=== PATIENT | female | born 1955 | race African-American/Black ===

== ENCOUNTER 2017-04-19 08:52 | Inpatient (IN) | payer OTHER ==
[~2017-04-19] VITALS: Ht 167.6 cm; Wt 118.0 kg
[~2017-04-19 08:52] MED LIST: ALBU8.5H8 IH; ALPR0.5T PO; AMLO5TAB2 PO; ATEN25TA PO; BUDE10.2 IH; CEFP200T PO; CEPH-264 PO; CYCL10TA2 PO; FURO40TA4 PO; GLIP10TA13 PO; GUAI180L4 PO; HYDR-2680 PO; HYDR200T5 PO; INSU100V8 SQ; METO10TA81 PO; MIRT15TA3 PO; NAPR500T3 PO; ONDA4TAB7 PO; POTA20TA84 PO; RABE20TA18 PO
[2017-04-19] MEDS ORDERED: IV DEXTROSE 10% 500 ML IV ONE ×3 (09:30→10:00)
[2017-04-19] MEDS ORDERED: 0.9 % SODIUM CHLORIDE 10 ML DISP.SYRIN. IV PRN (09:30)
[2017-04-19] MEDS ORDERED: IV NORMAL SALINE 1000ML BAG 1,000 ML IV SCH (09:30)
--- NOTE | 2017-04-19 09:40 | PHYS DOC ---
Past Medical History Past Medical History: Arthritis, Diabetes-Type II, GERD, Hypertension, Pneumonia, Other Additional Past Medical Histor: SARCOIDOSIS; wound on left 1st toe Past Surgical History: Cholecystectomy, Hysterectomy Alcohol Use: None Drug Use: None Adult General Chief Complaint Chief Complaint: HYPOGLYCEMIA HPI HPI Patient is a pleasant 61-year-old female with a history of hypertension, depression, diabetes, reflux who presents with hypogastric event for the first time. Yesterday morning the patient began having some nausea with decreased appetite. She took her normal 70 units of subcutaneous Lantus yesterday morning and then her dose again yesterday evening but admits she did not eat much. She' s been very nauseous with no clear episodes of vomiting or diarrhea but has had decreased energy. This morning by family she was found unresponsive on the floor. There is no signs of external trauma. Patient had a D stick when EMS struck a 36. They gave her an amp of D50 which she did improve her mentation. Patient's son to baseline she still is very tired. She admits that she taken her Lantus without eating because she had no appetite. This is the first time she's ever had a hypoglycemic event like this. She denies any chest pain, belly pain, nausea vomiting at this time. She denies any headache focal neurologic deficit. She denies any direct trauma. She also denies any travel outside the country, sick contacts or recent antibiotic use. She denies any change in her medications change in urine output or changes in diet. Dr. Valorie Rivera is her PCP. Review of Systems Review of Systems Constitutional: Denies fever or chills [] Eyes: Denies change in visual acuity, redness, or eye pain [] HENT: Denies nasal congestion or sore throat [] Respiratory: Denies cough or shortness of breath [] Cardiovascular: No additional information not addressed in HPI [] GI: Patient denies abdominal pain but has had some nausea without vomiting or diarrhea or stool problems. : Denies dysuria or hematuria [] Musculoskeletal: Denies back pain or joint pain [] Integument: Denies rash or skin lesions [] Neurologic: Denies headache, focal weakness or sensory changes patient feels tired but has no specific focal neurologic deficit. Endocrine: Denies polyuria or polydipsia [] Current Medications Current Medications Current Medications Medications (Trade) Dose Ordered Sig/Valencia Start Time Stop Time Status Last Admin Dose Admin Dextrose 500 ml @ 0 mls/hr 1X ONCE 04/19/17 10:00 04/19/17 10:01 DC 04/19/17 09:55 999 MLS/HR Sodium Chloride (Normal Saline Flush) 10 ml QSHIFT PRN 04/19/17 09:30 Allergies Allergies Allergies Coded Allergies Type Severity Reaction Last Updated Verified Penicillins Allergy Intermediate 05/15/16 Yes benzocaine Allergy Intermediate 05/15/16 Yes hydralazine Allergy Intermediate 05/13/16 No lidocaine Allergy Intermediate 05/15/16 Yes losartan Allergy Intermediate 05/15/16 Yes tetracaine Allergy Intermediate 05/15/16 Yes Physical Exam Physical Exam His vital signs reviewed and noted to be hypertensive otherwise normal. Constitutional: Well developed, well nourished, no acute distress, patient is mildly obese but she is somewhat sleepy. HENT: Normocephalic, atraumatic, bilateral external ears normal, oropharynx moist, no oral exudates, nose normal. [] Eyes: PERRLA, EOMI, conjunctiva normal, no discharge. [] Neck: Normal range of motion, no tenderness, supple, no stridor. [] Cardiovascular:Heart rate regular rhythm, no murmur [] Lungs & Thorax: Bilateral breath sounds clear to auscultation [] Abdomen: Bowel sounds normal, soft, no tenderness, no masses, no pulsatile masses. [] Skin: Warm, dry, no erythema, no rash. [] Back: No tenderness, no CVA tenderness. [] Extremities: No tenderness, no cyanosis, no clubbing, ROM intact, no edema. [] Neurologic: Alert and oriented X 3, normal motor function, normal sensory function, no focal deficits noted. [] Psychologic: No sleepy but she is very lucid and remembering the entire event. She does not remember passing out prior to being found down this morning. Current Patient Data Vital Signs Vital Signs Date Time Temp Pulse Resp B/P (MAP) Pulse Ox O2 Delivery O2 Flow Rate FiO2 04/19/17 08:58 97.4 65 18 140/68 (92) 93 Room Air 97.4 Lab Values Laboratory Tests Test 04/19/17 08:58 Glucose (Fingerstick) 101 mg/dL (70-99) H EKG EKG [] EKG timed 90504/19/2017 demonstrates a normal sinus rhythm with a heart rate of 65. MD interval of 204 which is first degree AV block QRS is 92 QTC is 525 which demonstrated demonstrates QT prolongation. Read by Dr. Chandler. Radiology/Procedures Radiology/Procedures [] Course & Med Decision Making Course & Med Decision Making Pertinent Labs and Imaging studies reviewed. (See chart for details) []International Coordinator note: Consulted internal medicine PCP International Coordinator called at of the service consult service: 9:32 AM. Consult called back at 9:52 AM Discussed the case I presented and they agreed with admission. Time of acceptance 9:52 AM Impression suffered from hypoglycemic event likely secondary to misuse of Lantus and not eating an adequate amount. There is an unfortunate interaction between some of the medications she takes orally hydroxy chloroquine and the Lantus have additive effects. That'll actually increased the likelihood of hypoglycemic events. not Quite back to baseline her sugars have dropped from 228 -105 here in the emergency department despite being given an amp of D50 she will be given D10 and fed. I would encourage that we admit her to the hospital to help provide her a significant amount of sugar and protein to ensure that she does not become hypoglycemic again. Patient was given a food tray at approximately 9:30 AM which she was not able to consume because she was not hungry. Given this fact I called internal medicine 9:32 AM or admission in fear that the patient's Lantus which has a long half life is 12-24 hours will continue to work and possible hypogastric events. At this point patient will be admitted to the hospital given D10 over 5- 10 minute period to help reduce a this frequency of syncopal events. differential includes but not limited to: Neurally mediated vasovagal syncope, situational syncope, cardiac sinus syncope , orthostatic hypertension, medications, psychiatric interventions, neurologic syncope, cardiogenic syncopal B, to include organic heart disease congestive heart failure, cardiac dysrhythmia, seizure disorder, stroke or transient ischemic attack, bradycardia dysrhythmias, tachycardia dysrhythmias, PT, V. fib V. fib, cardiac abnormalities like first degree secondary third-degree AV blocks , prolonged QT, hypertrophic Terrance myopathy, severe pulmonic stenosis, pulmonary arterial hypertension, atrial myxomas, aortic stenosis, valvular failure, alcohol consumption, adrenal insufficiency, drug effects from things like antidepressants, antihypertensive agents like beta blockers, vasodilators including calcium channel blockers and nitrates, autonomic insufficiency. I spent approximately 45-50 minutes working and engaged directly in the patient care providing critical care evaluation this includes but not limited to time spent engaged in work directly related to the individual patients care. I spent time at the bedside, reviewing test results, discussing the case with staff, documenting the medical record and time spent with EMS discussing specific treatment issues when the patient presented and during his evaluation. Impression: Hypoglycemia secondary to decreased oral intake and Lantus use. Medication interaction, QT prolongation of unclear etiology. disPosition: Admission to the hospital for close monitoring Dragon Disclaimer Dragon Disclaimer This electronic medical record was generated, in whole or in part, using a voice recognition dictation system. Departure Departure Impression: Primary Impression: Nausea & vomiting Additional Impressions: QT prolongation Hypoglycemia Altered mental status Disposition: 09 ADMITTED INPATIENT Admitting Physician: Alida Tariq Condition: GUARDED Referrals: PRO RIVERA MD (PCP) Problem Qualifiers ONOFRE CHANDLER MD Apr 19, 2017 09:40
[2017-04-19] MEDS ORDERED: IV DEXTROSE 5% - 0.9 % NACL 1,000 ML IV ONE (10:45)
[2017-04-19 10:54] LABS: BASO # 0.1 x10^3/uL (0.0-0.2); BASO % 1 % (0-3); EOS % 0 % (0-3); HEMATOCRIT 23.9 % (36.0-47.0); HEMOGLOBIN 7.1 g/dL (12.0-15.5); LYMPH % 12 % (24-48); MEAN CORPUSCULAR HEMOGLOBIN 19 pg (25-35); MEAN CORPUSCULAR HGB CONC 30 g/dL (31-37); MEAN CORPUSCULAR VOLUME 64 fL (79-100); MONO % 5 % (0-9); NEUT % 83 % (31-73); PLATELET COUNT 208 x10^3/uL (140-400); RED BLOOD COUNT 3.73 x10^6/uL (3.50-5.40); RED CELL DISTRIBUTION WIDTH 17.1 % (11.5-14.5); WHITE BLOOD COUNT 8.2 x10^3/uL (4.0-11.0)
[2017-04-19] MEDS ORDERED: DEXTROSE 50% 25 GM / 50ML DISP.SYRIN. IV PRN (11:00)
[2017-04-19 11:04] LABS: CALCIUM 7.9 mg/dL (8.5-10.1); CREATININE 1.4 mg/dL (0.6-1.0); GFR 46.1
[2017-04-19 11:10] LABS: ALBUMIN 3.2 g/dL (3.4-5.0); DIRECT BILIRUBIN 0.3 mg/dL (0.0-0.2); MAGNESIUM 1.3 mg/dL (1.8-2.4); TOTAL BILIRUBIN 0.7 mg/dL (0.2-1.0); TOTAL PROTEIN 7.8 g/dL (6.4-8.2)
[2017-04-19] MEDS ORDERED: guaiFENesin DM 200MG/20MG 10 ML SYRUP PO PRN (11:15)
[2017-04-19] MEDS ORDERED: ALBUTEROL SULFATE 2.5 MG/3 ML NEBU. NEB PRN (11:15)
[2017-04-19 11:20] VITALS: BP 144/72
[2017-04-19 11:35] LABS: PLT ESTIMATE ADEQUATE (ADEQUATE); POLYCHROMASIA SLIGHT
[2017-04-19 11:36] LABS: ANISOCYTOSIS SLIGHT; MICROCYTOSIS PRESENT
--- NOTE | 2017-04-19 11:43 | EKG ---
[facility] [address] [place] [address] Test Date: 2017-04-19 Test Time: 09:06:22 Pat Name: MARLENI LEOS Department: Room: 572 1 Gender: F Scalper Operator: : [id number] Requested By: ONOFRE CHANDLER Order Number: [id number] Reading MD: Allen Cummings Measurements Intervals [place] Rate: 65 P: 68 PA: 204 QRS: 1 QRSD: 92 T: 31 QT: 504 QTc: 525 Interpretive Statements SINUS RHYTHM PROLONGED QT RI6.01 Unconfirmed report Compared to ECG 03/01/2017 13:36:12 Prolonged QT interval now present ST (T wave) deviation no longer present Electronically Signed On 04-19-2017 13:26:52 CDT by Allen Cummings
[2017-04-19] MEDS: BUDESONIDE 0.5 MG/2 ML NEBU. NEB SCH ×2 (11:59→19:32)
[2017-04-19] MEDS: ALBUTEROL SULFATE 2.5 MG/3 ML NEBU. NEB SCH ×3 (11:59→19:32)
[2017-04-19] MEDS: INSULIN ASPART 300 UNITS/3 ML INSULN.PEN SQ SCH ×2 (12:00→16:35)
[2017-04-19] MEDS ORDERED: ENOXAPARIN 40 MG/0.4 ML SYRINGE. SQ SCH (12:00)
[2017-04-19 12:09] LABS: BILIRUBIN,URINE NEGATIVE (NEG); GLUCOSE,URINE NEGATIVE (NEG); NITRITE,URINE NEGATIVE (NEG); PROTEIN,URINE NEGATIVE (NEG-TRACE)
[2017-04-19 12:21] LABS: BACTERIA,URINE FEW /HPF (0-FEW); RBC,URINE OCC /HPF (0-2); SQUAMOUS EPITHELIAL CELL,UR MANY /LPF
[2017-04-19] MEDS: HYDROXYCHLOROQUINE 200 MG TABLET PO SCH ×2 (13:27→21:39)
[2017-04-19] MEDS: PANTOPRAZOLE 40 MG TABLET.DR. PO SCH (13:27)
[2017-04-19] MEDS: FUROSEMIDE 40 MG TABLET. PO SCH (13:27)
[2017-04-19] MEDS: ATENOLOL 25 MG TABLET. PO SCH ×2 (13:27→21:39)
[2017-04-19] MEDS: MIRTAZAPINE 15 MG TABLET PO SCH (13:27)
[2017-04-19] MEDS: amLODIPine BESYLATE 5 MG TABLET PO SCH (13:27)
[2017-04-19 14:46] VITALS: BP 139/63
[2017-04-19] MEDS ORDERED: POTASSIUM CHLORIDE 20 MEQ TABLET.ER. PO ONE ×2 (15:00→18:00)
--- NOTE | 2017-04-19 15:08 | PDOC ---
Provider Note Provider Note Pt seen.H&P dictated. #[id number] AURELIA HOWELL MD Apr 19, 2017 15:08
[2017-04-19] MEDS ORDERED: POTASSIUM CL 20MEQ IN D5W 1,000 ML IV SCH (15:30)
--- NOTE | 2017-04-19 16:24 | HP ---
ADMIT DATE: 04/19/2017 LOCATION: 2. ATTENDING PHYSICIAN: Dr. Adi Rivera. REASON FOR ADMISSION TO THE HOSPITAL: Hypoglycemia and low sugar feels weak. HISTORY OF PRESENT ILLNESS: The patient is a 61-year-old female, patient of Dr. Rivera. The patient has a history of diabetes, hypertension, reflux and has been nausea, decreased appetite. She took her normal dose of insulin Lantus is take 70 units twice a day and found on response to on the floor by the family and no external trauma. Paramedics was called, when they came, her sugar was 36, given 1 ampule of D50 and mental condition improved a little bit. She is very tired and she is not eating, was admitted to the hospital with a diagnosis of hypoglycemia. Her hemoglobin was low at 7, potassium was low at 3. The patient was given fluids, D5, was admitted to the hospital. The patient was admitted to the hospital on 04/01/2017 and at that time was found to have diabetic gastroparesis and her hemoglobin was 7.5, had a CT scan, gastric emptying study at that time. PAST MEDICAL HISTORY: Hypertension, hyperlipidemia, migraine, gastroparesis, fatty liver, anxiety, low back pain, arthritis, fibromyalgia, rheumatoid arthritis sero negative, polyarthralgia, sarcoidosis, chronic renal insufficiency stage 2, diabetes, insulin-dependent, and neuropathy. PAST SURGICAL HISTORY: Gallbladder surgery and hysterectomy. FAMILY HISTORY: Positive for CAD, diabetes and hypertension. SOCIAL HISTORY: Negative for smoking, alcohol or drug abuse. REVIEW OF SYSTEMS: Not feeling well, had nausea, vomiting and some diarrhea yesterday, did not eat much and sugar was low. Denies any fever, denies any chest pain or shortness of breath. Rest of the 14 systems was reviewed and negative. ALLERGIES: TO PENICILLIN, BENZOCAINE, HYDRALAZINE, LIDOCAINE, LOSARTAN, AND TETRACYCLINE. MEDICATIONS At HOME: Insulin 70 units twice daily. She was on antibiotic cefpodoxime not sure if she is currently taking or stopped taking. Albuterol 2 puffs 4 times daily, amlodipine 5 mg daily, atenolol 25 mg twice a day, Symbicort twice a day, cyclobenzaprine 10 mg at bedtime, Lasix 40 mg daily, cough syrup, hydrocodone qid, hydroxychloroquine 200 mg twice a day, mirtazapine 50 mg daily and Aciphex 20 mg daily. The patient says she had an EGD and colon more than 7 years ago and the CT scan shows a right renal mass 2.3 cm last time. PHYSICAL EXAMINATION: GENERAL: The patient is not in any distress. VITAL SIGNS: Temperature 97, pulse 65, respirations 18, blood pressure 140/68, 93% on 2 liters. HEENT: Head is atraumatic. Pupils equal. Oral cavity: No congestion. NECK: Supple. Thyroid not enlarged. JVD not elevated. CHEST: Symmetrical. CARDIOVASCULAR: S1, S2. LUNGS: Clear to auscultation. No wheezing. ABDOMEN: Soft, bowel sounds present, no mass palpable. EXTERNAL GENITALIA: No Mccray. RECTAL: Deferred. EXTREMITIES: No calf tenderness, no edema. NEUROLOGIC: Moving all extremities. No focal deficit. The patient making good conversation. She is keeping her eyes closed. LABORATORY DATA: Shows a white count of 8, hemoglobin 7.1, platelets 208. Electrolytes: Sodium 139, potassium 3.0, chloride 100, bicarb 30, BUN 13, creatinine 1.4, glucose 104 and went down to 63, magnesium 1.3, low. LFTs were normal. Troponin 0.017. TSH is 0.3. Urine was negative, 5-10 wbc. EKG done normal sinus rhythm, slightly prolonged QT interval. FINAL IMPRESSION: 1. Hypoglycemia. 2. Stomach upset with nausea, vomiting, diarrhea for last 24 hours. 3. Anemia severe 4. Renal insufficiency stage 3. 5. Arthritis. 6. Renal mass. 7. Possible sarcoidosis. 8. Rheumatoid arthritis. 9. Type 2 josephine chris 10.IDDM PLAN: At this time, was admitted to the hospital and hold off on the Lantus given D5 and monitor blood sugars check A1c and also the patient would need workup for anemia. Hemoglobin was 7, stool for Hemoccult, iron studies and some IV infusion, iron and also had GI workup done for her anemia if not done recently, also replace potassium. DVT prevention with SCD hold off on the Lovenox secondary to anemia. AURELIA HOWELL MD DR: VANESA/thomas JOB#: [id number] / [id number] MTDD
[2017-04-19 19:00] VITALS: BP 164/74
[2017-04-19] MEDS ORDERED: MAGNESIUM SULFATE 2GM 50 ML IV ONE (20:30)
[2017-04-19] MEDS ORDERED: NON FORMULARY ITEM (Budesonide/Formoterol Fumarate (Symbicort 160-4.5 Mcg Inhaler) 2 PUFF) IH SCH (21:00)
[2017-04-19] MEDS: CYCLOBENZAPRINE 10 MG TABLET. PO SCH (21:39)
[2017-04-19] MEDS: HYDROcodone/APAP 10/325 1 TAB TABLET PO PRN (21:43)
[2017-04-19 23:00] VITALS: BP 157/75
[2017-04-20] VITALS (15 sets, daily range): BP systolic 134–171; BP diastolic 52–84
[2017-04-20 06:27] LABS: BASO # 0.1 x10^3/uL (0.0-0.2); BASO % 1 % (0-3); EOS % 2 % (0-3); HEMATOCRIT 22.3 % (36.0-47.0); LYMPH # 2.5 x10^3/uL (1.0-4.8); LYMPH % 27 % (24-48); MEAN CORPUSCULAR HEMOGLOBIN 19 pg (25-35); MEAN CORPUSCULAR HGB CONC 30 g/dL (31-37); MEAN CORPUSCULAR VOLUME 64 fL (79-100); MONO % 9 % (0-9); NEUT % 61 % (31-73); PLATELET COUNT 196 x10^3/uL (140-400); RED BLOOD COUNT 3.49 x10^6/uL (3.50-5.40); WHITE BLOOD COUNT 9.1 x10^3/uL (4.0-11.0)
[2017-04-20 06:38] LABS: CALCIUM 7.9 mg/dL (8.5-10.1); CREATININE 1.3 mg/dL (0.6-1.0); GFR 50.2
[2017-04-20 06:39] LABS: % SAT IRON 5 % (15-34); IRON,SERUM 17 ug/dL (50-170); POTASSIUM 3.3 mmol/L (3.5-5.1)
[2017-04-20 06:47] LABS: HEMOGLOBIN 6.7 g/dL (12.0-15.5)
[2017-04-20] MEDS: ALBUTEROL SULFATE 2.5 MG/3 ML NEBU. NEB SCH ×3 (07:49→16:38)
[2017-04-20] MEDS: BUDESONIDE 0.5 MG/2 ML NEBU. NEB SCH ×3 (07:50→19:44)
[2017-04-20] MEDS: INSULIN ASPART 300 UNITS/3 ML INSULN.PEN SQ SCH ×3 (08:00→17:00)
[2017-04-20] MEDS ORDERED: IRON SUCROSE COMPLEX 500 MG in IV NORMAL SALINE 250ML 250 ML IV ONE (09:00)
--- NOTE | 2017-04-20 09:06 | PDOC ---
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 04/20/17 0906: IM PROGRESS NOTES- Objective Vitals Vital Signs Date Time Temp Pulse Resp B/P (MAP) Pulse Ox O2 Delivery O2 Flow Rate FiO2 04/20/17 07:52 96 Room Air 04/20/17 07:00 98.6 86 17 164/84 (110) 98.6 04/19/17 14:42 2.0 Input & Output Intake and Output 04/20/17 07:00 Intake Total 2270 ml Output Total 2300 ml Balance -30 ml Intake Oral 1120 ml IV Total 1150 ml Output Urine Total 2300 ml Physical Exam Physical Exam General appearance - alert,well appearing, and in no distress and oriented to person, place, and time Mental Status - alert, oriented to person, place, and time, affect appropriate to mood Head - normal Chest - clear to auscultation, no wheezes, rales or rhonchi, symmetric air entry Heart - S1 and S2 normal Abdomen - soft, nontender, nondistended, obese, BS + Neurological - no acute focal neurological deficit noted. Musculoskeletal - no muscular tenderness noted Extremities - + pedal edema Skin - warm and dry Labs Laboratory Tests Test 04/19/17 08:58 04/19/17 10:25 04/19/17 10:45 04/19/17 11:33 Glucose (Fingerstick) 101 mg/dL (70-99) 90 mg/dL (70-99) White Blood Count 8.2 x10^3/uL (4.0-11.0) Red Blood Count 3.73 x10^6/uL (3.50-5.40) Hemoglobin 7.1 g/dL (12.0-15.5) Hematocrit 23.9 % (36.0-47.0) Mean Corpuscular Volume 64 fL (79-100) Mean Corpuscular Hemoglobin 19 pg (25-35) Mean Corpuscular Hemoglobin Concent 30 g/dL (31-37) Red Cell Distribution Width 17.1 % (11.5-14.5) Platelet Count 208 x10^3/uL (140-400) Neutrophils (%) (Auto) 83 % (31-73) Lymphocytes (%) (Auto) 12 % (24-48) Monocytes (%) (Auto) 5 % (0-9) Eosinophils (%) (Auto) 0 % (0-3) Basophils (%) (Auto) 1 % (0-3) Neutrophils # (Auto) 6.8 x10^3uL (1.8-7.7) Lymphocytes # (Auto) 1.0 x10^3/uL (1.0-4.8) Monocytes # (Auto) 0.4 x10^3/uL (0.0-1.1) Eosinophils # (Auto) 0.0 x10^3/uL (0.0-0.7) Basophils # (Auto) 0.1 x10^3/uL (0.0-0.2) Platelet Estimate Adequate (ADEQUATE) Polychromasia Slight Anisocytosis Slight Microcytosis Present Sodium Level 139 mmol/L (136-145) Potassium Level 3.0 mmol/L (3.5-5.1) Chloride Level 100 mmol/L (98-107) Carbon Dioxide Level 30 mmol/L (21-32) Anion Gap 9 (6-14) Blood Urea Nitrogen 13 mg/dL (7-20) Creatinine 1.4 mg/dL (0.6-1.0) Estimated GFR (Cockcroft-Gault) 46.1 Glucose Level 104 mg/dL (70-99) Calcium Level 7.9 mg/dL (8.5-10.1) Magnesium Level 1.3 mg/dL (1.8-2.4) Total Bilirubin 0.7 mg/dL (0.2-1.0) Direct Bilirubin 0.3 mg/dL (0.0-0.2) Aspartate Amino Transf (AST/SGOT) 36 U/L (15-37) Alanine Aminotransferase (ALT/SGPT) 24 U/L (14-59) Alkaline Phosphatase 126 U/L (46-116) Troponin I Quantitative < 0.017 ng/mL (0.000-0.055) Total Protein 7.8 g/dL (6.4-8.2) Albumin 3.2 g/dL (3.4-5.0) Thyroid Stimulating Hormone (TSH) 0.362 uIU/mL (0.358-3.74) Urine Collection Type Unknown Urine Color Yellow Urine Clarity Clear Urine pH 6.0 Urine Specific Keller 1.010 Urine Protein Negative mg/dL (NEG-TRACE) Urine Glucose (UA) Negative mg/dL (NEG) Urine Ketones (Stick) Negative mg/dL (NEG) Urine Blood Negative (NEG) Urine Nitrite Negative (NEG) Urine Bilirubin Negative (NEG) Urine Urobilinogen Dipstick 1.0 mg/dL (0.2 mg/dL) Urine Leukocyte Esterase Trace (NEG) Urine RBC Occ /HPF (0-2) Urine WBC 5-10 /HPF (0-4) Urine Squamous Epithelial Cells Many /LPF Urine Bacteria Few /HPF (0-FEW) Test 04/19/17 11:47 04/19/17 12:44 04/19/17 16:09 04/19/17 21:06 Glucose (Fingerstick) 63 mg/dL (70-99) 96 mg/dL (70-99) 140 mg/dL (70-99) 126 mg/dL (70-99) Test 04/20/17 04:53 04/20/17 04:55 04/20/17 07:06 04/20/17 08:15 Sodium Level 141 mmol/L (136-145) Potassium Level 3.3 mmol/L (3.5-5.1) Chloride Level 104 mmol/L (98-107) Carbon Dioxide Level 29 mmol/L (21-32) Anion Gap 8 (6-14) Blood Urea Nitrogen 12 mg/dL (7-20) Creatinine 1.3 mg/dL (0.6-1.0) Estimated GFR (Cockcroft-Gault) 50.2 Glucose Level 29 mg/dL (70-99) Calcium Level 7.9 mg/dL (8.5-10.1) Magnesium Level 1.9 mg/dL (1.8-2.4) Iron Level 17 ug/dL (50-170) Total Iron Binding Capacity 376 ug/dL (250-450) Iron Saturation 5 % (15-34) Ferritin 24 ng/mL (8-252) White Blood Count 9.1 x10^3/uL (4.0-11.0) Red Blood Count 3.49 x10^6/uL (3.50-5.40) Hemoglobin 6.7 g/dL (12.0-15.5) Hematocrit 22.3 % (36.0-47.0) Mean Corpuscular Volume 64 fL (79-100) Mean Corpuscular Hemoglobin 19 pg (25-35) Mean Corpuscular Hemoglobin Concent 30 g/dL (31-37) Red Cell Distribution Width 17.0 % (11.5-14.5) Platelet Count 196 x10^3/uL (140-400) Neutrophils (%) (Auto) 61 % (31-73) Lymphocytes (%) (Auto) 27 % (24-48) Monocytes (%) (Auto) 9 % (0-9) Eosinophils (%) (Auto) 2 % (0-3) Basophils (%) (Auto) 1 % (0-3) Neutrophils # (Auto) 5.5 x10^3uL (1.8-7.7) Lymphocytes # (Auto) 2.5 x10^3/uL (1.0-4.8) Monocytes # (Auto) 0.8 x10^3/uL (0.0-1.1) Eosinophils # (Auto) 0.2 x10^3/uL (0.0-0.7) Basophils # (Auto) 0.1 x10^3/uL (0.0-0.2) Reticulocyte Count (auto) 0.9 % (0.5-2.5) Glucose (Fingerstick) 31 mg/dL (70-99) 103 mg/dL (70-99) Laboratory Tests Test 04/19/17 08:58 04/19/17 10:25 04/19/17 10:45 04/19/17 11:33 Glucose (Fingerstick) 101 mg/dL (70-99) 90 mg/dL (70-99) White Blood Count 8.2 x10^3/uL (4.0-11.0) Red Blood Count 3.73 x10^6/uL (3.50-5.40) Hemoglobin 7.1 g/dL (12.0-15.5) Hematocrit 23.9 % (36.0-47.0) Mean Corpuscular Volume 64 fL (79-100) Mean Corpuscular Hemoglobin 19 pg (25-35) Mean Corpuscular Hemoglobin Concent 30 g/dL (31-37) Red Cell Distribution Width 17.1 % (11.5-14.5) Platelet Count 208 x10^3/uL (140-400) Neutrophils (%) (Auto) 83 % (31-73) Lymphocytes (%) (Auto) 12 % (24-48) Monocytes (%) (Auto) 5 % (0-9) Eosinophils (%) (Auto) 0 % (0-3) Basophils (%) (Auto) 1 % (0-3) Neutrophils # (Auto) 6.8 x10^3uL (1.8-7.7) Lymphocytes # (Auto) 1.0 x10^3/uL (1.0-4.8) Monocytes # (Auto) 0.4 x10^3/uL (0.0-1.1) Eosinophils # (Auto) 0.0 x10^3/uL (0.0-0.7) Basophils # (Auto) 0.1 x10^3/uL (0.0-0.2) Platelet Estimate Adequate (ADEQUATE) Polychromasia Slight Anisocytosis Slight Microcytosis Present Sodium Level 139 mmol/L (136-145) Potassium Level 3.0 mmol/L (3.5-5.1) Chloride Level 100 mmol/L (98-107) Carbon Dioxide Level 30 mmol/L (21-32) Anion Gap 9 (6-14) Blood Urea Nitrogen 13 mg/dL (7-20) Creatinine 1.4 mg/dL (0.6-1.0) Estimated GFR (Cockcroft-Gault) 46.1 Glucose Level 104 mg/dL (70-99) Calcium Level 7.9 mg/dL (8.5-10.1) Magnesium Level 1.3 mg/dL (1.8-2.4) Total Bilirubin 0.7 mg/dL (0.2-1.0) Direct Bilirubin 0.3 mg/dL (0.0-0.2) Aspartate Amino Transf (AST/SGOT) 36 U/L (15-37) Alanine Aminotransferase (ALT/SGPT) 24 U/L (14-59) Alkaline Phosphatase 126 U/L (46-116) Troponin I Quantitative < 0.017 ng/mL (0.000-0.055) Total Protein 7.8 g/dL (6.4-8.2) Albumin 3.2 g/dL (3.4-5.0) Thyroid Stimulating Hormone (TSH) 0.362 uIU/mL (0.358-3.74) Urine Collection Type Unknown Urine Color Yellow Urine Clarity Clear Urine pH 6.0 Urine Specific Keller 1.010 Urine Protein Negative mg/dL (NEG-TRACE) Urine Glucose (UA) Negative mg/dL (NEG) Urine Ketones (Stick) Negative mg/dL (NEG) Urine Blood Negative (NEG) Urine Nitrite Negative (NEG) Urine Bilirubin Negative (NEG) Urine Urobilinogen Dipstick 1.0 mg/dL (0.2 mg/dL) Urine Leukocyte Esterase Trace (NEG) Urine RBC Occ /HPF (0-2) Urine WBC 5-10 /HPF (0-4) Urine Squamous Epithelial Cells Many /LPF Urine Bacteria Few /HPF (0-FEW) Test 04/19/17 11:47 04/19/17 12:44 04/19/17 16:09 04/19/17 21:06 Glucose (Fingerstick) 63 mg/dL (70-99) 96 mg/dL (70-99) 140 mg/dL (70-99) 126 mg/dL (70-99) Test 04/20/17 04:53 04/20/17 04:55 04/20/17 07:06 04/20/17 08:15 Sodium Level 141 mmol/L (136-145) Potassium Level 3.3 mmol/L (3.5-5.1) Chloride Level 104 mmol/L (98-107) Carbon Dioxide Level 29 mmol/L (21-32) Anion Gap 8 (6-14) Blood Urea Nitrogen 12 mg/dL (7-20) Creatinine 1.3 mg/dL (0.6-1.0) Estimated GFR (Cockcroft-Gault) 50.2 Glucose Level 29 mg/dL (70-99) Calcium Level 7.9 mg/dL (8.5-10.1) Magnesium Level 1.9 mg/dL (1.8-2.4) Iron Level 17 ug/dL (50-170) Total Iron Binding Capacity 376 ug/dL (250-450) Iron Saturation 5 % (15-34) Ferritin 24 ng/mL (8-252) White Blood Count 9.1 x10^3/uL (4.0-11.0) Red Blood Count 3.49 x10^6/uL (3.50-5.40) Hemoglobin 6.7 g/dL (12.0-15.5) Hematocrit 22.3 % (36.0-47.0) Mean Corpuscular Volume 64 fL (79-100) Mean Corpuscular Hemoglobin 19 pg (25-35) Mean Corpuscular Hemoglobin Concent 30 g/dL (31-37) Red Cell Distribution Width 17.0 % (11.5-14.5) Platelet Count 196 x10^3/uL (140-400) Neutrophils (%) (Auto) 61 % (31-73) Lymphocytes (%) (Auto) 27 % (24-48) Monocytes (%) (Auto) 9 % (0-9) Eosinophils (%) (Auto) 2 % (0-3) Basophils (%) (Auto) 1 % (0-3) Neutrophils # (Auto) 5.5 x10^3uL (1.8-7.7) Lymphocytes # (Auto) 2.5 x10^3/uL (1.0-4.8) Monocytes # (Auto) 0.8 x10^3/uL (0.0-1.1) Eosinophils # (Auto) 0.2 x10^3/uL (0.0-0.7) Basophils # (Auto) 0.1 x10^3/uL (0.0-0.2) Reticulocyte Count (auto) 0.9 % (0.5-2.5) Glucose (Fingerstick) 31 mg/dL (70-99) 103 mg/dL (70-99) Meds Current Medications Acetaminophen/ Hydrocodone Bitart (Lortab 10/325) 1 tab PRN Q6HRS PRN PO PAIN Last administered on 04/19/17 21:43; Start 04/19/17 at 11:00 Albuterol Sulfate (Ventolin Neb Soln) 2.5 mg PRN Q4HRS PRN NEB COUGH; Start 04/19/17 at 11:15 Albuterol Sulfate (Ventolin Neb Soln) 2.5 mg RTQID NEB Last administered on 04/20 07:49; Start 04/19/17 at 12:00 Amlodipine Besylate (Norvasc) 5 mg DAILY PO Last administered on 04/19/17 13:27 ; Start 04/19/17 at 12:00 Atenolol (Tenormin) 25 mg BID PO Last administered on 04/19/17 21:39; Start 04/19/17 at 12:00 Budesonide (Pulmicort) 0.5 mg RTBID NEB Last administered on 04/20/17 07:50; Start 04/19/17 at 12:00 Cyclobenzaprine HCl (Flexeril) 10 mg QHS PO Last administered on 04/19/17 21:39 ; Start 04/19/17 at 21:00 Dextrose 500 ml @ 0 mls/hr 1X ONCE IV ; Start 04/19/17 at 09:30; Stop 04/19/17 at 09:30; Status DC Dextrose 500 ml @ 0 mls/hr 1X ONCE IV ; Start 04/19/17 at 09:30; Stop 04/19/17 at 09:55; Status DC Dextrose 500 ml @ 0 mls/hr 1X ONCE IV Last administered on 04/19/17 09:55; Start 04/19/17 at 10:00; Stop 04/19/17 at 10:01; Status DC Dextrose (Dextrose 50%-Water Syringe) 12.5 gm PRN Q15MIN PRN IV SEE COMMENTS; Start 04/19/17 at 11:00 Dextrose/Sodium Chloride 1,000 ml @ 75 mls/hr 1X ONCE IV Last administered on 04/19/17 10:39; Start 04/19/17 at 10:45; Stop 04/20/17 at 00:04; Status DC Enoxaparin Sodium (Lovenox 40mg Syringe) 40 mg Q12HR SQ Last administered on 13:28; Start 04/19/17 at 12:00; Stop 04/19/17 at 14:56; Status DC Furosemide (Lasix) 40 mg DAILY PO Last administered on 04/19/17 13:27; Start at 12:00 Guaifenesin (Robitussin Dm) 10 ml PRN Q6HRS PRN PO COUGH; Start 04/19/17 at 11: 15 Hydroxychloroquine Sulfate (Plaquenil) 200 mg BID PO Last administered on 21:39; Start 04/19/17 at 12:00 Insulin Aspart (NovoLOG) 0-7 UNITS TIDWMEALS SQ ; Start 04/19/17 at 12:00 Iron Sucrose 500 mg/Sodium Chloride 275 ml @ 78.571 mls/ hr 1X ONCE IV ; Start 04/20/17 at 09:00; Stop 04/20/17 at 12:29 Iron Sucrose 500 mg/Sodium Chloride 275 ml @ 78.571 mls/ hr 1X ONCE IV ; Start 04/21/17 at 08:00; Stop 04/21/17 at 11:29 Magnesium Sulfate/ Dextrose 50 ml @ 25 mls/hr 1X ONCE IV Last administered on 04/19/17 21:40; Start 04/19/17 at 20:30; Stop 04/19/17 at 22:29; Status DC Mirtazapine (Remeron) 15 mg DAILY PO Last administered on 04/19/17 13:27; Start 04/19/17 at 12:00 Non-Formulary Medication 2 puff BID IH ; Start 04/19/17 at 21:00; Status UNV Pantoprazole Sodium (Protonix) 40 mg DAILYAC PO Last administered on 04/19/17 13:27; Start 04/19/17 at 12:00 Potassium Chloride/Dextrose 1,000 ml @ 75 mls/hr [id number] IV Last administered on 04/19/17 17:04; Start 04/19/17 at 15:30 Potassium Chloride (Klor-Con) 40 meq 1X ONCE PO Last administered on 04/19/17 17:03; Start 04/19/17 at 15:00; Stop 04/19/17 at 15:01; Status DC Potassium Chloride (Klor-Con) 40 meq 1X ONCE PO Last administered on 04/19/17 19:11; Start 04/19/17 at 18:00; Stop 04/19/17 at 18:01; Status DC Sodium Chloride 1,000 ml @ 1,000 mls/hr Q1H IV Last administered on 04/19/17 09:56; Start 04/19/17 at 09:30; Stop 04/19/17 at 10:29; Status DC Sodium Chloride (Normal Saline Flush) 10 ml QSHIFT PRN IV AFTER MEDS AND BLOOD DRAWS; Start 04/19/17 at 09:30 Assessment Assessment 1. 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 2. Stomach upset with nausea, vomiting, diarrhea for last 24 hours. 3. Anemia severe Fe deficiency 4. HTN 5. sarcoidosis 6. RA seronegative 7. fatty liver 8. h/o diverticula R lower colon 9. severe PCL malnutrition due to n/v 10. hyperlipidemia 11. migraine headache 12. gastroparesis POA with delayed gastric emptying 13. acute hypokalemia POA 14. OA 15. h/o renal mass 16. Stomach upset with nausea, vomiting, diarrhea for last 24 hours.POA PLAN anemia Admit Hgb 7.1 11/18 6.7 2 unit PRC 11/18 hematology consult GI consult IV iron 11/18-Fe panel:Fe deficient DC lovenox DM II hypoglycemia FSBS/ssi D10 11/17 IV D5NS with 20 KCL 11/17 with KCL increased 11/18 to 40meq lower extremity edema continue Home lasix 40mg IV CKD III Admit BUN 13 11/18 12 Cr 1.4 1.3 K 3.0 3.3 Mg 1.3 1.9 IV KCL increased to 40meq Additional 20 po 11/18 Mg SO4 11/18 4gm IV n/v diarrhea GI consult h/o gastroparesis ?viral gastroenteritis DVT/GI prophylaxis SCD/RUTH Stop lovenox -anemia with PRC infusion PPI Plan Plan For more details regarding further plans, please refer to the orders. PRO SCHROEDER MD 04/20/17 0912: IM PROGRESS NOTES- Subjective Subjective Has nausea,vomiting diarrhea,hypoglycemia- glucose 31,and fatigue. Other systems reviewed and are negative. No c/o bleeding. Assessment Assessment Hypokalemia- increase KCL in IV fluids. Has edema of legs- continue oral Lasix but no need for IV Lasix between PRBcs at this time. h/o noncompliance. will check to see when she had GI endoscopy previously. The patient was seen and examined by me. Chart reviewed and plan of care formulated. Discussed with, reviewed and agree with [facility]'s notes, plan of care and orders with modifications as necessary. For more details regarding further plans, please refer to the orders. TARA SANTIAGO APRN Apr 20, 2017 09:06 PRO SCHROEDER MD Apr 20, 2017 09:12
[2017-04-20] MEDS ORDERED: ONDANSETRON PF 4 MG/2 ML VIAL. IV PRN (09:15)
[2017-04-20] MEDS ORDERED: METOCLOPRAMIDE HCL 10 MG/2 ML VIAL. IV PRN (09:15)
[2017-04-20] MEDS ORDERED: POTASSIUM CHLORIDE 20 MEQ TABLET.ER. PO ONE (09:30)
--- NOTE | 2017-04-20 09:41 | PDOC ---
Provider Note Provider Note Onc consult dictated- [id number] Iron def anemia, chronic - Venofer 1000 mg total ordered - Gi consulted - Transfusing 1 unit for hgb < 7 today - Will set up 2 mth f/u to verify full replacement of iron deficit JENNIFER AMEZQUITA DO Apr 20, 2017 09:41
--- NOTE | 2017-04-20 10:32 | PDOC2 ---
GI CONSULT Reason For Consult: Anemia, GI workup HPI: HPI: 61 y/o female known to GI/Dr. Brooks. Admitted w/ hypoglycemia. H/o gastroparesis w/ delayed GES in 2015. N/v improved w/ Reglan which she prefers not to take, says causes diarrhea. H/o GERD controlled w/ PPI (Aciphex), last EGD 2005. Last colonoscopy <10 years ago, recalls being normal. Thinks both ' scopes at [facility]. Has CHRISTOPHER w/ Hgb in 8-9 range in 2015, last admission 02/2017 in 7s , this admission was 7.1 and now 6.7. Low indices, normal BUN, Cr 1.3. Denies any GI symptoms to me including vomiting, abd pain, diarrhea, constipation, weight loss, hematochezia, melena. Had some nausea earlier after a breathing treatment, now better. PMH: PMH: RA, sarcoidosis, IDDM, HTN, GERD, gastroparesis, CHRISTOPHER, cholecystectomy, total hysterectomy FH: Family History: No pertinent hx Social History: ALCOHOL: none Drugs: None ROS: GEN: Denies fevers, chills, sweats HEENT: Denies blurred vision, sore throat CV: Denies chest pain RESP: +SOA GI: Per HPI : Denies hematuria, dysuria ENDO: Denies weight changes NEURO: Denies confusion, dizziness MSK: +weakness, h/o RA SKIN: Denies jaundice, pruritus Vitals: Vitals: Vital Signs Date Time Temp Pulse Resp B/P (MAP) Pulse Ox O2 Delivery O2 Flow Rate FiO2 04/20/17 08:00 Room Air 2.0 04/20/17 07:52 96 04/20/17 07:00 98.6 86 17 164/84 (110) 98.6 Labs: Labs: Laboratory Tests Test 04/19/17 10:25 04/19/17 10:45 04/19/17 11:33 04/19/17 11:47 Glucose (Fingerstick) 90 mg/dL (70-99) 63 mg/dL (70-99) White Blood Count 8.2 x10^3/uL (4.0-11.0) Red Blood Count 3.73 x10^6/uL (3.50-5.40) Hemoglobin 7.1 g/dL (12.0-15.5) Hematocrit 23.9 % (36.0-47.0) Mean Corpuscular Volume 64 fL (79-100) Mean Corpuscular Hemoglobin 19 pg (25-35) Mean Corpuscular Hemoglobin Concent 30 g/dL (31-37) Red Cell Distribution Width 17.1 % (11.5-14.5) Platelet Count 208 x10^3/uL (140-400) Neutrophils (%) (Auto) 83 % (31-73) Lymphocytes (%) (Auto) 12 % (24-48) Monocytes (%) (Auto) 5 % (0-9) Eosinophils (%) (Auto) 0 % (0-3) Basophils (%) (Auto) 1 % (0-3) Neutrophils # (Auto) 6.8 x10^3uL (1.8-7.7) Lymphocytes # (Auto) 1.0 x10^3/uL (1.0-4.8) Monocytes # (Auto) 0.4 x10^3/uL (0.0-1.1) Eosinophils # (Auto) 0.0 x10^3/uL (0.0-0.7) Basophils # (Auto) 0.1 x10^3/uL (0.0-0.2) Platelet Estimate Adequate (ADEQUATE) Polychromasia Slight Anisocytosis Slight Microcytosis Present Sodium Level 139 mmol/L (136-145) Potassium Level 3.0 mmol/L (3.5-5.1) Chloride Level 100 mmol/L (98-107) Carbon Dioxide Level 30 mmol/L (21-32) Anion Gap 9 (6-14) Blood Urea Nitrogen 13 mg/dL (7-20) Creatinine 1.4 mg/dL (0.6-1.0) Estimated GFR (Cockcroft-Gault) 46.1 Glucose Level 104 mg/dL (70-99) Calcium Level 7.9 mg/dL (8.5-10.1) Magnesium Level 1.3 mg/dL (1.8-2.4) Total Bilirubin 0.7 mg/dL (0.2-1.0) Direct Bilirubin 0.3 mg/dL (0.0-0.2) Aspartate Amino Transf (AST/SGOT) 36 U/L (15-37) Alanine Aminotransferase (ALT/SGPT) 24 U/L (14-59) Alkaline Phosphatase 126 U/L (46-116) Troponin I Quantitative < 0.017 ng/mL (0.000-0.055) Total Protein 7.8 g/dL (6.4-8.2) Albumin 3.2 g/dL (3.4-5.0) Thyroid Stimulating Hormone (TSH) 0.362 uIU/mL (0.358-3.74) Urine Collection Type Unknown Urine Color Yellow Urine Clarity Clear Urine pH 6.0 Urine Specific Ideal 1.010 Urine Protein Negative mg/dL (NEG-TRACE) Urine Glucose (UA) Negative mg/dL (NEG) Urine Ketones (Stick) Negative mg/dL (NEG) Urine Blood Negative (NEG) Urine Nitrite Negative (NEG) Urine Bilirubin Negative (NEG) Urine Urobilinogen Dipstick 1.0 mg/dL (0.2 mg/dL) Urine Leukocyte Esterase Trace (NEG) Urine RBC Occ /HPF (0-2) Urine WBC 5-10 /HPF (0-4) Urine Squamous Epithelial Cells Many /LPF Urine Bacteria Few /HPF (0-FEW) Test 04/19/17 12:44 04/19/17 16:09 04/19/17 21:06 04/20/17 04:53 Glucose (Fingerstick) 96 mg/dL (70-99) 140 mg/dL (70-99) 126 mg/dL (70-99) Sodium Level 141 mmol/L (136-145) Potassium Level 3.3 mmol/L (3.5-5.1) Chloride Level 104 mmol/L (98-107) Carbon Dioxide Level 29 mmol/L (21-32) Anion Gap 8 (6-14) Blood Urea Nitrogen 12 mg/dL (7-20) Creatinine 1.3 mg/dL (0.6-1.0) Estimated GFR (Cockcroft-Gault) 50.2 Glucose Level 29 mg/dL (70-99) Calcium Level 7.9 mg/dL (8.5-10.1) Magnesium Level 1.9 mg/dL (1.8-2.4) Iron Level 17 ug/dL (50-170) Total Iron Binding Capacity 376 ug/dL (250-450) Iron Saturation 5 % (15-34) Ferritin 24 ng/mL (8-252) Test 04/20/17 04:55 04/20/17 07:06 04/20/17 08:15 White Blood Count 9.1 x10^3/uL (4.0-11.0) Red Blood Count 3.49 x10^6/uL (3.50-5.40) Hemoglobin 6.7 g/dL (12.0-15.5) Hematocrit 22.3 % (36.0-47.0) Mean Corpuscular Volume 64 fL (79-100) Mean Corpuscular Hemoglobin 19 pg (25-35) Mean Corpuscular Hemoglobin Concent 30 g/dL (31-37) Red Cell Distribution Width 17.0 % (11.5-14.5) Platelet Count 196 x10^3/uL (140-400) Neutrophils (%) (Auto) 61 % (31-73) Lymphocytes (%) (Auto) 27 % (24-48) Monocytes (%) (Auto) 9 % (0-9) Eosinophils (%) (Auto) 2 % (0-3) Basophils (%) (Auto) 1 % (0-3) Neutrophils # (Auto) 5.5 x10^3uL (1.8-7.7) Lymphocytes # (Auto) 2.5 x10^3/uL (1.0-4.8) Monocytes # (Auto) 0.8 x10^3/uL (0.0-1.1) Eosinophils # (Auto) 0.2 x10^3/uL (0.0-0.7) Basophils # (Auto) 0.1 x10^3/uL (0.0-0.2) Reticulocyte Count (auto) 0.9 % (0.5-2.5) Glucose (Fingerstick) 31 mg/dL (70-99) 103 mg/dL (70-99) Allergies: Coded Allergies: Penicillins (Verified Allergy, Intermediate, 05/15/16) benzocaine (Verified Allergy, Intermediate, 05/15/16) hydralazine (Unverified Allergy, Intermediate, 05/13/16) lidocaine (Verified Allergy, Intermediate, 05/15/16) losartan (Verified Allergy, Intermediate, 05/15/16) tetracaine (Verified Allergy, Intermediate, 05/15/16) Medications: Current Medications Medications (Trade) Dose Ordered Sig/[place] Route PRN Reason Start Time Stop Time Status Last Admin Dose Admin Dextrose/Sodium Chloride 1,000 ml @ 75 mls/hr 1X ONCE IV 04/19/17 10:45 04/20/17 00:04 DC 04/19/17 10:39 Amlodipine Besylate (Norvasc) 5 mg DAILY PO 04/19/17 12:00 04/19/17 13:27 Atenolol (Tenormin) 25 mg BID PO 04/19/17 12:00 04/19/17 21:39 Cyclobenzaprine HCl (Flexeril) 10 mg QHS PO 04/19/17 21:00 04/19/17 21:39 Furosemide (Lasix) 40 mg DAILY PO 04/19/17 12:00 04/19/17 13:27 Acetaminophen/ Hydrocodone Bitart (Lortab 10/325) 1 tab PRN Q6HRS PRN PO PAIN 04/19/17 11:00 04/19/17 21:43 Hydroxychloroquine Sulfate (Plaquenil) 200 mg BID PO 04/19/17 12:00 04/19/17 21:39 Mirtazapine (Remeron) 15 mg DAILY PO 04/19/17 12:00 04/19/17 13:27 Pantoprazole Sodium (Protonix) 40 mg DAILYAC PO 04/19/17 12:00 04/19/17 13:27 Enoxaparin Sodium (Lovenox 40mg Syringe) 40 mg Q12HR SQ 04/19/17 12:00 04/19/17 14:56 DC 04/19/17 13:28 Budesonide (Pulmicort) 0.5 mg RTBID NEB 04/19/17 12:00 04/20/17 07:50 Albuterol Sulfate (Ventolin Neb Soln) 2.5 mg RTQID NEB 04/19/17 12:00 04/20/17 07:49 Potassium Chloride (Klor-Con) 40 meq 1X ONCE PO 04/19/17 15:00 04/19/17 15:01 DC 04/19/17 17:03 Potassium Chloride (Klor-Con) 40 meq 1X ONCE PO 04/19/17 18:00 04/19/17 18:01 DC 04/19/17 19:11 Potassium Chloride/Dextrose 1,000 ml @ 75 mls/hr [id number] IV 04/19/17 15:30 04/20/17 08:57 DC 04/19/17 17:04 Magnesium Sulfate/ Dextrose 50 ml @ 25 mls/hr 1X ONCE IV 04/19/17 20:30 04/19/17 22:29 DC 04/19/17 21:40 Iron Sucrose 500 mg/Sodium Chloride 275 ml @ 78.571 mls/ hr 1X ONCE IV 04/20/17 09:00 04/20/17 12:29 04/20/17 09:24 Ondansetron HCl (Zofran) 4 mg PRN Q6HRS PRN IV NAUSEA/VOMITING 04/20/17 09:15 04/20/17 09:24 Imaging: Imaging: - PE: GEN: NAD HEENT: Atraumatic, PERRL LUNGS: decreased anteriorly HEART: RRR ABD: NABS, S/ND/NT EXTREMITY: No edema SKIN: No rashes, no jaundice NEURO/PSYCH: A & O 3, depressed A/P: A/P: IDDM, hypoglycemia CHRISTOPHER -history of this, Hgb worse this year -denies obvious bleeding GERD -controlled w/ PPI, last EGD 2005 Gastroparesis -denies issues w/ this, did have some nausea earlier w/ breathing treatment CRC screen -reports normal colonoscopy <10 years ago -- Note plans for transfusion, also has IV iron ordered. Continue PPI. Will d/w Dr. Brooks re: timing of EGD/colonoscopy. REGIS SANFORD Apr 20, 2017 10:32
--- NOTE | 2017-04-20 10:57 | CONS ---
DATE OF CONSULTATION: 04/20/2017 REFERRING PROVIDER: Dr. Rivera. REASON FOR CONSULTATION: Iron deficiency anemia. HISTORY OF PRESENT ILLNESS: The patient is a 61-year-old female, who presented to the hospital with hypoglycemia. She was found to be profoundly anemic with a hemoglobin down to 6.7 this morning. All throughout 2016, her hemoglobin was around 9.6. She has chronically had a low MCV, now in the low 60s. She continues to feel very fatigued and was having some nausea this morning. She states she had a colonoscopy 5 years ago that was unremarkable. She has a [facility] history of GERD and takes medications for this. She does not use any NSAIDs. She denies any melena or hematochezia. She has never taken any oral iron. PAST MEDICAL HISTORY: Hypertension, hyperlipidemia, gastroparesis, fatty liver, fibromyalgia polyarthralgia, sarcoidosis, CKD, insulin-dependent diabetes and neuropathy. PAST SURGICAL HISTORY: Cholecystectomy and hysterectomy. FAMILY HISTORY: Significant only for heart disease, diabetes and hypertension. No malignancy. SOCIAL HISTORY: She denies any tobacco, alcohol or drug use. ALLERGIES: PENICILLIN, BENZOCAINE, HYDRALAZINE, LIDOCAINE, LOSARTAN AND TETRACYCLINE. CURRENT MEDICATIONS: Reglan, Zofran, Flexeril, albuterol, Pulmicort, Protonix, Remeron, Plaquenil, Lasix, atenolol, Norvasc, guaifenesin, albuterol and hydrocodone. REVIEW OF SYSTEMS: Ten point review of systems completed and unremarkable with the exception of her fatigue and nausea as mentioned above. PHYSICAL EXAMINATION: VITAL SIGNS: Temperature 98.6, pulse 86, respiratory rate 17, blood pressure 164/84, 100% O2 on room air. GENERAL: She is alert and oriented. She appears very fatigued this morning and has obviously not feeling well, but is not in any acute distress. HEENT: No scleral icterus. Mucous membranes are dry. CARDIOVASCULAR: Heart is regular in rhythm and rate. LUNGS: Clear to auscultation bilaterally. ABDOMEN: Soft, nontender. EXTREMITIES: No edema. NEUROLOGIC: No focal deficits. IMAGING/LABORATORY DATA: Hemoglobin 6.7, MCV 64. The remainder of her CBC is unremarkable. Iron tests did return low with a serum iron 17, percent iron saturation 5, ferritin 24. ASSESSMENT AND PLAN: The patient is a 61-year-old -[place] female with the following medical problems: 1. Iron deficiency anemia, chronic. GI has been consulted. She received 1 unit of blood today. I have ordered a total of 1000 mg to be given throughout today/tomorrow. We will plan to set up followup in our clinic in 2 months with repeat iron levels just beforehand and verify adequate replacement. She may need further IV iron in the future. Thank you for allowing us to participate in her care. JENNIFER AMEZQUITA DO DR: JOSE/thomas JOB#: [id number] / [id number]
[2017-04-20] MEDS: MIRTAZAPINE 15 MG TABLET PO SCH (11:18)
[2017-04-20] MEDS: amLODIPine BESYLATE 5 MG TABLET PO SCH (11:18)
[2017-04-20] MEDS: ATENOLOL 25 MG TABLET. PO SCH ×2 (11:18→21:20)
[2017-04-20] MEDS: HYDROXYCHLOROQUINE 200 MG TABLET PO SCH ×2 (11:19→21:20)
[2017-04-20] MEDS: PANTOPRAZOLE 40 MG TABLET.DR. PO SCH (11:19)
[2017-04-20] MEDS: FUROSEMIDE 40 MG TABLET. PO SCH (11:19)
[2017-04-20] MEDS ORDERED: ACETAMINOPHEN 325 MG TABLET. PO PRN (14:30)
[2017-04-20] MEDS: POTASSIUM CHLORIDE 40 MEQ in IV DEXTROSE 5% - 0.9 % NACL 1,000 ML IV SCH ×2 (21:17→23:36)
[2017-04-20] MEDS: CYCLOBENZAPRINE 10 MG TABLET. PO SCH (21:21)
[2017-04-20] MEDS: HYDROcodone/APAP 10/325 1 TAB TABLET PO PRN (23:25)
--- NOTE | 2017-04-21 00:26 | ACF ---
Admission Forms Criteria GENERAL ADMISSION CRITERIA (Place 'X' for any and all applicable criteria): Admission is indicated for ANY ONE of the following: [ ]I. Hemodynamic instability as indicated by ANY ONE of the following(1)(2) (3)(4)(5): [ ]a) Vital sign abnormality not readily corrected by appropriate treatment within 12 to 24 hours indicated by ANY ONE of the following: [ ]i) Hypotension [ ]ii) Symptomatic Tachycardia unresponsive to treatment (eg , analgesia, fluids, sedation as indicated) [ ]iii) Orthostatic vital sign changes unresponsive to treatment (eg, fluids) [ ]b) Vital sign abnormality that is severe indicated by ANY ONE of the following: [ ]i) Inadequate perfusion indicated by ANY ONE of the following: [ ]1) Lactic acidosis (greater than 2 mmol/L) [ ]2) New abnormal capillary refill (greater than 3 seconds) [ ]3) Other metabolic acidosis (arterial pH less than 7.35) not otherwise explained [ ]4) Reduced urine output [ ]5) Altered mental status [ ]6) Myocardial Ischemia [ ]v) Mean arterial pressure[A] less than 60 mm Hg [ ]vi) Mean arterial pressure[A] less than 70 mm Hg after 30 minutes of appropriate treatment (eg, fluid resuscitation) [ ]vii) IV inotropic or vasopressor medication required to maintain adequate blood pressure or perfusion [ ]viii) Sustained heart rate greater than 120 beats per minute in adult or child 6 years or older[B]] [ ]II. Hypertension requiring inpatient treatment as indicated by ANY ONE of the following(6)(7)(8): [ ]a) SBP greater than 220 mm Hg or DBP greater than 120 mm Hg despite treatment [ ]b) SBP greater than 140 mm Hg or DBP greater than 100 mm Hg with evidence of acute end organ damage as indicated by ANY ONE of the following: [ ]i) Encephalopathy [ ]ii) Acute renal failure as indicated by new onset of ANY ONE of the following(9)(10)(11)(12)(13): [ ]1) A 3-fold rise in serum creatinine from baseline [ ]2) Serum creatinine greater than 4 mg/dL ( 354 micromoles/L) with acute rise greater than 0.5 mg/dL (44.2 micromoles/L) [ ]3) Reduction of more than 75% in estimated glomerular filtration rate from baseline [ ]4) Estimated glomerular filtration rate less than 35 mL/min/1.73m2 (0.59 mL/sec/1.73m2) in child up to 18 years of age [ ]5) Cessation of urine output indicated by ALL of the following: [ ]A. Adequate volume status [ ]B. Inadequate urine output as indicated by ANY ONE of the following: [ ]a. Urine output less than 0.3 mL/kg/hr for 24 hours [ ]b. Anuria (urine output less than 0.1 mL/kg/hr) for 12 hours [ ]iii) Aortic dissection [ ]iv) Myocardial ischemia [ ]v) Left ventricular heart failure [ ]vi) Retinal hemorrhage [ ]vii) Other significant finding [ ]c) Hypertension in child requiring inpatient treatment as indicated by ALL of the following(14)(15)(16): [ ]i) Outpatient treatment not effective, not available, or not appropriate [ ]ii) SBP or DBP greater than 95th percentile for age [ ]iii) Evidence of acute end organ damage as indicated by ANY ONE of the following: [ ]1) Altered mental status [ ]2) Acute renal failure as indicated by new onset of ANY ONE of the following(9)(10)(11)(12)(13): [ ]A. A 3-fold rise in serum creatinine from baseline [ ]B. Serum creatinine greater than 4 mg/dL (354 micromoles/L) with acute rise greater than 0.5 mg/dL (44.2 micromoles/L) [ ]C. Reduction of more than 75% in estimated glomerular filtration rate from baseline [ ]D. Estimated glomerular filtration rate less than 35 mL/min/1.73m2 (0.59 mL/sec/1.73m2)in child up to 18 years of age [ ]E. Cessation of urine output indicated by ALL of the following: [ ]a. Adequate volume status [ ]b. Inadequate urine output as indicated by ANY ONE of the following: [ ]1) Urine output less than 0.3 mL/kg/hr for 24 hours [ ]2) Anuria (urine output less than 0.1 mL/kg/hr) for 12 hours [ ]3) Severe headache [ ]4) Visual disturbance [ ]5) Retinal hemorrhage [ ]6) Other significant finding [ ]III. Acute cardiac or peripheral ischemia as indicated by ANY ONE of the following: [ ]a) Acute coronary syndrome(17)(18) [ ]b) Acute peripheral ischemia (eg, pulseless, cool, mottled, or cyanotic extremity)(19) [ ]IV. Cardiac arrhythmias or findings of immediate concern indicated by ANY ONE of the following(20)(21): [ ]a) Heart rhythms that are inherently dangerous or unstable indicated by ANY ONE of the following(22)(23)(24): [ ]i) Resuscitated ventricular fibrillation or cardiac arrest [ ]ii) Ventricular escape rhythm [ ]iii) Sustained ventricular tachycardia (30 seconds or more of ventricular rhythm at greater than 100 beats per minute) [ ]iv) Nonsustained ventricular tachycardia and ANY ONE of the following: [ ]1) Suspected cardiac ischemia as cause or consequence of ventricular tachycardia [ ]2) In setting of acute myocarditis [ ]b) Unstable cardiac conduction defects indicated by ANY ONE of the following(24)(25)(26): [ ]i) Type II second-degree atrioventricular block [ ]ii) Third-degree atrioventricular block [ ]iii) New-onset left bundle branch block with suspected myocardial ischemia [ ]c) Any heart rhythm and ANY ONE of the following(22)(23)(27)(28)( 29): [ ] i) Continuous long-term ECG monitoring needed (eg, initiation of drug requiring monitoring for more than 24 hours) [ ] ii) Patient has automatic implanted cardioverter defibrillator that is repeatedly firing, malfunctioning, or in need of immediate adjustment of settings beyond the scope of ambulatory or observation care. [ ]d) Heart rhythms of concern due to ANY ONE of the following: [ ]i) Hypotension [ ]ii) Respiratory distress [ ]iii) Association with other significant symptoms (eg, bradycardia with syncope or ongoing dizziness, supraventricular tachycardia with chest pain) (27)(28) (30) [ ] V. Severe heart failure as indicated by ANY ONE of the following ( 31)(32): [ ]a) Respiratory distress [ ]b) Hypotension [ ]c) Anasarca (refractory to outpatient therapy) [ ]d) Cardiac arrhythmias of immediate concern [ ]e) Myocardial ischemia [ ]. Respiratory abnormalities, including ANY ONE of the following(33)(34) (35)(36): [ ]a) Respiratory rate greater than 30 breaths per minute unresponsive to treatment [A] [ ]b) New saturation of arterial oxygen less than 90% [ ]c) New partial pressure of carbon dioxide greater than 44 mm Hg ( 5.9 kPa) [ ]d) Supplemental oxygen or respiratory treatments needed that are new or not performable at other levels of care [ ]e) New-onset cyanosis [ ]f) Inability to protect airway [ ]g) Chronic lung disease with severe deterioration (not responsive to emergency and observation care treatment as appropriate) as indicated by ANY ONE of the following(34)(36 ): [ ]i) SaO2 5% below baseline in patient with chronic hypoxemia [ ]ii) New requirement for supplemental oxygen to keep SaO2 at baseline or acceptable level [ ]iii) Required supplemental oxygen performable only in acute inpatient setting [ ]iv) Severe airflow or ventilation abnormalities [ ]v) Previously mobile patient unable to walk between rooms [ ]vi Inability to eat or sleep due to dyspnea [ ]vii) Rapid rate of exacerbation onset [ ]viii) Altered mental status ]VII. Severe airflow or ventilation abnormalities (not responsive to emergency and observation care treatment as appropriate) as indicated by ANY ONE of the following(33)(34)(35)(37): [ ]a) PCO2 greater than 42 mm Hg (5.6 kPa) and pH less than 7.35 (new ) [ ]b) Documented PCO2 increased more than 5 mm Hg (0.7 kPa) from disease baseline [ ]c) Airflow measurements [B] less than 60% of previous best or predicted (eg, peak expiratory flow rate less than 300 L/minute) despite intensive emergent treatment [C] [ ]d) Required respiratory treatments that are performable only in acute inpatient setting [ ]VIII. Impending or actual respiratory arrest ( Also use Respiratory Failure GRG for severe respiratory disease and long-term mechanical ventilation patients) [ ]IX. Neurologic abnormalities, including ANY ONE of the following: [ ]a) New findings that suggest ANY ONE of the following: [ ]i) QUILLER RUNNER infection(38) [ ]ii) Cerebral bleeding, ischemia, or vasospasm(39)(40) [ ]iii) Increased intracranial pressure, hydrocephalus, or cerebral edema(41)(42)(43) [ ]iv) Spinal cord injury(44) [ ]b) Uncontrolled seizures(45) [ ]c) New-onset coma (eg, Duke coma scale score less than 9) or unexplained abnormal mental status (eg, Duke coma scale score less than 14) [D](41)(46)(47) [ ]X. New-onset severe neurologic findings requiring inpatient care; examples include(42)(48)(49): [ ]a) Papilledema [ ]b) Cerebral edema [ ]c) Mass effect on CT scan [ ]XI. Suspected acute intra-abdominal process with peritoneal signs, abdominal mass, or similar findings (50)(51)(52) [X ]XII. Severe physiologic disorder remaining after emergency or observation level care (as appropriate) as indicated by ANY ONE of the following (53): [ ]a) Significant dehydration [ ]b) Diabetic ketoacidosis [ ]c) Hyperglycemic hyperosmolar state (eg, osmolality greater than 320 mOsm/kg (mmol/kg) [ X]d) Hypoglycemia [ ]e) Other (new) acid-base disorder with pH less than 7.35 or greater than 7.5(54) [ ]f) Thyroid storm (55) [ ]g) Myxedema coma (55) [ ]XIII. Abdominal abnormalities with ANY ONE of the following(56)(57): [ ]a) Absent bowel sounds with complete ileus [ ]b) Signs of intestinal obstruction or peritonitis [E] [ ]c) Nausea and vomiting that cannot be controlled with outpatient or observation care [ ]XIV. Acute renal failure as indicated by new onset of ANY ONE of the following(9)(10)(11)(12)(13): [ ]a) A 3-fold rise in serum creatinine from baseline [ ]b) Serum creatinine greater than 4 mg/dL (354 micromoles/L) with acute rise greater than 0.5 mg/dL (44.2 micromoles/L) [ ]c) Reduction of more than 75% in estimated glomerular filtration rate from baseline [ ]d) Estimated glomerular filtration rate less than 35 mL/min/ 1.73m2 (0.59 mL/sec/1.73m2) in child up to 18 years of age [ ]e) Cessation of urine output indicated by ALL of the following: [ ]i) Adequate volume status [ ]ii) Inadequate urine output as indicated by ANY ONE of the following: [ ]1) Urine output less than 0.3 mL/kg/hr for 24 hours [ ]2) Anuria (urine output less than 0.1 mL/kg/hr) for 12 hours [ ]XV. Significant uremic complications as indicated by ANY ONE of the following(58)(59)(60): [ ]a) Outpatient therapy is ineffective or not feasible for ANY ONE of the following: [ ]i) Severe heart failure [ ]ii) Severehypertension [ ]iii) Pleural effusion [ ]iv) Pericarditis or pericardial effusion [ ]b) Cardiac arrhythmias of immediate concern [ ]c) Intractable nausea or vomiting [ ]d) Recurrent seizures [ ]e) Encephalopathy [ ]f) Bleeding abnormalities (eg, platelet dysfunction) with active (eg, gastrointestinal) bleeding [ ]g) Dialysis indicated before long-term access or ambulatory arrangements can be made [ ]h) Significant metabolic or electrolyte abnormalities (eg, severe acidosis or hyperkalemia) [ ]XVI. High fever or other high-risk infection situation as indicated by ANY ONE of the following(61)(62)(63)(64): [ ]a) Outpatient and observation care antimicrobial treatment unavailable, not effective, or not appropriate [ ]b) Documented bacteremia [ ]c) Temperature greater than 40.5 degrees C (104.9 degrees F) ( oral) [ ]d) Temperature greater than 39.5 degrees C (103.1 degrees F) ( oral) or less than 36 degrees C (96.8 degrees F) (rectal) that does not respond to e treatment and observation care [ ] XVII. Temperature less than 95 degrees F (35 degrees C)(rectal)(65) [ ] XVIII. Severe nutritional abnormalities as indicated by ALL of the following (66)(67): [ ]a) Inability to tolerate or establish sufficient oral or other enteral nutrition in outpatient setting [ ]b) Parenteral nutrition regimen need that must be implemented on inpatient basis [ ] XIX. Severe electrolyte abnormalities indicated by ALL of the following(68) (69)(70): [ ]a) Electrolytes and associated findings are not as expected for patient baseline or acceptable treatment effects. [ ]b) Severe abnormalities indicated by ANY ONE of the following: [ ]i) Sodium less than 130 mEq/L (mmol/L) (new) [ ]ii)Sodium less than 135 mEq/L (mmol/L) with ANY ONE of the following: [ ]1) Uncorrectable (to near normal or chronic baseline) after trial of outpatient and emergency treatment [ ]2) Altered mental status [ ]3) Seizures [ ]4) Severe medical etiology requiring inpatient management (eg, heart failure, hypovolemia) [ ]iii) Sodium greater than 155 mEq/L (mmol/L) [ ]iv) Sodium greater than 150 mEq/L (mmol/L) with ANY ONE of the following: [ ]1) Uncorrectable (to near normal or chronic baseline) with outpatient and emergency treatment [ ]2) Altered mental status [ ]3) Seizures [ ]4) Severe medical etiology (eg, hypovolemia, diabetes insipidus) [ ]v) Potassium less than 2.5 mEq/L (mmol/L) despite outpatient and emergency treatment [ ]vi) Potassium less than 3 mEq/L (mmol/L) with ANY ONE of the following: [ ]1) Weakness [ ]2) Cardiac abnormality (eg, arrhythmia, conduction disturbance) [ ]3) Cardiac ischemia [ ]4) Ileus [ ]5) Ongoing medical cause requiring inpatient management (eg, acute renal wasting or SIADH) [ ]6) Other severe symptoms [ ]vii) Potassium greater than 6.5 mEq/L (mmol/L) [ ]viii) Potassium greater than 5 mEq/L (mmol/L) with ANY ONE of the following: [ ]1) Uncorrectable (to near normal or chronic baseline) with outpatient and emergency treatment [ ]2) Severe ECG findings [F] [ ]3) Acute worsening of renal failure (creatinine greater than 2.5 mg/dL (221 micromoles/L) or significant elevation for age and size) [ ]4) Severe weakness [ ]5) Severe medical etiology (eg, hemolysis, infection, drug overdose) [ ]ix) Calcium less than 7 mg/dL (1.75 mmol/L) despite outpatient and emergency treatment (72) [ ]x) Calcium less than 8 mg/dL (2 mmol/L) with significant symptoms or findings; examples include(72): [ ]1) Altered mental status [ ]2) Muscle spasms [ ]3) Seizures [ ]4) Breathing difficulty [ ]5) Cardiac abnormality (eg, arrhythmia or conduction disturbance) [ ]xi) Calcium greater than 14 mg/dL (3.5 mmol/L)(72) [ ]xii) Calcium greater than 12 mg/dL (3 mmol/L) with ANY ONE of the following(72): [ ]1) Uncorrectable (to near normal or chronic baseline) with outpatient and emergency treatment [ ]2) Significant dehydration or hypovolemia as indicated by ALL of the following(70)(73)(74): [ ]A. Not resolved with initial treatments [ ]B. Clinically significant dehydration as indicated by ANY ONE of the following: [ ]a. Vomiting refractory to outpatient treatment (ie, precluding oral rehydration) [ ]b. Inability to drink [ ]c. Hypernatremia or other electrolyte abnormality unable to be corrected with outpatient and emergency treatment [ ]d. Failure to remain hydrated with outpatient therapy [ ]e. Reduced urine output [ ]f. Hypotension [ ]g. Serious cause for dehydration requiring acute hospitalization (eg, bowel obstruction, increased intracranial pressure, infectious cause) [ ]h. Child with ANY ONE of the following(75): [ ]1) Severe abdominal tenderness [ ]2) Adequate care not available at home [ ]3) Severe dehydration ( greater than 9% loss of body weight) [ ]4) Significant symptoms or findings; examples include: [ ]A. Altered mental status [ ]B. Cardiac abnormality (eg, arrhythmia, conduction disturbance) [ ]C. Malignant etiology requiring inpatient treatment [ ]xiii) Phosphorus less than 1 mg/dL (0.32 mmol/L) [ ]xiv) Phosphorus less than 1.5 mg/dL (0.48 mmol/L) with ANY ONE of the following: [ ]1) Patient unresponsive to outpatient and emergency treatment [ ]2) Significant symptoms or findings; examples include: [ ]A. Weakness [ ]B. Altered mental status [ ]C. Breathing difficulty [ ]D. Seizures [ ]E. Rhabdomyolysis [ ]xv) Phosphorus greater than 10 mg/dL (3.2 mmol/L) [ ]xvi) Phosphorus greater than 4.5 mg/dL (1.45 mmol/L) (new) with ANY ONE of the following: [ ]1) Severe medical etiology (eg, crush injury, acute renal failure) [ ]2) Associated hypocalcemia with significant findings; examples include: [ ]A. Neurologic symptoms [ ]B. Altered mental status [ ]C. Muscle spasms [ ]D. Seizures [ ]E. Breathing difficulty [ ]F. Cardiac abnormality (eg, arrhythmia, conduction disturbance) [ ]xvii) Magnesium less than 1 mg/dL (0.41 mmol/L) [ ]xviii) Magnesium less than 1.5 mg/dL (0.62 mmol/L) with ANY ONE of the following: [ ]1) Patient unresponsive to outpatient and emergency treatment [ ]2) Associated hypocalcemia with significant findings; examples include: [ ]A. Altered mental status [ ]B. Muscle spasms [ ]C. Seizures [ ]D. Breathing difficulty [ ]E. Cardiac abnormality (eg, arrhythmia , conduction disturbance) [ ]3) Associated hypokalemia (potassium less than 3 mEq/L (mmol/L)) with risk of arrhythmia [ ]xix) Magnesium greater than 4 mEq/L (2 mmol/L) [ ]xx) Magnesium greater than 2.5 mEq/L (1.25 mmol/L) with significant symptoms or findings; examples include: [ ]1) Weakness [ ]2) Altered mental status [ ]3) Cardiac abnormality (eg, arrhythmia, conduction disturbance) [ ]4) Breathing difficulty [ ]5) Severe medical etiology (eg, renal failure, hypovolemia) [ ]xxi) Uric acid greater than 20 mg/dL (1190 micromoles/L)(76) [ ]xxii) Uric acid greater than 8 mg/dL (476 micromoles/L) with significant symptoms or findings of tumor lysis syndrome; examples include(76): [ ]1) Creatinine greater than 1.5 times upper limit of normal [ ]2) Cardiac abnormality (eg, arrhythmia, conduction disturbance) [ ]3) Seizure [ ]XX. Acute blood loss causing significant abnormality as indicated by ANY ONE of the following(77)(78): [ ]a) Hemoglobin less than 10 g/dL (100 g/L) (not baseline) [ ]b) Hematocrit less than 30% (0.30) (not baseline) [ ]c) Repeat hematocrit decreased more than 2% (0.02) [ ]d) Uncontrolled bleeding [ ]XXI. Severe anemia indicated by ANY ONE of the following(78)(79): [ ]a) Altered mental status [ ]b) Chest pain [ ]c) Exertional dyspnea [ ]d) Syncope [ ]e) Other findings suggesting inadequate perfusion [ ]f) Treatment with transfusion or volume replacement is ineffective at resolving ANY ONE of the following [G]: [ ]i) Tachycardia for age [ ]ii) Orthostatic vital sign changes as indicated by ANY ONE of the following(80): [ ]1) Fall in SBP of 20 mm Hg or more 1 to 3 minutes after patient sits or stands from recumbent position [ ]2) Fall in DBP of 10 mm Hg or more 1 to 3 minutes after patient sits or stands from recumbent position [ ]XXII. High-risk low platelet count as indicated by ANY ONE of the following( 81)(82): [ ]a) Severe or life-threatening bleeding (eg, intracranial, major gastrointestinal, or extensive mucosal bleeding), with any reduced platelet count [ ]b) Platelet count less than 20,000/mm3 (20 x109/L) with any active bleeding [ ]c) Platelet count less than 10,000/mm3 (10 x109/L) with minor purpura or petechiae [ ]d) Platelet count less than 5000/mm3 (5 x109/L) [ ]e) Low platelet count with hemolytic anemia [ ]XXIII. Disseminated intravascular coagulation(77)(83) [ ]XXIV. Severe adverse drug or systemic toxin reaction requiring inpatient treatment; examples include(84)(85): [ ]a) Serotonin syndrome(86) [ ]b) Neuroleptic malignant syndrome(86) [ ]c) Cholinergic syndrome with severe symptoms (eg, bronchorrhea, weakness, mental status changes, seizures) [ ]d) Sympathetic syndrome with severe symptoms (eg, seizures, mental status changes, cardiac dysrhythmias) [ ]e) Anticholinergic syndrome [ ]XXV. Severe pain requiring acute inpatient management as indicated by ALL of the following (87)(88)(89): [ ]a) Continuous or frequent (eg, every 2 to 4 hours) parenteral analgesics required [H] [ ]b) Rapid improvement expected from treatment or acute intervention (eg, surgery, anesthesia procedure) [ ]XXVI.Severe behavioral health issues judged unmanageable at a lower level of care (eg, residential) in a patient who is ANY ONE of the following(91) [ ]a) Acutely suicidal [ ]b) A danger to self (eg, self-mutilating or suicidal behavior) [ ]c) A danger to others (eg, assaultive or homicidal behavior) [ ]d) Incapacitated because of grave disability (eg, inability to provide for self at lower level of care) (92) [ ]XXVII. Inpatient monitoring needed; examples include(1)(3)(87)(93)(94)(95)(96 ): [ ]a) Vital signs, neurologic signs, or vascular checks more frequently than every 4 hours [ ]b) Cardiac or respiratory monitoring beyond the scope (eg, over 24 hours) of observation care [ ]c) Pulmonary artery catheter monitoring [ ]d) Suspected compartment syndrome(97) (98) [ ]e) Cerebral bleeding, hydrocephalus, or vasospasm monitoring [ ]f) Increased intracranial pressure or cerebral edema monitoring [ ]g) monitoring [ ]XXVIII. Treatment requiring inpatient care; examples include: [ ]a) IV fluid to replace significant ongoing losses (greater than 3 L/m2 per day)(53) [ ]b) High concentration oxygen (greater than 40%)(33)(99)(100) [ ]c) Frequent respiratory therapy (more frequently than every 4 hours) to maintain airflow rates greater than 60% of baseline(33)(99)(100) [ ]d) Epidural analgesia(87) [ ]e) IV anticoagulation, vasoactive, or antiarrhythmic medication(19 )(23) [ ]f) Acute thrombolytics (generally require 24 hours of observation )(101)(102) [ ]XXIX. Emergency procedures needed; examples include: [ ]a) Emergency inpatient surgery [ ]b) Temporary pacemaker placement(103) [ ]c) Chest tube placement with active evacuation (eg, suction, drainage)(104) [ ]d) Emergent cardioversion(105) [ ]e) Emergent cardiac or vascular procedures (eg, cardiac catheterization, angioplasty) (17)(18) [ ]f) Emergent dialysis access placement and institution(10)(106) [ ]g) Emergent pericardiocentesis(107) [ ]h) Emergent plasmapheresis or leukapheresis(83) [ ]i) Emergent tracheostomy The original [employer] content created by [employer] has been revised. The portions of the content which have been revised are identified through the use of italic text or in bold, and [facility] has neither reviewed nor approved the modified material. All other unmodified content is copyright [employer]. Please see references footnoted in the original [facility] edition 2016 Admission Criteria Met?: Yes ISAIAH FLORES Apr 21, 2017 00:26
[2017-04-21 03:00] VITALS: BP 146/66
[2017-04-21 05:56] LABS: CALCIUM 8.4 mg/dL (8.5-10.1); CREATININE 1.2 mg/dL (0.6-1.0); GFR 55.1; MAGNESIUM 1.9 mg/dL (1.8-2.4); POTASSIUM 3.7 mmol/L (3.5-5.1)
[2017-04-21 06:06] LABS: BASO # 0.1 x10^3/uL (0.0-0.2); BASO % 1 % (0-3); EOS % 4 % (0-3); HEMATOCRIT 29.9 % (36.0-47.0); HEMOGLOBIN 9.1 g/dL (12.0-15.5); LYMPH # 2.5 x10^3/uL (1.0-4.8); LYMPH % 28 % (24-48); MEAN CORPUSCULAR HEMOGLOBIN 21 pg (25-35); MEAN CORPUSCULAR HGB CONC 30 g/dL (31-37); MEAN CORPUSCULAR VOLUME 69 fL (79-100); MONO % 9 % (0-9); NEUT % 58 % (31-73); PLATELET COUNT 208 x10^3/uL (140-400); RED BLOOD COUNT 4.31 x10^6/uL (3.50-5.40); RED CELL DISTRIBUTION WIDTH 20.9 % (11.5-14.5); WHITE BLOOD COUNT 8.8 x10^3/uL (4.0-11.0)
[2017-04-21 07:00] VITALS: BP 164/77
--- NOTE | 2017-04-21 07:35 | PDOC ---
TARA SANTIAGO DUMP MOTORMAN 04/21/17 0735: IM PROGRESS NOTES- Subjective Subjective nausea and diarrhea resolved not eating much Objective Objective alert Vitals Vital Signs Date Time Temp Pulse Resp B/P (MAP) Pulse Ox O2 Delivery O2 Flow Rate FiO2 04/21/17 03:00 98.8 81 16 146/66 (92) 90 98.8 04/21/17 00:25 Room Air 04/20/17 20:00 2.0 Input & Output Intake and Output 04/21/17 07:00 Intake Total 1876 ml Output Total 1700 ml Balance 176 ml Intake Oral 840 ml Blood Product IV Normal Saline Flush 1036 ml Output Urine Total 1700 ml # Voids 3 Physical Exam Physical Exam PHYSICAL EXAM: General appearance - alert, ill appearing, and in no distress Mental Status - alert, oriented to person, place, and time, affect appropriate to mood Head - normal Chest - clear to auscultation, no wheezes, rales or rhonchi Heart - S1 and S2 normal Abdomen - soft, nontender, nondistended, obese, BS + Neurological - no acute focal neurological deficit noted. Musculoskeletal - no muscular tenderness noted Extremities - + pedal edema Skin - warm and dry Labs Laboratory Tests Test 04/19/17 08:58 04/19/17 10:25 04/19/17 10:45 04/19/17 11:33 Glucose (Fingerstick) 101 mg/dL (70-99) 90 mg/dL (70-99) White Blood Count 8.2 x10^3/uL (4.0-11.0) Red Blood Count 3.73 x10^6/uL (3.50-5.40) Hemoglobin 7.1 g/dL (12.0-15.5) Hematocrit 23.9 % (36.0-47.0) Mean Corpuscular Volume 64 fL (79-100) Mean Corpuscular Hemoglobin 19 pg (25-35) Mean Corpuscular Hemoglobin Concent 30 g/dL (31-37) Red Cell Distribution Width 17.1 % (11.5-14.5) Platelet Count 208 x10^3/uL (140-400) Neutrophils (%) (Auto) 83 % (31-73) Lymphocytes (%) (Auto) 12 % (24-48) Monocytes (%) (Auto) 5 % (0-9) Eosinophils (%) (Auto) 0 % (0-3) Basophils (%) (Auto) 1 % (0-3) Neutrophils # (Auto) 6.8 x10^3uL (1.8-7.7) Lymphocytes # (Auto) 1.0 x10^3/uL (1.0-4.8) Monocytes # (Auto) 0.4 x10^3/uL (0.0-1.1) Eosinophils # (Auto) 0.0 x10^3/uL (0.0-0.7) Basophils # (Auto) 0.1 x10^3/uL (0.0-0.2) Platelet Estimate Adequate (ADEQUATE) Polychromasia Slight Anisocytosis Slight Microcytosis Present Sodium Level 139 mmol/L (136-145) Potassium Level 3.0 mmol/L (3.5-5.1) Chloride Level 100 mmol/L (98-107) Carbon Dioxide Level 30 mmol/L (21-32) Anion Gap 9 (6-14) Blood Urea Nitrogen 13 mg/dL (7-20) Creatinine 1.4 mg/dL (0.6-1.0) Estimated GFR (Cockcroft-Gault) 46.1 Glucose Level 104 mg/dL (70-99) Hemoglobin A1c 5.9 % (4.8-5.6) Calcium Level 7.9 mg/dL (8.5-10.1) Magnesium Level 1.3 mg/dL (1.8-2.4) Total Bilirubin 0.7 mg/dL (0.2-1.0) Direct Bilirubin 0.3 mg/dL (0.0-0.2) Aspartate Amino Transf (AST/SGOT) 36 U/L (15-37) Alanine Aminotransferase (ALT/SGPT) 24 U/L (14-59) Alkaline Phosphatase 126 U/L (46-116) Troponin I Quantitative < 0.017 ng/mL (0.000-0.055) Total Protein 7.8 g/dL (6.4-8.2) Albumin 3.2 g/dL (3.4-5.0) Thyroid Stimulating Hormone (TSH) 0.362 uIU/mL (0.358-3.74) Urine Collection Type Unknown Urine Color Yellow Urine Clarity Clear Urine pH 6.0 Urine Specific [place] 1.010 Urine Protein Negative mg/dL (NEG-TRACE) Urine Glucose (UA) Negative mg/dL (NEG) Urine Ketones (Stick) Negative mg/dL (NEG) Urine Blood Negative (NEG) Urine Nitrite Negative (NEG) Urine Bilirubin Negative (NEG) Urine Urobilinogen Dipstick 1.0 mg/dL (0.2 mg/dL) Urine Leukocyte Esterase Trace (NEG) Urine RBC Occ /HPF (0-2) Urine WBC 5-10 /HPF (0-4) Urine Squamous Epithelial Cells Many /LPF Urine Bacteria Few /HPF (0-FEW) Test 04/19/17 11:47 04/19/17 12:44 04/19/17 16:09 04/19/17 21:06 Glucose (Fingerstick) 63 mg/dL (70-99) 96 mg/dL (70-99) 140 mg/dL (70-99) 126 mg/dL (70-99) Test 04/20/17 04:53 04/20/17 04:55 04/20/17 07:06 04/20/17 08:15 Sodium Level 141 mmol/L (136-145) Potassium Level 3.3 mmol/L (3.5-5.1) Chloride Level 104 mmol/L (98-107) Carbon Dioxide Level 29 mmol/L (21-32) Anion Gap 8 (6-14) Blood Urea Nitrogen 12 mg/dL (7-20) Creatinine 1.3 mg/dL (0.6-1.0) Estimated GFR (Cockcroft-Gault) 50.2 Glucose Level 29 mg/dL (70-99) Calcium Level 7.9 mg/dL (8.5-10.1) Magnesium Level 1.9 mg/dL (1.8-2.4) Iron Level 17 ug/dL (50-170) Total Iron Binding Capacity 376 ug/dL (250-450) Iron Saturation 5 % (15-34) Ferritin 24 ng/mL (8-252) White Blood Count 9.1 x10^3/uL (4.0-11.0) Red Blood Count 3.49 x10^6/uL (3.50-5.40) Hemoglobin 6.7 g/dL (12.0-15.5) Hematocrit 22.3 % (36.0-47.0) Mean Corpuscular Volume 64 fL (79-100) Mean Corpuscular Hemoglobin 19 pg (25-35) Mean Corpuscular Hemoglobin Concent 30 g/dL (31-37) Red Cell Distribution Width 17.0 % (11.5-14.5) Platelet Count 196 x10^3/uL (140-400) Neutrophils (%) (Auto) 61 % (31-73) Lymphocytes (%) (Auto) 27 % (24-48) Monocytes (%) (Auto) 9 % (0-9) Eosinophils (%) (Auto) 2 % (0-3) Basophils (%) (Auto) 1 % (0-3) Neutrophils # (Auto) 5.5 x10^3uL (1.8-7.7) Lymphocytes # (Auto) 2.5 x10^3/uL (1.0-4.8) Monocytes # (Auto) 0.8 x10^3/uL (0.0-1.1) Eosinophils # (Auto) 0.2 x10^3/uL (0.0-0.7) Basophils # (Auto) 0.1 x10^3/uL (0.0-0.2) Reticulocyte Count (auto) 0.9 % (0.5-2.5) Glucose (Fingerstick) 31 mg/dL (70-99) 103 mg/dL (70-99) Test 04/20/17 11:47 04/20/17 12:44 04/20/17 16:54 04/20/17 21:20 Glucose (Fingerstick) 58 mg/dL (70-99) 80 mg/dL (70-99) 60 mg/dL (70-99) 88 mg/dL (70-99) Test 04/21/17 04:06 04/21/17 04:55 04/21/17 05:35 Glucose (Fingerstick) 59 mg/dL (70-99) 90 mg/dL (70-99) White Blood Count 8.8 x10^3/uL (4.0-11.0) Red Blood Count 4.31 x10^6/uL (3.50-5.40) Hemoglobin 9.1 g/dL (12.0-15.5) Hematocrit 29.9 % (36.0-47.0) Mean Corpuscular Volume 69 fL (79-100) Mean Corpuscular Hemoglobin 21 pg (25-35) Mean Corpuscular Hemoglobin Concent 30 g/dL (31-37) Red Cell Distribution Width 20.9 % (11.5-14.5) Platelet Count 208 x10^3/uL (140-400) Neutrophils (%) (Auto) 58 % (31-73) Lymphocytes (%) (Auto) 28 % (24-48) Monocytes (%) (Auto) 9 % (0-9) Eosinophils (%) (Auto) 4 % (0-3) Basophils (%) (Auto) 1 % (0-3) Neutrophils # (Auto) 5.1 x10^3uL (1.8-7.7) Lymphocytes # (Auto) 2.5 x10^3/uL (1.0-4.8) Monocytes # (Auto) 0.8 x10^3/uL (0.0-1.1) Eosinophils # (Auto) 0.4 x10^3/uL (0.0-0.7) Basophils # (Auto) 0.1 x10^3/uL (0.0-0.2) Sodium Level 141 mmol/L (136-145) Potassium Level 3.7 mmol/L (3.5-5.1) Chloride Level 104 mmol/L (98-107) Carbon Dioxide Level 25 mmol/L (21-32) Anion Gap 12 (6-14) Blood Urea Nitrogen 9 mg/dL (7-20) Creatinine 1.2 mg/dL (0.6-1.0) Estimated GFR (Cockcroft-Gault) 55.1 Glucose Level 82 mg/dL (70-99) Calcium Level 8.4 mg/dL (8.5-10.1) Magnesium Level 1.9 mg/dL (1.8-2.4) Laboratory Tests Test 04/20/17 08:15 04/20/17 11:47 04/20/17 12:44 04/20/17 16:54 Glucose (Fingerstick) 103 mg/dL (70-99) 58 mg/dL (70-99) 80 mg/dL (70-99) 60 mg/dL (70-99) Test 04/20/17 21:20 04/21/17 04:06 04/21/17 04:55 04/21/17 05:35 Glucose (Fingerstick) 88 mg/dL (70-99) 59 mg/dL (70-99) 90 mg/dL (70-99) White Blood Count 8.8 x10^3/uL (4.0-11.0) Red Blood Count 4.31 x10^6/uL (3.50-5.40) Hemoglobin 9.1 g/dL (12.0-15.5) Hematocrit 29.9 % (36.0-47.0) Mean Corpuscular Volume 69 fL (79-100) Mean Corpuscular Hemoglobin 21 pg (25-35) Mean Corpuscular Hemoglobin Concent 30 g/dL (31-37) Red Cell Distribution Width 20.9 % (11.5-14.5) Platelet Count 208 x10^3/uL (140-400) Neutrophils (%) (Auto) 58 % (31-73) Lymphocytes (%) (Auto) 28 % (24-48) Monocytes (%) (Auto) 9 % (0-9) Eosinophils (%) (Auto) 4 % (0-3) Basophils (%) (Auto) 1 % (0-3) Neutrophils # (Auto) 5.1 x10^3uL (1.8-7.7) Lymphocytes # (Auto) 2.5 x10^3/uL (1.0-4.8) Monocytes # (Auto) 0.8 x10^3/uL (0.0-1.1) Eosinophils # (Auto) 0.4 x10^3/uL (0.0-0.7) Basophils # (Auto) 0.1 x10^3/uL (0.0-0.2) Sodium Level 141 mmol/L (136-145) Potassium Level 3.7 mmol/L (3.5-5.1) Chloride Level 104 mmol/L (98-107) Carbon Dioxide Level 25 mmol/L (21-32) Anion Gap 12 (6-14) Blood Urea Nitrogen 9 mg/dL (7-20) Creatinine 1.2 mg/dL (0.6-1.0) Estimated GFR (Cockcroft-Gault) 55.1 Glucose Level 82 mg/dL (70-99) Calcium Level 8.4 mg/dL (8.5-10.1) Magnesium Level 1.9 mg/dL (1.8-2.4) Meds Current Medications Acetaminophen (Tylenol) 650 mg PRN Q6HRS PRN PO FEVER Last administered on 14:38; Start 04/20/17 at 14:30 Iron Sucrose 500 mg/Sodium Chloride 275 ml @ 78.571 mls/ hr 1X ONCE IV Last administered on 04/20/17 09:24; Start 04/20/17 at 09:00; Stop 04/20/17 at 12:29; Status DC Iron Sucrose 500 mg/Sodium Chloride 275 ml @ 78.571 mls/ hr 1X ONCE IV ; Start 04/21/17 at 08:00; Stop 04/21/17 at 11:29 Metoclopramide HCl (Reglan) 10 mg PRN Q6HRS PRN IV NAUSEA/VOMITING; Start at 09:15 Ondansetron HCl (Zofran) 4 mg PRN Q6HRS PRN IV NAUSEA/VOMITING Last administered on 04/20/17 09:24; Start 04/20/17 at 09:15 Potassium Chloride 40 meq/ Dextrose/Sodium Chloride 1,020 ml @ 75 mls/hr [id number] IV Last administered on 04/20/17 21:17; Start 04/20/17 at 10:00 Potassium Chloride (Klor-Con) 20 meq 1X ONCE PO Last administered on 04/20/17 11:19; Start 04/20/17 at 09:30; Stop 04/20/17 at 09:31; Status DC Assessment Assessment 1. 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 2. gastroenteritis with n/v diarrhea 24 hours prior to admit 3. Anemia severe Fe deficiency 4. HTN 5. sarcoidosis 6. RA seronegative 7. fatty liver 8. h/o diverticula R lower colon 9. severe PCL malnutrition due to n/v 10. hyperlipidemia 11. migraine headache 12. gastroparesis POA with delayed gastric emptying 13. acute hypokalemia POA resolved 14. OA 15. h/o renal mass 16. Stomach upset with nausea, vomiting, diarrhea for last 24 hours.POA 17. hypomagnesia resolved 18. CKD II PLAN anemia Admit Hgb 7.1 11/18 6.7 11/19 9.1 2 unit PRC 11/18 hematology consult- IV Venofer 11/18 11/19 and may need OP prn GI consult-EGD 11/19 pending. Office records regarding colonoscopy being obtained. DC lovenox Vitamin B12/folate pending DM II hypoglycemia FSBS/ssi D10 11/17 IV D5NS with 20 KCL 11/17 with KCL increased 11/18 to 40meq BS [id number] off chronic insulin -appetite poor lower extremity edema continue Home lasix 40mg po staff advised daily weights Admit 277# estimated 11/19 267# CKD II no ALIRIO ARF Admit BUN 13 11/19 9 Cr 1.4 1.2 K 3.0 3.7 Mg 1.3 1.9 IV D5NS with KCL increased to 40meq 11/18 Additional 20 po 11/18 Mg SO4 11/18 4gm IV Lasix 40mg po daily -chronic n/v [id number]-etynkper gastroenteritis GI consult h/o gastroparesis improved 11/19 DVT/GI prophylaxis SCD/RUTH Stop lovenox -anemia with PRC infusion PPI low grade temp through night 99.3F For more details regarding further plans, please refer to the orders. Plan Plan For more details regarding further plans, please refer to the orders. PRO SCHROEDER MD 04/21/17 1036: IM PROGRESS NOTES- Assessment Assessment NPO for EGD.D/w . D/w patient,family. Edema- worse. Anemia- IV Venofer. The patient was seen and examined by me. Chart reviewed and plan of care formulated. Discussed with, reviewed and agree with CANOPY INSPECTOR's notes, plan of care and orders with modifications as necessary. For more details regarding further plans, please refer to the orders. TARA SANTIAGO APRN Apr 21, 2017 07:35 PRO SCHROEDER MD Apr 21, 2017 10:36
[2017-04-21] MEDS ORDERED: MORPHINE SULFATE 2 MG/ML DISP.SYRIN. IV PRN (07:45)
[2017-04-21] MEDS ORDERED: fentaNYL PF VIAL 100 MCG/2 ML VIAL IV PRN ×2 (07:45)
[2017-04-21] MEDS ORDERED: ONDANSETRON PF 4 MG/2 ML VIAL. IV PRN (07:45)
[2017-04-21] MEDS: ALBUTEROL SULFATE 2.5 MG/3 ML NEBU. NEB SCH ×5 (08:00→19:37)
[2017-04-21] MEDS ORDERED: IRON SUCROSE COMPLEX 500 MG in IV NORMAL SALINE 250ML 250 ML IV ONE (08:00)
[2017-04-21] MEDS ORDERED: IV RINGERS,LACTATED 1000ML 1,000 ML IV SCH (08:00)
[2017-04-21] MEDS: INSULIN ASPART 300 UNITS/3 ML INSULN.PEN SQ SCH ×3 (08:00→17:00)
[2017-04-21 08:08] LABS: ANISOCYTOSIS MOD; PLT ESTIMATE ADEQUATE (ADEQUATE); POLYCHROMASIA PRESENT
[2017-04-21 08:09] LABS: MICROCYTOSIS SLIGHT
[2017-04-21] MEDS: BUDESONIDE 0.5 MG/2 ML NEBU. NEB SCH ×3 (08:15→08:19)
--- NOTE | 2017-04-21 08:56 | PDOC ---
Subjective: Subjective: Onc f/u- Iron def anemia Fatigued N/v/d resolved EGD today No new complaints Objective: Vital Signs: Vital Signs Date Time Temp Pulse Resp B/P (MAP) Pulse Ox O2 Delivery O2 Flow Rate FiO2 04/21/17 08:20 96 Room Air 04/21/17 07:00 98.1 73 16 164/77 (106) 98.1 04/20/17 20:00 2.0 Physical Exam: Heart: Regular rate Extremities: Other (2+ edema b/l LE chronically) General: Alert, Oriented X3, No acute distress, Other (fatigued) Lungs: Other (no rsp distress) Psych/Mental Status: Mental status NL, Mood NL Labs/Imaging: CBC reviewed, hgb up to9.1 from 6.7 Assessment/Plan A/P: Iron def anemia, chronic since at least 2015 - Venofer 1000 mg will be given after today - If can tolerate po iron, would dc on daily to help further w/ iron deficit - Gi planning EGD today, obtaining colonoscopy records - Received 1 [facility] 04/20 with more than appropriate response F/u in 2 mth in our clinic to be scheduled to verify full replacement of iron deficit. JENNIFER AMEZQUITA DO Apr 21, 2017 08:55
[2017-04-21] MEDS: ATENOLOL 25 MG TABLET. PO SCH ×2 (09:00→21:22)
[2017-04-21] MEDS: HYDROXYCHLOROQUINE 200 MG TABLET PO SCH ×2 (09:00→21:21)
[2017-04-21 09:11] LABS: FOLATE 3.49 ng/ml (3.2-20.0)
[2017-04-21] MEDS ORDERED: PROPOFOL 20 ML IV ONE ×2 (12:06→12:20)
--- NOTE | 2017-04-21 12:30 | PDOC4 ---
PROCEDURE Procedure EGD/biopsies Indication: CHRISTOPHER, no prior EGD. Fairly recent colonoscopy. Dyspeptic. Meds: per anesthesia Findings: E--Irregular Z-line at 45cm c/w some degree of reflux. G--Small <1mm AVM in fundus. Patchy erythema, prepyloric. Biopsies taken from antrum and fundus re: H.pylori. D--Normal to second portion. Biopsies second portion to r/o celiac/atrophy. [place]. well. IMP: GERD Non-specific antral erythema. Solitary AVM seen. Rec: Continue PPI. Await biopsies, records from prior colonoscopy. Resume meds and diet. Thanks. KAYLI AUSTIN MD Apr 21, 2017 12:30
[2017-04-21] MEDS: FUROSEMIDE 40 MG TABLET. PO SCH (13:13)
[2017-04-21] MEDS: MIRTAZAPINE 15 MG TABLET PO SCH (13:13)
[2017-04-21] MEDS: PANTOPRAZOLE 40 MG TABLET.DR. PO SCH (13:13)
[2017-04-21] MEDS: amLODIPine BESYLATE 5 MG TABLET PO SCH (13:13)
[2017-04-21] MEDS: POTASSIUM CHLORIDE 40 MEQ in IV DEXTROSE 5% - 0.9 % NACL 1,000 ML IV SCH (13:21)
[2017-04-21 13:55] VITALS: BP 136/70
[2017-04-21 15:10] VITALS: BP 160/75
[2017-04-21 19:00] VITALS: BP 154/77
[2017-04-21] MEDS: CYCLOBENZAPRINE 10 MG TABLET. PO SCH (21:22)
[2017-04-21 23:00] VITALS: BP 163/86
[2017-04-22] MEDS: POTASSIUM CHLORIDE 40 MEQ in IV DEXTROSE 5% - 0.9 % NACL 1,000 ML IV SCH (02:48)
[2017-04-22 05:03] LABS: BASO # 0.1 x10^3/uL (0.0-0.2); BASO % 1 % (0-3); EOS % 3 % (0-3); HEMATOCRIT 29.1 % (36.0-47.0); HEMOGLOBIN 8.8 g/dL (12.0-15.5); LYMPH # 2.4 x10^3/uL (1.0-4.8); LYMPH % 27 % (24-48); MEAN CORPUSCULAR HEMOGLOBIN 21 pg (25-35); MEAN CORPUSCULAR HGB CONC 30 g/dL (31-37); MEAN CORPUSCULAR VOLUME 69 fL (79-100); MONO % 11 % (0-9); NEUT % 58 % (31-73); PLATELET COUNT 219 x10^3/uL (140-400); WHITE BLOOD COUNT 8.8 x10^3/uL (4.0-11.0)
[2017-04-22 05:18] LABS: CALCIUM 8.5 mg/dL (8.5-10.1); CREATININE 1.3 mg/dL (0.6-1.0); GFR 50.2; POTASSIUM 3.4 mmol/L (3.5-5.1)
[2017-04-22 07:00] VITALS: BP 145/83
--- NOTE | 2017-04-22 07:17 | PDOC3 ---
TARA SANTIAGO POLICE STENOGRAPHER 04/22/17 0717: IM DISCHARGE & PROGRESS NOTES Date of Admission Date of Admission Date of Admission: Apr 19, 2017 at 10:10 Date of Discharge Date of Discharge 04/22/17 Primary Diagnosis Primary Diagnosis Assessment 1. 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 2. gastroenteritis with n/v diarrhea 24 hours prior to admit 3. Anemia severe Fe deficiency 4. HTN 5. sarcoidosis 6. RA seronegative 7. fatty liver 8. h/o diverticula R lower colon 9. severe PCL malnutrition due to n/v 10. hyperlipidemia 11. migraine headache 12. gastroparesis POA with delayed gastric emptying 13. acute hypokalemia POA resolved 14. OA 15. h/o renal mass 16. Stomach upset with nausea, vomiting, diarrhea for last 24 hours.POA 17. hypomagnesia resolved 18. CKD II 19. fluid retention with bilateral LE edema POA 20. hypokalemia treated Consults Consults Cassie Virgen DO, Dr. Procedures Procedures Procedure EGD/biopsies Indication: CHRISTOPHER, no prior EGD. Fairly recent colonoscopy. Dyspeptic. Meds: per anesthesia Findings: E--Irregular Z-line at 45cm c/w some degree of reflux. G--Small <1mm AVM in fundus. Patchy erythema, prepyloric. Biopsies taken from antrum and fundus re: H.pylori. D--Normal to second portion. Biopsies second portion to r/o celiac/atrophy. [place]. well. IMP: GERD Non-specific antral erythema. Solitary AVM seen. Rec: Continue PPI. Await biopsies, records from prior colonoscopy. Resume meds and diet. Thanks. KAYLI AUSTIN MD Apr 21, 2017 12:30 SIGNED BY: KAYLI AUSTIN MD DATE: 04/21/17 1230 Labs Labs Laboratory Tests Test 04/19/17 08:58 04/19/17 10:25 04/19/17 10:45 04/19/17 11:33 Glucose (Fingerstick) 101 mg/dL (70-99) 90 mg/dL (70-99) White Blood Count 8.2 x10^3/uL (4.0-11.0) Red Blood Count 3.73 x10^6/uL (3.50-5.40) Hemoglobin 7.1 g/dL (12.0-15.5) Hematocrit 23.9 % (36.0-47.0) Mean Corpuscular Volume 64 fL (79-100) Mean Corpuscular Hemoglobin 19 pg (25-35) Mean Corpuscular Hemoglobin Concent 30 g/dL (31-37) Red Cell Distribution Width 17.1 % (11.5-14.5) Platelet Count 208 x10^3/uL (140-400) Neutrophils (%) (Auto) 83 % (31-73) Lymphocytes (%) (Auto) 12 % (24-48) Monocytes (%) (Auto) 5 % (0-9) Eosinophils (%) (Auto) 0 % (0-3) Basophils (%) (Auto) 1 % (0-3) Neutrophils # (Auto) 6.8 x10^3uL (1.8-7.7) Lymphocytes # (Auto) 1.0 x10^3/uL (1.0-4.8) Monocytes # (Auto) 0.4 x10^3/uL (0.0-1.1) Eosinophils # (Auto) 0.0 x10^3/uL (0.0-0.7) Basophils # (Auto) 0.1 x10^3/uL (0.0-0.2) Platelet Estimate Adequate (ADEQUATE) Polychromasia Slight Anisocytosis Slight Microcytosis Present Sodium Level 139 mmol/L (136-145) Potassium Level 3.0 mmol/L (3.5-5.1) Chloride Level 100 mmol/L (98-107) Carbon Dioxide Level 30 mmol/L (21-32) Anion Gap 9 (6-14) Blood Urea Nitrogen 13 mg/dL (7-20) Creatinine 1.4 mg/dL (0.6-1.0) Estimated GFR (Cockcroft-Gault) 46.1 Glucose Level 104 mg/dL (70-99) Hemoglobin A1c 5.9 % (4.8-5.6) Calcium Level 7.9 mg/dL (8.5-10.1) Magnesium Level 1.3 mg/dL (1.8-2.4) Total Bilirubin 0.7 mg/dL (0.2-1.0) Direct Bilirubin 0.3 mg/dL (0.0-0.2) Aspartate Amino Transf (AST/SGOT) 36 U/L (15-37) Alanine Aminotransferase (ALT/SGPT) 24 U/L (14-59) Alkaline Phosphatase 126 U/L (46-116) Troponin I Quantitative < 0.017 ng/mL (0.000-0.055) Total Protein 7.8 g/dL (6.4-8.2) Albumin 3.2 g/dL (3.4-5.0) Thyroid Stimulating Hormone (TSH) 0.362 uIU/mL (0.358-3.74) Urine Collection Type Unknown Urine Color Yellow Urine Clarity Clear Urine pH 6.0 Urine Specific [place] 1.010 Urine Protein Negative mg/dL (NEG-TRACE) Urine Glucose (UA) Negative mg/dL (NEG) Urine Ketones (Stick) Negative mg/dL (NEG) Urine Blood Negative (NEG) Urine Nitrite Negative (NEG) Urine Bilirubin Negative (NEG) Urine Urobilinogen Dipstick 1.0 mg/dL (0.2 mg/dL) Urine Leukocyte Esterase Trace (NEG) Urine RBC Occ /HPF (0-2) Urine WBC 5-10 /HPF (0-4) Urine Squamous Epithelial Cells Many /LPF Urine Bacteria Few /HPF (0-FEW) Test 04/19/17 11:47 04/19/17 12:44 04/19/17 16:09 04/19/17 21:06 Glucose (Fingerstick) 63 mg/dL (70-99) 96 mg/dL (70-99) 140 mg/dL (70-99) 126 mg/dL (70-99) Test 04/20/17 04:53 04/20/17 04:55 04/20/17 07:06 04/20/17 08:15 Sodium Level 141 mmol/L (136-145) Potassium Level 3.3 mmol/L (3.5-5.1) Chloride Level 104 mmol/L (98-107) Carbon Dioxide Level 29 mmol/L (21-32) Anion Gap 8 (6-14) Blood Urea Nitrogen 12 mg/dL (7-20) Creatinine 1.3 mg/dL (0.6-1.0) Estimated GFR (Cockcroft-Gault) 50.2 Glucose Level 29 mg/dL (70-99) Calcium Level 7.9 mg/dL (8.5-10.1) Magnesium Level 1.9 mg/dL (1.8-2.4) Iron Level 17 ug/dL (50-170) Total Iron Binding Capacity 376 ug/dL (250-450) Iron Saturation 5 % (15-34) Ferritin 24 ng/mL (8-252) Vitamin B12 Level 577 pg/mL (247-911) Serum Folate 3.49 ng/ml (3.2-20.0) White Blood Count 9.1 x10^3/uL (4.0-11.0) Red Blood Count 3.49 x10^6/uL (3.50-5.40) Hemoglobin 6.7 g/dL (12.0-15.5) Hematocrit 22.3 % (36.0-47.0) Mean Corpuscular Volume 64 fL (79-100) Mean Corpuscular Hemoglobin 19 pg (25-35) Mean Corpuscular Hemoglobin Concent 30 g/dL (31-37) Red Cell Distribution Width 17.0 % (11.5-14.5) Platelet Count 196 x10^3/uL (140-400) Neutrophils (%) (Auto) 61 % (31-73) Lymphocytes (%) (Auto) 27 % (24-48) Monocytes (%) (Auto) 9 % (0-9) Eosinophils (%) (Auto) 2 % (0-3) Basophils (%) (Auto) 1 % (0-3) Neutrophils # (Auto) 5.5 x10^3uL (1.8-7.7) Lymphocytes # (Auto) 2.5 x10^3/uL (1.0-4.8) Monocytes # (Auto) 0.8 x10^3/uL (0.0-1.1) Eosinophils # (Auto) 0.2 x10^3/uL (0.0-0.7) Basophils # (Auto) 0.1 x10^3/uL (0.0-0.2) Reticulocyte Count (auto) 0.9 % (0.5-2.5) Glucose (Fingerstick) 31 mg/dL (70-99) 103 mg/dL (70-99) Test 04/20/17 11:47 04/20/17 12:44 04/20/17 16:54 04/20/17 21:20 Glucose (Fingerstick) 58 mg/dL (70-99) 80 mg/dL (70-99) 60 mg/dL (70-99) 88 mg/dL (70-99) Test 04/21/17 04:06 04/21/17 04:55 04/21/17 05:35 04/21/17 07:54 Glucose (Fingerstick) 59 mg/dL (70-99) 90 mg/dL (70-99) 71 mg/dL (70-99) White Blood Count 8.8 x10^3/uL (4.0-11.0) Red Blood Count 4.31 x10^6/uL (3.50-5.40) Hemoglobin 9.1 g/dL (12.0-15.5) Hematocrit 29.9 % (36.0-47.0) Mean Corpuscular Volume 69 fL (79-100) Mean Corpuscular Hemoglobin 21 pg (25-35) Mean Corpuscular Hemoglobin Concent 30 g/dL (31-37) Red Cell Distribution Width 20.9 % (11.5-14.5) Platelet Count 208 x10^3/uL (140-400) Neutrophils (%) (Auto) 58 % (31-73) Lymphocytes (%) (Auto) 28 % (24-48) Monocytes (%) (Auto) 9 % (0-9) Eosinophils (%) (Auto) 4 % (0-3) Basophils (%) (Auto) 1 % (0-3) Neutrophils # (Auto) 5.1 x10^3uL (1.8-7.7) Lymphocytes # (Auto) 2.5 x10^3/uL (1.0-4.8) Monocytes # (Auto) 0.8 x10^3/uL (0.0-1.1) Eosinophils # (Auto) 0.4 x10^3/uL (0.0-0.7) Basophils # (Auto) 0.1 x10^3/uL (0.0-0.2) Platelet Estimate Adequate (ADEQUATE) Polychromasia Present Anisocytosis Mod Microcytosis Slight Sodium Level 141 mmol/L (136-145) Potassium Level 3.7 mmol/L (3.5-5.1) Chloride Level 104 mmol/L (98-107) Carbon Dioxide Level 25 mmol/L (21-32) Anion Gap 12 (6-14) Blood Urea Nitrogen 9 mg/dL (7-20) Creatinine 1.2 mg/dL (0.6-1.0) Estimated GFR (Cockcroft-Gault) 55.1 Glucose Level 82 mg/dL (70-99) Calcium Level 8.4 mg/dL (8.5-10.1) Magnesium Level 1.9 mg/dL (1.8-2.4) Test 04/21/17 13:13 04/21/17 16:27 04/21/17 21:10 04/22/17 03:55 Glucose (Fingerstick) 67 mg/dL (70-99) 146 mg/dL (70-99) 163 mg/dL (70-99) White Blood Count 8.8 x10^3/uL (4.0-11.0) Red Blood Count 4.20 x10^6/uL (3.50-5.40) Hemoglobin 8.8 g/dL (12.0-15.5) Hematocrit 29.1 % (36.0-47.0) Mean Corpuscular Volume 69 fL (79-100) Mean Corpuscular Hemoglobin 21 pg (25-35) Mean Corpuscular Hemoglobin Concent 30 g/dL (31-37) Red Cell Distribution Width 21.0 % (11.5-14.5) Platelet Count 219 x10^3/uL (140-400) Neutrophils (%) (Auto) 58 % (31-73) Lymphocytes (%) (Auto) 27 % (24-48) Monocytes (%) (Auto) 11 % (0-9) Eosinophils (%) (Auto) 3 % (0-3) Basophils (%) (Auto) 1 % (0-3) Neutrophils # (Auto) 5.1 x10^3uL (1.8-7.7) Lymphocytes # (Auto) 2.4 x10^3/uL (1.0-4.8) Monocytes # (Auto) 0.9 x10^3/uL (0.0-1.1) Eosinophils # (Auto) 0.3 x10^3/uL (0.0-0.7) Basophils # (Auto) 0.1 x10^3/uL (0.0-0.2) Sodium Level 140 mmol/L (136-145) Potassium Level 3.4 mmol/L (3.5-5.1) Chloride Level 103 mmol/L (98-107) Carbon Dioxide Level 26 mmol/L (21-32) Anion Gap 11 (6-14) Blood Urea Nitrogen 9 mg/dL (7-20) Creatinine 1.3 mg/dL (0.6-1.0) Estimated GFR (Cockcroft-Gault) 50.2 Glucose Level 167 mg/dL (70-99) Calcium Level 8.5 mg/dL (8.5-10.1) Medications Medications Medications reviewed and reconciled for discharge. Brief hospital course Brief hospital course This 61 year old female who presented with n/v/d and acute hypoglycemia was admitted. The following is a summary of her treatment: anemia Admit Hgb 7.1 11/18 6.7 11/19 9.1 11/20 8.8 2 unit PRC 11/18 hematology consult- IV Venofer 11/18 11/19 and may need OP prn GI consult-EGD 11/19 pending. Office records regarding colonoscopy being obtained. LUIS lovekoryx Vitamin B12/folate pending EGD 11/19 antral erythema, solitary AVM <1mm fundus, bx for Hpylori obtained - continue PPI Fe Sulfate 325mg started 11/21 at discharge DM II hypoglycemia FSBS/ssi D10 11/17 IV D5NS with 20 KCL 11/17 with KCL increased 11/18 to 40meq-IV infiltrated, DC'd BS [id number] off chronic insulin Begin home dose Levemir 35u bid and increase when BS stabilized to 70u bid lower extremity edema continue Home lasix 40mg po staff advised daily weights Admit 277# estimated 11/19 267# 11/20 260.3# Edema not improved but she reports increased UOP yesterday Give Lasix 20mg po +40mg po today. KCL home dose 20meq daily +40meq x 09/22 CKD II no ALIRIO ARF/fluid retention with edema LE Admit BUN 13 11/20 9 Cr 1.4 1.3 K 3.0 3.4 Mg 1.3 11/19 1.9 IV D5NS with KCL increased to 40meq 11/18 Additional 20 po 11/18 Mg SO4 11/18 4gm IV Lasix 40mg po daily -chronic 11/20 hypokalemia -begin 20 meq daily (on chronic Lasix) Give additional 40meq prior to DC to =60meq (additional 20 meq lasix prior to discharge) n/v whagkiyv-vflcfkja-mjyoifjo gastroenteritis GI consult h/o gastroparesis improved 11/19 DVT/GI prophylaxis SCD/RUTH Stop lovenox -anemia with PRC infusion PPI HTN SBP remains 150s-160s. Home meds in place. elevated due to fluid retention -additional lasix today and re eval in office. For more details regarding the past history, family history, social history, surgical history and other details, please refer to History and Physical. She will be discharged home and follow up in the office for further evaluation and treatment. Please see DC orders. Subjective edema not improved Objective alert Vitals Vital Signs Date Time Temp Pulse Resp B/P (MAP) Pulse Ox O2 Delivery O2 Flow Rate FiO2 04/21/17 23:00 99.4 80 18 163/86 (111) 97 99.4 04/21/17 20:00 Room Air 04/21/17 12:28 4 Physical Exam PHYSICAL EXAM: General appearance - alert, ill appearing, and in no distress Mental Status - alert, oriented to person, place, and time, affect appropriate to mood Head - normal Chest - clear to auscultation, no wheezes, rales or rhonchi Heart - S1 and S2 normal Abdomen - soft, nontender, nondistended, obese, BS + Neurological - no acute focal neurological deficit noted. Musculoskeletal - no muscular tenderness noted Extremities - + pedal edema Skin - warm and dry Medications Medications reviewed. Allergy Allergies Coded Allergies Type Severity Reaction Last Updated Verified Penicillins Allergy Intermediate 04/21/17 Yes benzocaine Allergy Intermediate 04/21/17 Yes hydralazine Allergy Intermediate 04/21/17 No lidocaine Allergy Intermediate 04/21/17 Yes losartan Allergy Intermediate 04/21/17 Yes tetracaine Allergy Intermediate 04/21/[address] Rivera in 5 days. Disposition: Home Comments Discharge Management - 35 minutes. For other details please refer to discharge instructions PRO RIVERA MD 04/22/17 0938: IM DISCHARGE & PROGRESS NOTES Brief hospital course Brief hospital course Patient wants to go home. Did not get IV iron or fluids yesterday due to lack of IV access. Agrees to take oral iron.Advised to take Ferrous sulfate 325 mg bid- may not tolerate due to GI problems. Resume home insulin at half dose and adjust up as needed. see in office in 5 days. The patient was seen and examined by me. Chart reviewed and plan of care formulated. Discussed with, reviewed and agree with DATA COMMUNICATIONS ANALYST's notes, plan of care and orders with modifications as necessary. Discharge Management - 35 minutes. TARA SANTIAGO APRN Apr 22, 2017 07:17 PRO RIVERA MD Apr 22, 2017 09:38
[2017-04-22] MEDS: ALBUTEROL SULFATE 2.5 MG/3 ML NEBU. NEB SCH (07:20)
[2017-04-22] MEDS: BUDESONIDE 0.5 MG/2 ML NEBU. NEB SCH (07:20)
--- NOTE | 2017-04-22 07:21 | DISCH ---
DISCHARGE INSTRUCTIONS Condition on Discharge Condition on Discharge: Stable Activity After Discharge Activity Instructions for Disc: Activity as tolerated Diet after Discharge Diet after Discharge: Cardiac (ADA diet 1800 callum ) Checks after Discharge Checks after discharge: Check blood sugar, ac/hs Contacting the DRAnthony after DC Call your doctor for: Concerns you may have Follow-Up Follow up with: Dr. Rivera in 5 days TARA SANTIAGO APRN Apr 22, 2017 07:21
[2017-04-22] MEDS ORDERED: INSU100V8 SQ (07:24)
[2017-04-22] MEDS ORDERED: POTA20TA4 PO (07:24)
[2017-04-22] MEDS ORDERED: FERR-26 PO (07:25)
[2017-04-22] MEDS: INSULIN ASPART 300 UNITS/3 ML INSULN.PEN SQ SCH (07:27)
[2017-04-22] MEDS: ATENOLOL 25 MG TABLET. PO SCH (07:29)
[2017-04-22] MEDS: FUROSEMIDE 40 MG TABLET. PO SCH (07:29)
[2017-04-22] MEDS: PANTOPRAZOLE 40 MG TABLET.DR. PO SCH (07:30)
[2017-04-22] MEDS: HYDROXYCHLOROQUINE 200 MG TABLET PO SCH (07:30)
[2017-04-22 07:31] VITALS: BP 145/83
[2017-04-22] MEDS: MIRTAZAPINE 15 MG TABLET PO SCH (07:31)
[2017-04-22] MEDS: amLODIPine BESYLATE 5 MG TABLET PO SCH (07:31)
[2017-04-22] MEDS ORDERED: POTASSIUM CHLORIDE 20 MEQ TABLET.ER. PO ONE (07:45)
[2017-04-22] MEDS ORDERED: FUROSEMIDE 20 MG TABLET PO ONE (07:45)
[2017-04-22] MEDS ORDERED: POTASSIUM CHLORIDE 20 MEQ TABLET.ER. PO SCH (08:00)
[2017-04-22] MEDS ORDERED: FERROUS SULFATE 325 MG TABLET. PO SCH (10:00)
--- NOTE | 2017-04-22 12:42 | PATHOLOGY ---
PATHOLOGY REPORT * * * * * * * * FINAL DIAGNOSIS: A. Duodenal biopsies: - No significant pathologic abnormalities. B. Gastric biopsies, antrum: - Chronic gastritis, mild. C. Gastric biopsies, fundus: - Mild superficial chronic gastritis. COMMENT: Sections of the duodenal biopsy reveal segments of duodenal and small intestine mucosa. Where best oriented, the mucosal villi appear normal and show no sprue-like changes or significant inflammatory changes. Sections of the gastric antral biopsy reveal gastric antral and gastric body mucosa showing mild chronic inflammation. An immunoperoxidase stain for Helicobacter is obtained. No Helicobacter organisms are identified. Sections of the gastric fundus biopsy reveal gastric body mucosa showing mild superficial chronic inflammation. An immunoperoxidase stain for Helicobacter is obtained. No Helicobacter organisms are identified. Special stains: Immunoperoxidase for Helicobacter on B1 and C1 ([facility]; 04/22/2017) REPORT ELECTRONICALLY SIGNED BY: Zacarias Gutierrez M.D. DATE/TIME: 04/22/2017 12:41 * * * * * * * * GROSS PATHOLOGY: A. Received in formalin labeled "Chen Vargas, duodenal biopsy," are two segments of daly soft tissue measuring 0.3 and 0.5 cm in maximum dimension. The specimen is submitted entirely in cassette A1. B. Received in formalin labeled "antrum," are two segments of daly soft tissue measuring 0.3 and 0.6 cm in maximum dimension. The specimen is submitted entirely in cassette B1. C. Received in formalin labeled "fundus," are multiple segments of daly soft tissue measuring from less than 0.1 up to 0.4 cm in maximum dimension. The specimen is submitted entirely in cassette C1. ([facility]; 04/21/17) INITIAL CPT CODE(S): A; 46787 B; 55287, 45608 C; 39239, 65805 Professional services performed by [facility] at [address] [place] [id number] Technical services performed by [facility] at [address] [place] [address], [address], [place] [address]. SPECIMEN(S) RECEIVED: A.Duodenal biopsy B.Antral biopsy C.Fundus biopsy CLINICAL HISTORY: Anemia PATIENT: CHEN VARGAS /AGE: 12 1955 (Age: 61) PATIENT #: [id number] ALT CASE #: SPECIMEN COLLECTION DATE: 04/21/2017 SPECIMEN RECEIVED DATE: 04/21/2017 [facility] - [id number] [place] [address] - PHONE: [phone] * * * END OF REPORT * * *
== END 2017-04-22 11:21 | disposition home or self-care (01) | DRG 637 ==
LOC: ER 08:52 → 5 SOUTH 10:10
PROVIDERS: ADMIT Internal Medicine; ATTEND Internal Medicine
PROC: 30233N1 Transfusion of Nonautologous Red Blood Cells into Peripheral Vein, Percutaneous Approach (ICD-10-PCS; 2017-04-20)
PROC: 0DB68ZX Excision of Stomach, Via Natural or Artificial Opening Endoscopic, Diagnostic (ICD-10-PCS; principal; 2017-04-21 13:00)
PROC: 0DB98ZX Excision of Duodenum, Via Natural or Artificial Opening Endoscopic, Diagnostic (ICD-10-PCS; 2017-04-21 13:00)
DX: E11.649 Type 2 diabetes mellitus with hypoglycemia without coma (principal); E43 Unspecified severe protein-calorie malnutrition; Q27.30 Arteriovenous malformation, site unspecified; Z68.41 Body mass index [BMI] 40.0-44.9, adult; E11.43 Type 2 diabetes mellitus with diabetic autonomic (poly)neuropathy; K52.9 Noninfective gastroenteritis and colitis, unspecified; D50.9 Iron deficiency anemia, unspecified; D86.9 Sarcoidosis, unspecified; E11.22 Type 2 diabetes mellitus with diabetic chronic kidney disease; E66.9 Obesity, unspecified; E78.5 Hyperlipidemia, unspecified; E83.42 Hypomagnesemia; E87.6 Hypokalemia; G43.909 Migraine, unspecified, not intractable, without status migrainosus; I12.9 Hypertensive chronic kidney disease with stage 1 through stage 4 chronic kidney disease, or unspecified chronic kidney disease; K21.9 Gastro-esophageal reflux disease without esophagitis; K31.84 Gastroparesis; K76.0 Fatty (change of) liver, not elsewhere classified; M79.7 Fibromyalgia; M19.90 Unspecified osteoarthritis, unspecified site; I45.81 Long QT syndrome; F41.9 Anxiety disorder, unspecified; M54.5 Low back pain; M06.9 Rheumatoid arthritis, unspecified; N18.3 Chronic kidney disease, stage 3 (moderate); K57.90 Diverticulosis of intestine, part unspecified, without perforation or abscess without bleeding; M25.50 Pain in unspecified joint; K29.50 Unspecified chronic gastritis without bleeding; R60.9 Edema, unspecified; Z79.4 Long term (current) use of insulin; Z79.899 Other long term (current) drug therapy; Z82.49 Family history of ischemic heart disease and other diseases of the circulatory system; Z83.3 Family history of diabetes mellitus; Z91.19 Patient's noncompliance with other medical treatment and regimen; Z90.49 Acquired absence of other specified parts of digestive tract; Z90.710 Acquired absence of both cervix and uterus; Z88.0 Allergy status to penicillin; Z88.1 Allergy status to other antibiotic agents; Z88.8 Allergy status to other drugs, medicaments and biological substances
CPT/HCPCS: 36415; 80048; 80076; 81001; 82607; 82728; 82746; 82962; 83036; 83540; 83550; 83735; 84443; 84484; 85007; 85027; 85045; 86850; 86900; 86901; 86920; 87086; 93005; 94250; 94640; 94760; 96361; 96374; J1650; J1756; J2405; J2704; J3480; J7030; J7042; J7050; J7060; J7120; J7613; J7626; P9016; 99291-25

== ENCOUNTER 2017-06-01 15:49 | Inpatient (IN) | payer OTHER ==
[~2017-06-01] VITALS: Ht 167.6 cm; Wt 106.6 kg
[~2017-06-01 15:49] MED LIST changes: +FERR-26 PO; +POTA20TA4 PO
[2017-06-01 16:54] VITALS: BP 148/73
[2017-06-01] MEDS ORDERED: ACETAMINOPHEN 325 MG TABLET. PO PRN (17:30)
[2017-06-01] MEDS ORDERED: VANCOMYCIN 1 GM in IV NORMAL SALINE 250ML 250 ML IV ONE (17:30)
[2017-06-01 17:55] VITALS: BP 148/73
[2017-06-01] MEDS: INSULIN ASPART 300 UNITS/3 ML INSULN.PEN SQ SCH (18:00)
[2017-06-01] MEDS ORDERED: POTA20TA82 PO (18:13)
[2017-06-01] MEDS ORDERED: INSU100V8 SQ (18:13)
[2017-06-01 19:30] VITALS: BP 153/75
[2017-06-01] MEDS ORDERED: HYDROcodone/APAP 10/325 1 TAB TABLET PO PRN (19:30)
--- NOTE | 2017-06-01 20:01 | EKG ---
[facility] [address] [place] [address] Test Date: 2017-06-01 Test Time: 19:57:18 Pat Name: MARLENI LEOS Department: Room: [facility] Gender: F Senior Principal Software Engineer: : 1955 Requested By: PRO SCHROEDER Order Number: [id number] Reading MD: Aysha Busby Measurements Intervals [place] Rate: 72 P: 52 NM: 190 QRS: -11 QRSD: 86 T: 33 QT: 432 QTc: 475 Interpretive Statements SINUS RHYTHM NORMAL EKG Electronically Signed On 06-07-2017 21:38:31 CDT by Aysha Busby
[2017-06-01] MEDS: INSULIN DETEMIR 300 UNITS/3 ML INSULN.PEN. SQ SCH (21:00)
[2017-06-01 22:17] LABS: BASO # 0.1 x10^3/uL (0.0-0.2); BASO % 1 % (0-3); EOS % 2 % (0-3); HEMATOCRIT 35.4 % (36.0-47.0); HEMOGLOBIN 10.9 g/dL (12.0-15.5); LYMPH # 2.8 x10^3/uL (1.0-4.8); LYMPH % 19 % (24-48); MEAN CORPUSCULAR HEMOGLOBIN 23 pg (25-35); MEAN CORPUSCULAR HGB CONC 31 g/dL (31-37); MEAN CORPUSCULAR VOLUME 75 fL (79-100); MONO % 8 % (0-9); NEUT % 71 % (31-73); PLATELET COUNT 464 x10^3/uL (140-400); RED BLOOD COUNT 4.74 x10^6/uL (3.50-5.40); WHITE BLOOD COUNT 14.5 x10^3/uL (4.0-11.0)
[2017-06-01] MEDS: HYDROXYCHLOROQUINE 200 MG TABLET PO SCH (22:19)
[2017-06-01] MEDS: CYCLOBENZAPRINE 10 MG TABLET. PO SCH (22:19)
[2017-06-01] MEDS: ATENOLOL 25 MG TABLET. PO SCH (22:21)
[2017-06-01 22:32] LABS: ALBUMIN 2.8 g/dL (3.4-5.0); ALBUMIN/GLOBULIN RATIO 0.4 (1.0-1.7); CALCIUM 9.4 mg/dL (8.5-10.1); CREATININE 2.5 mg/dL (0.6-1.0); GFR 23.6; POTASSIUM 4.3 mmol/L (3.5-5.1); TOTAL BILIRUBIN 0.5 mg/dL (0.2-1.0); TOTAL PROTEIN 9.7 g/dL (6.4-8.2)
[2017-06-01 22:44] LABS: PLT ESTIMATE INCREASED (ADEQUATE)
[2017-06-01 22:45] LABS: ANISOCYTOSIS MOD; HYPOCHROMIA SLIGHT; MICROCYTOSIS SLIGHT; POLYCHROMASIA SLIGHT
[2017-06-01 22:48] LABS: OVALOCYTES OCC
[2017-06-01 23:35] VITALS: BP 139/69
[2017-06-02 03:35] VITALS: BP 119/55
[2017-06-02 07:00] VITALS: BP 136/56
--- NOTE | 2017-06-02 07:15 | RAD ---
Portable chest, 06/01/2017: History: Diabetes, hypertension, foot wound Comparison is made to a study from 03/01/2017. The heart size and pulmonary vascularity are normal. No pulmonary infiltrate is seen. There is no evidence of pleural fluid. IMPRESSION: No acute cardiopulmonary abnormality is detected.
--- NOTE | 2017-06-02 07:21 | RAD ---
Right foot, 2 views, 06/01/2017: History: Diabetic foot ulcer There is soft tissue loss at the tip of the great toe. There is extensive bone destruction involving the distal phalanx of the great toe with displaced bony fragments. Small areas of cortical destruction are also seen involving the distal aspect of the proximal phalanx of the great toe. There is mild spurring at the first MTP joint. There is also a suggestion of mild cortical disruption involving the first metatarsal head, seen dorsally on the lateral view and laterally on the AP view. There is mild patchy bony demineralization. No other definite bone destruction is seen. There is deformity of the proximal fifth metatarsal compatible with an old healed fracture. Moderate spurring is present at the midfoot level. There is diffuse soft tissue swelling about the foot and ankle. IMPRESSION: Osteomyelitis involving the distal and proximal phalanges of the right great toe, with possible involvement of the first metatarsal head as described above.
[2017-06-02 07:25] LABS: BILIRUBIN,URINE NEGATIVE (NEG); GLUCOSE,URINE NEGATIVE (NEG); NITRITE,URINE POSITIVE (NEG); PH,URINE 5.5; PROTEIN,URINE 30 mg/dL (NEG-TRACE); UROBILINOGEN,URINE 0.2 mg/dL (0.2 mg/dL)
[2017-06-02] MEDS: INSULIN ASPART 300 UNITS/3 ML INSULN.PEN SQ SCH ×3 (07:30→16:30)
[2017-06-02 07:37] LABS: BACTERIA,URINE 0 /HPF (0-FEW); RBC,URINE 0 /HPF (0-2); SQUAMOUS EPITHELIAL CELL,UR MOD /LPF; WBC,URINE >40 /HPF (0-4)
[2017-06-02] MEDS ORDERED: POTASSIUM CHLORIDE 20 MEQ TABLET.ER. PO SCH ×2 (08:00)
[2017-06-02] MEDS ORDERED: FUROSEMIDE 40 MG TABLET. PO SCH (09:00)
--- NOTE | 2017-06-02 09:23 | PDOC1 ---
TARA SANTIAGO [employer] 06/02/17 0923: HISTORY AND PHYSICAL Chief Complaint Chief Complaint This 61year old female has been admitted with a chief complaint of infection R great toe. She was seen by Dr. Schroeder yesterday in the office. The onset of toe wound was in March. In April she was admitted to [facility] for treatment acute gastroenteritis and the wound was treated in patient. Since that time 2 more wounds developed and the toe nail came off. There is purulent drainage from the open wounds on the toe. WBC count 14.5, xray of foot revealed osteomyelitis R great toe and possible involvement metatarsal head, and ESR 60. She was dosed with levaquin po and Vancomycin 1 gram x 1. Wound care has been consulted along with ID for antibiotic management. Orthopedic has been consulted. UA is positive for nitrite, large leukoesterase, and WBC >40. The wound care nurse reports wounds dorsal opening to exit opening plantar R foot. Also Medial wound opening that tunnels to bone. Purulent drainage and cultures obtained. Blood cultures and urine culture are pending. She is admitted to the medical surgical unit. Past Medical History Cardiovascular: HTN, Hyperlipidemia CENTRAL NERVOUS SYSTEM: Migraine GI: Diverticulosis, GERD, Other (h/o gastroparesis with delayed empyting; fatty liver; mild melanosis h/o ) Heme/Onc: Anemia NOS (Fe ), Iron deficiency Anemia (severe) Psych: Anxiety Musculoskeletal: low back pain (chronic s/o sciatica ), Osteoarthritis ( multiple sites) Rheumatologic: Fibromyalgia, Rheumatoid arthritis (seronegative ), Other ( polyarthragia, sarcoidosis ) Renal/: Chronic renal insuff (CKD II ) Endocrine: Diabetes (Type II insulin gastroparesis neuropathy ) Past Surgical History Past Surgical History: Cholecystectomy, Hysterectomy Past Family History Family History: Coronary Artery Disease (premature), Diabetes, Hearing Loss, High Cholestrol, Hypertension Past Social History PSH Negative tobacco, ETOH or illicit drug use Review of Symptoms Review of Symptoms A 14 point ROS was completed with the following noted as positive: per HPI Other systems reviewed and negative. Medications Medications reviewed and reconciled Allergy Allergies Coded Allergies Type Severity Reaction Last Updated Verified Penicillins Allergy Intermediate 04/21/17 Yes benzocaine Allergy Intermediate 04/21/17 Yes hydralazine Allergy Intermediate 04/21/17 No lidocaine Allergy Intermediate 04/21/17 Yes losartan Allergy Intermediate 04/21/17 Yes tetracaine Allergy Intermediate 04/21/17 Yes Physical Exam Physical Exam General appearance - alert,well appearing, and in no distress and oriented to person, place, and time Mental Status - alert, oriented to person, place, and time, affect appropriate to mood Head - normal Chest - clear to auscultation, no wheezes, rales or rhonchi, symmetric air entry Heart - S1 and S2 normal Abdomen - soft, nontender, nondistended, no masses or organomegaly Neurological - alert and oriented Musculoskeletal - no muscular tenderness noted Extremities - no pedal edema Skin - warm and dry VTE Prophylaxis Ordered VTE Prophylaxis Devices: Yes VTE Pharmacological Prophylaxi: No Assessment Labs Laboratory Tests Test 06/01/17 17:36 06/01/17 21:00 06/01/17 21:20 06/02/17 03:11 Glucose (Fingerstick) 100 mg/dL (70-99) 103 mg/dL (70-99) White Blood Count 14.5 x10^3/uL (4.0-11.0) Red Blood Count 4.74 x10^6/uL (3.50-5.40) Hemoglobin 10.9 g/dL (12.0-15.5) Hematocrit 35.4 % (36.0-47.0) Mean Corpuscular Volume 75 fL (79-100) Mean Corpuscular Hemoglobin 23 pg (25-35) Mean Corpuscular Hemoglobin Concent 31 g/dL (31-37) Red Cell Distribution Width 24.0 % (11.5-14.5) Platelet Count 464 x10^3/uL (140-400) Neutrophils (%) (Auto) 71 % (31-73) Lymphocytes (%) (Auto) 19 % (24-48) Monocytes (%) (Auto) 8 % (0-9) Eosinophils (%) (Auto) 2 % (0-3) Basophils (%) (Auto) 1 % (0-3) Neutrophils # (Auto) 10.2 x10^3uL (1.8-7.7) Lymphocytes # (Auto) 2.8 x10^3/uL (1.0-4.8) Monocytes # (Auto) 1.1 x10^3/uL (0.0-1.1) Eosinophils # (Auto) 0.2 x10^3/uL (0.0-0.7) Basophils # (Auto) 0.1 x10^3/uL (0.0-0.2) Platelet Estimate Increased (ADEQUATE) Polychromasia Slight Hypochromasia Slight Poikilocytosis Anisocytosis Mod Microcytosis Slight Ovalocytes Occ Erythrocyte Sedimentation Rate 60 (0-25) Sodium Level 133 mmol/L (136-145) Potassium Level 4.3 mmol/L (3.5-5.1) Chloride Level 96 mmol/L (98-107) Carbon Dioxide Level 29 mmol/L (21-32) Anion Gap 8 (6-14) Blood Urea Nitrogen 23 mg/dL (7-20) Creatinine 2.5 mg/dL (0.6-1.0) Estimated GFR (Cockcroft-Gault) 23.6 BUN/Creatinine Ratio 9 (6-20) Glucose Level 96 mg/dL (70-99) Calcium Level 9.4 mg/dL (8.5-10.1) Total Bilirubin 0.5 mg/dL (0.2-1.0) Aspartate Amino Transf (AST/SGOT) 26 U/L (15-37) Alanine Aminotransferase (ALT/SGPT) 26 U/L (14-59) Alkaline Phosphatase 226 U/L (46-116) Total Protein 9.7 g/dL (6.4-8.2) Albumin 2.8 g/dL (3.4-5.0) Albumin/Globulin Ratio 0.4 (1.0-1.7) Urine Collection Type Unknown Urine Color Adeline Urine Clarity Cloudy Urine pH 5.5 Urine Specific [place] 1.020 Urine Protein 30 mg/dL (NEG-TRACE) Urine Glucose (UA) Negative mg/dL (NEG) Urine Ketones (Stick) Negative mg/dL (NEG) Urine Blood Small (NEG) Urine Nitrite Positive (NEG) Urine Bilirubin Negative (NEG) Urine Urobilinogen Dipstick 0.2 mg/dL (0.2 mg/dL) Urine Leukocyte Esterase Large (NEG) Urine RBC 0 /HPF (0-2) Urine WBC >40 /HPF (0-4) Urine Squamous Epithelial Cells Mod /LPF Urine Amorphous Sediment Present /HPF Urine Bacteria 0 /HPF (0-FEW) Urine Hyaline Casts Moderate /HPF Urine Mucus Slight /LPF Test 06/02/17 07:38 Glucose (Fingerstick) 99 mg/dL (70-99) Laboratory Tests Test 06/01/17 17:36 06/01/17 21:00 06/01/17 21:20 06/02/17 03:11 Glucose (Fingerstick) 100 mg/dL (70-99) 103 mg/dL (70-99) White Blood Count 14.5 x10^3/uL (4.0-11.0) Red Blood Count 4.74 x10^6/uL (3.50-5.40) Hemoglobin 10.9 g/dL (12.0-15.5) Hematocrit 35.4 % (36.0-47.0) Mean Corpuscular Volume 75 fL (79-100) Mean Corpuscular Hemoglobin 23 pg (25-35) Mean Corpuscular Hemoglobin Concent 31 g/dL (31-37) Red Cell Distribution Width 24.0 % (11.5-14.5) Platelet Count 464 x10^3/uL (140-400) Neutrophils (%) (Auto) 71 % (31-73) Lymphocytes (%) (Auto) 19 % (24-48) Monocytes (%) (Auto) 8 % (0-9) Eosinophils (%) (Auto) 2 % (0-3) Basophils (%) (Auto) 1 % (0-3) Neutrophils # (Auto) 10.2 x10^3uL (1.8-7.7) Lymphocytes # (Auto) 2.8 x10^3/uL (1.0-4.8) Monocytes # (Auto) 1.1 x10^3/uL (0.0-1.1) Eosinophils # (Auto) 0.2 x10^3/uL (0.0-0.7) Basophils # (Auto) 0.1 x10^3/uL (0.0-0.2) Platelet Estimate Increased (ADEQUATE) Polychromasia Slight Hypochromasia Slight Poikilocytosis Anisocytosis Mod Microcytosis Slight Ovalocytes Occ Erythrocyte Sedimentation Rate 60 (0-25) Sodium Level 133 mmol/L (136-145) Potassium Level 4.3 mmol/L (3.5-5.1) Chloride Level 96 mmol/L (98-107) Carbon Dioxide Level 29 mmol/L (21-32) Anion Gap 8 (6-14) Blood Urea Nitrogen 23 mg/dL (7-20) Creatinine 2.5 mg/dL (0.6-1.0) Estimated GFR (Cockcroft-Gault) 23.6 BUN/Creatinine Ratio 9 (6-20) Glucose Level 96 mg/dL (70-99) Calcium Level 9.4 mg/dL (8.5-10.1) Total Bilirubin 0.5 mg/dL (0.2-1.0) Aspartate Amino Transf (AST/SGOT) 26 U/L (15-37) Alanine Aminotransferase (ALT/SGPT) 26 U/L (14-59) Alkaline Phosphatase 226 U/L (46-116) Total Protein 9.7 g/dL (6.4-8.2) Albumin 2.8 g/dL (3.4-5.0) Albumin/Globulin Ratio 0.4 (1.0-1.7) Urine Collection Type Unknown Urine Color Adeline Urine Clarity Cloudy Urine pH 5.5 Urine Specific [place] 1.020 Urine Protein 30 mg/dL (NEG-TRACE) Urine Glucose (UA) Negative mg/dL (NEG) Urine Ketones (Stick) Negative mg/dL (NEG) Urine Blood Small (NEG) Urine Nitrite Positive (NEG) Urine Bilirubin Negative (NEG) Urine Urobilinogen Dipstick 0.2 mg/dL (0.2 mg/dL) Urine Leukocyte Esterase Large (NEG) Urine RBC 0 /HPF (0-2) Urine WBC >40 /HPF (0-4) Urine Squamous Epithelial Cells Mod /LPF Urine Amorphous Sediment Present /HPF Urine Bacteria 0 /HPF (0-FEW) Urine Hyaline Casts Moderate /HPF Urine Mucus Slight /LPF Test 06/02/17 07:38 Glucose (Fingerstick) 99 mg/dL (70-99) Plan Plan IMPRESSION 1. R great toe infections with osteomyelitis 2. ARF with CKD II 3. UTI 4. HTN 5. sarcoidosis 6. RA seronegative 7. fatty liver 8. h/o diverticula R lower colon 9. moderate chronic PCL malnutrition 10. hyperlipidemia 11. migraine headache 12. gastroparesis h/o with delayed emptying 13. acute hypokalemia POA resolved 14. OA 15. h/o renal mass 16. hypomagnesia resolved 17. CKD II 18. DM II chronic insulin neuropathy 19. Anemia severe Fe deficiency PLAN: R great toe wound x3, osteomyelitis ID consult Ortho consult Vanco 1gm IV x1 and Levaquin 500 po x 1 Admit WBC 14.5 Sed rate 60 on admit XRay + osteomyelitis UTI culture pending ID consulted DM II FSBS/SSI Levemir 80unit BID ARF with CKD II Admit BUN 23 Cr 2.5 Baseline BUN 11-12 Cr 1.0-1.2 IVF NS 75cc/hr Hold Lasix DVT/GI prophylaxis SCD/RUTH PPI For more details regarding further plans, please refer to the orders. PRO SCHROEDER MD 06/02/17 1013: HISTORY AND PHYSICAL Plan Plan Poor IV access- start PICC line. DM2 with neuropathy. Check PAD.order arterial dopplers frances lower extremities. Cellulitis right foot. The patient was seen and examined by me. Chart reviewed and plan of care formulated. Discussed with, reviewed and agree with [employer]PATCHER's notes, plan of care and orders with modifications as necessary. For more details regarding further plans, please refer to the orders. TARA SANTIAGO APRN Jun 02, 2017 09:23 RPO SCHROEDER MD Jun 02, 2017 10:13
[2017-06-02 10:01] LABS: BASO # 0.1 x10^3/uL (0.0-0.2); BASO % 1 % (0-3); EOS % 3 % (0-3); HEMATOCRIT 33.6 % (36.0-47.0); HEMOGLOBIN 10.6 g/dL (12.0-15.5); LYMPH # 3.4 x10^3/uL (1.0-4.8); LYMPH % 29 % (24-48); MEAN CORPUSCULAR HEMOGLOBIN 23 pg (25-35); MEAN CORPUSCULAR HGB CONC 31 g/dL (31-37); MEAN CORPUSCULAR VOLUME 74 fL (79-100); MONO % 9 % (0-9); NEUT % 59 % (31-73); PLATELET COUNT 471 x10^3/uL (140-400); RED BLOOD COUNT 4.53 x10^6/uL (3.50-5.40); RED CELL DISTRIBUTION WIDTH 23.7 % (11.5-14.5); WHITE BLOOD COUNT 11.8 x10^3/uL (4.0-11.0)
--- NOTE | 2017-06-02 10:10 | PDOC ---
Infectious Disease Note Vital Sign Vital Signs Vital Signs Date Time Temp Pulse Resp B/P (MAP) Pulse Ox O2 Delivery O2 Flow Rate FiO2 06/02/17 07:00 98.0 73 18 136/56 (82) 94 Room Air 98.0 Labs Lab Laboratory Tests Test 06/01/17 17:36 06/01/17 21:00 06/01/17 21:20 06/02/17 03:11 Glucose (Fingerstick) 100 mg/dL (70-99) 103 mg/dL (70-99) White Blood Count 14.5 x10^3/uL (4.0-11.0) Red Blood Count 4.74 x10^6/uL (3.50-5.40) Hemoglobin 10.9 g/dL (12.0-15.5) Hematocrit 35.4 % (36.0-47.0) Mean Corpuscular Volume 75 fL (79-100) Mean Corpuscular Hemoglobin 23 pg (25-35) Mean Corpuscular Hemoglobin Concent 31 g/dL (31-37) Red Cell Distribution Width 24.0 % (11.5-14.5) Platelet Count 464 x10^3/uL (140-400) Neutrophils (%) (Auto) 71 % (31-73) Lymphocytes (%) (Auto) 19 % (24-48) Monocytes (%) (Auto) 8 % (0-9) Eosinophils (%) (Auto) 2 % (0-3) Basophils (%) (Auto) 1 % (0-3) Neutrophils # (Auto) 10.2 x10^3uL (1.8-7.7) Lymphocytes # (Auto) 2.8 x10^3/uL (1.0-4.8) Monocytes # (Auto) 1.1 x10^3/uL (0.0-1.1) Eosinophils # (Auto) 0.2 x10^3/uL (0.0-0.7) Basophils # (Auto) 0.1 x10^3/uL (0.0-0.2) Platelet Estimate Increased (ADEQUATE) Polychromasia Slight Hypochromasia Slight Poikilocytosis Anisocytosis Mod Microcytosis Slight Ovalocytes Occ Erythrocyte Sedimentation Rate 60 (0-25) Sodium Level 133 mmol/L (136-145) Potassium Level 4.3 mmol/L (3.5-5.1) Chloride Level 96 mmol/L (98-107) Carbon Dioxide Level 29 mmol/L (21-32) Anion Gap 8 (6-14) Blood Urea Nitrogen 23 mg/dL (7-20) Creatinine 2.5 mg/dL (0.6-1.0) Estimated GFR (Cockcroft-Gault) 23.6 BUN/Creatinine Ratio 9 (6-20) Glucose Level 96 mg/dL (70-99) Calcium Level 9.4 mg/dL (8.5-10.1) Total Bilirubin 0.5 mg/dL (0.2-1.0) Aspartate Amino Transf (AST/SGOT) 26 U/L (15-37) Alanine Aminotransferase (ALT/SGPT) 26 U/L (14-59) Alkaline Phosphatase 226 U/L (46-116) Total Protein 9.7 g/dL (6.4-8.2) Albumin 2.8 g/dL (3.4-5.0) Albumin/Globulin Ratio 0.4 (1.0-1.7) Urine Collection Type Unknown Urine Color Adeline Urine Clarity Cloudy Urine pH 5.5 Urine Specific [place] 1.020 Urine Protein 30 mg/dL (NEG-TRACE) Urine Glucose (UA) Negative mg/dL (NEG) Urine Ketones (Stick) Negative mg/dL (NEG) Urine Blood Small (NEG) Urine Nitrite Positive (NEG) Urine Bilirubin Negative (NEG) Urine Urobilinogen Dipstick 0.2 mg/dL (0.2 mg/dL) Urine Leukocyte Esterase Large (NEG) Urine RBC 0 /HPF (0-2) Urine WBC >40 /HPF (0-4) Urine Squamous Epithelial Cells Mod /LPF Urine Amorphous Sediment Present /HPF Urine Bacteria 0 /HPF (0-FEW) Urine Hyaline Casts Moderate /HPF Urine Mucus Slight /LPF Test 06/02/17 07:38 Glucose (Fingerstick) 99 mg/dL (70-99) Objective Assessment Diabetic foot infection Rt great toe osteomyelitis DM CKD Leukocytosis Plan Plan of Care ceftarolin and flagyl supportive care pt need amputation MARYANN MAYES MD Jun 02, 2017 10:10
[2017-06-02 10:16] LABS: ALBUMIN 2.7 g/dL (3.4-5.0); ALBUMIN/GLOBULIN RATIO 0.4 (1.0-1.7); CALCIUM 9.6 mg/dL (8.5-10.1); CREATININE 2.4 mg/dL (0.6-1.0); GFR 24.8; MAGNESIUM 1.7 mg/dL (1.8-2.4); POTASSIUM 4.5 mmol/L (3.5-5.1); TOTAL BILIRUBIN 0.6 mg/dL (0.2-1.0); TOTAL PROTEIN 9.7 g/dL (6.4-8.2)
[2017-06-02] MEDS: amLODIPine BESYLATE 5 MG TABLET PO SCH (10:42)
[2017-06-02] MEDS: PANTOPRAZOLE 40 MG TABLET.DR. PO SCH (10:42)
[2017-06-02] MEDS: MIRTAZAPINE 15 MG TABLET PO SCH (10:43)
[2017-06-02] MEDS: FERROUS SULFATE 325 MG TABLET. PO SCH (10:43)
[2017-06-02 11:00] VITALS: BP 128/76
--- NOTE | 2017-06-02 12:42 | CONS ---
DATE OF CONSULTATION: 06/02/2017 REQUESTING PHYSICIAN: Dr. Rivera. REASON FOR CONSULTATION: Osteomyelitis. HISTORY OF PRESENT ILLNESS: This is a 61-year-old -[place] female with history of diabetes, renal failure who has had toe wound since March. The patient had a small opening there and then it progressively got worse she says and now draining from the top, draining from the bottom and the patient is admitted with osteomyelitis. X-ray is showing osteomyelitis. The patient denies any fever, denies any nausea, vomiting, diarrhea. Denies any chest pain, shortness of breath, abdominal pain, urinary symptoms or bowel symptoms. The patient was given one dose of vancomycin and one dose of Levaquin and consult has been requested. PAST MEDICAL HISTORY: Positive for diabetes mellitus, renal insufficiency, hyperlipidemia, hypertension, gastroesophageal reflux disease, anemia. Has had cholecystectomy, hysterectomy, fibromyalgia, rheumatoid arthritis. SOCIAL HISTORY: Negative for smoking, alcohol, illicit drug use. ALLERGIES: LISTED ALLERGIC TO PENICILLIN, which caused rash. REVIEW OF SYSTEMS: As per HPI, all other systems reviewed are negative. PHYSICAL EXAMINATION: GENERAL: Alert, oriented female, not in distress. VITAL SIGNS: Stable, afebrile. HEENT: NAD. NECK: Supple, no JVP, no lymphadenopathy. LUNGS: Clear. HEART: S1, S2 regular. ABDOMEN: Benign. EXTREMITIES: Mild pitting edema, no cyanosis. Examination of the foot: Right big toe is swollen. She has lost toenail. It is red. There is a sinus tract that probes to the bone. There is one on the dorsal aspect and one on the plantar aspect. Extensive infection seen with pus coming out all the way to the base of the metatarsal. There is excellent dorsalis pedis palpable. NEUROLOGIC: The patient is neurologically intact. LABORATORY DATA: White count is 14.5, BUN 23, creatinine 2.5. Urinalysis, more than 40 WBCs. Wound culture evidently has been done, is pending. Chest x-ray is unremarkable. Foot x-ray does have osteomyelitis of the big toe, phalanges as well as metatarsal. IMPRESSION: 1. Osteomyelitis of the right big toe. 2. Extensive soft tissue infection with the diabetic foot infection. 3. Leukocytosis. 4. Chronic kidney disease. 5. Diabetes. RECOMMEND: Would use ceftaroline and Flagyl. Supportive care. Cultures have been taken. We will adjust if needed and the patient is going to need amputation. This is not salvageable. Thank you very much, Dr. Rivera, for giving me the opportunity to participate in this patient's care. MARYANN MAYES MD DR: LIEN/thomas JOB#: [id number] / [id number]
[2017-06-02] MEDS: ATENOLOL 25 MG TABLET. PO SCH ×2 (14:22→20:39)
[2017-06-02] MEDS: HYDROXYCHLOROQUINE 200 MG TABLET PO SCH ×2 (14:22→20:38)
--- NOTE | 2017-06-02 14:38 | PDOC2 ---
CONSULT Date of Consult Date of Consult DATE: 06/02/17 TIME: 14:35 Reason for Consult Reason for Consult: right foot osteomyelitis Identification/Chief Complaint Chief Complaint right big toe drainage Problems: Source Source: Chart review, Patient History of Present Illness Reason for Visit: 60 year old with 15 year history of type II DM and some neuropathy who began having right great toe ulcer in March. She had wound care and wrapping. In April it was worse. She presents now with increasing drainage of the great toe. Past Medical History Cardiovascular: HTN, Hyperlipidemia CENTRAL NERVOUS SYSTEM: Migraine GI: Diverticulosis, GERD, Other (h/o gastroparesis with delayed empyting; fatty liver; mild melanosis h/o ) Heme/Onc: Anemia NOS (Fe ), Iron deficiency Anemia (severe) Psych: Anxiety Musculoskeletal: low back pain (chronic s/o sciatica ), Osteoarthritis ( multiple sites) Rheumatologic: Fibromyalgia, Rheumatoid arthritis (seronegative ), Other ( polyarthragia, sarcoidosis ) Renal/: Chronic renal insuff (CKD II ) Endocrine: Diabetes (Type II insulin gastroparesis neuropathy ) Past Surgical History Past Surgical History: Cholecystectomy, Hysterectomy Family History Family History: Coronary Artery Disease (premature), Diabetes, Hearing Loss, High Cholestrol, Hypertension Social History ALCOHOL: none Drugs: None Current Medications Current Medications Current Medications Vancomycin HCl 1 gm/Sodium Chloride 250 ml @ 250 mls/hr 1X ONCE IV ; Start at 17:30; Stop 06/01/17 at 18:29; Status DC Acetaminophen (Tylenol) 650 mg PRN Q6HRS PRN PO PAIN; Start 06/01/17 at 17:30 Insulin Aspart (NovoLOG) BIDBFRMEAL SQ ; Start 06/01/17 at 18:00; Stop at 09:01; Status DC Amlodipine Besylate (Norvasc) 5 mg DAILY PO Last administered on 06/02/17 10: 42; Start 06/02/17 at 09:00 Atenolol (Tenormin) 25 mg BID PO Last administered on 06/02/17 14:22; Start at 21:00 Cyclobenzaprine HCl (Flexeril) 10 mg QHS PO Last administered on 06/01/17t 22: 19; Start 06/01/17 at 21:00 Ferrous Sulfate (Feosol) 325 mg DAILY PO Last administered on 06/02/17 10:43; Start 06/02/17 at 09:00 Furosemide (Lasix) 40 mg DAILY PO Last administered on 06/02/17 09:00; Start 06/02/17 at 09:00; Stop 06/02/17 at 09:26; Status DC Acetaminophen/ Hydrocodone Bitart (Lortab 10/325) 1 tab PRN Q6HRS PRN PO PAIN; Start 06/01/17 at 19:30 Hydroxychloroquine Sulfate (Plaquenil) 200 mg BID PO Last administered on 14:22; Start 06/01/17 at 21:00 Mirtazapine (Remeron) 15 mg DAILY PO Last administered on 06/02/17 10:43; Start 06/02/17 at 09:00 Potassium Chloride (Klor-Con) 20 meq DAILYWBKFT PO ; Start 06/02/17 at 08:00; Status Cancel Insulin Detemir (Levemir) 80 units QHS SQ ; Start 06/01/17 at 21:00 Potassium Chloride (Klor-Con) 40 meq DAILYWBKFT PO Last administered on 10:41; Start 06/02/17 at 08:00 Pantoprazole Sodium (Protonix) 40 mg DAILYAC PO Last administered on 06/02/17 10:42; Start 06/02/17 at 07:30 Levofloxacin (Levaquin) 500 mg 1X ONCE PO Last administered on 06/01/17 23:43 ; Start 06/01/17 at 23:30; Stop 06/01/17 at 23:31; Status DC Insulin Aspart (NovoLOG) TIDAC SQ ; Start 06/02/17 at 11:30 Sodium Chloride 1,000 ml @ 75 mls/hr [id number] IV ; Start 06/02/17 at 09:30 Ceftaroline Fosamil 600 mg/ Sodium Chloride 250 ml @ 250 mls/hr Q12HR IV ; Start 06/02/17 at 11:00 Metronidazole 100 ml @ 100 mls/hr Q12HR IV ; Start 06/02/17 at 11:00 Active Scripts Active Ferrous Sulfate 325 Mg Tablet 325 Mg PO DAILY 30 Days Klor-Con M20 (Potassium Chloride) 20 Meq Tab.er.prt 20 Meq PO DAILYWBKFT Lantus (Insulin Glargine,Hum.rec.anlog) 100 Unit/1 Ml Vial 35 Unit SQ BID Begin 1/2 home dose and adjust to home dose 70ubid when BS stablized Proair Hfa (Albuterol Sulfate) 8.5 Gm Hfa.aer.ad 8.5 Gm IH PRN Q4HRS PRN Symbicort 160-4.5 Mcg Inhaler (Budesonide/Formoterol Fumarate) 10.2 Gm Hfa.aer.ad 2 Puff IH BID Reported Potassium Chloride 20 Meq Tablet.er 40 Meq PO DAILY Lantus (Insulin Glargine,Hum.rec.anlog) 100 Unit/1 Ml Vial 80 Unit SQ HS Furosemide 40 Mg Tablet 1 Tab PO DAILY Lortab 10-325 mg Tablet (Hydrocodone/Acetaminophen) 1 Each Tablet 1 Tab PO PRN Q6HRS PRN Cyclobenzaprine Hcl 10 Mg Tablet 1 Tab PO QHS Aciphex (Rabeprazole Sodium) 20 Mg Tablet.dr 1 Tab PO DAILY Amlodipine Besylate 5 Mg Tablet 5 Mg PO DAILY Mirtazapine 15 Mg Tablet 15 Mg PO DAILY Hydroxychloroquine Sulfate 200 Mg Tablet 1 Tab PO BID Atenolol 25 Mg Tablet 1 Tab PO BID Allergies Allergies: Coded Allergies: Penicillins (Verified Allergy, Intermediate, 04/21/17) benzocaine (Verified Allergy, Intermediate, 04/21/17) hydralazine (Unverified Allergy, Intermediate, 04/21/17) lidocaine (Verified Allergy, Intermediate, 04/21/17) losartan (Verified Allergy, Intermediate, 04/21/17) tetracaine (Verified Allergy, Intermediate, 04/21/17) ROS General: No: Malaise Musculoskeletal: No Joint Pain Skin: Yes Skin Lesion Changes Physical Exam General: Alert, Cooperative HEENT: PERRLA, Mucous membr. moist/pink Heart: Regular rate Abdomen: Soft, Other Extremities: Other (there is ulceration and a sinus tract of the right great toe. There is erythema and purulent drainage. This seems to extend the first metatarsophalangeal joint. There is loss of the toenail. Dorsalis pedis pulses intact. Sensation is slightly decreased due to peripheral neuropathy.) Skin: Other (thickness sinus tract ulceration as above) Neuro: Normal speech Psych/Mental Status: Mental status NL, Mood NL Vitals VITALS Vital Signs Date Time Temp Pulse Resp B/P (MAP) Pulse Ox O2 Delivery O2 Flow Rate FiO2 06/02/17 14:22 79 128/76 06/02/17 11:00 98.7 16 96 Room Air 98.7 Labs Labs Laboratory Tests Test 06/01/17 17:36 06/01/17 21:00 06/01/17 21:20 06/02/17 03:11 Glucose (Fingerstick) 100 mg/dL (70-99) 103 mg/dL (70-99) White Blood Count 14.5 x10^3/uL (4.0-11.0) Red Blood Count 4.74 x10^6/uL (3.50-5.40) Hemoglobin 10.9 g/dL (12.0-15.5) Hematocrit 35.4 % (36.0-47.0) Mean Corpuscular Volume 75 fL (79-100) Mean Corpuscular Hemoglobin 23 pg (25-35) Mean Corpuscular Hemoglobin Concent 31 g/dL (31-37) Red Cell Distribution Width 24.0 % (11.5-14.5) Platelet Count 464 x10^3/uL (140-400) Neutrophils (%) (Auto) 71 % (31-73) Lymphocytes (%) (Auto) 19 % (24-48) Monocytes (%) (Auto) 8 % (0-9) Eosinophils (%) (Auto) 2 % (0-3) Basophils (%) (Auto) 1 % (0-3) Neutrophils # (Auto) 10.2 x10^3uL (1.8-7.7) Lymphocytes # (Auto) 2.8 x10^3/uL (1.0-4.8) Monocytes # (Auto) 1.1 x10^3/uL (0.0-1.1) Eosinophils # (Auto) 0.2 x10^3/uL (0.0-0.7) Basophils # (Auto) 0.1 x10^3/uL (0.0-0.2) Platelet Estimate Increased (ADEQUATE) Polychromasia Slight Hypochromasia Slight Poikilocytosis Anisocytosis Mod Microcytosis Slight Ovalocytes Occ Erythrocyte Sedimentation Rate 60 (0-25) Sodium Level 133 mmol/L (136-145) Potassium Level 4.3 mmol/L (3.5-5.1) Chloride Level 96 mmol/L (98-107) Carbon Dioxide Level 29 mmol/L (21-32) Anion Gap 8 (6-14) Blood Urea Nitrogen 23 mg/dL (7-20) Creatinine 2.5 mg/dL (0.6-1.0) Estimated GFR (Cockcroft-Gault) 23.6 BUN/Creatinine Ratio 9 (6-20) Glucose Level 96 mg/dL (70-99) Calcium Level 9.4 mg/dL (8.5-10.1) Total Bilirubin 0.5 mg/dL (0.2-1.0) Aspartate Amino Transf (AST/SGOT) 26 U/L (15-37) Alanine Aminotransferase (ALT/SGPT) 26 U/L (14-59) Alkaline Phosphatase 226 U/L (46-116) Total Protein 9.7 g/dL (6.4-8.2) Albumin 2.8 g/dL (3.4-5.0) Albumin/Globulin Ratio 0.4 (1.0-1.7) Urine Collection Type Unknown Urine Color Adeline Urine Clarity Cloudy Urine pH 5.5 Urine Specific [place] 1.020 Urine Protein 30 mg/dL (NEG-TRACE) Urine Glucose (UA) Negative mg/dL (NEG) Urine Ketones (Stick) Negative mg/dL (NEG) Urine Blood Small (NEG) Urine Nitrite Positive (NEG) Urine Bilirubin Negative (NEG) Urine Urobilinogen Dipstick 0.2 mg/dL (0.2 mg/dL) Urine Leukocyte Esterase Large (NEG) Urine RBC 0 /HPF (0-2) Urine WBC >40 /HPF (0-4) Urine Squamous Epithelial Cells Mod /LPF Urine Amorphous Sediment Present /HPF Urine Bacteria 0 /HPF (0-FEW) Urine Hyaline Casts Moderate /HPF Urine Mucus Slight /LPF Test 06/02/17 07:38 06/02/17 09:10 06/02/17 11:48 Glucose (Fingerstick) 99 mg/dL (70-99) 105 mg/dL (70-99) White Blood Count 11.8 x10^3/uL (4.0-11.0) Red Blood Count 4.53 x10^6/uL (3.50-5.40) Hemoglobin 10.6 g/dL (12.0-15.5) Hematocrit 33.6 % (36.0-47.0) Mean Corpuscular Volume 74 fL (79-100) Mean Corpuscular Hemoglobin 23 pg (25-35) Mean Corpuscular Hemoglobin Concent 31 g/dL (31-37) Red Cell Distribution Width 23.7 % (11.5-14.5) Platelet Count 471 x10^3/uL (140-400) Neutrophils (%) (Auto) 59 % (31-73) Lymphocytes (%) (Auto) 29 % (24-48) Monocytes (%) (Auto) 9 % (0-9) Eosinophils (%) (Auto) 3 % (0-3) Basophils (%) (Auto) 1 % (0-3) Neutrophils # (Auto) 6.9 x10^3uL (1.8-7.7) Lymphocytes # (Auto) 3.4 x10^3/uL (1.0-4.8) Monocytes # (Auto) 1.0 x10^3/uL (0.0-1.1) Eosinophils # (Auto) 0.3 x10^3/uL (0.0-0.7) Basophils # (Auto) 0.1 x10^3/uL (0.0-0.2) Sodium Level 134 mmol/L (136-145) Potassium Level 4.5 mmol/L (3.5-5.1) Chloride Level 96 mmol/L (98-107) Carbon Dioxide Level 28 mmol/L (21-32) Anion Gap 10 (6-14) Blood Urea Nitrogen 23 mg/dL (7-20) Creatinine 2.4 mg/dL (0.6-1.0) Estimated GFR (Cockcroft-Gault) 24.8 BUN/Creatinine Ratio 10 (6-20) Glucose Level 89 mg/dL (70-99) Calcium Level 9.6 mg/dL (8.5-10.1) Magnesium Level 1.7 mg/dL (1.8-2.4) Total Bilirubin 0.6 mg/dL (0.2-1.0) Aspartate Amino Transf (AST/SGOT) 26 U/L (15-37) Alanine Aminotransferase (ALT/SGPT) 27 U/L (14-59) Alkaline Phosphatase 221 U/L (46-116) Total Protein 9.7 g/dL (6.4-8.2) Albumin 2.7 g/dL (3.4-5.0) Albumin/Globulin Ratio 0.4 (1.0-1.7) Laboratory Tests Test 06/01/17 17:36 06/01/17 21:00 06/01/17 21:20 06/02/17 03:11 Glucose (Fingerstick) 100 mg/dL (70-99) 103 mg/dL (70-99) White Blood Count 14.5 x10^3/uL (4.0-11.0) Red Blood Count 4.74 x10^6/uL (3.50-5.40) Hemoglobin 10.9 g/dL (12.0-15.5) Hematocrit 35.4 % (36.0-47.0) Mean Corpuscular Volume 75 fL (79-100) Mean Corpuscular Hemoglobin 23 pg (25-35) Mean Corpuscular Hemoglobin Concent 31 g/dL (31-37) Red Cell Distribution Width 24.0 % (11.5-14.5) Platelet Count 464 x10^3/uL (140-400) Neutrophils (%) (Auto) 71 % (31-73) Lymphocytes (%) (Auto) 19 % (24-48) Monocytes (%) (Auto) 8 % (0-9) Eosinophils (%) (Auto) 2 % (0-3) Basophils (%) (Auto) 1 % (0-3) Neutrophils # (Auto) 10.2 x10^3uL (1.8-7.7) Lymphocytes # (Auto) 2.8 x10^3/uL (1.0-4.8) Monocytes # (Auto) 1.1 x10^3/uL (0.0-1.1) Eosinophils # (Auto) 0.2 x10^3/uL (0.0-0.7) Basophils # (Auto) 0.1 x10^3/uL (0.0-0.2) Platelet Estimate Increased (ADEQUATE) Polychromasia Slight Hypochromasia Slight Poikilocytosis Anisocytosis Mod Microcytosis Slight Ovalocytes Occ Erythrocyte Sedimentation Rate 60 (0-25) Sodium Level 133 mmol/L (136-145) Potassium Level 4.3 mmol/L (3.5-5.1) Chloride Level 96 mmol/L (98-107) Carbon Dioxide Level 29 mmol/L (21-32) Anion Gap 8 (6-14) Blood Urea Nitrogen 23 mg/dL (7-20) Creatinine 2.5 mg/dL (0.6-1.0) Estimated GFR (Cockcroft-Gault) 23.6 BUN/Creatinine Ratio 9 (6-20) Glucose Level 96 mg/dL (70-99) Calcium Level 9.4 mg/dL (8.5-10.1) Total Bilirubin 0.5 mg/dL (0.2-1.0) Aspartate Amino Transf (AST/SGOT) 26 U/L (15-37) Alanine Aminotransferase (ALT/SGPT) 26 U/L (14-59) Alkaline Phosphatase 226 U/L (46-116) Total Protein 9.7 g/dL (6.4-8.2) Albumin 2.8 g/dL (3.4-5.0) Albumin/Globulin Ratio 0.4 (1.0-1.7) Urine Collection Type Unknown Urine Color Adeline Urine Clarity Cloudy Urine pH 5.5 Urine Specific [place] 1.020 Urine Protein 30 mg/dL (NEG-TRACE) Urine Glucose (UA) Negative mg/dL (NEG) Urine Ketones (Stick) Negative mg/dL (NEG) Urine Blood Small (NEG) Urine Nitrite Positive (NEG) Urine Bilirubin Negative (NEG) Urine Urobilinogen Dipstick 0.2 mg/dL (0.2 mg/dL) Urine Leukocyte Esterase Large (NEG) Urine RBC 0 /HPF (0-2) Urine WBC >40 /HPF (0-4) Urine Squamous Epithelial Cells Mod /LPF Urine Amorphous Sediment Present /HPF Urine Bacteria 0 /HPF (0-FEW) Urine Hyaline Casts Moderate /HPF Urine Mucus Slight /LPF Test 06/02/17 07:38 06/02/17 09:10 06/02/17 11:48 Glucose (Fingerstick) 99 mg/dL (70-99) 105 mg/dL (70-99) White Blood Count 11.8 x10^3/uL (4.0-11.0) Red Blood Count 4.53 x10^6/uL (3.50-5.40) Hemoglobin 10.6 g/dL (12.0-15.5) Hematocrit 33.6 % (36.0-47.0) Mean Corpuscular Volume 74 fL (79-100) Mean Corpuscular Hemoglobin 23 pg (25-35) Mean Corpuscular Hemoglobin Concent 31 g/dL (31-37) Red Cell Distribution Width 23.7 % (11.5-14.5) Platelet Count 471 x10^3/uL (140-400) Neutrophils (%) (Auto) 59 % (31-73) Lymphocytes (%) (Auto) 29 % (24-48) Monocytes (%) (Auto) 9 % (0-9) Eosinophils (%) (Auto) 3 % (0-3) Basophils (%) (Auto) 1 % (0-3) Neutrophils # (Auto) 6.9 x10^3uL (1.8-7.7) Lymphocytes # (Auto) 3.4 x10^3/uL (1.0-4.8) Monocytes # (Auto) 1.0 x10^3/uL (0.0-1.1) Eosinophils # (Auto) 0.3 x10^3/uL (0.0-0.7) Basophils # (Auto) 0.1 x10^3/uL (0.0-0.2) Sodium Level 134 mmol/L (136-145) Potassium Level 4.5 mmol/L (3.5-5.1) Chloride Level 96 mmol/L (98-107) Carbon Dioxide Level 28 mmol/L (21-32) Anion Gap 10 (6-14) Blood Urea Nitrogen 23 mg/dL (7-20) Creatinine 2.4 mg/dL (0.6-1.0) Estimated GFR (Cockcroft-Gault) 24.8 BUN/Creatinine Ratio 10 (6-20) Glucose Level 89 mg/dL (70-99) Calcium Level 9.6 mg/dL (8.5-10.1) Magnesium Level 1.7 mg/dL (1.8-2.4) Total Bilirubin 0.6 mg/dL (0.2-1.0) Aspartate Amino Transf (AST/SGOT) 26 U/L (15-37) Alanine Aminotransferase (ALT/SGPT) 27 U/L (14-59) Alkaline Phosphatase 221 U/L (46-116) Total Protein 9.7 g/dL (6.4-8.2) Albumin 2.7 g/dL (3.4-5.0) Albumin/Globulin Ratio 0.4 (1.0-1.7) Images Images Radiographs show destruction of the distal phalanx of the right great toe. The proximal phalanx has erosion consistent with osteomyelitis. The first metatarsal head has erosion consistent with osteomyelitis. Assessment/Plan Assessment/Plan Osteomyelitis right foot, including the distal phalanx, and likely the proximal phalanx and first metatarsal head. I recommended an MRI to help delineate the degree of bony involvement, and also a consult with Dr. Galicia of podiatry for consideration of first ray resection. SHOSHANA SANDOVAL MD Jun 02, 2017 14:38
[2017-06-02 15:00] VITALS: BP 143/75
--- NOTE | 2017-06-02 16:25 | RAD ---
Examination: MRI of the right forefoot without contrast HISTORY: History of nonhealing diabetic ulcer great toe for 3 months, history of debridement COMPARISON: None available Technique: Multiplanar, multisequence MR imaging of the right forefoot were performed without contrast FINDINGS: There is comminuted appearance of the distal phalanx of the first toe with cortical disruption and diffuse decreased T1 signal in the distal phalanx of the first toe. There is diffuse decreased T1 signal with corresponding high T2 signal identified in the proximal phalanx of the first toe. There is small ulcer identified in the medial aspect of the great toe at the level of the interphalangeal joint extending into the subcutaneous region. Moderate increased T2 signal identified in the soft tissue of the great toe and around the flexor hallucis longus tendon likely inflammation or infection. There is mild increased T2 signal identified in the plantar muscles of the forefoot. There is a tiny focus of low T1 signal corresponding high T2 signal identified in the distal aspect of the head of the first metatarsal likely degeneration without overlying cortical disruption. IMPRESSION: 1. Findings consistent with osteomyelitis of the distal phalanx and proximal phalanx of the first toe. The distal phalanx is comminuted. 2. There is a small ulcer identified in the medial aspect of the great toe at the level of the interphalangeal joint extending into the subcutaneous region. Moderate increased T2 signal identified in the soft tissue of the great toe and around the flexor hallucis longus tendon in the great toe likely soft tissue infection or inflammation. Correlate clinically. 3. Mild increased T2 signal identified in the plantar muscles of the foot likely myositis or edema. 4. Tiny focus of low T1 signal corresponding high T2 signal identified in the distal aspect of the head of the first metatarsal likely degeneration without overlying cortical disruption. Electronically signed by: Blair Garcia MD (06/02/2017 4:22 PM) [id number]
[2017-06-02 19:25] VITALS: BP 146/78
[2017-06-02] MEDS: CEFTAROLINE FOSAMIL 600 MG in IV NORMAL SALINE 250ML 250 ML IV SCH ×2 (20:34→20:39)
[2017-06-02] MEDS: IV NORMAL SALINE 1000ML BAG 1,000 ML IV SCH ×2 (20:35→21:57)
[2017-06-02] MEDS: CYCLOBENZAPRINE 10 MG TABLET. PO SCH (20:38)
[2017-06-02] MEDS: INSULIN DETEMIR 300 UNITS/3 ML INSULN.PEN. SQ SCH (21:57)
[2017-06-02 23:25] VITALS: BP 128/60
[2017-06-03 03:25] VITALS: BP 127/57
--- NOTE | 2017-06-03 06:28 | PDOC ---
TARA SANTIAGO REFRIGERATION SPECIALIST 06/03/17 0628: IM PROGRESS NOTES- Subjective Subjective sleeping Objective Objective no distress Vitals Vital Signs Date Time Temp Pulse Resp B/P (MAP) Pulse Ox O2 Delivery O2 Flow Rate FiO2 06/03/17 03:25 98.6 75 18 127/57 (80) 95 Room Air 98.6 Physical Exam Physical Exam General appearance - sleeping, appearing, and in no distress Mental Status - sleeping Head - normal Chest - clear to auscultation, no wheezes, rales or rhonchi, symmetric air entry Heart - S1 and S2 normal Abdomen - soft, nondistended, BS+ Neurological - sleeping Musculoskeletal - no muscular tenderness noted Extremities - no pedal edema, dressing R foot Skin - warm and dry Labs Laboratory Tests Test 06/01/17 17:36 06/01/17 21:00 06/01/17 21:20 06/02/17 03:11 Glucose (Fingerstick) 100 mg/dL (70-99) 103 mg/dL (70-99) White Blood Count 14.5 x10^3/uL (4.0-11.0) Red Blood Count 4.74 x10^6/uL (3.50-5.40) Hemoglobin 10.9 g/dL (12.0-15.5) Hematocrit 35.4 % (36.0-47.0) Mean Corpuscular Volume 75 fL (79-100) Mean Corpuscular Hemoglobin 23 pg (25-35) Mean Corpuscular Hemoglobin Concent 31 g/dL (31-37) Red Cell Distribution Width 24.0 % (11.5-14.5) Platelet Count 464 x10^3/uL (140-400) Neutrophils (%) (Auto) 71 % (31-73) Lymphocytes (%) (Auto) 19 % (24-48) Monocytes (%) (Auto) 8 % (0-9) Eosinophils (%) (Auto) 2 % (0-3) Basophils (%) (Auto) 1 % (0-3) Neutrophils # (Auto) 10.2 x10^3uL (1.8-7.7) Lymphocytes # (Auto) 2.8 x10^3/uL (1.0-4.8) Monocytes # (Auto) 1.1 x10^3/uL (0.0-1.1) Eosinophils # (Auto) 0.2 x10^3/uL (0.0-0.7) Basophils # (Auto) 0.1 x10^3/uL (0.0-0.2) Platelet Estimate Increased (ADEQUATE) Polychromasia Slight Hypochromasia Slight Poikilocytosis Anisocytosis Mod Microcytosis Slight Ovalocytes Occ Erythrocyte Sedimentation Rate 60 (0-25) Sodium Level 133 mmol/L (136-145) Potassium Level 4.3 mmol/L (3.5-5.1) Chloride Level 96 mmol/L (98-107) Carbon Dioxide Level 29 mmol/L (21-32) Anion Gap 8 (6-14) Blood Urea Nitrogen 23 mg/dL (7-20) Creatinine 2.5 mg/dL (0.6-1.0) Estimated GFR (Cockcroft-Gault) 23.6 BUN/Creatinine Ratio 9 (6-20) Glucose Level 96 mg/dL (70-99) Calcium Level 9.4 mg/dL (8.5-10.1) Total Bilirubin 0.5 mg/dL (0.2-1.0) Aspartate Amino Transf (AST/SGOT) 26 U/L (15-37) Alanine Aminotransferase (ALT/SGPT) 26 U/L (14-59) Alkaline Phosphatase 226 U/L (46-116) Total Protein 9.7 g/dL (6.4-8.2) Albumin 2.8 g/dL (3.4-5.0) Albumin/Globulin Ratio 0.4 (1.0-1.7) Urine Collection Type Unknown Urine Color Adeline Urine Clarity Cloudy Urine pH 5.5 Urine Specific [place] 1.020 Urine Protein 30 mg/dL (NEG-TRACE) Urine Glucose (UA) Negative mg/dL (NEG) Urine Ketones (Stick) Negative mg/dL (NEG) Urine Blood Small (NEG) Urine Nitrite Positive (NEG) Urine Bilirubin Negative (NEG) Urine Urobilinogen Dipstick 0.2 mg/dL (0.2 mg/dL) Urine Leukocyte Esterase Large (NEG) Urine RBC 0 /HPF (0-2) Urine WBC >40 /HPF (0-4) Urine Squamous Epithelial Cells Mod /LPF Urine Amorphous Sediment Present /HPF Urine Bacteria 0 /HPF (0-FEW) Urine Hyaline Casts Moderate /HPF Urine Mucus Slight /LPF Test 06/02/17 07:38 06/02/17 09:10 06/02/17 11:48 06/02/17 17:17 Glucose (Fingerstick) 99 mg/dL (70-99) 105 mg/dL (70-99) 76 mg/dL (70-99) White Blood Count 11.8 x10^3/uL (4.0-11.0) Red Blood Count 4.53 x10^6/uL (3.50-5.40) Hemoglobin 10.6 g/dL (12.0-15.5) Hematocrit 33.6 % (36.0-47.0) Mean Corpuscular Volume 74 fL (79-100) Mean Corpuscular Hemoglobin 23 pg (25-35) Mean Corpuscular Hemoglobin Concent 31 g/dL (31-37) Red Cell Distribution Width 23.7 % (11.5-14.5) Platelet Count 471 x10^3/uL (140-400) Neutrophils (%) (Auto) 59 % (31-73) Lymphocytes (%) (Auto) 29 % (24-48) Monocytes (%) (Auto) 9 % (0-9) Eosinophils (%) (Auto) 3 % (0-3) Basophils (%) (Auto) 1 % (0-3) Neutrophils # (Auto) 6.9 x10^3uL (1.8-7.7) Lymphocytes # (Auto) 3.4 x10^3/uL (1.0-4.8) Monocytes # (Auto) 1.0 x10^3/uL (0.0-1.1) Eosinophils # (Auto) 0.3 x10^3/uL (0.0-0.7) Basophils # (Auto) 0.1 x10^3/uL (0.0-0.2) Sodium Level 134 mmol/L (136-145) Potassium Level 4.5 mmol/L (3.5-5.1) Chloride Level 96 mmol/L (98-107) Carbon Dioxide Level 28 mmol/L (21-32) Anion Gap 10 (6-14) Blood Urea Nitrogen 23 mg/dL (7-20) Creatinine 2.4 mg/dL (0.6-1.0) Estimated GFR (Cockcroft-Gault) 24.8 BUN/Creatinine Ratio 10 (6-20) Glucose Level 89 mg/dL (70-99) Calcium Level 9.6 mg/dL (8.5-10.1) Magnesium Level 1.7 mg/dL (1.8-2.4) Total Bilirubin 0.6 mg/dL (0.2-1.0) Aspartate Amino Transf (AST/SGOT) 26 U/L (15-37) Alanine Aminotransferase (ALT/SGPT) 27 U/L (14-59) Alkaline Phosphatase 221 U/L (46-116) Total Protein 9.7 g/dL (6.4-8.2) Albumin 2.7 g/dL (3.4-5.0) Albumin/Globulin Ratio 0.4 (1.0-1.7) Test 06/02/17 20:50 Glucose (Fingerstick) 78 mg/dL (70-99) Laboratory Tests Test 06/02/17 07:38 06/02/17 09:10 06/02/17 11:48 06/02/17 17:17 Glucose (Fingerstick) 99 mg/dL (70-99) 105 mg/dL (70-99) 76 mg/dL (70-99) White Blood Count 11.8 x10^3/uL (4.0-11.0) Red Blood Count 4.53 x10^6/uL (3.50-5.40) Hemoglobin 10.6 g/dL (12.0-15.5) Hematocrit 33.6 % (36.0-47.0) Mean Corpuscular Volume 74 fL (79-100) Mean Corpuscular Hemoglobin 23 pg (25-35) Mean Corpuscular Hemoglobin Concent 31 g/dL (31-37) Red Cell Distribution Width 23.7 % (11.5-14.5) Platelet Count 471 x10^3/uL (140-400) Neutrophils (%) (Auto) 59 % (31-73) Lymphocytes (%) (Auto) 29 % (24-48) Monocytes (%) (Auto) 9 % (0-9) Eosinophils (%) (Auto) 3 % (0-3) Basophils (%) (Auto) 1 % (0-3) Neutrophils # (Auto) 6.9 x10^3uL (1.8-7.7) Lymphocytes # (Auto) 3.4 x10^3/uL (1.0-4.8) Monocytes # (Auto) 1.0 x10^3/uL (0.0-1.1) Eosinophils # (Auto) 0.3 x10^3/uL (0.0-0.7) Basophils # (Auto) 0.1 x10^3/uL (0.0-0.2) Sodium Level 134 mmol/L (136-145) Potassium Level 4.5 mmol/L (3.5-5.1) Chloride Level 96 mmol/L (98-107) Carbon Dioxide Level 28 mmol/L (21-32) Anion Gap 10 (6-14) Blood Urea Nitrogen 23 mg/dL (7-20) Creatinine 2.4 mg/dL (0.6-1.0) Estimated GFR (Cockcroft-Gault) 24.8 BUN/Creatinine Ratio 10 (6-20) Glucose Level 89 mg/dL (70-99) Calcium Level 9.6 mg/dL (8.5-10.1) Magnesium Level 1.7 mg/dL (1.8-2.4) Total Bilirubin 0.6 mg/dL (0.2-1.0) Aspartate Amino Transf (AST/SGOT) 26 U/L (15-37) Alanine Aminotransferase (ALT/SGPT) 27 U/L (14-59) Alkaline Phosphatase 221 U/L (46-116) Total Protein 9.7 g/dL (6.4-8.2) Albumin 2.7 g/dL (3.4-5.0) Albumin/Globulin Ratio 0.4 (1.0-1.7) Test 06/02/17 20:50 Glucose (Fingerstick) 78 mg/dL (70-99) Meds Current Medications Amlodipine Besylate (Norvasc) 5 mg DAILY PO Last administered on 06/02/17 10: 42; Start 06/02/17 at 09:00 Ceftaroline Fosamil 600 mg/ Sodium Chloride 250 ml @ 250 mls/hr Q12HR IV Last administered on 06/02/17 20:34; Start 06/02/17 at 11:00 Ferrous Sulfate (Feosol) 325 mg DAILY PO Last administered on 06/02/17 10:43; Start 06/02/17 at 09:00 Furosemide (Lasix) 40 mg DAILY PO Last administered on 06/02/17 09:00; Start 06/02/17 at 09:00; Stop 06/02/17 at 09:26; Status DC Insulin Aspart (NovoLOG) TIDAC SQ ; Start 06/02/17 at 11:30 Metronidazole 100 ml @ 100 mls/hr Q12HR IV Last administered on 06/02/17 21: 56; Start 06/02/17 at 11:00 Mirtazapine (Remeron) 15 mg DAILY PO Last administered on 06/02/17 10:43; Start 06/02/17 at 09:00 Pantoprazole Sodium (Protonix) 40 mg DAILYAC PO Last administered on 06/02/17 10:42; Start 06/02/17 at 07:30 Potassium Chloride (Klor-Con) 20 meq DAILYWBKFT PO ; Start 06/02/17 at 08:00; Status Cancel Potassium Chloride (Klor-Con) 40 meq DAILYWBKFT PO Last administered on 10:41; Start 06/02/17 at 08:00 Sodium Chloride 1,000 ml @ 75 mls/hr [id number] IV Last administered on 20:35; Start 06/02/17 at 09:30 Assessment Assessment IMPRESSION 1. R great toe extensive soft tissue infection with diabetic foot infection with osteomyelitis 2. ARF with CKD II 3. UTI 4. HTN 5. sarcoidosis 6. RA seronegative 7. fatty liver 8. h/o diverticula R lower colon 9. moderate chronic PCL malnutrition 10. hyperlipidemia 11. migraine headache 12. gastroparesis h/o with delayed emptying 13. acute hypokalemia POA resolved 14. OA 15. h/o renal mass 16. hypomagnesia resolved 17. CKD II 18. DM II chronic insulin neuropathy 19. Anemia severe Fe deficiency MRI foot 06/02: 1. Findings consistent with osteomyelitis of the distal phalanx and proximal phalanx of the first toe. The distal phalanx is comminuted. 2. There is a small ulcer identified in the medial aspect of the great toe at the level of the interphalangeal joint extending into the subcutaneous region. Moderate increased T2 signal identified in the soft tissue of the great toe and around the flexor hallucis longus tendon in the great toe likely soft tissue infection or inflammation. Correlate clinically. 3. Mild increased T2 signal identified in the plantar muscles of the foot likely myositis or edema. 4. Tiny focus of low T1 signal corresponding high T2 signal identified in the distal aspect of the head of the first metatarsal likely degeneration without overlying cortical disruption. PLAN: R great toe wound x3 with extensive infection/ osteomyelitis ID consult Ortho consult Vanco 1gm IV x1 and Levaquin 500 po x 1 Admit WBC 14.5 06/03 11.8 Sed rate 60 on admit XRay + osteomyelitis MRI reviewed grm stain wound mod + gram cocci podiatry consult 06/02 Telfaro 600mg IV q6 Flagyl 500mg IV BID 06/03 arterial doppler pending UTI culture pending ID consulted DM II FSBS/SSI Levemir 80unit BID -decreased to 80unit at hs 06/02 BS 76-105 Levemir held 06/02 BS 78, Decrease to 60unit at hs. ARF with CKD II Admit BUN 23 06/03 23 Cr 2.5 2.4 Mg 1.7 Baseline BUN 11-12 Cr 1.0-1.2 IVF NS 75cc/hr Hold Lasix 06/02 Decrease KCL to 20meq daily-off lasix, K4.5 06/03 Mg Sulfate 2gm IV 06/03 recheck in AM DVT/GI prophylaxis SCD/RUTH PPI For more details regarding further plans, please refer to the orders. Plan Plan For more details regarding further plans, please refer to the orders. PRO SCHROEDER MD 06/03/17 0911: IM PROGRESS NOTES- Assessment Assessment The patient was seen and examined by me. Chart reviewed and plan of care formulated. Discussed with, reviewed and agree with [facility]'s notes, plan of care and orders with modifications as necessary. For more details regarding further plans, please refer to the orders. TARA SANTIAGO APRN Jun 03, 2017 06:28 PRO SCHROEDER MD Jun 03, 2017 09:11
[2017-06-03 07:00] VITALS: BP 156/74
[2017-06-03] MEDS ORDERED: MAGNESIUM SULFATE 2GM 50 ML IV ONE (07:00)
[2017-06-03] MEDS: INSULIN ASPART 300 UNITS/3 ML INSULN.PEN SQ SCH ×3 (07:30→16:30)
[2017-06-03] MEDS: PANTOPRAZOLE 40 MG TABLET.DR. PO SCH (08:52)
[2017-06-03] MEDS: HYDROXYCHLOROQUINE 200 MG TABLET PO SCH ×2 (08:53→19:59)
[2017-06-03] MEDS: FERROUS SULFATE 325 MG TABLET. PO SCH (08:53)
[2017-06-03] MEDS: amLODIPine BESYLATE 5 MG TABLET PO SCH (08:53)
[2017-06-03] MEDS: POTASSIUM CHLORIDE 20 MEQ TABLET.ER. PO SCH (08:54)
[2017-06-03] MEDS: MIRTAZAPINE 15 MG TABLET PO SCH (08:54)
[2017-06-03] MEDS: ATENOLOL 25 MG TABLET. PO SCH ×2 (08:55→21:19)
--- NOTE | 2017-06-03 09:44 | PDOC ---
Infectious Disease Note Subjective Subjective pt feeling fine, waiting for surgery ROS ROS GEN: Denies fevers, chills, sweats HEENT: Denies blurred vision, sore throat CV: Denies chest pain RESP: Denies shortness of air, cough GI: Denies n/v/d NEURO: Denies confusion, dizziness MSK: Denies weakness, joint pain/swelling Vital Sign Vital Signs Vital Signs Date Time Temp Pulse Resp B/P (MAP) Pulse Ox O2 Delivery O2 Flow Rate FiO2 06/03/17 08:55 71 156/74 06/03/17 08:00 Room Air 06/03/17 07:00 98.3 20 98 98.3 Physical Exam PHYSICAL EXAM GENERAL: NAD, Alert HEENT: PERRL, OC/OP NECK: Supple, no JVD, no LN LUNGS: Clear HEART: S1S2, no gallop, no murmur ABD: Soft, NT, no organomegaly, no rebound EXT: No edema, no cyanosis,, rt big toe destroyed RISK LEAD: Alert, oriented x 3, no focal neurologic deficit SKIN: No rash IV: ok Labs Lab Laboratory Tests Test 06/02/17 11:48 06/02/17 17:17 06/02/17 20:50 06/03/17 07:28 Glucose (Fingerstick) 105 mg/dL (70-99) 76 mg/dL (70-99) 78 mg/dL (70-99) 88 mg/dL (70-99) Objective Assessment Diabetic foot infection Rt great toe osteomyelitis DM CKD Leukocytosis Plan Plan of Care ceftarolin and flagyl supportive care pt need amputation MARYANN MAYES MD Jun 03, 2017 09:44
[2017-06-03 09:48] LABS: BASO # 0.1 x10^3/uL (0.0-0.2); BASO % 1 % (0-3); EOS % 3 % (0-3); HEMATOCRIT 34.5 % (36.0-47.0); HEMOGLOBIN 10.5 g/dL (12.0-15.5); LYMPH # 2.3 x10^3/uL (1.0-4.8); LYMPH % 23 % (24-48); MEAN CORPUSCULAR HEMOGLOBIN 23 pg (25-35); MEAN CORPUSCULAR HGB CONC 30 g/dL (31-37); MEAN CORPUSCULAR VOLUME 76 fL (79-100); MONO % 9 % (0-9); NEUT % 65 % (31-73); PLATELET COUNT 407 x10^3/uL (140-400); RED BLOOD COUNT 4.56 x10^6/uL (3.50-5.40); RED CELL DISTRIBUTION WIDTH 23.5 % (11.5-14.5); WHITE BLOOD COUNT 9.9 x10^3/uL (4.0-11.0)
[2017-06-03 10:05] LABS: CALCIUM 9.3 mg/dL (8.5-10.1); CREATININE 2.1 mg/dL (0.6-1.0); GFR 28.9; POTASSIUM 4.5 mmol/L (3.5-5.1)
--- NOTE | 2017-06-03 10:08 | RAD ---
Bilateral lower extremity arterial ultrasound, 06/03/2017: History: Right foot wound Duplex evaluation of the major arteries in both lower extremities was performed including grayscale, color-flow and spectral Doppler analysis. No prominent atherosclerotic plaques are identified. On the right, the common femoral, superficial femoral and popliteal Doppler waveforms are triphasic. No significant focal velocity elevation is seen in those vessels to suggest high-grade stenosis. In the right lower leg the posterior tibial and peroneal arteries are patent demonstrating triphasic Doppler waveforms. The anterior tibial artery is monophasic but of good amplitude. The right dorsalis pedis artery could not be evaluated due to the presence of bandages. On the left, the common femoral, superficial femoral and popliteal arteries demonstrate good triphasic Doppler waveforms. No significant focal velocity acceleration is seen to suggest significant stenosis. In the left lower leg the peroneal, posterior tibial and anterior tibial Doppler waveforms are all triphasic. The left dorsalis pedis artery also demonstrates a triphasic Doppler waveform. IMPRESSION: No duplex evidence of significant arterial occlusive disease in either lower extremity.
[2017-06-03 11:00] VITALS: BP 135/72
--- NOTE | 2017-06-03 13:12 | PDOC2 ---
CONSULT Date of Consult Date of Consult DATE: 06/03/17 TIME: 13:00 Reason for Consult Reason for Consult: osteomyelitis right hallux Referring Physician Referring Physician: Barbie Identification/Chief Complaint Chief Complaint draining wound right foot since march Problems: Source Source: Patient History of Present Illness Reason for Visit: 61 year old female admitted to [facility] for DM foot infection right. She relates to draining wound since March. She was previously admitted and evaluated at [facility] in March by wound care nurse and again in April. Patient states pictures were taken and she continued local wound care at home with antibiotic ointment and bandaid. She has not had any follow up outpatient and just had first xray this admission per patient. She notes pus, swelling, redness and pain to right hallux. She admits to having little feeling in her foot. She says nails fell off in April and the toe continued to worsen Past Medical History Cardiovascular: HTN, Hyperlipidemia CENTRAL NERVOUS SYSTEM: Migraine GI: Diverticulosis, GERD, Other (h/o gastroparesis with delayed empyting; fatty liver; mild melanosis h/o ) Heme/Onc: Anemia NOS (Fe ), Iron deficiency Anemia (severe) Psych: Anxiety Musculoskeletal: low back pain (chronic s/o sciatica ), Osteoarthritis ( multiple sites) Rheumatologic: Fibromyalgia, Rheumatoid arthritis (seronegative ), Other ( polyarthragia, sarcoidosis ) Renal/: Chronic renal insuff (CKD II ) Endocrine: Diabetes (Type II insulin gastroparesis neuropathy ) Past Surgical History Past Surgical History: Cholecystectomy, Hysterectomy Family History Family History: Coronary Artery Disease (premature), Diabetes, Hearing Loss, High Cholestrol, Hypertension Social History No ALCOHOL: none Drugs: None Current Medications Current Medications Current Medications Vancomycin HCl 1 gm/Sodium Chloride 250 ml @ 250 mls/hr 1X ONCE IV ; Start at 17:30; Stop 06/01/17 at 18:29; Status DC Acetaminophen (Tylenol) 650 mg PRN Q6HRS PRN PO PAIN; Start 06/01/17 at 17:30 Insulin Aspart (NovoLOG) BIDBFRMEAL SQ ; Start 06/01/17 at 18:00; Stop at 09:01; Status DC Amlodipine Besylate (Norvasc) 5 mg DAILY PO Last administered on 06/03/17t 08: 53; Start 06/02/17 at 09:00 Atenolol (Tenormin) 25 mg BID PO Last administered on 06/03/17 08:55; Start at 21:00 Cyclobenzaprine HCl (Flexeril) 10 mg QHS PO Last administered on 06/02/17 20: 38; Start 06/01/17 at 21:00 Ferrous Sulfate (Feosol) 325 mg DAILY PO Last administered on 06/03/17 08:53; Start 06/02/17 at 09:00 Furosemide (Lasix) 40 mg DAILY PO Last administered on 06/02/17 09:00; Start 06/02/17 at 09:00; Stop 06/02/17 at 09:26; Status DC Acetaminophen/ Hydrocodone Bitart (Lortab 10/325) 1 tab PRN Q6HRS PRN PO PAIN; Start 06/01/17 at 19:30 Hydroxychloroquine Sulfate (Plaquenil) 200 mg BID PO Last administered on 08:53; Start 06/01/17 at 21:00 Mirtazapine (Remeron) 15 mg DAILY PO Last administered on 06/03/17 08:54; Start 06/02/17 at 09:00 Potassium Chloride (Klor-Con) 20 meq DAILYWBKFT PO ; Start 06/02/17 at 08:00; Status Cancel Insulin Detemir (Levemir) 80 units QHS SQ ; Start 06/01/17 at 21:00; Stop at 06:20; Status DC Potassium Chloride (Klor-Con) 40 meq DAILYWBKFT PO Last administered on 10:41; Start 06/02/17 at 08:00; Stop 06/03/17 at 06:20; Status DC Pantoprazole Sodium (Protonix) 40 mg DAILYAC PO Last administered on 06/03/17 08:52; Start 06/02/17 at 07:30 Levofloxacin (Levaquin) 500 mg 1X ONCE PO Last administered on 06/01/17 23:43 ; Start 06/01/17 at 23:30; Stop 06/01/17 at 23:31; Status DC Insulin Aspart (NovoLOG) TIDAC SQ Last administered on 06/03/17 12:29; Start 06/02/17 at 11:30 Sodium Chloride 1,000 ml @ 75 mls/hr [id number] IV Last administered on 20:35; Start 06/02/17 at 09:30 Ceftaroline Fosamil 600 mg/ Sodium Chloride 250 ml @ 250 mls/hr Q12HR IV Last administered on 06/02/17 20:34; Start 06/02/17 at 11:00 Metronidazole 100 ml @ 100 mls/hr Q12HR IV Last administered on 06/03/17 11: 09; Start 06/02/17 at 11:00 Insulin Detemir (Levemir) 60 units QHS SQ ; Start 06/03/17 at 21:00 Potassium Chloride (Klor-Con) 20 meq DAILYWBKFT PO Last administered on 08:54; Start 06/03/17 at 08:00 Magnesium Sulfate/ Dextrose 50 ml @ 25 mls/hr 1X ONCE IV Last administered on 06/03/17 08:56; Start 06/03/17 at 07:00; Stop 06/03/17 at 08:59; Status DC Active Scripts Active Ferrous Sulfate 325 Mg Tablet 325 Mg PO DAILY 30 Days Klor-Con M20 (Potassium Chloride) 20 Meq Tab.er.prt 20 Meq PO DAILYWBKFT Lantus (Insulin Glargine,Hum.rec.anlog) 100 Unit/1 Ml Vial 35 Unit SQ BID Begin 1/2 home dose and adjust to home dose 70ubid when BS stablized Proair Hfa (Albuterol Sulfate) 8.5 Gm Hfa.aer.ad 8.5 Gm IH PRN Q4HRS PRN Symbicort 160-4.5 Mcg Inhaler (Budesonide/Formoterol Fumarate) 10.2 Gm Hfa.aer.ad 2 Puff IH BID Reported Potassium Chloride 20 Meq Tablet.er 40 Meq PO DAILY Lantus (Insulin Glargine,Hum.rec.anlog) 100 Unit/1 Ml Vial 80 Unit SQ HS Furosemide 40 Mg Tablet 1 Tab PO DAILY Lortab 10-325 mg Tablet (Hydrocodone/Acetaminophen) 1 Each Tablet 1 Tab PO PRN Q6HRS PRN Cyclobenzaprine Hcl 10 Mg Tablet 1 Tab PO QHS Aciphex (Rabeprazole Sodium) 20 Mg Tablet.dr 1 Tab PO DAILY Amlodipine Besylate 5 Mg Tablet 5 Mg PO DAILY Mirtazapine 15 Mg Tablet 15 Mg PO DAILY Hydroxychloroquine Sulfate 200 Mg Tablet 1 Tab PO BID Atenolol 25 Mg Tablet 1 Tab PO BID Allergies Allergies: Coded Allergies: Penicillins (Verified Allergy, Intermediate, 04/21/17) benzocaine (Verified Allergy, Intermediate, 04/21/17) hydralazine (Unverified Allergy, Intermediate, 04/21/17) lidocaine (Verified Allergy, Intermediate, 04/21/17) losartan (Verified Allergy, Intermediate, 04/21/17) tetracaine (Verified Allergy, Intermediate, 04/21/17) ROS General: No: Chills, Night Sweats, Fatigue, Malaise, Appetite, Other PSYCHOLOGICAL ROS: No: Anxiety, Behavioral Disorder, Concentration difficultie , Decreased libido, Depression, Disorientation, Hallucinations, Hostility, Irritablity, Memory difficulties, Mood Swings, Obsessive thoughts, Physical abuse, Sexual abuse, Sleep disturbances, Suicidal ideation, Other Eyes: No Blurry vision, No Decreased vision, No Double vision, No Dry eyes, No Excessive tearing, No Eye Pain, No Itchy Eyes, No Loss of vision, No Photophobia , No Scotomata, No Uses contacts, No Uses glasses, No Other HEENT: No: Heacaches, Visual Changes, Hearing change, Nasal congestion, Nasal discharge, Oral lesions, Sinus pain, Sore Throat, Epistaxis, Sneezing, Snoring, Tinnitus, Vertigo, Vocal changes, Other ALLERGY AND IMMUNOLOGY: No: Hives, Insect Bite Sensitivity, Itchy/Watery Eyes, Nasal Congestion, Post Nasal Drip, Seasonal Allergies, Other Hematological and Lymphatic: No: Bleeding Problems, Blood Clots, Blood Transfusions, Brusing, Night Sweats, Pallor, Swollen Lymph Nodes, Other ENDOCRINE: No: Breast Changes, Galactorrhea, Hair Pattern Changes, Hot Flashes , Malaise/lethargy, Mood Swings, Palpitations, Polydipsia/polyuria, Skin Changes , Temperature Intolerance, Unexpected Weight Changes, Other Breast: No New/Changing Breast Lumps, No Nipple changes, No Nipple discharge, No Other Respiratory: No: Cough, Hemoptysis, Orthopnea, Pleuritic Pain, Shortness of breath, SOB with excertion, Sputum Changes, Stridor, Tachypnea, Wheezing, Other Cardiovascular: No Chest Pain, No Palpitations, No Orthopnea, No Paroxysmal Noc. Dyspnea, No Edema, No Lt Headedness, No Other Gastrointestinal: No Nausea, No Vomiting, No Abdominal Pain, No Diarrhea, No Constipation, No Melena, No Hematochezia, No Other Genitourinary: No Dysuria, No Frequency, No Incontinence, No Hematuria, No Retention, No Discharge, No Urgency, No Pain, No Flank Pain, No Other, No , No , No , No , No , No , No Musculoskeletal: No Gait Disturbance, No Joint Pain, No Joint Stiffness, No Joint Swelling, No Muscle Pain, No Muscular Weakness, No Pain In:, No Swelling In:, No Other Neurological: No Behavorial Changes, No Bowel/Bladder ControlChng, No Confusion , No Dizziness, No Gait Disturbance, No Headaches, No Impaired Coord/balance, No Memory Loss, No Numbness/Tingling, No Seizures, No Speech Problems, No Tremors, No Visual Changes, No Weakness, No Other Skin: Yes Other (draining ulcer right hallux) Physical Exam Physical Exam Lower extremity: Note full thickness ulceration distal plantar right hallux with additional blow out lesions medial hallux IPJ which has sinus tract to MPJ. Also blow out lesion to dorsal hallux IPJ again probes to bone and communicates to the distal ulceration. Localized edema, erythema, calor and copious pustular drainage. nail avulsed. Skin is warm, dry, supple. scant hair to foot. DP and PT are 2/4 bilateral. +2 non pitting edema bilateral lower extremity. Sensation absent to light touch distally and diminished to sharp dull. Positive pain on palpation with probing of medial hallux wound otherwise no pain on palpation. +crepitus to hallux. General: Alert, Oriented X3, No acute distress Vitals VITALS Vital Signs Date Time Temp Pulse Resp B/P (MAP) Pulse Ox O2 Delivery O2 Flow Rate FiO2 06/03/17 11:00 98.2 71 20 135/72 (93) 96 Room Air 98.2 Labs Labs Laboratory Tests Test 06/01/17 17:36 06/01/17 21:00 06/01/17 21:20 06/02/17 03:11 Glucose (Fingerstick) 100 mg/dL (70-99) 103 mg/dL (70-99) White Blood Count 14.5 x10^3/uL (4.0-11.0) Red Blood Count 4.74 x10^6/uL (3.50-5.40) Hemoglobin 10.9 g/dL (12.0-15.5) Hematocrit 35.4 % (36.0-47.0) Mean Corpuscular Volume 75 fL (79-100) Mean Corpuscular Hemoglobin 23 pg (25-35) Mean Corpuscular Hemoglobin Concent 31 g/dL (31-37) Red Cell Distribution Width 24.0 % (11.5-14.5) Platelet Count 464 x10^3/uL (140-400) Neutrophils (%) (Auto) 71 % (31-73) Lymphocytes (%) (Auto) 19 % (24-48) Monocytes (%) (Auto) 8 % (0-9) Eosinophils (%) (Auto) 2 % (0-3) Basophils (%) (Auto) 1 % (0-3) Neutrophils # (Auto) 10.2 x10^3uL (1.8-7.7) Lymphocytes # (Auto) 2.8 x10^3/uL (1.0-4.8) Monocytes # (Auto) 1.1 x10^3/uL (0.0-1.1) Eosinophils # (Auto) 0.2 x10^3/uL (0.0-0.7) Basophils # (Auto) 0.1 x10^3/uL (0.0-0.2) Platelet Estimate Increased (ADEQUATE) Polychromasia Slight Hypochromasia Slight Poikilocytosis Anisocytosis Mod Microcytosis Slight Ovalocytes Occ Erythrocyte Sedimentation Rate 60 (0-25) Sodium Level 133 mmol/L (136-145) Potassium Level 4.3 mmol/L (3.5-5.1) Chloride Level 96 mmol/L (98-107) Carbon Dioxide Level 29 mmol/L (21-32) Anion Gap 8 (6-14) Blood Urea Nitrogen 23 mg/dL (7-20) Creatinine 2.5 mg/dL (0.6-1.0) Estimated GFR (Cockcroft-Gault) 23.6 BUN/Creatinine Ratio 9 (6-20) Glucose Level 96 mg/dL (70-99) Calcium Level 9.4 mg/dL (8.5-10.1) Total Bilirubin 0.5 mg/dL (0.2-1.0) Aspartate Amino Transf (AST/SGOT) 26 U/L (15-37) Alanine Aminotransferase (ALT/SGPT) 26 U/L (14-59) Alkaline Phosphatase 226 U/L (46-116) Total Protein 9.7 g/dL (6.4-8.2) Albumin 2.8 g/dL (3.4-5.0) Albumin/Globulin Ratio 0.4 (1.0-1.7) Urine Collection Type Unknown Urine Color Adeline Urine Clarity Cloudy Urine pH 5.5 Urine Specific Buna 1.020 Urine Protein 30 mg/dL (NEG-TRACE) Urine Glucose (UA) Negative mg/dL (NEG) Urine Ketones (Stick) Negative mg/dL (NEG) Urine Blood Small (NEG) Urine Nitrite Positive (NEG) Urine Bilirubin Negative (NEG) Urine Urobilinogen Dipstick 0.2 mg/dL (0.2 mg/dL) Urine Leukocyte Esterase Large (NEG) Urine RBC 0 /HPF (0-2) Urine WBC >40 /HPF (0-4) Urine Squamous Epithelial Cells Mod /LPF Urine Amorphous Sediment Present /HPF Urine Bacteria 0 /HPF (0-FEW) Urine Hyaline Casts Moderate /HPF Urine Mucus Slight /LPF Test 06/02/17 07:38 06/02/17 09:10 06/02/17 11:48 06/02/17 17:17 Glucose (Fingerstick) 99 mg/dL (70-99) 105 mg/dL (70-99) 76 mg/dL (70-99) White Blood Count 11.8 x10^3/uL (4.0-11.0) Red Blood Count 4.53 x10^6/uL (3.50-5.40) Hemoglobin 10.6 g/dL (12.0-15.5) Hematocrit 33.6 % (36.0-47.0) Mean Corpuscular Volume 74 fL (79-100) Mean Corpuscular Hemoglobin 23 pg (25-35) Mean Corpuscular Hemoglobin Concent 31 g/dL (31-37) Red Cell Distribution Width 23.7 % (11.5-14.5) Platelet Count 471 x10^3/uL (140-400) Neutrophils (%) (Auto) 59 % (31-73) Lymphocytes (%) (Auto) 29 % (24-48) Monocytes (%) (Auto) 9 % (0-9) Eosinophils (%) (Auto) 3 % (0-3) Basophils (%) (Auto) 1 % (0-3) Neutrophils # (Auto) 6.9 x10^3uL (1.8-7.7) Lymphocytes # (Auto) 3.4 x10^3/uL (1.0-4.8) Monocytes # (Auto) 1.0 x10^3/uL (0.0-1.1) Eosinophils # (Auto) 0.3 x10^3/uL (0.0-0.7) Basophils # (Auto) 0.1 x10^3/uL (0.0-0.2) Sodium Level 134 mmol/L (136-145) Potassium Level 4.5 mmol/L (3.5-5.1) Chloride Level 96 mmol/L (98-107) Carbon Dioxide Level 28 mmol/L (21-32) Anion Gap 10 (6-14) Blood Urea Nitrogen 23 mg/dL (7-20) Creatinine 2.4 mg/dL (0.6-1.0) Estimated GFR (Cockcroft-Gault) 24.8 BUN/Creatinine Ratio 10 (6-20) Glucose Level 89 mg/dL (70-99) Calcium Level 9.6 mg/dL (8.5-10.1) Magnesium Level 1.7 mg/dL (1.8-2.4) Total Bilirubin 0.6 mg/dL (0.2-1.0) Aspartate Amino Transf (AST/SGOT) 26 U/L (15-37) Alanine Aminotransferase (ALT/SGPT) 27 U/L (14-59) Alkaline Phosphatase 221 U/L (46-116) Total Protein 9.7 g/dL (6.4-8.2) Albumin 2.7 g/dL (3.4-5.0) Albumin/Globulin Ratio 0.4 (1.0-1.7) Test 06/02/17 20:50 06/03/17 07:28 06/03/17 09:40 06/03/17 11:05 Glucose (Fingerstick) 78 mg/dL (70-99) 88 mg/dL (70-99) 180 mg/dL (70-99) White Blood Count 9.9 x10^3/uL (4.0-11.0) Red Blood Count 4.56 x10^6/uL (3.50-5.40) Hemoglobin 10.5 g/dL (12.0-15.5) Hematocrit 34.5 % (36.0-47.0) Mean Corpuscular Volume 76 fL (79-100) Mean Corpuscular Hemoglobin 23 pg (25-35) Mean Corpuscular Hemoglobin Concent 30 g/dL (31-37) Red Cell Distribution Width 23.5 % (11.5-14.5) Platelet Count 407 x10^3/uL (140-400) Neutrophils (%) (Auto) 65 % (31-73) Lymphocytes (%) (Auto) 23 % (24-48) Monocytes (%) (Auto) 9 % (0-9) Eosinophils (%) (Auto) 3 % (0-3) Basophils (%) (Auto) 1 % (0-3) Neutrophils # (Auto) 6.4 x10^3uL (1.8-7.7) Lymphocytes # (Auto) 2.3 x10^3/uL (1.0-4.8) Monocytes # (Auto) 0.9 x10^3/uL (0.0-1.1) Eosinophils # (Auto) 0.3 x10^3/uL (0.0-0.7) Basophils # (Auto) 0.1 x10^3/uL (0.0-0.2) Sodium Level 133 mmol/L (136-145) Potassium Level 4.5 mmol/L (3.5-5.1) Chloride Level 99 mmol/L (98-107) Carbon Dioxide Level 26 mmol/L (21-32) Anion Gap 8 (6-14) Blood Urea Nitrogen 24 mg/dL (7-20) Creatinine 2.1 mg/dL (0.6-1.0) Estimated GFR (Cockcroft-Gault) 28.9 Glucose Level 164 mg/dL (70-99) Calcium Level 9.3 mg/dL (8.5-10.1) Laboratory Tests Test 06/02/17 17:17 06/02/17 20:50 06/03/17 07:28 06/03/17 09:40 Glucose (Fingerstick) 76 mg/dL (70-99) 78 mg/dL (70-99) 88 mg/dL (70-99) White Blood Count 9.9 x10^3/uL (4.0-11.0) Red Blood Count 4.56 x10^6/uL (3.50-5.40) Hemoglobin 10.5 g/dL (12.0-15.5) Hematocrit 34.5 % (36.0-47.0) Mean Corpuscular Volume 76 fL (79-100) Mean Corpuscular Hemoglobin 23 pg (25-35) Mean Corpuscular Hemoglobin Concent 30 g/dL (31-37) Red Cell Distribution Width 23.5 % (11.5-14.5) Platelet Count 407 x10^3/uL (140-400) Neutrophils (%) (Auto) 65 % (31-73) Lymphocytes (%) (Auto) 23 % (24-48) Monocytes (%) (Auto) 9 % (0-9) Eosinophils (%) (Auto) 3 % (0-3) Basophils (%) (Auto) 1 % (0-3) Neutrophils # (Auto) 6.4 x10^3uL (1.8-7.7) Lymphocytes # (Auto) 2.3 x10^3/uL (1.0-4.8) Monocytes # (Auto) 0.9 x10^3/uL (0.0-1.1) Eosinophils # (Auto) 0.3 x10^3/uL (0.0-0.7) Basophils # (Auto) 0.1 x10^3/uL (0.0-0.2) Sodium Level 133 mmol/L (136-145) Potassium Level 4.5 mmol/L (3.5-5.1) Chloride Level 99 mmol/L (98-107) Carbon Dioxide Level 26 mmol/L (21-32) Anion Gap 8 (6-14) Blood Urea Nitrogen 24 mg/dL (7-20) Creatinine 2.1 mg/dL (0.6-1.0) Estimated GFR (Cockcroft-Gault) 28.9 Glucose Level 164 mg/dL (70-99) Calcium Level 9.3 mg/dL (8.5-10.1) Test 06/03/17 11:05 Glucose (Fingerstick) 180 mg/dL (70-99) Images Images MRI: +osteomyelitis distal and proximal phalanx and uptake in 1st metatarsal head xray destruction to distal phalanx comminuted and to proximal phalanx. Assessment/Plan Assessment/Plan 61 year old female with osteomyelitis right hallux and metatarsal head, DM peripheral neuropathy -Discussed treatment options and recommend partial 1st ray resection right foot, . -Scheduled tomorrow at 730am. -NPO after midnight -Hold lovenox -Discussed risks/benefits and complications to include delayed or non healing, need for further surgery, DVT, PE, infection -All questions answered. -Probable dispo pending Thursday MICHAELA MALIK DPM Jun 03, 2017 13:11
[2017-06-03] MEDS: CEFTAROLINE FOSAMIL 600 MG in IV NORMAL SALINE 250ML 250 ML IV SCH ×2 (13:52→21:18)
[2017-06-03 15:00] VITALS: BP 145/71
[2017-06-03] MEDS ORDERED: ONDANSETRON PF 4 MG/2 ML VIAL. IV PRN (15:45)
[2017-06-03] MEDS: IV NORMAL SALINE 1000ML BAG 1,000 ML IV SCH (19:55)
[2017-06-03 19:57] VITALS: BP 146/73
[2017-06-03] MEDS: CYCLOBENZAPRINE 10 MG TABLET. PO SCH (19:59)
[2017-06-03] MEDS: INSULIN DETEMIR 300 UNITS/3 ML INSULN.PEN. SQ SCH (21:23)
[2017-06-03 23:20] VITALS: BP 156/69
[2017-06-04] MEDS: IV NORMAL SALINE 1000ML BAG 1,000 ML IV SCH ×2 (01:30→14:50)
[2017-06-04 03:04] VITALS: BP 132/60
[2017-06-04 06:34] LABS: BASO # 0.1 x10^3/uL (0.0-0.2); BASO % 1 % (0-3); EOS % 3 % (0-3); HEMATOCRIT 33.7 % (36.0-47.0); HEMOGLOBIN 10.6 g/dL (12.0-15.5); LYMPH # 1.6 x10^3/uL (1.0-4.8); LYMPH % 23 % (24-48); MEAN CORPUSCULAR HEMOGLOBIN 23 pg (25-35); MEAN CORPUSCULAR HGB CONC 32 g/dL (31-37); MEAN CORPUSCULAR VOLUME 74 fL (79-100); MONO % 8 % (0-9); NEUT % 65 % (31-73); PLATELET COUNT 376 x10^3/uL (140-400); RED BLOOD COUNT 4.53 x10^6/uL (3.50-5.40)
[2017-06-04 06:40] LABS: CALCIUM 9.3 mg/dL (8.5-10.1); CREATININE 1.6 mg/dL (0.6-1.0); GFR 39.5; POTASSIUM 4.6 mmol/L (3.5-5.1)
[2017-06-04] MEDS ORDERED: POVIDONE-IODINE 10% TOPICAL OINTMENT 28GM TUBE. TP ONE (06:40)
[2017-06-04] MEDS ORDERED: BUPIVACAINE MPF 0.5% 30 ML VIAL. ONE (06:40)
[2017-06-04] MEDS ORDERED: DEXAMETHASONE SOD PHOS 4 MG/ML VIAL ONE (06:40)
[2017-06-04] MEDS ORDERED: LIDOCAINE 1% 20 ML VIAL. ONE (06:40)
[2017-06-04] MEDS ORDERED: ONDANSETRON PF 4 MG/2 ML VIAL. IV PRN (07:00)
[2017-06-04] MEDS ORDERED: PROCHLORPERAZINE 10 MG/2 ML VIAL. IV PRN (07:00)
[2017-06-04] MEDS ORDERED: MORPHINE SULFATE 2 MG/ML DISP.SYRIN. IV PRN (07:00)
[2017-06-04] MEDS ORDERED: IV RINGERS,LACTATED 1000ML 1,000 ML IV SCH (07:00)
[2017-06-04] MEDS ORDERED: fentaNYL PF VIAL 100 MCG/2 ML VIAL IV PRN ×2 (07:00)
[2017-06-04] MEDS ORDERED: ONDANSETRON PF 4 MG/2 ML VIAL. ONE (07:07)
[2017-06-04] MEDS ORDERED: FAMOTIDINE 20 MG/2 ML VIAL ONE (07:07)
[2017-06-04] MEDS ORDERED: PROPOFOL 20 ML IV ONE ×2 (07:07→07:36)
[2017-06-04] MEDS ORDERED: LIDOCAINE 2% PF Vial for OR 5 ML VIAL. ONE (07:07)
[2017-06-04] MEDS ORDERED: fentaNYL PF VIAL 100 MCG/2 ML VIAL ONE (07:11)
[2017-06-04] MEDS ORDERED: MIDAZOLAM HCL/PF 2 MG/2 ML VIAL. ONE (07:11)
[2017-06-04] MEDS ORDERED: KETAMINE HCL 500 MG/10 ML VIAL. ONE (07:29)
[2017-06-04] MEDS: INSULIN ASPART 300 UNITS/3 ML INSULN.PEN SQ SCH ×3 (07:30→16:30)
--- NOTE | 2017-06-04 08:30 | PDOC4 ---
OPERATIVE NOTE: Surgeon: Grayson Preop DX: Osteomyelitis right hallux Post op DX: Same Procedure partial 1st ray amputation right foot Anesthesia: MAC with local Hemostasis: Right ankle tourniquet at 250mmHG EBL 5mL Materials: 4-0 nylon Pathology: hallux and 1st metatarsal head including clearance fragment Intraoperative findings: note sinus tract extending to 1st metatarsal head with yellow discoloration to distal head Patient tolerated procedure and anesthesia well, transferred to PACU with VSS and VSI to right foot MICHAELA MALIK DPM Jun 04, 2017 08:30
[2017-06-04] MEDS: HYDROXYCHLOROQUINE 200 MG TABLET PO SCH ×3 (09:00→17:48)
[2017-06-04] MEDS: ATENOLOL 25 MG TABLET. PO SCH (09:00)
[2017-06-04] MEDS: CEFTAROLINE FOSAMIL 600 MG in IV NORMAL SALINE 250ML 250 ML IV SCH (09:00)
--- NOTE | 2017-06-04 09:08 | RAD ---
Indication post indication post amputation. AP oblique and lateral views of the right foot were obtained and are compared to an exam 3 days earlier. There has been interval amputation at the level of the distal shaft of the first metatarsal. No unexpected finding is seen. Chronic deformity is noted associated with the base of the fifth metatarsal. Soft tissue swelling is noted. IMPRESSION: Status post amputation. No unexpected finding seen
[2017-06-04 09:26] VITALS: BP 138/65
--- NOTE | 2017-06-04 10:00 | OP ---
DATE OF SURGERY: 06/04/2017 PREOPERATIVE DIAGNOSIS: Osteomyelitis, right hallux. POSTOPERATIVE DIAGNOSIS: Osteomyelitis, right hallux. PROCEDURE: Partial first ray amputation, right foot. SURGEON: Katy Galicia DPM ANESTHESIA: MAC with local. HEMOSTASIS: Right ankle tourniquet at 250 mmHg. INDICATIONS: The patient is a 61-year-old female with diabetes, who was admitted to the hospital on 06/01/2017 for infection of the right foot. The patient states she had had ulceration to the hallux since March and had continued to worsen. She had been self-treating with local wound care with bandage and an antibiotic ointment and noted continued worsening. The patient had x-rays which showed destruction of the hallux consisting with osteomyelitis and questionable up-take in the first metatarsal head. Clinical exam did show sinus tract to the metatarsophalangeal joint and I discussed with patient the risks, benefits, and complications to include delayed healing, nonhealing, need for further surgery, infection, loss of foot, limb or life, DVT, pulmonary embolism, chronic pain, transfer lesions, gait imbalance. All questions were answered. No guarantees were made. The patient signed consent freely and put in chart. DESCRIPTION OF PROCEDURE: The patient was transported to the operating room via a cart and placed on the operating room table in supine position. IV sedation was administered per Anesthesia and a Huff block was given to the right foot consisting of a 1:1 mixture of 1% lidocaine plain and 0.5% Marcaine plain, 20 mL total. The right foot was prepped and draped in the usual aseptic manner and a well-padded tourniquet was placed over the right ankle. Timeout was taken to verify the patient, surgery, and limb to be performed. Esmarch bandage was used to exsanguinate the right foot and the right ankle tourniquet was inflated to 250 mmHg. Attention was directed to the right foot where a tennis racquet incision was made over the dorsal aspect of the first ray, extending to the plantar base of the hallux. Incision was deepened to the level of bone. Small vessels were cauterized. No pustular drainage did exit from the hallux and there was a sinus tract to the metatarsal head. Note that the metatarsal head did have some destructive changes to the distal aspect. A sagittal saw was used to resect the metatarsal head and resected the sesamoid apparatus as well. Small vessels were cauterized and the tendons were removed and aerobic and anaerobic wound cultures were taken at this time. Next, copiously irrigated the wound with 3 liter bag with pulse lavage. The incision was then closed with 4-0 nylon, was reapproximated with 4-0 nylon. A postop dressing was put on the patient with Betadine-soaked Adaptic gauze, 4 x 4's, abdominal pad, Kerlix and an Lakhwinder bandage. Tourniquet was deflated and good perfusion was noted to all digits of the right foot. The patient is to leave the dressing clean, dry and intact and to be minimal weightbearing in a surgical shoe to the right foot. Bathroom privileges only. We will plan to take down the dressing tomorrow at bedside around noon. The patient tolerated anesthesia and procedure well, was transported to the PACU with vital signs stable and vascular status intact to the right foot. KATY GALICIA DPM DR: Radha JOB#: [id number] / [id number] STEFANI
--- NOTE | 2017-06-04 10:10 | PDOC ---
Infectious Disease Note Subjective Subjective pt feeling fine, amputation done ROS ROS GEN: Denies fevers, chills, sweats HEENT: Denies blurred vision, sore throat CV: Denies chest pain RESP: Denies shortness of air, cough GI: Denies n/v/d NEURO: Denies confusion, dizziness MSK: Denies weakness, joint pain/swelling Vital Sign Vital Signs Vital Signs Date Time Temp Pulse Resp B/P (MAP) Pulse Ox O2 Delivery O2 Flow Rate FiO2 06/04/17 09:26 97.8 62 17 138/65 (89) 98 Room Air 97.8 06/04/17 08:24 14 Physical Exam PHYSICAL EXAM GENERAL: NAD, Alert HEENT: PERRL, OC/OP NECK: Supple, no JVD, no LN LUNGS: Clear HEART: S1S2, no gallop, no murmur ABD: Soft, NT, no organomegaly, no rebound EXT: No edema, no cyanosis,, post amputation dressing not 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, oriented x 3, no focal neurologic deficit SKIN: No rash IV: ok Labs Lab Laboratory Tests Test 06/03/17 11:05 06/03/17 21:03 06/04/17 06:08 06/04/17 06:59 Glucose (Fingerstick) 180 mg/dL (70-99) 161 mg/dL (70-99) 110 mg/dL (70-99) White Blood Count 7.0 x10^3/uL (4.0-11.0) Red Blood Count 4.53 x10^6/uL (3.50-5.40) Hemoglobin 10.6 g/dL (12.0-15.5) Hematocrit 33.7 % (36.0-47.0) Mean Corpuscular Volume 74 fL (79-100) Mean Corpuscular Hemoglobin 23 pg (25-35) Mean Corpuscular Hemoglobin Concent 32 g/dL (31-37) Red Cell Distribution Width 24.0 % (11.5-14.5) Platelet Count 376 x10^3/uL (140-400) Neutrophils (%) (Auto) 65 % (31-73) Lymphocytes (%) (Auto) 23 % (24-48) Monocytes (%) (Auto) 8 % (0-9) Eosinophils (%) (Auto) 3 % (0-3) Basophils (%) (Auto) 1 % (0-3) Neutrophils # (Auto) 4.5 x10^3uL (1.8-7.7) Lymphocytes # (Auto) 1.6 x10^3/uL (1.0-4.8) Monocytes # (Auto) 0.6 x10^3/uL (0.0-1.1) Eosinophils # (Auto) 0.2 x10^3/uL (0.0-0.7) Basophils # (Auto) 0.1 x10^3/uL (0.0-0.2) Sodium Level 133 mmol/L (136-145) Potassium Level 4.6 mmol/L (3.5-5.1) Chloride Level 103 mmol/L (98-107) Carbon Dioxide Level 20 mmol/L (21-32) Anion Gap 10 (6-14) Blood Urea Nitrogen 18 mg/dL (7-20) Creatinine 1.6 mg/dL (0.6-1.0) Estimated GFR (Cockcroft-Gault) 39.5 Glucose Level 123 mg/dL (70-99) Calcium Level 9.3 mg/dL (8.5-10.1) Magnesium Level 2.2 mg/dL (1.8-2.4) Test 06/04/17 08:30 Glucose (Fingerstick) 96 mg/dL (70-99) Objective Assessment Diabetic foot infection Rt great toe osteomyelitis s/p amputation DM CKD Leukocytosis Plan Plan of Care ceftarolin and flagyl supportive care pt need amputation MARYANN MAYES MD Jun 04, 2017 10:10
--- NOTE | 2017-06-04 10:21 | PDOC ---
IM PROGRESS NOTES- Subjective Subjective No c/o pain,dyspnea. Objective Objective no distress Vitals Vital Signs Date Time Temp Pulse Resp B/P (MAP) Pulse Ox O2 Delivery O2 Flow Rate FiO2 06/04/17 09:26 97.8 62 17 138/65 (89) 98 Room Air 97.8 06/04/17 08:24 14 Input & Output Intake and Output 06/05/17 06:59 Intake Total 100 ml Balance 100 ml IV Total 100 ml Physical Exam Physical Exam General appearance - alert and in no distress Mental Status - alert Head - normal Chest - clear to auscultation, no wheezes, rales or rhonchi, symmetric air entry Heart - S1 and S2 normal Abdomen - soft, nondistended, BS+ Neurological - sleeping Musculoskeletal - no muscular tenderness noted Extremities - pedal edema +, dressing R foot Skin - warm and dry Labs Laboratory Tests Test 06/02/17 11:48 06/02/17 17:17 06/02/17 20:50 06/03/17 07:28 Glucose (Fingerstick) 105 mg/dL (70-99) 76 mg/dL (70-99) 78 mg/dL (70-99) 88 mg/dL (70-99) Test 06/03/17 09:40 06/03/17 11:05 06/03/17 21:03 06/04/17 06:08 White Blood Count 9.9 x10^3/uL (4.0-11.0) 7.0 x10^3/uL (4.0-11.0) Red Blood Count 4.56 x10^6/uL (3.50-5.40) 4.53 x10^6/uL (3.50-5.40) Hemoglobin 10.5 g/dL (12.0-15.5) 10.6 g/dL (12.0-15.5) Hematocrit 34.5 % (36.0-47.0) 33.7 % (36.0-47.0) Mean Corpuscular Volume 76 fL (79-100) 74 fL (79-100) Mean Corpuscular Hemoglobin 23 pg (25-35) 23 pg (25-35) Mean Corpuscular Hemoglobin Concent 30 g/dL (31-37) 32 g/dL (31-37) Red Cell Distribution Width 23.5 % (11.5-14.5) 24.0 % (11.5-14.5) Platelet Count 407 x10^3/uL (140-400) 376 x10^3/uL (140-400) Neutrophils (%) (Auto) 65 % (31-73) 65 % (31-73) Lymphocytes (%) (Auto) 23 % (24-48) 23 % (24-48) Monocytes (%) (Auto) 9 % (0-9) 8 % (0-9) Eosinophils (%) (Auto) 3 % (0-3) 3 % (0-3) Basophils (%) (Auto) 1 % (0-3) 1 % (0-3) Neutrophils # (Auto) 6.4 x10^3uL (1.8-7.7) 4.5 x10^3uL (1.8-7.7) Lymphocytes # (Auto) 2.3 x10^3/uL (1.0-4.8) 1.6 x10^3/uL (1.0-4.8) Monocytes # (Auto) 0.9 x10^3/uL (0.0-1.1) 0.6 x10^3/uL (0.0-1.1) Eosinophils # (Auto) 0.3 x10^3/uL (0.0-0.7) 0.2 x10^3/uL (0.0-0.7) Basophils # (Auto) 0.1 x10^3/uL (0.0-0.2) 0.1 x10^3/uL (0.0-0.2) Sodium Level 133 mmol/L (136-145) 133 mmol/L (136-145) Potassium Level 4.5 mmol/L (3.5-5.1) 4.6 mmol/L (3.5-5.1) Chloride Level 99 mmol/L (98-107) 103 mmol/L (98-107) Carbon Dioxide Level 26 mmol/L (21-32) 20 mmol/L (21-32) Anion Gap 8 (6-14) 10 (6-14) Blood Urea Nitrogen 24 mg/dL (7-20) 18 mg/dL (7-20) Creatinine 2.1 mg/dL (0.6-1.0) 1.6 mg/dL (0.6-1.0) Estimated GFR (Cockcroft-Gault) 28.9 39.5 Glucose Level 164 mg/dL (70-99) 123 mg/dL (70-99) Calcium Level 9.3 mg/dL (8.5-10.1) 9.3 mg/dL (8.5-10.1) Glucose (Fingerstick) 180 mg/dL (70-99) 161 mg/dL (70-99) Magnesium Level 2.2 mg/dL (1.8-2.4) Test 06/04/17 06:59 06/04/17 08:30 Glucose (Fingerstick) 110 mg/dL (70-99) 96 mg/dL (70-99) Laboratory Tests Test 06/03/17 11:05 06/03/17 21:03 06/04/17 06:08 06/04/17 06:59 Glucose (Fingerstick) 180 mg/dL (70-99) 161 mg/dL (70-99) 110 mg/dL (70-99) White Blood Count 7.0 x10^3/uL (4.0-11.0) Red Blood Count 4.53 x10^6/uL (3.50-5.40) Hemoglobin 10.6 g/dL (12.0-15.5) Hematocrit 33.7 % (36.0-47.0) Mean Corpuscular Volume 74 fL (79-100) Mean Corpuscular Hemoglobin 23 pg (25-35) Mean Corpuscular Hemoglobin Concent 32 g/dL (31-37) Red Cell Distribution Width 24.0 % (11.5-14.5) Platelet Count 376 x10^3/uL (140-400) Neutrophils (%) (Auto) 65 % (31-73) Lymphocytes (%) (Auto) 23 % (24-48) Monocytes (%) (Auto) 8 % (0-9) Eosinophils (%) (Auto) 3 % (0-3) Basophils (%) (Auto) 1 % (0-3) Neutrophils # (Auto) 4.5 x10^3uL (1.8-7.7) Lymphocytes # (Auto) 1.6 x10^3/uL (1.0-4.8) Monocytes # (Auto) 0.6 x10^3/uL (0.0-1.1) Eosinophils # (Auto) 0.2 x10^3/uL (0.0-0.7) Basophils # (Auto) 0.1 x10^3/uL (0.0-0.2) Sodium Level 133 mmol/L (136-145) Potassium Level 4.6 mmol/L (3.5-5.1) Chloride Level 103 mmol/L (98-107) Carbon Dioxide Level 20 mmol/L (21-32) Anion Gap 10 (6-14) Blood Urea Nitrogen 18 mg/dL (7-20) Creatinine 1.6 mg/dL (0.6-1.0) Estimated GFR (Cockcroft-Gault) 39.5 Glucose Level 123 mg/dL (70-99) Calcium Level 9.3 mg/dL (8.5-10.1) Magnesium Level 2.2 mg/dL (1.8-2.4) Test 06/04/17 08:30 Glucose (Fingerstick) 96 mg/dL (70-99) Meds Current Medications Bupivacaine HCl (Sensorcaine Mpf 0.5%) 30 ml STK-MED ONCE .ROUTE Last administered on 06/04/17t 08:22; Start 06/04/17 at 06:40; Stop 06/04/17 at 06:41 ; Status DC Dexamethasone Sodium Phosphate (Decadron) 4 mg STK-MED ONCE .ROUTE ; Start 06/04 at 06:40; Stop 06/04/17 at 06:41; Status DC Famotidine (Pepcid) 20 mg STK-MED ONCE .ROUTE ; Start 06/04/17 at 07:07; Stop at 07:08; Status DC Fentanyl Citrate (Fentanyl 2ml Vial) 25 mcg PRN Q5MIN PRN IV MILD PAIN; Start 06/04/17 at 07:00; Stop 06/05/17 at 06:59 Fentanyl Citrate (Fentanyl 2ml Vial) 50 mcg PRN Q5MIN PRN IV MODERATE PAIN; Start 06/04/17 at 07:00; Stop 06/05/17 at 06:59 Fentanyl Citrate (Fentanyl 2ml Vial) 100 mcg STK-MED ONCE .ROUTE ; Start at 07:11; Stop 06/04/17 at 07:12; Status DC Insulin Detemir (Levemir) 60 units QHS SQ Last administered on 06/03/17t 21:23 ; Start 06/03/17 at 21:00 Ketamine HCl 500 mg STK-MED ONCE .ROUTE ; Start 06/04/17 at 07:29; Stop at 07:30; Status DC Lidocaine HCl 20 ml STK-MED ONCE .ROUTE Last administered on 06/04/17 08:22; Start 06/04/17 at 06:40; Stop 06/04/17 at 06:41; Status DC Lidocaine HCl (Lidocaine Pf 2% Vial) 5 ml STK-MED ONCE .ROUTE ; Start 06/04/17 at 07:07; Stop 06/04/17 at 07:08; Status DC Midazolam HCl (Versed) 2 mg STK-MED ONCE .ROUTE ; Start 06/04/17 at 07:11; Stop 06/04/17 at 07:12; Status DC Morphine Sulfate 1 mg PRN Q10MIN PRN IV SEVERE PAIN; Start 06/04/17 at 07:00; Stop 06/05/17 at 06:59 Ondansetron HCl (Zofran) 4 mg PRN Q6HRS PRN IV NAUSEA/VOMITING Last administered on 06/03/17t 15:54; Start 06/03/17 at 15:45 Ondansetron HCl (Zofran) 4 mg PRN Q6HRS PRN IV NAUSEA/VOMITING; Start 06/04/17 at 07:00; Stop 06/05/17 at 06:59 Ondansetron HCl (Zofran) 4 mg STK-MED ONCE .ROUTE ; Start 06/04/17 at 07:07; Stop 06/04/17 at 07:08; Status DC Povidone Iodine ( Betadine Oint) 28 shelly STK-MED ONCE TP ; Start 06/04/17 at 06: 40; Stop 06/04/17 at 06:41; Status DC Prochlorperazine Edisylate (Compazine) 5 mg PACU PRN PRN IV NAUSEA, MRX1; Start 06/04/17 at 07:00; Stop 06/05/17 at 06:59 Propofol 20 ml @ As Directed STK-MED ONCE IV ; Start 06/04/17 at 07:07; Stop at 07:08; Status DC Propofol 20 ml @ As Directed STK-MED ONCE IV ; Start 06/04/17 at 07:36; Stop at 07:37; Status DC Ringer's Solution 1,000 ml @ 30 mls/hr Q24H IV ; Start 06/04/17 at 07:00; Stop 06/04/17 at 18:59 Assessment Assessment 1. R great toe extensive soft tissue infection with diabetic foot infection with osteomyelitis 2. ARF with CKD II 3. UTI 4. HTN 5. sarcoidosis 6. RA seronegative 7. fatty liver 8. h/o diverticula R lower colon 9. moderate chronic PCL malnutrition 10. hyperlipidemia 11. migraine headache 12. gastroparesis h/o with delayed emptying 13. acute hypokalemia POA resolved 14. OA 15. h/o renal mass 16. hypomagnesia resolved 17. CKD II 18. DM II chronic insulin neuropathy 19. Anemia severe Fe deficiency MRI foot 06/02: 1. Findings consistent with osteomyelitis of the distal phalanx and proximal phalanx of the first toe. The distal phalanx is comminuted. 2. There is a small ulcer identified in the medial aspect of the great toe at the level of the interphalangeal joint extending into the subcutaneous region. Moderate increased T2 signal identified in the soft tissue of the great toe and around the flexor hallucis longus tendon in the great toe likely soft tissue infection or inflammation. Correlate clinically. 3. Mild increased T2 signal identified in the plantar muscles of the foot likely myositis or edema. 4. Tiny focus of low T1 signal corresponding high T2 signal identified in the distal aspect of the head of the first metatarsal likely degeneration without overlying cortical disruption. PLAN: R great toe wound x3 with extensive infection/ osteomyelitis ID consult Ortho consult Vanco 1gm IV x1 and Levaquin 500 po x 1 Admit WBC 14.5 06/03 11.8 Sed rate 60 on admit XRay + osteomyelitis MRI reviewed grm stain wound mod + gram cocci podiatry consult 06/02 Teflaro 600mg IV q6 Flagyl 500mg IV BID 06/03 arterial doppler negative for occlusion. She had Rt great toe Ray amputation today. UTI culture mixed urogenital jhonny ID consulted DM II FSBS/SSI Levemir 80unit BID -decreased to 80unit at hs 06/02 well controlled Levemir held 06/02 BS 78, Decrease to 60unit at hs. ARF with CKD II Admit BUN 23 06/03 23 Cr 2.5 2.4 Mg 1.7 Baseline BUN 11-12 Cr 1.0-1.2 IVF NS 75cc/hr Hold Lasix 06/02 Decrease KCL to 20meq daily-off lasix, K4.5 06/03 Mg Sulfate 2gm IV 06/03 recheck in AM DVT/GI prophylaxis SCD/RUTH PPI Plan Plan For more details regarding further plans, please refer to the orders. PRO SCHROEDER MD Jun 04, 2017 10:21
[2017-06-04] MEDS: FERROUS SULFATE 325 MG TABLET. PO SCH ×2 (10:58→17:48)
[2017-06-04 10:59] VITALS: BP 123/68
[2017-06-04] MEDS: ATENOLOL 50 MG TABLET. PO SCH ×2 (11:00→21:12)
[2017-06-04] MEDS: PANTOPRAZOLE 40 MG TABLET.DR. PO SCH (11:01)
[2017-06-04] MEDS: amLODIPine BESYLATE 5 MG TABLET PO SCH (11:01)
[2017-06-04] MEDS: MIRTAZAPINE 15 MG TABLET PO SCH (11:01)
[2017-06-04 15:07] VITALS: BP 142/76
[2017-06-04] MEDS: POTASSIUM CHLORIDE 20 MEQ TABLET.ER. PO SCH (17:50)
[2017-06-04 19:42] VITALS: BP 163/63
[2017-06-04] MEDS: CYCLOBENZAPRINE 10 MG TABLET. PO SCH (21:11)
[2017-06-04] MEDS: INSULIN DETEMIR 300 UNITS/3 ML INSULN.PEN. SQ SCH (21:27)
[2017-06-04 22:04] VITALS: BP 152/70
[2017-06-05 03:00] VITALS: BP 150/66
[2017-06-05] MEDS: IV NORMAL SALINE 1000ML BAG 1,000 ML IV SCH (04:10)
[2017-06-05 07:00] VITALS: BP 145/75
[2017-06-05] MEDS: INSULIN ASPART 300 UNITS/3 ML INSULN.PEN SQ SCH ×2 (07:30→11:30)
--- NOTE | 2017-06-05 08:06 | PDOC ---
TARA SANTIAGO CORE LAYER MACHINE OPERATOR 06/05/17 0806: IM PROGRESS NOTES- Subjective Subjective nausea since yesterday after surgery Objective Objective mild distress Vitals Vital Signs Date Time Temp Pulse Resp B/P (MAP) Pulse Ox O2 Delivery O2 Flow Rate FiO2 06/05/17 07:00 98.2 75 18 145/75 (98) 94 Room Air 98.2 06/04/17 18:03 14.0 Physical Exam Physical Exam General appearance - alert and in mild distress Mental Status - alert, oriented to time place, affect appropriate Head - normal Chest - clear to auscultation, no wheezes, rales or rhonchi Heart - S1 and S2 normal Abdomen - soft, nondistended, BS+, obese Neurological - no acute focal neurological deficit noted. Musculoskeletal - no muscular tenderness noted Extremities - pedal edema +, surgical dressing R foot Skin - warm and dry Labs Laboratory Tests Test 06/03/17 09:40 06/03/17 11:05 06/03/17 16:57 06/03/17 21:03 White Blood Count 9.9 x10^3/uL (4.0-11.0) Red Blood Count 4.56 x10^6/uL (3.50-5.40) Hemoglobin 10.5 g/dL (12.0-15.5) Hematocrit 34.5 % (36.0-47.0) Mean Corpuscular Volume 76 fL (79-100) Mean Corpuscular Hemoglobin 23 pg (25-35) Mean Corpuscular Hemoglobin Concent 30 g/dL (31-37) Red Cell Distribution Width 23.5 % (11.5-14.5) Platelet Count 407 x10^3/uL (140-400) Neutrophils (%) (Auto) 65 % (31-73) Lymphocytes (%) (Auto) 23 % (24-48) Monocytes (%) (Auto) 9 % (0-9) Eosinophils (%) (Auto) 3 % (0-3) Basophils (%) (Auto) 1 % (0-3) Neutrophils # (Auto) 6.4 x10^3uL (1.8-7.7) Lymphocytes # (Auto) 2.3 x10^3/uL (1.0-4.8) Monocytes # (Auto) 0.9 x10^3/uL (0.0-1.1) Eosinophils # (Auto) 0.3 x10^3/uL (0.0-0.7) Basophils # (Auto) 0.1 x10^3/uL (0.0-0.2) Sodium Level 133 mmol/L (136-145) Potassium Level 4.5 mmol/L (3.5-5.1) Chloride Level 99 mmol/L (98-107) Carbon Dioxide Level 26 mmol/L (21-32) Anion Gap 8 (6-14) Blood Urea Nitrogen 24 mg/dL (7-20) Creatinine 2.1 mg/dL (0.6-1.0) Estimated GFR (Cockcroft-Gault) 28.9 Glucose Level 164 mg/dL (70-99) Calcium Level 9.3 mg/dL (8.5-10.1) Glucose (Fingerstick) 180 mg/dL (70-99) 108 mg/dL (70-99) 161 mg/dL (70-99) Test 06/04/17 06:08 06/04/17 06:59 06/04/17 08:30 06/04/17 10:22 White Blood Count 7.0 x10^3/uL (4.0-11.0) Red Blood Count 4.53 x10^6/uL (3.50-5.40) Hemoglobin 10.6 g/dL (12.0-15.5) Hematocrit 33.7 % (36.0-47.0) Mean Corpuscular Volume 74 fL (79-100) Mean Corpuscular Hemoglobin 23 pg (25-35) Mean Corpuscular Hemoglobin Concent 32 g/dL (31-37) Red Cell Distribution Width 24.0 % (11.5-14.5) Platelet Count 376 x10^3/uL (140-400) Neutrophils (%) (Auto) 65 % (31-73) Lymphocytes (%) (Auto) 23 % (24-48) Monocytes (%) (Auto) 8 % (0-9) Eosinophils (%) (Auto) 3 % (0-3) Basophils (%) (Auto) 1 % (0-3) Neutrophils # (Auto) 4.5 x10^3uL (1.8-7.7) Lymphocytes # (Auto) 1.6 x10^3/uL (1.0-4.8) Monocytes # (Auto) 0.6 x10^3/uL (0.0-1.1) Eosinophils # (Auto) 0.2 x10^3/uL (0.0-0.7) Basophils # (Auto) 0.1 x10^3/uL (0.0-0.2) Sodium Level 133 mmol/L (136-145) Potassium Level 4.6 mmol/L (3.5-5.1) Chloride Level 103 mmol/L (98-107) Carbon Dioxide Level 20 mmol/L (21-32) Anion Gap 10 (6-14) Blood Urea Nitrogen 18 mg/dL (7-20) Creatinine 1.6 mg/dL (0.6-1.0) Estimated GFR (Cockcroft-Gault) 39.5 Glucose Level 123 mg/dL (70-99) Calcium Level 9.3 mg/dL (8.5-10.1) Magnesium Level 2.2 mg/dL (1.8-2.4) Glucose (Fingerstick) 110 mg/dL (70-99) 96 mg/dL (70-99) 94 mg/dL (70-99) Test 06/04/17 17:23 06/04/17 21:22 06/05/17 07:34 Glucose (Fingerstick) 113 mg/dL (70-99) 134 mg/dL (70-99) 91 mg/dL (70-99) Laboratory Tests Test 06/04/17 08:30 06/04/17 10:22 06/04/17 17:23 06/04/17 21:22 Glucose (Fingerstick) 96 mg/dL (70-99) 94 mg/dL (70-99) 113 mg/dL (70-99) 134 mg/dL (70-99) Test 06/05/17 07:34 Glucose (Fingerstick) 91 mg/dL (70-99) Meds Current Medications Atenolol (Tenormin) 25 mg BID PO Last administered on 06/04/17 21:12; Start at 11:00 Ceftriaxone Sodium 1 gm/ Sodium Chloride 50 ml @ 100 mls/hr Q24H IV Last administered on 06/04/17 13:11; Start 06/04/17 at 12:00 Assessment Assessment 1. R great toe extensive soft tissue infection with diabetic foot infection with osteomyelitis s/p R ray amputation 06/04 2. ARF with CKD II 3. UTI 4. HTN 5. sarcoidosis 6. RA seronegative 7. fatty liver 8. h/o diverticula R lower colon 9. moderate chronic PCL malnutrition 10. hyperlipidemia 11. migraine headache 12. gastroparesis h/o with delayed emptying 13. acute hypokalemia POA resolved 14. OA 15. h/o renal mass 16. hypomagnesia resolved 17. CKD II 18. DM II chronic insulin neuropathy 19. Anemia severe Fe deficiency PLAN: R great toe wound x3 with extensive infection/ osteomyelitis ID consult Ortho consult Vanco 1gm IV x1 and Levaquin 500 po x 1 Admit WBC 14.5 06/04 7.0 resolved leukocytosis Sed rate 60 on admit XRay + osteomyelitis MRI reviewed grm stain wound mod + gram cocci podiatry consult 06/02 Teflaro 600mg IV q6 Flagyl 500mg IV BID 06/03 arterial doppler negative for occlusion. 06/04 She had Rt great toe Ray amputation today. culture -staph aureus UTI culture mixed urogenital jhonny ID consulted negative UTI DM II FSBS/SSI Levemir 80unit BID -decreased to 80unit at hs 06/02 well controlled Levemir held 06/02 BS 78, Decrease to 60unit at hs, poor oral intake, decrease Levemir to 45u at hs.06/05. BS 91-134 ARF with CKD II Admit BUN 23 06/04 18 Cr 2.5 1.6 Mg 2.2 Baseline BUN 11-12 Cr 1.0-1.2 IVF NS 75cc/hr Hold Lasix 06/02 Decrease KCL to 20meq daily-off lasix, K4.5 06/03 Mg Sulfate 2gm IV 06/03 recheck in AM 06/05 ARF resolved-Lasix still on hold hypomagnesia - resolved 06/05 DVT/GI prophylaxis SCD/RUTH PPI nausea increase zofran to 8mg IV q6hr, clear liquids, continue IVF For further plan of care, please refer to the orders. Plan Plan For more details regarding further plans, please refer to the orders. PRO SCHROEDER MD 06/05/17 0958: IM PROGRESS NOTES- Assessment Assessment The patient was seen and examined by me. Chart reviewed and plan of care formulated. Discussed with, reviewed and agree with CLIENT SUCCESS SPECIALIST's notes, plan of care and orders with modifications as necessary. For more details regarding further plans, please refer to the orders. sleepy,tired,not eating much. TARA SANTIAGO APRN Jun 05, 2017 08:06 PRO SCHROEDER MD Jun 05, 2017 09:58
[2017-06-05] MEDS ORDERED: ONDANSETRON PF 4 MG/2 ML VIAL. IV PRN (08:15)
[2017-06-05] MEDS: PANTOPRAZOLE 40 MG TABLET.DR. PO SCH (08:16)
[2017-06-05] MEDS: POTASSIUM CHLORIDE 20 MEQ TABLET.ER. PO SCH (08:16)
[2017-06-05] MEDS: HYDROXYCHLOROQUINE 200 MG TABLET PO SCH (08:17)
[2017-06-05] MEDS: amLODIPine BESYLATE 5 MG TABLET PO SCH (08:17)
[2017-06-05] MEDS: ATENOLOL 50 MG TABLET. PO SCH (08:18)
[2017-06-05] MEDS: MIRTAZAPINE 15 MG TABLET PO SCH (08:18)
--- NOTE | 2017-06-05 09:22 | PDOC ---
Infectious Disease Note Subjective Subjective pt feeling fine, ROS ROS GEN: Denies fevers, chills, sweats HEENT: Denies blurred vision, sore throat CV: Denies chest pain RESP: Denies shortness of air, cough GI: Denies n/v/d NEURO: Denies confusion, dizziness MSK: Denies weakness, joint pain/swelling Vital Sign Vital Signs Vital Signs Date Time Temp Pulse Resp B/P (MAP) Pulse Ox O2 Delivery O2 Flow Rate FiO2 06/05/17 08:18 75 145/75 06/05/17 07:00 98.2 18 94 Room Air 98.2 06/04/17 18:03 14.0 Physical Exam PHYSICAL EXAM GENERAL: NAD, Alert HEENT: PERRL, OC/OP NECK: Supple, no JVD, no LN LUNGS: Clear HEART: S1S2, no gallop, no murmur ABD: Soft, NT, no organomegaly, no rebound EXT: No edema, no cyanosis,, post surgery dressing not opened STAIN REMOVER: Alert, oriented x 3, no focal neurologic deficit SKIN: No rash IV: ok Labs Lab Laboratory Tests Test 06/04/17 10:22 06/04/17 17:23 06/04/17 21:22 06/05/17 07:34 Glucose (Fingerstick) 94 mg/dL (70-99) 113 mg/dL (70-99) 134 mg/dL (70-99) 91 mg/dL (70-99) Objective Assessment Diabetic foot infection Rt great toe osteomyelitis s/p amputation DM CKD Leukocytosis Plan Plan of Care rocephine and flagyl supportive care MARYANN MAYES MD Jun 05, 2017 09:22
[2017-06-05 11:00] VITALS: BP 155/82
[2017-06-05 11:32] LABS: CALCIUM 9.1 mg/dL (8.5-10.1); CREATININE 1.6 mg/dL (0.6-1.0); GFR 39.5; POTASSIUM 4.5 mmol/L (3.5-5.1)
[2017-06-05 11:35] LABS: BASO # 0.1 x10^3/uL (0.0-0.2); BASO % 1 % (0-3); EOS % 3 % (0-3); HEMATOCRIT 35.4 % (36.0-47.0); HEMOGLOBIN 11.5 g/dL (12.0-15.5); LYMPH # 2.3 x10^3/uL (1.0-4.8); LYMPH % 22 % (24-48); MEAN CORPUSCULAR HEMOGLOBIN 24 pg (25-35); MEAN CORPUSCULAR HGB CONC 33 g/dL (31-37); MEAN CORPUSCULAR VOLUME 75 fL (79-100); MONO % 8 % (0-9); NEUT % 66 % (31-73); PLATELET COUNT 482 x10^3/uL (140-400); RED BLOOD COUNT 4.74 x10^6/uL (3.50-5.40); RED CELL DISTRIBUTION WIDTH 24.7 % (11.5-14.5); WHITE BLOOD COUNT 10.3 x10^3/uL (4.0-11.0)
--- NOTE | 2017-06-05 12:08 | PDOC ---
PROGRESS NOTES Subjective Subjective Denies pain to foot. Denies nausea, vomitting, fever, chills. She states she has only been up to go to the bathroom Objective Objective Vital Signs Date Time Temp Pulse Resp B/P (MAP) Pulse Ox O2 Delivery O2 Flow Rate FiO2 06/05/17 11:00 98.2 75 18 155/82 (106) 94 Room Air 98.2 06/05/17 08:10 14.0 Physical Exam Physical Exam Lower extremity: Note sanguinous drainage to outer gauze layers. Status post partial 1st ray resection right foot with skin edges well alligned and sutures intact with exception of 2 sutures at distal aspect of incision with no active drainage noted and mild maceration. note resolving cellulitis. no calor. swelling improved. DP and PT 2/4. Sensation absent to light touch and sharp dull. Assessment Assessment status post partial 1st ray resection right foot x 1 day Plan Plan of Care 61 year old female with DM, peripheral neuropathy, status post partial 1st ray resection right foot -note distal wound dehissence with no active drainage -Applied steri strips to incision, light betadine gauze, kerlex, ronni bandage -Recommend she minimal weightbear in surgical shoe right foot bathroom privileges only -Continue Antibiotics per ID recommendations -Elevate right lower extremity -Keep dresssing clean, dry, intact -Call for follow up appointment Thursday06/16/17 Comment Review of Relevant I have reviewed the following items meg (where applicable) has been applied. Labs Laboratory Tests Test 06/03/17 16:57 06/03/17 21:03 06/04/17 06:08 06/04/17 06:59 Glucose (Fingerstick) 108 mg/dL (70-99) 161 mg/dL (70-99) 110 mg/dL (70-99) White Blood Count 7.0 x10^3/uL (4.0-11.0) Red Blood Count 4.53 x10^6/uL (3.50-5.40) Hemoglobin 10.6 g/dL (12.0-15.5) Hematocrit 33.7 % (36.0-47.0) Mean Corpuscular Volume 74 fL (79-100) Mean Corpuscular Hemoglobin 23 pg (25-35) Mean Corpuscular Hemoglobin Concent 32 g/dL (31-37) Red Cell Distribution Width 24.0 % (11.5-14.5) Platelet Count 376 x10^3/uL (140-400) Neutrophils (%) (Auto) 65 % (31-73) Lymphocytes (%) (Auto) 23 % (24-48) Monocytes (%) (Auto) 8 % (0-9) Eosinophils (%) (Auto) 3 % (0-3) Basophils (%) (Auto) 1 % (0-3) Neutrophils # (Auto) 4.5 x10^3uL (1.8-7.7) Lymphocytes # (Auto) 1.6 x10^3/uL (1.0-4.8) Monocytes # (Auto) 0.6 x10^3/uL (0.0-1.1) Eosinophils # (Auto) 0.2 x10^3/uL (0.0-0.7) Basophils # (Auto) 0.1 x10^3/uL (0.0-0.2) Sodium Level 133 mmol/L (136-145) Potassium Level 4.6 mmol/L (3.5-5.1) Chloride Level 103 mmol/L (98-107) Carbon Dioxide Level 20 mmol/L (21-32) Anion Gap 10 (6-14) Blood Urea Nitrogen 18 mg/dL (7-20) Creatinine 1.6 mg/dL (0.6-1.0) Estimated GFR (Cockcroft-Gault) 39.5 Glucose Level 123 mg/dL (70-99) Calcium Level 9.3 mg/dL (8.5-10.1) Magnesium Level 2.2 mg/dL (1.8-2.4) Test 06/04/17 08:30 06/04/17 10:22 06/04/17 17:23 06/04/17 21:22 Glucose (Fingerstick) 96 mg/dL (70-99) 94 mg/dL (70-99) 113 mg/dL (70-99) 134 mg/dL (70-99) Test 06/05/17 07:34 06/05/17 11:10 06/05/17 11:25 Glucose (Fingerstick) 91 mg/dL (70-99) 88 mg/dL (70-99) White Blood Count 10.3 x10^3/uL (4.0-11.0) Red Blood Count 4.74 x10^6/uL (3.50-5.40) Hemoglobin 11.5 g/dL (12.0-15.5) Hematocrit 35.4 % (36.0-47.0) Mean Corpuscular Volume 75 fL (79-100) Mean Corpuscular Hemoglobin 24 pg (25-35) Mean Corpuscular Hemoglobin Concent 33 g/dL (31-37) Red Cell Distribution Width 24.7 % (11.5-14.5) Platelet Count 482 x10^3/uL (140-400) Neutrophils (%) (Auto) 66 % (31-73) Lymphocytes (%) (Auto) 22 % (24-48) Monocytes (%) (Auto) 8 % (0-9) Eosinophils (%) (Auto) 3 % (0-3) Basophils (%) (Auto) 1 % (0-3) Neutrophils # (Auto) 6.8 x10^3uL (1.8-7.7) Lymphocytes # (Auto) 2.3 x10^3/uL (1.0-4.8) Monocytes # (Auto) 0.9 x10^3/uL (0.0-1.1) Eosinophils # (Auto) 0.3 x10^3/uL (0.0-0.7) Basophils # (Auto) 0.1 x10^3/uL (0.0-0.2) Sodium Level 136 mmol/L (136-145) Potassium Level 4.5 mmol/L (3.5-5.1) Chloride Level 100 mmol/L (98-107) Carbon Dioxide Level 27 mmol/L (21-32) Anion Gap 9 (6-14) Blood Urea Nitrogen 10 mg/dL (7-20) Creatinine 1.6 mg/dL (0.6-1.0) Estimated GFR (Cockcroft-Gault) 39.5 Glucose Level 104 mg/dL (70-99) Calcium Level 9.1 mg/dL (8.5-10.1) Laboratory Tests Test 06/04/17 17:23 06/04/17 21:22 06/05/17 07:34 06/05/17 11:10 Glucose (Fingerstick) 113 mg/dL (70-99) 134 mg/dL (70-99) 91 mg/dL (70-99) White Blood Count 10.3 x10^3/uL (4.0-11.0) Red Blood Count 4.74 x10^6/uL (3.50-5.40) Hemoglobin 11.5 g/dL (12.0-15.5) Hematocrit 35.4 % (36.0-47.0) Mean Corpuscular Volume 75 fL (79-100) Mean Corpuscular Hemoglobin 24 pg (25-35) Mean Corpuscular Hemoglobin Concent 33 g/dL (31-37) Red Cell Distribution Width 24.7 % (11.5-14.5) Platelet Count 482 x10^3/uL (140-400) Neutrophils (%) (Auto) 66 % (31-73) Lymphocytes (%) (Auto) 22 % (24-48) Monocytes (%) (Auto) 8 % (0-9) Eosinophils (%) (Auto) 3 % (0-3) Basophils (%) (Auto) 1 % (0-3) Neutrophils # (Auto) 6.8 x10^3uL (1.8-7.7) Lymphocytes # (Auto) 2.3 x10^3/uL (1.0-4.8) Monocytes # (Auto) 0.9 x10^3/uL (0.0-1.1) Eosinophils # (Auto) 0.3 x10^3/uL (0.0-0.7) Basophils # (Auto) 0.1 x10^3/uL (0.0-0.2) Sodium Level 136 mmol/L (136-145) Potassium Level 4.5 mmol/L (3.5-5.1) Chloride Level 100 mmol/L (98-107) Carbon Dioxide Level 27 mmol/L (21-32) Anion Gap 9 (6-14) Blood Urea Nitrogen 10 mg/dL (7-20) Creatinine 1.6 mg/dL (0.6-1.0) Estimated GFR (Cockcroft-Gault) 39.5 Glucose Level 104 mg/dL (70-99) Calcium Level 9.1 mg/dL (8.5-10.1) Test 06/05/17 11:25 Glucose (Fingerstick) 88 mg/dL (70-99) Microbiology 06/02/17 Blood Culture - Preliminary, Resulted NO GROWTH AFTER 3 DAYS 06/02/17 Urine Culture - Final, Complete 06/02/17 Urine Culture Result 1 (JAI) - Final, Complete 06/04/17 Anaerobic/Aerobic Culture, Resulted Pending 06/04/17 Anaerobic Culture Result 1 (JAI), Resulted Pending 06/04/17 Aerobic Culture - Preliminary, Resulted 06/04/17 Aerobic Culture Result 1 (JAI) - Preliminary, Resulted Medications Current Medications Vancomycin HCl 1 gm/Sodium Chloride 250 ml @ 250 mls/hr 1X ONCE IV ; Start at 17:30; Stop 06/01/17 at 18:29; Status DC Acetaminophen (Tylenol) 650 mg PRN Q6HRS PRN PO PAIN; Start 06/01/17 at 17:30 Insulin Aspart (NovoLOG) BIDBFRMEAL SQ ; Start 06/01/17 at 18:00; Stop at 09:01; Status DC Amlodipine Besylate (Norvasc) 5 mg DAILY PO Last administered on 06/05/17 08: 17; Start 06/02/17 at 09:00 Atenolol (Tenormin) 25 mg BID PO Last administered on 06/03/17 21:19; Start at 21:00; Stop 06/04/17 at 10:17; Status DC Cyclobenzaprine HCl (Flexeril) 10 mg QHS PO Last administered on 06/04/17 21: 11; Start 06/01/17 at 21:00 Ferrous Sulfate (Feosol) 325 mg DAILY PO Last administered on 06/04/17 17:48; Start 06/02/17 at 09:00 Furosemide (Lasix) 40 mg DAILY PO Last administered on 06/02/17 09:00; Start 06/02/17 at 09:00; Stop 06/02/17 at 09:26; Status DC Acetaminophen/ Hydrocodone Bitart (Lortab 10/325) 1 tab PRN Q6HRS PRN PO PAIN Last administered on 06/04/17 18:03; Start 06/01/17 at 19:30 Hydroxychloroquine Sulfate (Plaquenil) 200 mg BID PO Last administered on 08:17; Start 06/01/17 at 21:00 Mirtazapine (Remeron) 15 mg DAILY PO Last administered on 06/05/17 08:18; Start 06/02/17 at 09:00 Potassium Chloride (Klor-Con) 20 meq DAILYWBKFT PO ; Start 06/02/17 at 08:00; Status Cancel Insulin Detemir (Levemir) 80 units QHS SQ ; Start 06/01/17 at 21:00; Stop at 06:20; Status DC Potassium Chloride (Klor-Con) 40 meq DAILYWBKFT PO Last administered on 10:41; Start 06/02/17 at 08:00; Stop 06/03/17 at 06:20; Status DC Pantoprazole Sodium (Protonix) 40 mg DAILYAC PO Last administered on 06/05/17 08:16; Start 06/02/17 at 07:30 Levofloxacin (Levaquin) 500 mg 1X ONCE PO Last administered on 06/01/17 23:43 ; Start 06/01/17 at 23:30; Stop 06/01/17 at 23:31; Status DC Insulin Aspart (NovoLOG) TIDAC SQ Last administered on 06/03/17 12:29; Start 06/02/17 at 11:30 Sodium Chloride 1,000 ml @ 75 mls/hr [id number] IV Last administered on 19:55; Start 06/02/17 at 09:30 Ceftaroline Fosamil 600 mg/ Sodium Chloride 250 ml @ 250 mls/hr Q12HR IV Last administered on 06/03/17 21:18; Start 06/02/17 at 11:00; Stop 06/04/17 at 10:50 ; Status DC Metronidazole 100 ml @ 100 mls/hr Q12HR IV Last administered on 06/03/17 19: 58; Start 06/02/17 at 11:00; Stop 06/04/17 at 10:50; Status DC Insulin Detemir (Levemir) 60 units QHS SQ Last administered on 06/04/17 21:27 ; Start 06/03/17 at 21:00; Stop 06/05/17 at 08:04; Status DC Potassium Chloride (Klor-Con) 20 meq DAILYWBKFT PO Last administered on 08:16; Start 06/03/17 at 08:00 Magnesium Sulfate/ Dextrose 50 ml @ 25 mls/hr 1X ONCE IV Last administered on 06/03/17 08:56; Start 06/03/17 at 07:00; Stop 06/03/17 at 08:59; Status DC Ondansetron HCl (Zofran) 4 mg PRN Q6HRS PRN IV NAUSEA/VOMITING Last administered on 06/04/17 12:46; Start 06/04/17 at 07:00; Stop 06/05/17 at 06:59 ; Status DC Fentanyl Citrate (Fentanyl 2ml Vial) 25 mcg PRN Q5MIN PRN IV MILD PAIN; Start 06/04/17 at 07:00; Stop 06/05/17 at 06:59; Status DC Fentanyl Citrate (Fentanyl 2ml Vial) 50 mcg PRN Q5MIN PRN IV MODERATE PAIN; Start 06/04/17 at 07:00; Stop 06/05/17 at 06:59; Status DC Morphine Sulfate 1 mg PRN Q10MIN PRN IV SEVERE PAIN; Start 06/04/17 at 07:00; Stop 06/05/17 at 06:59; Status DC Ringer's Solution 1,000 ml @ 30 mls/hr Q24H IV ; Start 06/04/17 at 07:00; Stop 06/04/17 at 18:59; Status DC Prochlorperazine Edisylate (Compazine) 5 mg PACU PRN PRN IV NAUSEA, MRX1; Start 06/04/17 at 07:00; Stop 06/05/17 at 06:59; Status DC Ondansetron HCl (Zofran) 4 mg PRN Q6HRS PRN IV NAUSEA/VOMITING Last administered on 06/03/17 15:54; Start 06/03/17 at 15:45; Stop 06/05/17 at 08:04 ; Status DC Bupivacaine HCl (Sensorcaine Mpf 0.5%) 30 ml STK-MED ONCE .ROUTE Last administered on 06/04/17 08:22; Start 06/04/17 at 06:40; Stop 06/04/17 at 06:41 ; Status DC Povidone Iodine ( Betadine Oint) 28 shelly STK-MED ONCE TP ; Start 06/04/17 at 06: 40; Stop 06/04/17 at 06:41; Status DC Dexamethasone Sodium Phosphate (Decadron) 4 mg STK-MED ONCE .ROUTE ; Start 06/04 at 06:40; Stop 06/04/17 at 06:41; Status DC Lidocaine HCl 20 ml STK-MED ONCE .ROUTE Last administered on 06/04/17 08:22; Start 06/04/17 at 06:40; Stop 06/04/17 at 06:41; Status DC Propofol 20 ml @ As Directed STK-MED ONCE IV ; Start 06/04/17 at 07:07; Stop at 07:08; Status DC Ondansetron HCl (Zofran) 4 mg STK-MED ONCE .ROUTE ; Start 06/04/17 at 07:07; Stop 06/04/17 at 07:08; Status DC Famotidine (Pepcid) 20 mg STK-MED ONCE .ROUTE ; Start 06/04/17 at 07:07; Stop at 07:08; Status DC Lidocaine HCl (Lidocaine Pf 2% Vial) 5 ml STK-MED ONCE .ROUTE ; Start 06/04/17 at 07:07; Stop 06/04/17 at 07:08; Status DC Fentanyl Citrate (Fentanyl 2ml Vial) 100 mcg STK-MED ONCE .ROUTE ; Start at 07:11; Stop 06/04/17 at 07:12; Status DC Midazolam HCl (Versed) 2 mg STK-MED ONCE .ROUTE ; Start 06/04/17 at 07:11; Stop 06/04/17 at 07:12; Status DC Ketamine HCl 500 mg STK-MED ONCE .ROUTE ; Start 06/04/17 at 07:29; Stop at 07:30; Status DC Propofol 20 ml @ As Directed STK-MED ONCE IV ; Start 06/04/17 at 07:36; Stop at 07:37; Status DC Atenolol (Tenormin) 25 mg BID PO Last administered on 06/05/17 08:18; Start at 11:00 Ceftriaxone Sodium 1 gm/ Sodium Chloride 50 ml @ 100 mls/hr Q24H IV Last administered on 06/04/17 13:11; Start 06/04/17 at 12:00 Insulin Detemir (Levemir) 45 units QHS SQ ; Start 06/05/17 at 21:00 Ondansetron HCl (Zofran) 8 mg PRN Q6HRS PRN IV NAUSEA/VOMITING Last administered on 06/05/17t 08:15; Start 06/05/17 at 08:15 Active Scripts Active Ferrous Sulfate 325 Mg Tablet 325 Mg PO DAILY 30 Days Klor-Con M20 (Potassium Chloride) 20 Meq Tab.er.prt 20 Meq PO DAILYWBKFT Proair Hfa (Albuterol Sulfate) 8.5 Gm Hfa.aer.ad 8.5 Gm IH PRN Q4HRS PRN Symbicort 160-4.5 Mcg Inhaler (Budesonide/Formoterol Fumarate) 10.2 Gm Hfa.aer.ad 2 Puff IH BID Reported Cyclobenzaprine Hcl 10 Mg Tablet 1 Tab PO QHS Aciphex (Rabeprazole Sodium) 20 Mg Tablet.dr 1 Tab PO DAILY Amlodipine Besylate 5 Mg Tablet 5 Mg PO DAILY Mirtazapine 15 Mg Tablet 15 Mg PO DAILY Hydroxychloroquine Sulfate 200 Mg Tablet 1 Tab PO BID Atenolol 25 Mg Tablet 1 Tab PO BID Vitals/I & O Vital Sign - Last 24 Hours 06/04/17 06/04/17 06/04/17 06/04/17 15:07 18:03 19:42 20:00 Temp 97.5 98.3 97.5 98.3 Pulse 67 72 Resp 18 18 B/P (MAP) 142/76 (98) 163/63 (96) Pulse Ox 96 96 96 O2 Delivery Room Air Room Air Room Air Room Air O2 Flow Rate 14.0 06/04/17 06/04/17 06/05/17 06/05/17 21:12 22:04 03:00 07:00 Temp 97.9 97.9 98.2 97.9 97.9 98.2 Pulse 72 69 78 75 Resp 18 17 18 B/P (MAP) 163/63 152/70 (97) 150/66 (94) 145/75 (98) Pulse Ox 100 98 94 O2 Delivery Room Air Room Air Room Air 06/05/17 06/05/17 06/05/17 06/05/17 08:10 08:17 08:18 11:00 Temp 98.2 98.2 Pulse 75 75 75 Resp 18 B/P (MAP) 145/75 145/75 155/82 (106) Pulse Ox 94 O2 Delivery Room Air Room Air O2 Flow Rate 14.0 Images xray 3 views right foot: note status post partial 1st ray to distal 1/3 of 1st metatarsal. MICHAELA MALIK DPM Jun 05, 2017 12:08
[2017-06-05 12:18] LABS: PLT ESTIMATE ADEQUATE (ADEQUATE)
[2017-06-05 12:19] LABS: ANISOCYTOSIS SLIGHT; HYPOCHROMIA SLIGHT; MICROCYTOSIS SLIGHT
[2017-06-05] MEDS ORDERED: INSULIN DETEMIR 300 UNITS/3 ML INSULN.PEN. SQ SCH (21:00)
--- NOTE | 2017-06-08 11:00 | PATHOLOGY ---
PATHOLOGY REPORT * * * * * * * * FINAL DIAGNOSIS: A. Toe, "right first toe", amputation: - Extensive epidermal ulceration with necrotic acute inflammatory exudate extending deeply into the soft tissue and bone. - Extensive osteomyelitis with abscess formation and fragments of necrotic bone. - Section submitted as proximal bone margin (A2) does not reveal any osteomyelitis. - Section submitted as (A1) skin and soft tissue margin reveals black ink in the soft tissue margin indicating positive skin and soft tissue for inflammation. - Additional bone (A5) revealed periosteal acute inflammation and focal acute osteomyelitis. B. Bone, "fragment first metatarsal": - Bone with surrounding soft tissue revealing degenerative changes with surrounding fibrosis but no obvious acute inflammation or acute osteomyelitis. (SHA:gabriel; 06/08/2017) REPORT ELECTRONICALLY SIGNED BY: Jose Cheung M.D. DATE/TIME: 06/08/2017 11:00 * * * * * * * * GROSS PATHOLOGY: A. The specimen is received in formalin, labeled "Chen Leos, right first toe," and consists of a disarticulated toe measuring 7.0 x 3.6 x 3.5 cm. The nail is not present. The skin surface is ospina-daly and displays extensive green-pink discoloration and ulceration measuring up to 3.3 cm in greatest dimension that grossly appears to abut the skin and soft tissue margin. The proximal bone margin is a pale white and smooth articular surface. Also received in the same container is a segment of bone with attached soft tissue measuring 3.7 x 3.5 x 2.7 cm. [employer] sections are submitted as follows: A1: Skin and soft tissue margin to include ulceration and discoloration A2: Proximal bone margin A3: Toe, longitudinal section, distal A4: Toe, longitudinal section proximal A5: Additionally bone Cassettes A2-A5 will be submitted following decalcification and fixation. B. The specimen is received in formalin, labeled "Chen Leos, clearance frag first metatarsal," is a circular segment of daly-yellow bone measuring 2.1 x 1.4 x 0.4. It is submitted intact in cassette B1 following decalcification and fixation. (SDY; 06/04/2017) INITIAL CPT CODE(S): A; 04611, 84041 B; 31797, 21372 Professional services performed by [facility] at [id number] [place] [address] Technical services performed by [facility] at [address] [place] [address], [place] [address], [place] [address]. SPECIMEN(S) RECEIVED: A.Right 1st toe B.Clearance fragments 1st metatarsal CLINICAL HISTORY: Infected 1st toe, right foot PATIENT: CHEN LEOS /AGE: 12 1955 (Age: 61) PATIENT #: [id number] ALT CASE #: SPECIMEN COLLECTION DATE: 06/04/2017 SPECIMEN RECEIVED DATE: 06/04/2017 [facility] - [address] [place] [address] - PHONE: [phone] * * * END OF REPORT * * *
--- NOTE | 2017-06-12 12:08 | PDOC3 ---
IM DISCHARGE SUMMARY Date of Admission Date of Admission Date of Admission: Jun 01, 2017 at 16:32 Date of Discharge Date of Discharge 06/05/17 Primary Diagnosis Primary Diagnosis 1. R great toe extensive soft tissue infection with diabetic foot infection with osteomyelitis s/p R ray amputation 06/04 2. ARF with CKD II 3. UTI 4. HTN 5. sarcoidosis 6. RA seronegative 7. fatty liver 8. h/o diverticula R lower colon 9. moderate chronic PCL malnutrition 10. hyperlipidemia 11. migraine headache 12. gastroparesis h/o with delayed emptying 13. acute hypokalemia POA resolved 14. OA 15. h/o renal mass 16. hypomagnesia resolved 17. CKD II 18. DM II chronic insulin neuropathy 19. Anemia severe Fe deficiency Problems: Consults Consults Mando Mooney MD, Dr., Dr. Procedures Procedures DATE OF SURGERY: 06/04/2017 PREOPERATIVE DIAGNOSIS: Osteomyelitis, right hallux. POSTOPERATIVE DIAGNOSIS: Osteomyelitis, right hallux. PROCEDURE: Partial first ray amputation, right foot. SURGEON: Katy Galicia DPM ANESTHESIA: MAC with local. HEMOSTASIS: Right ankle tourniquet at 250 mmHg. INDICATIONS: The patient is a 61-year-old female with diabetes, who was admitted to the hospital on 06/01/2017 for infection of the right foot. The patient states she had had ulceration to the hallux since March and had continued to worsen. She had been self-treating with local wound care with bandage and an antibiotic ointment and noted continued worsening. The patient had x-rays which showed destruction of the hallux consisting with osteomyelitis and questionable up-take in the first metatarsal head. Clinical exam did show sinus tract to the metatarsophalangeal joint and I discussed with patient the risks, benefits, and complications to include delayed healing, nonhealing, need for further surgery, infection, loss of foot, limb or life, DVT, pulmonary embolism, chronic pain, transfer lesions, gait imbalance. All questions were answered. No guarantees were made. The patient signed consent freely and put in chart. DESCRIPTION OF PROCEDURE: The patient was transported to the operating room via a cart and placed on the operating room table in supine position. IV sedation was administered per Anesthesia and a Huff block was given to the right foot consisting of a 1:1 mixture of 1% lidocaine plain and 0.5% Marcaine plain, 20 mL total. The right foot was prepped and draped in the usual aseptic manner and a well-padded tourniquet was placed over the right ankle. Timeout was taken to verify the patient, surgery, and limb to be performed. Esmarch bandage was used to exsanguinate the right foot and the right ankle tourniquet was inflated to 250 mmHg. Attention was directed to the right foot where a tennis racquet incision was made over the dorsal aspect of the first ray, extending to the plantar base of the hallux. Incision was deepened to the level of bone. Small vessels were cauterized. No pustular drainage did exit from the hallux and there was a sinus tract to the metatarsal head. Note that the metatarsal head did have some destructive changes to the distal aspect. A sagittal saw was used to resect the metatarsal head and resected the sesamoid apparatus as well. Small vessels were cauterized and the tendons were removed and aerobic and anaerobic wound cultures were taken at this time. Next, copiously irrigated the wound with 3 liter bag with pulse lavage. The incision was then closed with 4-0 nylon, was reapproximated with 4-0 nylon. A postop dressing was put on the patient with Betadine-soaked Adaptic gauze, 4 x 4's, abdominal pad, Kerlix and an Lakhwinder bandage. Tourniquet was deflated and good perfusion was noted to all digits of the right foot. The patient is to leave the dressing clean, dry and intact and to be minimal weightbearing in a surgical shoe to the right foot. Bathroom privileges only. We will plan to take down the dressing tomorrow at bedside around noon. The patient tolerated anesthesia and procedure well, was transported to the PACU with vital signs stable and vascular status intact to the right foot. KATY GALICIA DPM DR: Radha JOB#: [id number] / [id number] DICTATED BY: KATY GALICIA DPM 06/04/17 0827 SIGNED BY: KATY GALICIA DPM 06/05/17 1158 Labs Labs See EMR Brief hospital course Brief hospital course This 61 year old female who presented with R great toe infection. The following is a summary of her treatment: R great toe wound x3 with extensive infection/ osteomyelitis ID consult Ortho consult Vanco 1gm IV x1 and Levaquin 500 po x 1 Admit WBC 14.5 06/04 7.0 resolved leukocytosis Sed rate 60 on admit XRay + osteomyelitis MRI reviewed grm stain wound mod + gram cocci podiatry consult 06/02 Teflaro 600mg IV q6 Flagyl 500mg IV BID 06/03 arterial doppler negative for occlusion. 06/04 She had Rt great toe Ray amputation today. culture -staph aureus DC antibiotics per ID UTI culture mixed urogenital jhonny ID consulted negative UTI DM II FSBS/SSI Levemir 80unit BID -decreased to 80unit at hs 06/02 well controlled Levemir held 06/02 BS 78, Decrease to 60unit at hs, poor oral intake, decrease Levemir to 45u at hs.06/05. BS 91-134 ARF with CKD II Admit BUN 23 06/04 18 Cr 2.5 1.6 Mg 2.2 Baseline BUN 11-12 Cr 1.0-1.2 IVF NS 75cc/hr Hold Lasix 06/02 Decrease KCL to 20meq daily-off lasix, K4.5 06/03 Mg Sulfate 2gm IV 06/03 recheck in AM 06/05 ARF resolved-Lasix still on hold hypomagnesia - resolved 06/05 DVT/GI prophylaxis SCD/RUTH PPI nausea increase zofran to 8mg IV q6hr, clear liquids, continue IVF improved For more details regarding the past history, family history, social history, surgical history and other details, please refer to History and Physical. She will be discharged home. Please see DC orders. Medications Medications reviewed and reconciled for discharge. Allergy Allergies Coded Allergies Type Severity Reaction Last Updated Verified Penicillins Allergy Intermediate 06/04/17 Yes benzocaine Allergy Intermediate 06/04/17 Yes hydralazine Allergy Intermediate 06/04/17 Yes lidocaine Allergy Intermediate 06/04/17 Yes losartan Allergy Intermediate 06/04/17 Yes tetracaine Allergy Intermediate 06/04/17 Yes Follow up in 3 days. DISPOSITION: Home Comments Discharge Management - 35 minutes. For other details please refer to discharge instructions KINJAL-YULIANA,TARA M CODING EDUCATOR Jun 12, 2017 12:08
== END 2017-06-05 14:07 | disposition home or self-care (01) | DRG 240 ==
LOC: 6 SOUTH 16:32
PROVIDERS: ADMIT Internal Medicine; ATTEND Internal Medicine
PROC: 0Y6M0Z9 Detachment at Right Foot, Partial 1st Ray, Open Approach (ICD-10-PCS; principal; 2017-06-04 07:30)
DX: E11.52 Type 2 diabetes mellitus with diabetic peripheral angiopathy with gangrene (principal); M86.171 Other acute osteomyelitis, right ankle and foot; N17.9 Acute kidney failure, unspecified; E11.22 Type 2 diabetes mellitus with diabetic chronic kidney disease; E44.0 Moderate protein-calorie malnutrition; K31.84 Gastroparesis; E83.42 Hypomagnesemia; N39.0 Urinary tract infection, site not specified; E11.69 Type 2 diabetes mellitus with other specified complication; E11.43 Type 2 diabetes mellitus with diabetic autonomic (poly)neuropathy; E11.42 Type 2 diabetes mellitus with diabetic polyneuropathy; K76.0 Fatty (change of) liver, not elsewhere classified; E78.5 Hyperlipidemia, unspecified; G43.909 Migraine, unspecified, not intractable, without status migrainosus; K21.9 Gastro-esophageal reflux disease without esophagitis; K57.90 Diverticulosis of intestine, part unspecified, without perforation or abscess without bleeding; F41.9 Anxiety disorder, unspecified; G89.29 Other chronic pain; M79.7 Fibromyalgia; I12.9 Hypertensive chronic kidney disease with stage 1 through stage 4 chronic kidney disease, or unspecified chronic kidney disease; N18.2 Chronic kidney disease, stage 2 (mild); M06.9 Rheumatoid arthritis, unspecified; Z90.49 Acquired absence of other specified parts of digestive tract; Z90.710 Acquired absence of both cervix and uterus; Z82.49 Family history of ischemic heart disease and other diseases of the circulatory system; Z83.3 Family history of diabetes mellitus; Z88.0 Allergy status to penicillin; Z88.8 Allergy status to other drugs, medicaments and biological substances; D86.9 Sarcoidosis, unspecified; E87.6 Hypokalemia; D50.9 Iron deficiency anemia, unspecified; E11.628 Type 2 diabetes mellitus with other skin complications; E66.9 Obesity, unspecified; Z68.37 Body mass index [BMI] 37.0-37.9, adult; Z79.4 Long term (current) use of insulin; E11.621 Type 2 diabetes mellitus with foot ulcer; L97.519 Non-pressure chronic ulcer of other part of right foot with unspecified severity
CPT/HCPCS: 36415; 36569; 71010; 73620; 73630; 73718; 80048; 80053; 81001; 82962; 83735; 85025; 85651; 87040; 87070; 87071; 87075; 87086; 87186; 87205; 88304; 88305; 88311; 93005; 93925; C1769; J0696; J0712; J1100; J1815; J2250; J2405; J2704; J3010; J3490; J7030; J7050; J7060; S0028; J2001

== ENCOUNTER → 2020-07-04 | Outpatient (CLI) | payer MEDICARE, OTHER ==
[2017-07-16 13:39] VITALS: BP 136/52
[~2020-07-04] MED LIST changes: +ALBU2.5V8 IH; -ALBU8.5H8 IH; +AMLO-186 PO; -AMLO5TAB2 PO; +CHOL100013 PO; +DOXY100C2 PO; -FERR-26 PO; +FERR325T14 PO; +INSU100I13 SQ; +NAPR-514 PO; -NAPR500T3 PO; +TIZA4TAB2 PO; +TRAM100T2 PO
== END ==
LOC: LAB 13:47
PROVIDERS: ATTEND Internal Medicine Cardiovascular Disease
DX: Z01.812 Encounter for preprocedural laboratory examination (principal); Z20.828 Contact with and (suspected) exposure to other viral communicable diseases; I10 Essential (primary) hypertension
CPT/HCPCS: U0003-CS

== ENCOUNTER 2020-07-06 07:01 | Outpatient (CLI) | payer MEDICARE, OTHER ==
[~2020-07-06] VITALS: Ht 167.6 cm; Wt 144.7 kg
[2020-07-06] VITALS (12 sets, daily range): BP systolic 145–194; BP diastolic 63–87
[~2020-07-06 07:01] MED LIST changes: -TIZA4TAB2 PO; -TRAM100T2 PO
[2020-07-06] MEDS ORDERED: LIDOCAINE 1% Multi-Dose 20 ML VIAL. ONE (07:35)
[2020-07-06] MEDS ORDERED: IODIXANOL 320 MG/ML 100 ML VIAL. ONE (07:35)
[2020-07-06 07:42] LABS: HEMATOCRIT 31.2 % (36.0-47.0); HEMOGLOBIN 10.3 g/dL (12.0-15.5); RED BLOOD COUNT 3.57 x10^6/uL (3.50-5.40); RED CELL DISTRIBUTION WIDTH 13.9 % (11.5-14.5); WHITE BLOOD COUNT 8.7 x10^3/uL (4.0-11.0)
[2020-07-06] MEDS ORDERED: TRAM100T2 PO (07:43)
[2020-07-06] MEDS ORDERED: TIZA4TAB2 PO (07:43)
[2020-07-06] MEDS ORDERED: LIDOCAINE 1% PF 2 ML VIAL. ONE (07:54)
[2020-07-06 07:57] LABS: PROTHROMBIN TIME PATIENT 13.7 SEC (11.7-14.0)
[2020-07-06 07:59] LABS: CALCIUM 8.2 mg/dL (8.5-10.1); CREATININE 1.4 mg/dL (0.6-1.0); GFR 45.7; POTASSIUM 3.1 mmol/L (3.5-5.1)
[2020-07-06] MEDS ORDERED: CHLOROPROCAINE 3% MPF 20 ML VIAL. IJ ONE (08:15)
[2020-07-06] MEDS ORDERED: VERAPAMIL 5 MG/2 ML VIAL. ONE (08:36)
[2020-07-06] MEDS ORDERED: fentaNYL PF VIAL 100 MCG/2 ML VIAL ONE (08:36)
[2020-07-06] MEDS ORDERED: NITROGLYCERIN 200 MCG/2 ML SYRINGE FOR CATH/VASC LAB. ONE (08:36)
[2020-07-06] MEDS ORDERED: HEPARIN for IV BOLUS 10,000 UNIT/10 ML VIAL. ONE (08:36)
[2020-07-06] MEDS ORDERED: MIDAZOLAM HCL/PF 2 MG/2 ML VIAL. ONE (08:36)
[2020-07-06] MEDS ORDERED: IODIXANOL 320 MG/ML 100 ML VIAL. IART ONE (09:15)
[2020-07-06] MEDS ORDERED: NITROGLYCERIN 200 MCG/2 ML SYRINGE FOR CATH/VASC LAB. IART ONE (09:15)
[2020-07-06] MEDS ORDERED: HEPARIN for IV BOLUS 10,000 UNIT/10 ML VIAL. IART ONE (09:15)
[2020-07-06] MEDS ORDERED: CONTRAST GIVEN. MC PRN (09:15)
[2020-07-06] MEDS ORDERED: fentaNYL PF VIAL 100 MCG/2 ML VIAL IV ONE (09:15)
[2020-07-06] MEDS ORDERED: VERAPAMIL 5 MG/2 ML VIAL. IART ONE (09:15)
[2020-07-06] MEDS ORDERED: MIDAZOLAM HCL/PF 2 MG/2 ML VIAL. IV ONE (09:15)
[2020-07-06] MEDS ORDERED: IV 1/2 NORMAL SALINE 1,000 ML IV SCH (09:31)
--- NOTE | 2020-07-06 09:31 | PDOC ---
MODERATE SEDATION ASSESSMENT RISKS/ALTERNATIVES Risks/Alternatives Risks and alternatives of this type of sedation and procedure discussed with: RISK/ALTERNATIVES: Patient H & P ON CHART H & P H & P on chart and reviewed for co-morbid conditions and appropriate labs. H&P ON CHART: Yes STATUS PREG STATUS ASSESSED: N/A MEDS/ALLERGIES REVIEWED Meds/Allergies Reviewed Medications and Allergies including time and route of recently administered narcotics and sedatives. MEDS/ALLERGIES REVIEWED: Yes ASA RATING ASA RATING: II AIRWAY ASSESSMENT Airway Assessment Airway patency, oral function limitations, presence of caps, crowns, dentures, partials, and ability to extend neck assessed. AIRWAY ASSESSMENT: Yes MALLAMPATI SCORE MALLAMPATI SCORE: II PRE-SEDATION ASSESSMENT PRE-SEDATION ASSESSMENT: Yes CHRISTIANO NARVAEZ MD Jul 06, 2020 09:31
--- NOTE | 2020-07-06 09:38 | CARD ---
MR#: [id number] Date of Study: 07/06/2020 Ordering Physician: CHRISTIANO SANTANA, Referring Physician: CHRISTIANO SANTANA Tech: Jenellemanolo Manuel APPROVED REPORT Patient StatusOUT-PATIENT Cylindrical Mixer: Jenelle Manuel Procedure(s) performed: Aortogram with bilateral lower extremity runoff via right transradial approac h fl time: 6.3 mins dose: 150 gycm2 contrast: 73 ml moderate sedation: 32 MINS INDICATION FOR PROCEDURE The indication(s) include : Nonhealing wound right lower extremity and peripheral artery disease note d on arterial duplex scan. PROCEDURE NARRATIVE After explaining the risk, benefits and alternative options, informed consent was obtained from aida nt. Patient was brought to the cardiac Electronic Tech and his right wrist was prepped and draped in the us ual fashion after confirming a positive modified Param's test. Arterial access was obtained in the r ight radial artery and a 6 Czech sheath was inserted. A 4 Czech [employer] PVI multi curve catheter wa s advanced under fluoroscopic guidance and with the tip position in the distal descending aorta, aort o iliac angiography was performed. Subsequently, the catheter was advanced into the proximal segment of the right superficial femoral artery and selective right lower extremity angiography was performe d. The catheter was then pulled back and advanced into the proximal segment of the left SFA and donald ctive left lower extremity angiography was performed. Patient tolerated the procedure well. Hemosta sis was achieved using TR band. There were no immediate complications. FINDINGS 1. No significant stenosis involving the distal descending aorta 2. No significant stenosis involving bilateral common and external iliac arteries 3. No significant stenosis involving bilateral common femoral, deep femoral and superficial femoral arteries. 4. No significant stenosis involving bilateral popliteal arteries. There is good three-vessel runof f below the knee bilaterally. Conclusion No significant peripheral artery disease. Recommendations Patient's nonhealing wound is probably secondary to her diabetes. Continue wound care. Signed by : Christiano Santana, Electronically Approved : 07/06/2020 09:38:08
--- NOTE | 2020-07-06 14:04 | NUR ---
Pt A&O x3. Rt wrist site - TR band removed -cleaned site. dry dressing applied and reapplied arm board to rt hand/wrist. no bleeding or swelling at site. at 1245 while changing the dressing on pt's rt wrist- she mentioned that she felt dizzy like she does when her glucose is low. checked a fsbg - it was 55. gave pt a orange juice- she doesn't like apple juice. rechecked pt when she was done with her echo 25 minutes later and fsbf was 78, gave pt a lunch tray before allowing her to go home. d/c instructions reviewed ,questions answered. the area around her eyes was swollen and red. when questioned regarding it when she came in she stated that she hadn't slept last night due to nerves. when asked about it again at the end of her visit she admitted that she has had this for about a month. encouraged her to follow up with her primary doctor because if it is an infection we don't want it to spread. had called wound care about reapplying pt's leg wrappings- they said that home health therapy does it and that they wound call her HH and have them come out this afternoon to rewrap her legs. pt out to vehicle per w/c- her brother to drive her home
--- NOTE | 2020-07-06 19:57 | CARD ---
MR#: [id number] Date of Study: 07/06/2020 Ordering Physician: CHRISTIANO NARVAEZ, Referring Physician: CHRISTIANO NARVAEZ Tech: Carla Mora RDCS APPROVED REPORT EXAM: Two-dimensional and M-mode echocardiogram with Doppler and color Doppler. Other Information Quality : Good Technically limited study due to body habitus. INDICATION Hypertension/HCVD RISK FACTORS Obesity 2D DIMENSIONS RVDd3.1 (2.9-3.5cm)Left Atrium(2D)4.3 (1.6-4.0cm) IVSd1.1 (0.7-1.1cm)Aortic Root(2D)2.6 (2.0-3.7cm) LVDd4.8 (3.9-5.9cm)LVOT Diameter1.9 (1.8-2.4cm) PWd0.9 (0.7-1.1cm)LVDs2.7 (2.5-4.0cm) FS (%) 30.0 %SV80.9 ml LVEF(%)60.0 (>50%) Aortic Valve AoV Peak Alejandro.184.5cm/sAoV VTI35.3cm AO Peak GR.13.6mmHgLVOT VTI 29.58cm AO Mean GR.7mmHgAVA (VTI)4.30cm2 Mitral Valve MV E Vgakkzze58.5cm/sMV DECEL PFIJ446kf MV A Odpjqrqm405.6cm/sE/A Ratio0.9 TDI Lateral E' P. V6.56cm/sMedial E' P. V5.41cm/s E/Lateral E'15.0E/Medial E'18.2 Tricuspid Valve TR P. Jzmuuuxd860go/sRAP YRJKHJNG9chBj TR Peak Gr.42riFbHGVX51gbGh Pulmonary Vein S1 Bpphjtxi26.1cm/sS2 Eenrnyzk31.51cm/s D2 Xbpnopub09.5cm/s LEFT VENTRICLE The left ventricle is normal size. There is normal left ventricular wall thickness. The left ventricu lar systolic function is normal and the ejection fraction is within normal range. The Ejection Fracti on is 60-65%. There is normal LV segmental wall motion. Transmitral Doppler flow pattern is Grade I-a bnormal relaxation pattern. RIGHT VENTRICLE The right ventricle is normal size. The right ventricular systolic function is normal. ATRIA The left atrium is mildly dilated. The right atrium size is normal. The interatrial septum is intact with no evidence for an atrial septal defect or patent foramen ovale as noted on 2-D or Doppler imagi ng. AORTIC VALVE The aortic valve is calcified but opens well. Doppler and Color Flow revealed no significant aortic r egurgitation. There is no significant aortic valvular stenosis. MITRAL VALVE The mitral valve is calcified but opens well. There is no evidence of mitral valve prolapse. There is no mitral valve stenosis. Doppler and Color-flow revealed trace mitral regurgitation. TRICUSPID VALVE The tricuspid valve is normal in structure and function. Doppler and Color Flow revealed trace tricus pid regurgitation. There is moderate pulmonary hypertension. The PA pressure was estimated at 46 mmHg . There is no tricuspid valve stenosis. PULMONIC VALVE The pulmonic valve is not well visualized. Doppler and Color Flow revealed no pulmonic valvular regur gitation. There is no pulmonic valvular stenosis. GREAT VESSELS The aortic root is normal in size. The ascending aorta is normal in size. The IVC is normal in size a nd collapses >50% with inspiration. PERICARDIAL EFFUSION There is no evidence of significant pericardial effusion. Critical Notification Critical Value: No <Conclusion> The left ventricular systolic function is normal and the ejection fraction is within normal range. Th e Ejection Fraction is 60-65%. There is normal LV segmental wall motion. Doppler and Color Flow revealed trace tricuspid regurgitation. There is moderate pulmonary hypertensi on. The PA pressure was estimated at 46 mmHg. Signed by : Anant Palacio, Electronically Approved : 07/06/2020 19:56:45
== END 2020-07-06 14:04 | disposition home or self-care (01) ==
LOC: CCL 07:01
PROVIDERS: ATTEND Internal Medicine Cardiovascular Disease
DX: I73.9 Peripheral vascular disease, unspecified (principal); I08.1 Rheumatic disorders of both mitral and tricuspid valves; I12.9 Hypertensive chronic kidney disease with stage 1 through stage 4 chronic kidney disease, or unspecified chronic kidney disease; N18.9 Chronic kidney disease, unspecified; E78.5 Hyperlipidemia, unspecified; E11.22 Type 2 diabetes mellitus with diabetic chronic kidney disease; Z79.899 Other long term (current) drug therapy; Z88.0 Allergy status to penicillin; Z88.8 Allergy status to other drugs, medicaments and biological substances; Z79.84 Long term (current) use of oral hypoglycemic drugs; Z82.49 Family history of ischemic heart disease and other diseases of the circulatory system
CPT/HCPCS: 36246; 36415; 75625; 75716; 80048; 82962; 85027; 85610; 93306; 99152; 99153; C1769; C1892; J1644; J2250; J2400; J3010; J3490; Q9967

== ENCOUNTER → 2020-12-26 | Outpatient (CLI) | payer OTHER ==
[2020-07-06 13:30] VITALS: BP 177/87
[~2020-12-26] MED LIST changes: +TIZA4TAB2 PO; +TRAM100T2 PO
[2020-12-26 13:38] LABS: CREATININE 1.3 mg/dL (0.6-1.0); GFR 49.6
[2020-12-26] MEDS: GADOTERATE 7.5 MMOL/15ML VIAL. IVP ONE ×2 (15:38)
--- NOTE | 2020-12-27 11:05 | RAD ---
ADDENDUM #1 Addendum: This should read MRI STUDY OF THE RIGHT FOOT WITH AND WITHOUT CONTRAST Clinical indications: Nonhealing heel ulcer of the RIGHT foot. TECHNIQUE: Pre and postcontrast enhanced MRI sequences of the RIGHT hindfoot were performed. Total of 30 mL of Clariscan was given intravenously. COMPARISON: Radiographic study of the RIGHT calcaneus dated December 19, 2020. FINDINGS: There is irregularity of the skin of the posterior RIGHT heel which may represent the ulcer . This is shallow. Overall, this is the RIGHT foot and not the left foot. Electronically signed by: Malick Duque MD (12/27/2020 12:51 PM) [id number] ORIGINAL REPORT MRI STUDY OF THE LEFT FOOT WITH AND WITHOUT CONTRAST Clinical indications: Nonhealing heel ulcer of the left foot. FINDINGS: Pre and postcontrast enhanced MRI sequences of the left hindfoot were performed. Total of 3 0 mL of Clariscan was given intravenously. COMPARISON: Radiographic study of the left calcaneus dated December 19, 2020. FINDINGS: There is irregularity of the skin of the posterior left heel which may represent the ulcer. This is shallow. There is subcutaneous T2 soft tissue edema here extending posterior to the Achilles tendon. No soft tissue abscess is seen here. The Achilles tendon is intact. There is subcutaneous so ft tissue edema of the plantar aspect of the heel pad without soft tissue abscess. No skin defect is seen here. There is an apparent skin defect of the anterior aspect of the ankle just anterior to the talotibial joint compartment without soft tissue abscess here. Dorsal subcutaneous soft tissue edema of the foot is seen consistent with cellulitis. There is additional subcutaneous soft tissue edema ci rcumferentially involving the hindfoot as well consistent with cellulitis. No soft tissue abscess is seen in these areas. There is no T2 bone marrow edema or T1 marrow signal abnormality or cortical ero raquel and therefore, no osteomyelitis is seen. No fracture is seen. The plantar aponeurosis is intact. There is a mild joint effusion of the mortise ankle joint without synovial enhancement. Mild stress reaction bone marrow edema of the posterior talus of the posterior subtalar joint compartment is seen . No tenosynovitis or tendon tear is seen. IMPRESSION: No osteomyelitis or soft tissue abscess is seen. Electronically signed by: Malick Duque MD (12/27/2020 11:02 AM) [id number]
--- NOTE | 2020-12-27 13:23 | RAD ---
MRI STUDY OF THE LEFT FOOT WITH AND WITHOUT CONTRAST Clinical indications: Nonhealing left foot heel ulcer. TECHNIQUE: Pre and postcontrast enhanced MRI sequences of the left hindfoot were performed. Total of 30 mL of Clariscan was given intravenously. FINDINGS: There is a soft tissue defect of the plantar aspect of the left heel. There is subcutaneous soft tissue edema with enhancement. No soft tissue abscess is evident. The defect does not extend do wn to the plantar fascia and is shallow in nature. The plantar fascia is intact. No underlying osteom yelitis is seen here. No fracture is seen. No joint effusion or joint synovial enhancement is seen. T here is subcutaneous soft tissue edema of the dorsal aspect of the foot without soft tissue abscess. This is consistent with cellulitis. The entire foot is not seen in this study however. The Achilles t endon is intact. The flexor and peroneal and extensor tendons are intact. No tenosynovitis is seen. T here is subcutaneous soft tissue edema of the medial and lateral aspects of the hindfoot as well. The re is a focus of more prominent subcutaneous soft tissue edema within the lateral aspect of the left ankle just posterior and lateral to the distal fibula. There is associated skin thickening here. No s oft tissue abscess is seen here. There is degenerative osteoarthritis of the tarsal metatarsal joints . IMPRESSION: Shallow plantar soft tissue defect of the heel without underlying soft tissue abscess or osteomyelitis. There is soft tissue thickening and subcutaneous soft tissue edema of the lateral aspect of the left ankle without underlying soft tissue abscess or osteomyelitis. Dorsal hindfoot cellulitis. Electronically signed by: Malick Duque MD (12/27/2020 1:21 PM) [id number]
== END ==
LOC: MRI 13:16
PROVIDERS: ATTEND Preventive Medicine Undersea and Hyperbaric Medicine
DX: L03.116 Cellulitis of left lower limb (principal); M19.072 Primary osteoarthritis, left ankle and foot; M25.471 Effusion, right ankle; R60.0 Localized edema; L97.519 Non-pressure chronic ulcer of other part of right foot with unspecified severity; L97.529 Non-pressure chronic ulcer of other part of left foot with unspecified severity
CPT/HCPCS: 36415; 73718; 73720; 82565; 84520; A9575

== ENCOUNTER → 2021-01-11 | Outpatient (CLI) | payer MEDICARE, OTHER ==
[2020-07-06 13:30] VITALS: BP 177/87
[~2021-01-11] MED LIST changes: +MIRT-7 PO; -MIRT15TA3 PO
--- NOTE | 2021-01-11 14:22 | RAD ---
EXAM: Bilateral lower extremity venous reflux sonogram. HISTORY: Nonhealing wounds. Venous insufficiency. TECHNIQUE: Sonographic imaging of the lower extremity veins was performed. COMPARISON: None. FINDINGS: The right greater saphenous vein measures 6.9 mm at the saphenofemoral junction and the lef t greater saphenous vein measures 7.4 mm at the saphenofemoral junction. There is no evidence of bila teral greater saphenous vein or lesser saphenous vein reflux. IMPRESSION: No evidence of saphenous venous reflux. Electronically signed by: Joanna Dunn MD (01/11/2021 2:19 PM) [id number]
--- NOTE | 2021-01-11 14:23 | RAD ---
EXAM: Bilateral lower extremity venous Doppler sonogram. HISTORY: Pain and swelling. Nonhealing wounds. TECHNIQUE: Hair scale and color Doppler sonographic evaluation of the bilateral lower extremity veins with spectral waveform analysis was performed. FINDINGS: There is normal color flow, normal compressibility and there are normal spectral waveforms in the common femoral, superficial femoral, popliteal, posterior tibial and greater saphenous veins. IMPRESSION: No Doppler evidence of lower extremity deep venous thrombosis. Electronically signed by: Joanna Dunn MD (01/11/2021 2:20 PM) [id number]
== END ==
LOC: US 12:33
PROVIDERS: ATTEND Preventive Medicine Undersea and Hyperbaric Medicine
DX: L97.429 Non-pressure chronic ulcer of left heel and midfoot with unspecified severity (principal); I87.2 Venous insufficiency (chronic) (peripheral)
CPT/HCPCS: 93970

== ENCOUNTER → 2021-06-19 | Outpatient (CLI) | payer MEDICARE, OTHER ==
[2020-07-06 13:30] VITALS: BP 177/87
[~2021-06-19] MED LIST changes: -DOXY100C2 PO; +DOXY100C3 PO; +POTA-121 PO
--- NOTE | 2021-06-19 12:00 | RAD ---
EXAM: Neck CT without contrast. HISTORY: Neck mass. TECHNIQUE: Computed tomographic images of the neck were obtained without contrast. *One or more of the following individualized dose reduction techniques were utilized for this examina tion: 1. Automated exposure control. 2. Adjustment of the mA and/or kV according to patient size. 3. Use of iterative reconstruction technique. COMPARISON: None. FINDINGS: There is a solid lobulated mass anterior to the right mandible measuring 3.1 cm in maximum dimension. There is a marker overlying this location, corresponding with the site of palpable concern . There is slight asymmetry in the size of the left greater than right submandibular gland. There is a tiny calcification within the left submandibular gland. The parotid glands are unremarkable. There is heterogeneous attenuation of the thyroid gland. No discrete nodule is seen on this noncontra st exam. There is a left superior sacral mass measuring 4.0 cm and containing a few calcifications, p artially included on the [id number]. There are surrounding superior mediastinal lymph nodes. There is a calcified granuloma within the aorta poorly window, partially included on the [id number]. Th e lung apices are unremarkable. There is partially calcified atherosclerotic plaque involving the left carotid bifurcation. The visua lized portions of the brain are unremarkable. There is near complete opacification of the right maxil nicolas sinus with soft tissue density and calcification, likely due to chronic fungal sinusitis. The ma stoid air cells are clear. The temporomandibular joints are intact. There are degenerative changes in volving the cervical spine. There is no acute or suspicious osseous lesion. IMPRESSION: 1. 3.1 cm right submandibular mass at the site of palpable concern, the appearance of which favors a pathologically enlarged lymph node. No additional cervical chain lymphadenopathy is seen. Correlate f or primary head and neck malignancy. This is amenable to sonographic guided biopsy. 2. 4.0 cm left superior mediastinal mass containing calcification, also likely a pathologically enlar ged lymph node. There are few surrounding superior mediastinal lymph nodes which are nonspecific, angi e which contain calcification due to healed granulomas disease. 3. Chronic right maxillary sinus disease, likely fungal in etiology. Electronically signed by: Joanna Dunn MD (06/19/2021 11:58 AM) [id number]
== END ==
LOC: CT 11:05
PROVIDERS: ATTEND Internal Medicine
DX: R22.1 Localized swelling, mass and lump, neck (principal)
CPT/HCPCS: 70490

== ENCOUNTER 2021-07-17 11:53 | Emergency (ER) | payer MEDICARE, OTHER ==
[~2021-07-17] VITALS: Ht 167.6 cm; Wt 159.0 kg
[~2021-07-17 11:53] MED LIST changes: +CYCL10TA19 PO; -CYCL10TA2 PO; +TIZA-75 PO; -TIZA4TAB2 PO
[2021-07-17 12:34] VITALS: BP 156/67
--- NOTE | 2021-07-17 12:43 | RAD ---
Left knee 3 views. HISTORY: Pain, heart top 3 views were taken of the left knee including AP, oblique and lateral views with an additional sunris e view. There is a joint effusion. There is no acute fracture. IMPRESSION: 1. Joint effusion left knee. 2. No fracture or other acute osseous abnormality. Electronically signed by: Ziggy Sheriff MD (07/17/2021 12:40 PM) [id number]
--- NOTE | 2021-07-17 12:50 | PHYS DOC ---
Past Medical History Past Medical History: Arthritis, Diabetes-Type II, GERD, Hypertension, Pn eumonia, Other Additional Past Medical Histor: SARCOIDOSIS; wound on left 1st toe (ONEAL CHRISTIANSON DRUM TESTER) Past Surgical History: Cholecystectomy, Hysterectomy, Other Additional Past Surgical Histo: R toe amputation (ONEAL CHRISTIANSON DRUM TESTER) Smoking Status: Never Smoker Alcohol Use: None Drug Use: None (ONEAL CHRISTIANSON DRUM TESTER) General Adult EDM: Chief Complaint: LOWEREXTREMITY INJURY HPI: HPI: Patient is a 65 year old female who presents with states a couple days ago she went to stand up out of her wheelchair and she heard a loud pop in her left knee and is now been aching. She states that it hurts too bad to put any weight on it. He states she went to wound care today and they sent her over here to be evaluated for her knee pain. Dates that she has been taking tramadol for her pain. Patient has a wheel chair that she uses at home. She rates her pain at a 6 out of 10. She has a history of arthritis, diabetes, hypertension, pneumonia, left first toe wound, start car doses, cholecystectomy, hysterectomy, morbid obesity. (ONEAL CHRISTIANSON DRUM TESTER) Review of Systems: Review of Systems: Constitutional: Denies fever or chills. [] Eyes: Denies change in visual acuity. [] HENT: Denies nasal congestion or sore throat. [] Respiratory: Denies cough or shortness of breath. [] Cardiovascular: Denies chest pain or edema. [] GI: Denies abdominal pain, nausea, vomiting, bloody stools or diarrhea. [] : Denies dysuria. [] Musculoskeletal: Denies back pain or +Left knee joint pain. [] Integument: Denies rash. [] Neurologic: Denies headache, focal weakness or sensory changes. [] Endocrine: Denies polyuria or polydipsia. [] Lymphatic: Denies swollen glands. [] Psychiatric: Denies depression or anxiety. [] (ONEAL CHRISTIANSON DRUM TESTER) Heart Score: C/O Chest Pain: No (ONEAL CHRISTIANSON DRUM TESTER) Allergies: Allergies: Allergies Coded Allergies Type Severity Reaction Last Updated Verified Penicillins Allergy Intermediate Rash 07/14/17 Yes benzocaine Allergy Intermediate Shortness of Air 07/14/17 Yes hydralazine Allergy Intermediate 07/14/17 Yes lidocaine Allergy Intermediate Shortness of Air 07/14/17 Yes losartan Allergy Intermediate Rash 07/14/17 Yes tetracaine Allergy Intermediate Shortness of Air 07/14/17 Yes (ONEAL CHRISTIANSON DRUM TESTER) Physical Exam: PE: Constitutional: Well developed, well nourished, no acute distress, non-toxic appearance. Morbidly obese [] HENT: Normocephalic, atraumatic, bilateral external ears normal, oropharynx moist, no oral exudates, nose normal. [] Eyes: PERRLA, EOMI, conjunctiva normal, no discharge. [] Neck: Normal range of motion, no tenderness, supple, no stridor. [] Cardiovascular:Heart rate regular rhythm, no murmur [] Lungs & Thorax: Bilateral breath sounds clear to auscultation [] Abdomen: Bowel sounds normal, soft, no tenderness, no masses, no pulsatile masses. [] Skin: Warm, dry, no erythema, no rash. [] Back: No tenderness, no CVA tenderness. [] Extremities: No tenderness, no cyanosis, no clubbing, Left knee ROM intact but limited due to pain, no edema. [] Neurologic: Alert and oriented X 3, normal motor function, normal sensory func tion, no focal deficits noted. [] Psychologic: Affect normal, judgement normal, mood normal. [] (ONEAL CHRISTIANSON APRN) Current Patient Data: Vital Signs: Vital Signs Date Time Temp Pulse Resp B/P (MAP) Pulse Ox O2 Delivery O2 Flow Rate FiO2 07/17/21 12:07 98.8 69 16 146/63 (90) 96 Room Air 98.8 (ONEAL CHRISTIANSON APRN) EKG: EKG: [] (ONEAL CHRISTIANSON APRN) Radiology/Procedures: Radiology/Procedures: [] Impression: [facility] [address] [place] [address] IMAGING REPORT Signed PATIENT: MARLENI LEOS DACCOUNT: [id number] : 1955 LOCATION: ER AGE: 65 SEX: F EXAM STATUS: PRE ER ORD. PHYSICIAN: ONEAL CHRISTIANSON APRN REASON: PAIN, HEARD A POP PROCEDURE: KNEE LEFT 4V Left knee 3 views. HISTORY: Pain, heart top 3 views were taken of the left knee including AP, oblique and lateral views with an additional sunrise view. There is a joint effusion. There is no acute fracture. IMPRESSION: 1. Joint effusion left knee. 2. No fracture or other acute osseous abnormality. Electronically signed by: Ziggy Sheriff MD (07/17/2021 12:40 PM) [id number] DICTATED and SIGNED BY: ZIGGY SHERIFF MD DATE: 07/17/21 [id number] 0 (ONEAL CHRISTIANSON APRN) Course & Med Decision Making: Course & Med Decision Making Pertinent Labs and Imaging studies reviewed. (See chart for details) See HPI. Alert and oriented x4. Speaks in full clear sentences. Pedal pulse strong are present. Morbidly obese. No tenderness to the knee but there is pain with movement. Does not seem to be any laxity with the knee. She is able to move it and slightly bend it but range of motion is very limited due to pain. She denies any numbness or tingling. Cap refills less than 2 seconds. Unable to tell how swollen the knee is due to habitus. No redness or tenderness to the knee itself. X-ray shows no acute findings but does state that there is a joint effusion. A knee immobilizer will not fit the patient's leg. Patient will need to follow-up with her primary care doctor or orthopedic. [] (ONEAL CHRISTIANSON APRN) Dragon Disclaimer: Dragon Disclaimer: This electronic medical record was generated, in whole or in part, using a voice recognition dictation system. (ONEAL CHRISTIANSON APRN) Departure Departure Impression: Primary Impression: Knee pain, left Qualified Codes: M25.562 - Pain in left knee Additional Impression: Joint effusion of knee Qualified Codes: M25.462 - Effusion, left knee Disposition: HOME / SELF CARE / HOMELESS Condition: STABLE Referrals: PRO SCHROEDER MD (PCP) BULMARO MARTINEZ DO Patient Instructions: Knee Effusion, Knee Pain Additional Instructions: Follow-up with your primary care physician or the orthopedic. Continue taking your tramadol for pain. Use ice and elevation. You can also use a warm compress if you feel that helps. Attending Signature I have participated in the care of this patient and I have reviewed and agree with all pertinent clinical information above including history, exam, and recommendations. (URSZULA GUTIÉRREZ DO) ONEAL CHRISTIANSON APRN Jul 17, 2021 12:50 URSZULA GUTIÉRREZ DO Jul 17, 2021 13:16
== END 2021-07-17 13:09 | disposition home or self-care (01) ==
LOC: ER 11:53
DX: M25.462 Effusion, left knee (principal); M25.562 Pain in left knee; E11.9 Type 2 diabetes mellitus without complications; K21.9 Gastro-esophageal reflux disease without esophagitis; I10 Essential (primary) hypertension; E66.01 Morbid (severe) obesity due to excess calories; Z68.43 Body mass index [BMI] 50.0-59.9, adult; Z90.49 Acquired absence of other specified parts of digestive tract; Z90.710 Acquired absence of both cervix and uterus; Z88.0 Allergy status to penicillin; Z88.4 Allergy status to anesthetic agent; Z88.1 Allergy status to other antibiotic agents; Z88.8 Allergy status to other drugs, medicaments and biological substances
CPT/HCPCS: 73564; 99283

== ENCOUNTER 2022-01-06 08:57 | Inpatient (IN) | payer MEDICARE, OTHER ==
--- NOTE | 2022-01-01 12:30 | NUR ---
Wound Care 66 year old female was evaluated inpatient today with Dr. Trung Napier. Patient is known the Wound Clinic and was admitted from the Wound Clinic with right lower leg and foot cellulitis. Patient present with bilateral diabetic Mendez 1 ulcerations with fat necrosis. Wounds are further complicated by soft tissue erythema, edema and drainage. Blistering to base of right foot has caused tissue loss to plantar surface. Much of the free tissue was removed with the debridement by Dr. Napier. Wound is actively draining with mild odor. Dr. Napier debrided and provided the following debridement note: "Debridement note: Following informed patient consent of risk and benefits of debridement and not requiring anesthetic, nonviable tissues was removed to the right hindfoot. No significant bleeding occurred and this was well-tolerated by the patient. Total area debrided was roughly 20 cm x 8 cm. This constituted a selective debridement of nonviable tissue only. This utilized forceps and scissors." Wound Type/Assessment: Bilateral Mendez 1 DFU with tissue loss. Treatment Recommendations/Plan: Offload feet in bed and non weight bearing. Current dressing of contact layer, super absorbant dressing (Optilock on right, Drawtex on left) ABD's, Kerlex and a G size Medigrip. Education provided: Need for offloading and no weight bearing. Offloading surface/device: Bilateral Profore boots. Recommended Referrals/Tests: None Discharge Recommendations for dressings: Dressings as above to continue in SNF.
[~2022-01-06] VITALS: Ht 167.6 cm; Wt 157.9 kg
[~2022-01-06 08:57] MED LIST changes: +TRAM100T10 PO; -TRAM100T2 PO
--- NOTE | 2022-01-06 10:00 | NUR ---
Wound Care Wound Type/Assessment: Pt seen in wound clinic for routine wound care. Wounds significantly deteriorated since visit one week ago. States that her heel offloading shoes cause her gait to be unstable and her feet slide off of them. However, pt continued to use these shoes when walking at home because her [employer] Lite boots were at [employer] being modified and she did not receive them back until Thursday evening. Admitted to hospital under Dr. Adi Rivera with consults to wound care, Dr. Napier, Infectious Disease, and orders for bilateral arterial studies. Pt has bilateral plantar heel wounds that are bright red, ecchymotic, with macerated, peeling periwounds. L lateral foot wound has built up callus with maceration and 0.3cm of undermining from 12-12. L medial leg pressure wound (from fall at home while wearing OWL lite boot) is slough covered with some peripheral granulation. R plantar first met head is a fluid filled blister unroofed by Dr. Napier; pale pink, moist wound base. All wounds debrided in clinic by Dr. Napier. Post procedure photos taken and placed in chart. Detailed wound assessment measurements are reflective of the post debridement dimensions. Treatment Recommendations/Plan: Recommend bedrest during hospital stay, toe touch ellie bearing (NWB to heels), and bedside commode to limit walking. L lateral foot, Bilateral heels, R 1st met. head: Vining with betadine, cover with ABD and kerlix. Change daily and prn drainage. L medial leg: Apply medihoney alginate (provided), cover with nonadherent foam and tape. Education provided: Pt educated on diabetes management, reasons for hospitalization, wound care and pressure ulcer prevention. Offloading surface/device: Pt is independent with bed mobility but requires limited assist of 1 for transfers. Recommended Referrals/Tests: PT/OT for gait training and strengthening. Discharge Recommendations for dressings: As above pending changes to treatment plan
--- NOTE | 2022-01-06 10:30 | NUR ---
PATIENT ARRIVED ON THE UNIT PER W/C ALERT AND VERBALLY RESPONSIVE, DENIES PAIN/DISCOMFORT AT THIS TIME, ADMISSION COMPLETED PER THIS HOGSHEAD WRECKER. DRESSINGS C/D/I PATIENT CAME DIRECTLY FROM THE WOUND CLINIC, CALL PLACED TO DR. SCHROEDER FOR ORDERS.
[2022-01-06 11:00] VITALS: BP 177/76
[2022-01-06] MEDS ORDERED: IV DEXTROSE 5% 250 ML BAG. IV PRN (14:45)
[2022-01-06] MEDS ORDERED: DEXTROSE 50% 25 GM / 50ML DISP.SYRIN. IV PRN (14:45)
[2022-01-06] MEDS ORDERED: ACETAMINOPHEN 325 MG TABLET. PO PRN (14:45)
[2022-01-06 15:00] VITALS: BP 177/76
[2022-01-06] MEDS: INSULIN LISPRO 300 UNITS/3 ML VIAL. SQ SCH (17:00)
[2022-01-06 17:38] LABS: BACTERIA,URINE MANY /HPF (0-FEW); RBC,URINE 0 /HPF (0-2); WBC,URINE 20-40 /HPF (0-4)
[2022-01-06] MEDS: cefTRIAXone IV Push 2 GM VIAL. IVP SCH (18:46)
[2022-01-06 19:00] VITALS: BP 167/66
[2022-01-06 20:56] LABS: BASO # 0.1 x10^3/uL (0.0-0.2); BASO % 1 % (0-3); EOS # 0.4 x10^3/uL (0.0-0.7); EOS % 4 % (0-3); LYMPH # 1.6 x10^3/uL (1.0-4.8); LYMPH % 17 % (24-48); MEAN CORPUSCULAR HEMOGLOBIN 27 pg (25-35); MEAN CORPUSCULAR HGB CONC 32 g/dL (31-37); MEAN CORPUSCULAR VOLUME 84 fL (79-100); MONO # 0.7 x10^3/uL (0.0-1.1); MONO % 8 % (0-9); NEUT # 6.6 x10^3/uL (1.8-7.7); NEUT % 70 % (31-73); PLATELET COUNT 251 x10^3/uL (140-400); RED CELL DISTRIBUTION WIDTH 15.4 % (11.5-14.5); WHITE BLOOD COUNT 9.4 x10^3/uL (4.0-11.0)
[2022-01-06] MEDS ORDERED: INSULIN GLARGINE SYRINGE. SQ SCH (21:00)
[2022-01-06 21:11] LABS: ALBUMIN 2.4 g/dL (3.4-5.0); ALBUMIN/GLOBULIN RATIO 0.6 (1.0-1.7); CALCIUM 7.9 mg/dL (8.5-10.1); CREATININE 1.3 mg/dL (0.6-1.0); GFR 49.4; POTASSIUM 3.7 mmol/L (3.5-5.1); TOTAL BILIRUBIN 0.4 mg/dL (0.2-1.0); TOTAL PROTEIN 6.6 g/dL (6.4-8.2)
[2022-01-06] MEDS: ATENOLOL 25 MG TABLET. PO SCH (21:44)
[2022-01-06] MEDS: tiZANidine 4 MG TABLET. PO SCH (21:44)
[2022-01-06] MEDS: HYDROXYCHLOROQUINE 200 MG TABLET PO SCH (21:45)
[2022-01-06] MEDS: traMADol 50 MG TABLET PO PRN (22:05)
--- NOTE | 2022-01-06 22:37 | CONS ---
DATE OF CONSULTATION: 01/06/2022 REQUESTING PHYSICIAN: Dr. Rivera. REASON FOR CONSULTATION: Bilateral calcaneal wounds. HISTORY OF PRESENT ILLNESS: This is a 66-year-old morbidly obese female who has bilateral calcaneal wounds for almost a year. She says she has been going to the wound care center and it is not getting better. In fact, it got worse, hence they recommended her to get into the hospital. The patient denies any fever. Denies any nausea, vomiting, diarrhea, chest pain, shortness of breath, abdominal pain, urinary symptoms or bowel symptoms. PAST MEDICAL HISTORY: Positive for hypertension, obesity, hyperlipidemia, gastroesophageal reflux disease, diabetes mellitus, rheumatoid arthritis, fibromyalgia, osteoarthritis, renal insufficiency. SOCIAL HISTORY: Negative for smoking, alcohol or illicit drug use. ALLERGIES: LISTED ALLERGIC TO PENICILLIN. REVIEW OF SYSTEMS: As in HPI. All other systems reviewed are negative. PHYSICAL EXAMINATION: GENERAL: Alert, oriented female, not in distress. VITAL SIGNS: Stable, afebrile. HEENT: NAD. NECK: Supple, no JVP, no lymphadenopathy. LUNGS: Clear. HEART: S1, S2, regular. ABDOMEN: Soft, nontender, no organomegaly. EXTREMITIES: No edema or cyanosis. Bilateral lower extremity calcaneal wounds are very large area of bright red, part of the skin appears clean. SKIN: Unremarkable. NEUROLOGIC: The patient is alert, awake, and appropriate. No focal neurologic deficit. LABORATORY DATA: Apparently, culture done in the wound care center is not available yet for me. IMPRESSION: 1. 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 The patient basically needs offload completely. Her special boots are evidently not effective. We will also try to obtain the culture. 2. Morbid obesity. 3. Diabetes mellitus. 4. Hypertension. 5. Rheumatoid arthritis. RECOMMENDATIONS: We will start her on IV Rocephin, try to obtain the culture, supportive care and we will continue to follow. Thank you very much, Dr. Rivera, for giving me opportunity to participate in this patient's care. LIEN/ROCCO PEREZ: Cecil TID: [id number]
[2022-01-06 23:00] VITALS: BP 170/67
[2022-01-07 03:18] VITALS: BP 162/67
--- NOTE | 2022-01-07 05:44 | RAD ---
Study: US DPLX ARTR EXTREM LOWER BILAT Indication: Nonhealing wounds. Comparison: None recently. Technique/Findings: Duplex sonographic assessment of the bilateral lower extremity arteries with color flow and pulsed wa ve Doppler along with spectral waveform analysis. Grayscale evaluation of the arteries is limited on account patient body habitus. Mostly combination of triphasic and biphasic waveforms throughout both lower extremities. Monophasic waveform within the right dorsalis pedis but not significantly dampened. Greater degree of peak systo lic velocity elevation throughout the right lower extremity. The most notable velocities within the p roximal right superficial femoral artery measuring 219 cm/s. On the left the greatest peak systolic v elocity involves the proximal SFA measuring 192 cm/s Right lower extremity: SUPERVISOR GRINDING: 151 cm/s DFA: 140 cm/s Proximal SFA: 219 cm/s Mid SFA: 192 cm/s Distal SFA: 171 cm/s Popliteal artery: 145 cm/s UNDERTAKER ASSISTANT proximal: 141 cm/s UNDERTAKER ASSISTANT distal: 120 cm/s Peroneal artery: Not visualized TRISH: 105 cm/s DPA: 69 cm/s Left lower extremity: SUPERVISOR GRINDING: 163 cm/s DFA: 65 cm/s Proximal SFA: 192 cm/s Mid SFA: 138 cm/s Distal SFA: 90 cm/s Popliteal artery: 101 cm/s UNDERTAKER ASSISTANT proximal: 99 cm/s UNDERTAKER ASSISTANT distal: 75 cm/s Peroneal artery: Not visualized TRISH: 76 cm/s DPA: 48 cm/s Impression: Peripheral vascular disease on the right more so than left with elevated peak systolic velocities but no findings of a flow-limiting stenosis from the common femoral artery to the popliteal artery. On t he right there is an isolated monophasic waveform within the dorsalis pedis suggesting a stenosis abo ve this level. Consider eventual MELISSA to help determine the severity of PAD. Electronically signed by: BRIAN HUIZAR MD (01/07/2022 5:42 AM) [facility]
[2022-01-07 07:00] VITALS: BP 152/68
[2022-01-07] MEDS: INSULIN LISPRO 300 UNITS/3 ML VIAL. SQ SCH ×3 (08:00→17:00)
[2022-01-07] MEDS ORDERED: MIRTAZAPINE 15 MG TABLET PO SCH (09:00)
--- NOTE | 2022-01-07 09:11 | PDOC ---
Provider Note Date of Service: DATE: 01/07/22 TIME: 09:10 Provider Note H&P [id number] Justifications for Admission Other Justification PRO SCHROEDER MD Jan 07, 2022 09:11
[2022-01-07] MEDS: HYDROXYCHLOROQUINE 200 MG TABLET PO SCH ×2 (09:22→21:53)
[2022-01-07] MEDS: ATENOLOL 25 MG TABLET. PO SCH ×2 (09:23→21:53)
[2022-01-07] MEDS: PANTOPRAZOLE 40 MG TABLET.DR. PO SCH (09:23)
[2022-01-07] MEDS: traMADol 50 MG TABLET PO PRN ×3 (09:31→22:14)
[2022-01-07] MEDS: HEPARIN for SUB-Q USE 5,000 UNIT/ML VIAL. SQ SCH ×2 (09:36→22:01)
[2022-01-07 11:00] VITALS: BP 158/62
--- NOTE | 2022-01-07 11:30 | NUR ---
PATIENTS' BLOOD SUGAR LEVEL 50 AT THIS TIME, PATIENT ASYMPTOMATIC AND WITHOUT S/S OF HYPOGLYCEMIA, ICE CREAM AND GRAPE JUICE GIVEN BY TEST RIDER AND PATIENT HAS CONSUMED IT WILL RECHECK BLOOD SUGAR AND TREAT ACCORDINGLY. ORDER HAS BEEN PLACED THIS AM TO REDUCE LANTUS INSULIN FROM 80 UNITS TO 50 UNITS Q HS, PATIENT INFORMED.
--- NOTE | 2022-01-07 12:02 | HP ---
DATE OF SERVICE: 01/07/2022 ADMIT DATE: 01/06/2022 HISTORY OF PRESENT ILLNESS: This is a 66-year-old female who has a history of diabetic neuropathy, peripheral artery disease, rheumatoid arthritis, congestive heart failure, hypertension, and chronic lymphedema with recurring wounds of the lower extremities, has both heel wounds, getting worse. The patient was seen by Dr. Napier at the wound care center and even with the debridement, the wounds are continuing to get worse and so he called me and requested that the patient be admitted for further management as she is not able to walk. SYSTEMS REVIEW: The patient does complain of pain. She denies any fever, chills, nausea, vomiting, chest pains, cold, cough, congestion. Other systems reviewed and are negative. The patient says that recently she has not been taking much insulin, she was previously on Lantus 80 units at bedtime. PAST MEDICAL HISTORY: Hypertension, hyperlipidemia, migraine, diverticulosis, GERD, history of gastroparesis, fatty liver, iron deficiency anemia, chronic low back pain, osteoarthritis, fibromyalgia, rheumatoid arthritis, CKD 2, diabetes with neuropathy and gastroparesis. PAST SURGICAL HISTORY: Cholecystectomy, hysterectomy, right great toe ray amputation in 05/2017. FAMILY HISTORY: Coronary artery disease, diabetes, hearing loss, hyperlipidemia, hypertension. SOCIAL HISTORY: No history of smoking, alcoholism, drug abuse. MEDICATIONS: Reviewed and reconciled. ALLERGIES: PENICILLIN, BENZOCAINE, HYDRALAZINE, LIDOCAINE, LOSARTAN, TETRACAINE. PHYSICAL EXAMINATION: VITAL SIGNS: Temperature 97.6, pulse 68 per minute, respirations 20 per minute, blood pressure 152/68. GENERAL: The patient is an elderly female who is alert, oriented x 3, and not in acute distress. EYES: Pupils reactive to light. Conjunctivae pink. Sclerae white. HENT: Unremarkable. NECK: Supple. LUNGS: Clear. CARDIOVASCULAR: S1, S2, regular. ABDOMEN: Soft, nontender. EXTREMITIES: 3 to 4+ bilateral lymphedema, bilateral heel wounds. Dressing in place. CENTRAL NERVOUS SYSTEM: Alert and oriented. Generalized weakness. LABORATORY FINDINGS: WBC count 9.4, hemoglobin 10. Sodium 140, potassium 3.7, BUN 15, creatinine 1.3, glucose 190 and 74, albumin 2.4, calcium 7.9. Urinalysis negative. UA shows many bacteria, 20-40 wbc's, nitrite negative. Arterial Doppler shows PAD, right more than left. IMPRESSION: 1. Bilateral foot wounds. 2. Diabetic neuropathy. 3. Peripheral arterial disease. 4. Lymphedema. 5. Hypertension. 6. Rheumatoid arthritis. 7. Osteoarthritis. 8. Fatty liver. 9. Diverticulosis. 10. Severe protein calorie malnutrition. 11. Hyperlipidemia. 12. History of migraine. 13. Chronic kidney disease 2. 14. Anemia, iron deficiency. PLAN: Consult Dr. Napier for wound care management and Dr. Mooney for wound management. Decrease Lantus to [address] Solano for PAD. Consult wound care team. For details, please refer to the orders. Also, consult Dr. Roman for bilateral knee pain and Dr. Ornelas for possible right foot drop. SHYAM[facility] [place] DR: SHYAM/thomas TID: [id number]
[2022-01-07] MEDS: NYSTATIN 100,000 UNIT/GM TOPICAL CREAM 15GM TUBE. TP SCH ×2 (13:00→21:00)
--- NOTE | 2022-01-07 13:25 | PDOC ---
Infectious Disease Note Subjective Subjective Patient is feeling better ROS ROS No nausea vomiting diarrhea chest pain shortness of Vital Sign Vital Signs Vital Signs Date Time Temp Pulse Resp B/P (MAP) Pulse Ox O2 Delivery O2 Flow Rate FiO2 01/07/22 11:00 98.1 62 18 158/62 (94) 96 Room Air 98.1 Physical Exam PHYSICAL EXAM GENERAL: Alert, oriented female, not in distress. VITAL SIGNS: Stable, afebrile. HEENT: NAD. NECK: Supple, no JVP, no lymphadenopathy. LUNGS: Clear. HEART: S1, S2, regular. ABDOMEN: Soft, nontender, no organomegaly. EXTREMITIES: No edema or cyanosis. Bilateral lower extremity calcaneal wounds are very large area of bright red, part of the skin appears clean. SKIN: Unremarkable. NEUROLOGIC: The patient is alert, awake, and appropriate. No focal neurologic deficit. Labs Lab Laboratory Tests Test 01/06/22 16:56 01/06/22 16:58 01/06/22 20:20 01/07/22 07:39 Urine Collection Type Unknown Urine Color (Auto) Light orange Urine Turbidity Hazy Urine pH (Auto) 6.5 (<5.0-8.0) Urine Specific [place] 1.015 (1.000-1.030) Urine Protein (Auto) 200 mg/dL (Negative) Urine Glucose (Auto)(UA) Negative mg/dL (Negative) Urine Ketones (Auto) Negative mg/dL (Negative) Urine Blood (Auto) Negative (Negative) Urine Nitrite Negative (Negative) Urine Bilirubin (Auto) Negative (Negative) Urine Urobilinogen (Auto) 2 mg/dL (Normal) Urine Leukocyte Esterase (Auto) Small (Negative) Urine RBC 0 /HPF (0-2) Urine WBC 20-40 /HPF (0-4) Urine Squamous Epithelial Cells Few /LPF Urine Transitional Epithelial Cells Occ /LPF Urine Renal Epithelial Cells Occ /LPF Urine Bacteria Many /HPF (0-FEW) Urine Mucus Slight /LPF Glucose (Fingerstick) 132 mg/dL (70-99) 74 mg/dL (70-99) White Blood Count 9.4 x10^3/uL (4.0-11.0) Red Blood Count 3.70 x10^6/uL (3.50-5.40) Hemoglobin 10.0 g/dL (12.0-15.5) Hematocrit 31.0 % (36.0-47.0) Mean Corpuscular Volume 84 fL (79-100) Mean Corpuscular Hemoglobin 27 pg (25-35) Mean Corpuscular Hemoglobin Concent 32 g/dL (31-37) Red Cell Distribution Width 15.4 % (11.5-14.5) Platelet Count 251 x10^3/uL (140-400) Neutrophils (%) (Auto) 70 % (31-73) Lymphocytes (%) (Auto) 17 % (24-48) Monocytes (%) (Auto) 8 % (0-9) Eosinophils (%) (Auto) 4 % (0-3) Basophils (%) (Auto) 1 % (0-3) Neutrophils # (Auto) 6.6 x10^3/uL (1.8-7.7) Lymphocytes # (Auto) 1.6 x10^3/uL (1.0-4.8) Monocytes # (Auto) 0.7 x10^3/uL (0.0-1.1) Eosinophils # (Auto) 0.4 x10^3/uL (0.0-0.7) Basophils # (Auto) 0.1 x10^3/uL (0.0-0.2) Erythrocyte Sedimentation Rate 65 (0-25) Sodium Level 140 mmol/L (136-145) Potassium Level 3.7 mmol/L (3.5-5.1) Chloride Level 105 mmol/L (98-107) Carbon Dioxide Level 28 mmol/L (21-32) Anion Gap 7 (6-14) Blood Urea Nitrogen 15 mg/dL (7-20) Creatinine 1.3 mg/dL (0.6-1.0) Estimated GFR (Cockcroft-Gault) 49.4 BUN/Creatinine Ratio 12 (6-20) Glucose Level 190 mg/dL (70-99) Calcium Level 7.9 mg/dL (8.5-10.1) Total Bilirubin 0.4 mg/dL (0.2-1.0) Aspartate Amino Transf (AST/SGOT) 20 U/L (15-37) Alanine Aminotransferase (ALT/SGPT) 30 U/L (14-59) Alkaline Phosphatase 141 U/L (46-116) Total Protein 6.6 g/dL (6.4-8.2) Albumin 2.4 g/dL (3.4-5.0) Albumin/Globulin Ratio 0.6 (1.0-1.7) Test 01/07/22 11:13 01/07/22 11:46 01/07/22 13:13 Glucose (Fingerstick) 50 mg/dL (70-99) 67 mg/dL (70-99) 110 mg/dL (70-99) Objective Assessment IMPRESSION: 1. 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 The patient basically needs offload completely. Her special boots are evidently not effective. We will also try to obtain the culture. 2. Morbid obesity. 3. Diabetes mellitus. 4. Hypertension. 5. Rheumatoid arthritis. Plan Plan of Care Offload Antibiotics Wound care MARYANN MAYES MD Jan 07, 2022 13:25
--- NOTE | 2022-01-07 14:54 | NUR ---
SS following for discharge planning. SS reviewed pt chart and discussed with pt RN. Pt is from home and is currently on room air. Pt on IV Rocephin. ID, Dr. Ornelas, Ortho, and wound care consulted. PT/OT ordered. SS will continue to follow for discharge planning.
[2022-01-07 15:00] VITALS: BP 168/70
[2022-01-07] MEDS: DICLOFENAC SODIUM 1% TOPICAL GEL 100GM TUBE. TP SCH ×2 (15:38→22:01)
[2022-01-07] MEDS: cefTRIAXone IV Push 2 GM VIAL. IVP SCH (15:38)
--- NOTE | 2022-01-07 16:18 | RAD ---
XR BILAT FEET 3 VIEWS History: Reason: wounds / Spl. Instructions: / History: Technique: 3 views bilateral feet. Comparison: Right foot June 04, 2017 Findings: Left foot: Mild first MTP DJD. No dislocation. Chronic fifth metatarsal fracture with angular deformi ty. Chronic fourth metatarsal base fracture. Chronic appearing deformity of the second metatarsal hea d, may relate to osteonecrosis. No acute fracture. No radiographic evidence of osteomyelitis. Right foot: Prior first digit amputation. Chronic deformity of the right proximal second phalanx. Chr onic second metatarsal fracture. No radiographic evidence of osteomyelitis. No acute fracture. Chroni c fifth proximal metatarsal fracture. Impression: 1. No radiographic evidence of osteomyelitis. If persistent clinical concern of a specific region, M RI can further assess. 2. Chronic deformities bilaterally, as described. 3. Prior right first digit amputation. Electronically signed by: Elbert Hanna DO (01/07/2022 4:15 PM) [id number]
--- NOTE | 2022-01-07 16:19 | RAD ---
XR HIP (WITH OR WITHOUT PELVIS) 1 VIEW History: Reason: painful DJD / Spl. Instructions: / History: Technique: AP view the pelvis and additional views of the bilateral hips. Comparison: None. Findings: No dislocation. No acute fracture. Mild bilateral hip DJD. Lower lumbar spondylosis. Impression: 1. No acute osseous abnormality. Electronically signed by: Elbert Hanna DO (01/07/2022 4:16 PM) [id number]
--- NOTE | 2022-01-07 16:22 | RAD ---
XR KNEE_AP BILAT STANDING History: Reason: painful DJD of both knees. / Spl. Instructions: / History: Technique: AP standing view bilateral knees. Comparison: July 17, 2021 left knee Findings: Left knee: Moderate left knee degenerative changes within the medial compartment. Genu varus alignmen t. No dislocation on AP view. No acute fracture. Right knee: Mild right knee medial compartment degenerative changes. No dislocation on AP view. No ac [place] fracture. Impression: 1. 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 Progressed on the left compared to prior. Electronically signed by: Elbert Hanna DO (01/07/2022 4:19 PM) [id number]
--- NOTE | 2022-01-07 16:49 | PDOC2 ---
CONSULT Date of Service Date of Service DATE: 01/07/22 TIME: 16:30 Reason for Consult Reason for Consult: Multiple bilateral lower extremity wounds. Referring Physician Referring Physician: Dr. Rivera Identification/Chief Complaint Chief Complaint Bilateral heel wounds Source Source: Chart review, Patient History of Present Illness Reason for Visit: This is a 66-year-old female with super morbid obesity, chronic lymphedema of the bilateral extremities and limited mobility. She has a history of diabetes mellitus with associated chronic kidney disease and baseline creatinine around 1.3. She has a longstanding history of heel wounds on both lower extremities which have per report intermittently healed but have never fully healed. She has a history of prior first toe amputation on the right foot which did go on to heal. She has a history of undergoing angiography with Dr. rosa 2 years ago this demonstrated no significant arterial disease throughout her entire lower extremities on both sides with widely patent vasculature in both lower extremities. She spends a significant amount of time with her legs dependent. She is admitted from wound care given the worsening of her heel wounds on both feet. Past Medical History Cardiovascular: HTN, Hyperlipidemia CENTRAL NERVOUS SYSTEM: Migraine GI: Diverticulosis, GERD, Other Heme/Onc: Anemia NOS, Iron deficiency Anemia Psych: Anxiety Musculoskeletal: low back pain, Osteoarthritis Rheumatologic: Fibromyalgia, Rheumatoid arthritis, Other Renal/: Chronic renal insuff Endocrine: Diabetes Past Surgical History Past Surgical History: Cholecystectomy, Hysterectomy Family History Family History: Coronary Artery Disease, Diabetes, Hearing Loss, High Cholestrol, Hypertension Social History No ALCOHOL: none Drugs: None Current Medications Current Medications Current Medications Amlodipine Besylate (Norvasc) 5 mg DAILY PO Last administered on 01/07/22at 09:23; Start 01/07/22 at 09:00 Atenolol (Tenormin) 25 mg BID PO Last administered on 01/07/22at 09:23; Start 01/06/22 at 21:00 Hydroxychloroquine Sulfate (Plaquenil) 200 mg BID PO Last administered on 01/07/22at 09:22; Start 01/06/22 at 21:00 Mirtazapine (Remeron) 15 mg DAILY PO ; Start 01/07/22 at 09:00; Status Cancel Tizanidine HCl (Zanaflex) 4 mg QHS PO Last administered on 01/06/22at 21:44; Start 01/06/22 at 21:00 Insulin Glargine (Lantus Syringe) 80 unit QHS SQ Last administered on 01/06/22at 22:24; Start 01/06/22 at 21:00; Stop 01/07/22 at 08:10; Status DC Pantoprazole Sodium (Protonix) 40 mg DAILYAC PO Last administered on 01/07/22at 09:23; Start 01/07/22 at 07:30 Tramadol HCl (Ultram) 100 mg PRN Q6HRS PRN PO MODERATE-SEVERE PAIN Last administered on 01/07/22at 15:37; Start 01/06/22 at 14:00 Ceftriaxone Sodium (Rocephin) 2 gm Q24H IVP Last administered on 01/07/22at 15:38; Start 01/06/22 at 15:00 Acetaminophen (Tylenol) 650 mg PRN Q6HRS PRN PO MILD PAIN / TEMP > 100.3'F; Start 01/06/22 at 14:45 Insulin Human Lispro (HumaLOG) 0-5 UNITS TIDWMEALS SQ ; Start 01/06/22 at 17:00 Dextrose (Dextrose 50%-Water Syringe) 12.5 gm PRN Q15MIN PRN IV SEE COMMENTS; Start 01/06/22 at 14:45 Dextrose (Iv Dextrose 5%) 250 ml PRN Q15MIN PRN IV SEE COMMENTS; Start 01/06/22 at 14:45 Insulin Glargine (Lantus Syringe) 50 unit QHS SQ ; Start 01/07/22 at 21:00 Heparin Sodium (Porcine) (Heparin Sodium) 5,000 unit Q12HR SQ Last administered on 01/07/22at 09:36; Start 01/07/22 at 09:00 Mirtazapine (Remeron) 15 mg QHS PO ; Start 01/07/22 at 21:00 Diclofenac Sodium (Voltaren) 1 shelly BID TP Last administered on 01/07/22at 15:38; Start 01/07/22 at 13:00 Nystatin (Mycostatin) 1 shelly BID TP ; Start 01/07/22 at 13:00 Active Scripts Active Reported Tramadol Hcl 100 Mg Tbmp.24hr 100 Mg PO Q6H PRN Tizanidine Hcl 4 Mg Tablet 1 Tab PO QHS Lantus Solostar (Insulin Glargine,Hum.rec.anlog) 100 Unit/1 Ml Insuln.pen 80 Unit SQ QHS Aciphex (Rabeprazole Sodium) 20 Mg Tablet.dr 1 Tab PO DAILY Amlodipine Besylate 5 Mg Tablet 5 Mg PO DAILY Mirtazapine 15 Mg Tablet 15 Mg PO DAILY Hydroxychloroquine Sulfate 200 Mg Tablet 1 Tab PO BID Atenolol 25 Mg Tablet 1 Tab PO BID Allergies Allergies: Coded Allergies: Penicillins (Verified Allergy, Intermediate, Rash, 07/14/17) benzocaine (Verified Allergy, Intermediate, Shortness of Air, 07/14/17) hydralazine (Verified Allergy, Intermediate, 07/14/17) BLOOD PRESSURE DROPPED TOO LOW lidocaine (Verified Allergy, Intermediate, Shortness of Air, 07/14/17) losartan (Verified Allergy, Intermediate, Rash, 07/14/17) tetracaine (Verified Allergy, Intermediate, Shortness of Air, 07/14/17) ROS General: No: Chills, Night Sweats Eyes: No Blurry vision, No Decreased vision HEENT: No: Heacaches, Visual Changes Hematological and Lymphatic: No: Bleeding Problems, Blood Clots Respiratory: No: Cough, Shortness of breath Cardiovascular: No Chest Pain, No Palpitations Gastrointestinal: No Nausea, No Vomiting, No Abdominal Pain Genitourinary: No Dysuria, No Frequency Musculoskeletal: Yes Gait Disturbance, Yes Joint Stiffness Neurological: No Confusion, No Dizziness Skin: Yes Nail Changes, Yes Skin Lesion Changes Physical Exam General: Alert, Oriented X3, Cooperative HEENT: Atraumatic, PERRLA Lungs: Normal air movement Heart: Regular rate, Other (+1 palpable right dorsalis pedis pulse, +2 palpable left dorsalis pedis pulse, bilateral femoral pulses are 2+, bilateral radial pulses 2+) Abdomen: No tenderness, Other (Significant obesity with large pannus) Extremities: Other (Severe lymphedema in the bilateral lower extremities involving the thighs down.) Skin: Other (I reviewed the recent pictures obtained and wound care which showed evidence of deep tissue injury on both heels but with the majority of the wound bed appearing healthy with large wounds on both heel after debridement.) Neuro: Normal speech, Cranial nerves 3-12 NL MUSCULOSKELETAL: No deformity, Other (She has significant bilateral lower extremity weakness with difficulty raising her legs.) Vitals VITALS Vital Signs Date Time Temp Pulse Resp B/P (MAP) Pulse Ox O2 Delivery O2 Flow Rate FiO2 01/07/22 15:37 19 94 Room Air 01/07/22 15:00 98.1 68 168/70 (102) 98.1 Labs Labs Laboratory Tests Test 01/06/22 12:04 01/06/22 16:56 01/06/22 16:58 01/06/22 20:20 Glucose (Fingerstick) 108 mg/dL (70-99) 132 mg/dL (70-99) Urine Collection Type Unknown Urine Color (Auto) Light orange Urine Turbidity Hazy Urine pH (Auto) 6.5 (<5.0-8.0) Urine Specific [place] 1.015 (1.000-1.030) Urine Protein (Auto) 200 mg/dL (Negative) Urine Glucose (Auto)(UA) Negative mg/dL (Negative) Urine Ketones (Auto) Negative mg/dL (Negative) Urine Blood (Auto) Negative (Negative) Urine Nitrite Negative (Negative) Urine Bilirubin (Auto) Negative (Negative) Urine Urobilinogen (Auto) 2 mg/dL (Normal) Urine Leukocyte Esterase (Auto) Small (Negative) Urine RBC 0 /HPF (0-2) Urine WBC 20-40 /HPF (0-4) Urine Squamous Epithelial Cells Few /LPF Urine Transitional Epithelial Cells Occ /LPF Urine Renal Epithelial Cells Occ /LPF Urine Bacteria Many /HPF (0-FEW) Urine Mucus Slight /LPF White Blood Count 9.4 x10^3/uL (4.0-11.0) Red Blood Count 3.70 x10^6/uL (3.50-5.40) Hemoglobin 10.0 g/dL (12.0-15.5) Hematocrit 31.0 % (36.0-47.0) Mean Corpuscular Volume 84 fL (79-100) Mean Corpuscular Hemoglobin 27 pg (25-35) Mean Corpuscular Hemoglobin Concent 32 g/dL (31-37) Red Cell Distribution Width 15.4 % (11.5-14.5) Platelet Count 251 x10^3/uL (140-400) Neutrophils (%) (Auto) 70 % (31-73) Lymphocytes (%) (Auto) 17 % (24-48) Monocytes (%) (Auto) 8 % (0-9) Eosinophils (%) (Auto) 4 % (0-3) Basophils (%) (Auto) 1 % (0-3) Neutrophils # (Auto) 6.6 x10^3/uL (1.8-7.7) Lymphocytes # (Auto) 1.6 x10^3/uL (1.0-4.8) Monocytes # (Auto) 0.7 x10^3/uL (0.0-1.1) Eosinophils # (Auto) 0.4 x10^3/uL (0.0-0.7) Basophils # (Auto) 0.1 x10^3/uL (0.0-0.2) Erythrocyte Sedimentation Rate 65 (0-25) Sodium Level 140 mmol/L (136-145) Potassium Level 3.7 mmol/L (3.5-5.1) Chloride Level 105 mmol/L (98-107) Carbon Dioxide Level 28 mmol/L (21-32) Anion Gap 7 (6-14) Blood Urea Nitrogen 15 mg/dL (7-20) Creatinine 1.3 mg/dL (0.6-1.0) Estimated GFR (Cockcroft-Gault) 49.4 BUN/Creatinine Ratio 12 (6-20) Glucose Level 190 mg/dL (70-99) Calcium Level 7.9 mg/dL (8.5-10.1) Total Bilirubin 0.4 mg/dL (0.2-1.0) Aspartate Amino Transf (AST/SGOT) 20 U/L (15-37) Alanine Aminotransferase (ALT/SGPT) 30 U/L (14-59) Alkaline Phosphatase 141 U/L (46-116) Total Protein 6.6 g/dL (6.4-8.2) Albumin 2.4 g/dL (3.4-5.0) Albumin/Globulin Ratio 0.6 (1.0-1.7) Test 01/07/22 07:39 01/07/22 11:13 01/07/22 11:46 01/07/22 13:13 Glucose (Fingerstick) 74 mg/dL (70-99) 50 mg/dL (70-99) 67 mg/dL (70-99) 110 mg/dL (70-99) Laboratory Tests Test 01/06/22 16:56 01/06/22 16:58 01/06/22 20:20 01/07/22 07:39 Urine Collection Type Unknown Urine Color (Auto) Light orange Urine Turbidity Hazy Urine pH (Auto) 6.5 (<5.0-8.0) Urine Specific [place] 1.015 (1.000-1.030) Urine Protein (Auto) 200 mg/dL (Negative) Urine Glucose (Auto)(UA) Negative mg/dL (Negative) Urine Ketones (Auto) Negative mg/dL (Negative) Urine Blood (Auto) Negative (Negative) Urine Nitrite Negative (Negative) Urine Bilirubin (Auto) Negative (Negative) Urine Urobilinogen (Auto) 2 mg/dL (Normal) Urine Leukocyte Esterase (Auto) Small (Negative) Urine RBC 0 /HPF (0-2) Urine WBC 20-40 /HPF (0-4) Urine Squamous Epithelial Cells Few /LPF Urine Transitional Epithelial Cells Occ /LPF Urine Renal Epithelial Cells Occ /LPF Urine Bacteria Many /HPF (0-FEW) Urine Mucus Slight /LPF Glucose (Fingerstick) 132 mg/dL (70-99) 74 mg/dL (70-99) White Blood Count 9.4 x10^3/uL (4.0-11.0) Red Blood Count 3.70 x10^6/uL (3.50-5.40) Hemoglobin 10.0 g/dL (12.0-15.5) Hematocrit 31.0 % (36.0-47.0) Mean Corpuscular Volume 84 fL (79-100) Mean Corpuscular Hemoglobin 27 pg (25-35) Mean Corpuscular Hemoglobin Concent 32 g/dL (31-37) Red Cell Distribution Width 15.4 % (11.5-14.5) Platelet Count 251 x10^3/uL (140-400) Neutrophils (%) (Auto) 70 % (31-73) Lymphocytes (%) (Auto) 17 % (24-48) Monocytes (%) (Auto) 8 % (0-9) Eosinophils (%) (Auto) 4 % (0-3) Basophils (%) (Auto) 1 % (0-3) Neutrophils # (Auto) 6.6 x10^3/uL (1.8-7.7) Lymphocytes # (Auto) 1.6 x10^3/uL (1.0-4.8) Monocytes # (Auto) 0.7 x10^3/uL (0.0-1.1) Eosinophils # (Auto) 0.4 x10^3/uL (0.0-0.7) Basophils # (Auto) 0.1 x10^3/uL (0.0-0.2) Erythrocyte Sedimentation Rate 65 (0-25) Sodium Level 140 mmol/L (136-145) Potassium Level 3.7 mmol/L (3.5-5.1) Chloride Level 105 mmol/L (98-107) Carbon Dioxide Level 28 mmol/L (21-32) Anion Gap 7 (6-14) Blood Urea Nitrogen 15 mg/dL (7-20) Creatinine 1.3 mg/dL (0.6-1.0) Estimated GFR (Cockcroft-Gault) 49.4 BUN/Creatinine Ratio 12 (6-20) Glucose Level 190 mg/dL (70-99) Calcium Level 7.9 mg/dL (8.5-10.1) Total Bilirubin 0.4 mg/dL (0.2-1.0) Aspartate Amino Transf (AST/SGOT) 20 U/L (15-37) Alanine Aminotransferase (ALT/SGPT) 30 U/L (14-59) Alkaline Phosphatase 141 U/L (46-116) Total Protein 6.6 g/dL (6.4-8.2) Albumin 2.4 g/dL (3.4-5.0) Albumin/Globulin Ratio 0.6 (1.0-1.7) Test 01/07/22 11:13 01/07/22 11:46 01/07/22 13:13 Glucose (Fingerstick) 50 mg/dL (70-99) 67 mg/dL (70-99) 110 mg/dL (70-99) Assessment/Plan Assessment/Plan 1. Bilateral lower extremity lymphedema 2. 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 On the previous angiogram which I personally reviewed there is widely patent arterial inflow to both lower extremities. Therefore the main issues complicating her wound david torres continue to be her significant lymphedema which is difficult to manage and difficulty with offloading her heels given her need to transfer using her feet. Another difficulty appears to be the inability for her to participate in her own wound care and dressing care. I reviewed her x-ray findings which did not demonstrate any evidence of calcaneal osteomyelitis I would recommend continued wound care and offloading of her bilateral heel ulcerations. Would strongly consider lymphedema pumps if able to attain. Please call with any future questions or concerns. ARMANI MARIN MD Jan 07, 2022 16:49
--- NOTE | 2022-01-07 17:28 | PDOC2 ---
CONSULT Date of Consult Date of Consult DATE: 01/07/22 TIME: 17:20 Reason for Consult Reason for Consult: Bilateral knee pain History of Present Illness Reason for Visit: Patient reports that she has had knee pain for 10 years or so. She says that the right is worse than the left right now. She says that last week she got a cortisone injection in her right knee and 3 months ago she got 1 in her left knee from Dr. Perez. She is in the hospital for cellulitis/heel ulcers. Apparently orthopedics was consulted due to her knee pain. She does say that about 2 weeks ago she fell on her knees but saw Dr. Perez since that time. No radicular symptoms. Past Medical History Past Medical History Significant for neuropathy rheumatoid arthritis congestive heart failure hypertension dyslipidemia sarcoidosis heel wounds lymphedema low back pain diverticulosis osteoarthritis fibromyalgia chronic kidney disease fatty liver disease anemia gastroparesis GERD Cardiovascular: HTN, Hyperlipidemia CENTRAL NERVOUS SYSTEM: Migraine GI: Diverticulosis, GERD, Other Heme/Onc: Anemia NOS, Iron deficiency Anemia Psych: Anxiety Musculoskeletal: low back pain, Osteoarthritis Rheumatologic: Fibromyalgia, Rheumatoid arthritis, Other Renal/: Chronic renal insuff Endocrine: Diabetes Past Surgical History Past Surgical History Amputation great toe gallbladder removal and hysterectomy Past Surgical History: Cholecystectomy, Hysterectomy Family History Family History NC Family History: Coronary Artery Disease, Diabetes, Hearing Loss, High Cholestrol, Hypertension Social History Social History Patient denies previous or current tobacco or alcohol use. She lives with her brother. No ALCOHOL: none Drugs: None Current Medications Current Medications Current Medications Amlodipine Besylate (Norvasc) 5 mg DAILY PO Last administered on 01/07/22at 09 :23; Start 01/07/22 at 09:00 Atenolol (Tenormin) 25 mg BID PO Last administered on 01/07/22at 09:23; Start 01/06/22 at 21:00 Hydroxychloroquine Sulfate (Plaquenil) 200 mg BID PO Last administered on 01/07/22at 09:22; Start 01/06/22 at 21:00 Mirtazapine (Remeron) 15 mg DAILY PO ; Start 01/07/22 at 09:00; Status Cancel Tizanidine HCl (Zanaflex) 4 mg QHS PO Last administered on 01/06/22at 21:44; Start 01/06/22 at 21:00 Insulin Glargine (Lantus Syringe) 80 unit QHS SQ Last administered on 01/06/22at 22:24; Start 01/06/22 at 21:00; Stop 01/07/22 at 08:10; Status DC Pantoprazole Sodium (Protonix) 40 mg DAILYAC PO Last administered on 01/07/22at 09:23; Start 01/07/22 at 07:30 Tramadol HCl (Ultram) 100 mg PRN Q6HRS PRN PO MODERATE-SEVERE PAIN Last administered on 01/07/22at 15:37; Start 01/06/22 at 14:00 Ceftriaxone Sodium (Rocephin) 2 gm Q24H IVP Last administered on 01/07/22at 15:38; Start 01/06/22 at 15:00 Acetaminophen (Tylenol) 650 mg PRN Q6HRS PRN PO MILD PAIN / TEMP > 100.3'F; Start 01/06/22 at 14:45 Insulin Human Lispro (HumaLOG) 0-5 UNITS TIDWMEALS SQ ; Start 01/06/22 at 17:00 Dextrose (Dextrose 50%-Water Syringe) 12.5 gm PRN Q15MIN PRN IV SEE COMMENTS; Start 01/06/22 at 14:45 Dextrose (Iv Dextrose 5%) 250 ml PRN Q15MIN PRN IV SEE COMMENTS; Start 01/06/22 at 14:45 Insulin Glargine (Lantus Syringe) 50 unit QHS SQ ; Start 01/07/22 at 21:00 Heparin Sodium (Porcine) (Heparin Sodium) 5,000 unit Q12HR SQ Last administered on 01/07/22at 09:36; Start 01/07/22 at 09:00 Mirtazapine (Remeron) 15 mg QHS PO ; Start 01/07/22 at 21:00 Diclofenac Sodium (Voltaren) 1 shelly BID TP Last administered on 01/07/22at 15:38; Start 01/07/22 at 13:00 Nystatin (Mycostatin) 1 shelly BID TP ; Start 01/07/22 at 13:00 Active Scripts Active Reported Tramadol Hcl 100 Mg Tbmp.24hr 100 Mg PO Q6H PRN Tizanidine Hcl 4 Mg Tablet 1 Tab PO QHS Lantus Solostar (Insulin Glargine,Hum.rec.anlog) 100 Unit/1 Ml Insuln.pen 80 Unit SQ QHS Aciphex (Rabeprazole Sodium) 20 Mg Tablet.dr 1 Tab PO DAILY Amlodipine Besylate 5 Mg Tablet 5 Mg PO DAILY Mirtazapine 15 Mg Tablet 15 Mg PO DAILY Hydroxychloroquine Sulfate 200 Mg Tablet 1 Tab PO BID Atenolol 25 Mg Tablet 1 Tab PO BID Allergies Allergies: Coded Allergies: Penicillins (Verified Allergy, Intermediate, Rash, 07/14/17) benzocaine (Verified Allergy, Intermediate, Shortness of Air, 07/14/17) hydralazine (Verified Allergy, Intermediate, 07/14/17) BLOOD PRESSURE DROPPED TOO LOW lidocaine (Verified Allergy, Intermediate, Shortness of Air, 07/14/17) losartan (Verified Allergy, Intermediate, Rash, 07/14/17) tetracaine (Verified Allergy, Intermediate, Shortness of Air, 07/14/17) ROS Review of System Patient denies headache at this time. No blurry vision or double vision. No ringing in the ears or difficulty hearing. No difficulty swallowing. No thyroid problems. No chest pain or shortness of breath. No abdominal pain. No recent constipation or diarrhea. No blood in the stool or urine. No dysuria. She has been treated for anxiety in the past. Physical Exam Physical Exam Patient is seen in her hospital bed sitting up in the bed comfortably. She interacts with exam appropriately. Both knees have intact skin. There is no erythema, warmth or induration. She has dressings on both of her feet which were not removed for exam. Calves are soft bilaterally. No specific tenderness to palpation anywhere in the knees. There is no obvious effusion but the amount of adipose around her knees makes it difficult for a full exam. Vitals VITALS Vital Signs Date Time Temp Pulse Resp B/P (MAP) Pulse Ox O2 Delivery O2 Flow Rate FiO2 01/07/22 15:37 19 94 Room Air 01/07/22 15:00 98.1 68 168/70 (102) 98.1 Labs Labs Laboratory Tests Test 01/06/22 12:04 01/06/22 16:56 01/06/22 16:58 01/06/22 20:20 Glucose (Fingerstick) 108 mg/dL (70-99) 132 mg/dL (70-99) Urine Collection Type Unknown Urine Color (Auto) Light orange Urine Turbidity Hazy Urine pH (Auto) 6.5 (<5.0-8.0) Urine Specific [place] 1.015 (1.000-1.030) Urine Protein (Auto) 200 mg/dL (Negative) Urine Glucose (Auto)(UA) Negative mg/dL (Negative) Urine Ketones (Auto) Negative mg/dL (Negative) Urine Blood (Auto) Negative (Negative) Urine Nitrite Negative (Negative) Urine Bilirubin (Auto) Negative (Negative) Urine Urobilinogen (Auto) 2 mg/dL (Normal) Urine Leukocyte Esterase (Auto) Small (Negative) Urine RBC 0 /HPF (0-2) Urine WBC 20-40 /HPF (0-4) Urine Squamous Epithelial Cells Few /LPF Urine Transitional Epithelial Cells Occ /LPF Urine Renal Epithelial Cells Occ /LPF Urine Bacteria Many /HPF (0-FEW) Urine Mucus Slight /LPF White Blood Count 9.4 x10^3/uL (4.0-11.0) Red Blood Count 3.70 x10^6/uL (3.50-5.40) Hemoglobin 10.0 g/dL (12.0-15.5) Hematocrit 31.0 % (36.0-47.0) Mean Corpuscular Volume 84 fL (79-100) Mean Corpuscular Hemoglobin 27 pg (25-35) Mean Corpuscular Hemoglobin Concent 32 g/dL (31-37) Red Cell Distribution Width 15.4 % (11.5-14.5) Platelet Count 251 x10^3/uL (140-400) Neutrophils (%) (Auto) 70 % (31-73) Lymphocytes (%) (Auto) 17 % (24-48) Monocytes (%) (Auto) 8 % (0-9) Eosinophils (%) (Auto) 4 % (0-3) Basophils (%) (Auto) 1 % (0-3) Neutrophils # (Auto) 6.6 x10^3/uL (1.8-7.7) Lymphocytes # (Auto) 1.6 x10^3/uL (1.0-4.8) Monocytes # (Auto) 0.7 x10^3/uL (0.0-1.1) Eosinophils # (Auto) 0.4 x10^3/uL (0.0-0.7) Basophils # (Auto) 0.1 x10^3/uL (0.0-0.2) Erythrocyte Sedimentation Rate 65 (0-25) Sodium Level 140 mmol/L (136-145) Potassium Level 3.7 mmol/L (3.5-5.1) Chloride Level 105 mmol/L (98-107) Carbon Dioxide Level 28 mmol/L (21-32) Anion Gap 7 (6-14) Blood Urea Nitrogen 15 mg/dL (7-20) Creatinine 1.3 mg/dL (0.6-1.0) Estimated GFR (Cockcroft-Gault) 49.4 BUN/Creatinine Ratio 12 (6-20) Glucose Level 190 mg/dL (70-99) Calcium Level 7.9 mg/dL (8.5-10.1) Total Bilirubin 0.4 mg/dL (0.2-1.0) Aspartate Amino Transf (AST/SGOT) 20 U/L (15-37) Alanine Aminotransferase (ALT/SGPT) 30 U/L (14-59) Alkaline Phosphatase 141 U/L (46-116) Total Protein 6.6 g/dL (6.4-8.2) Albumin 2.4 g/dL (3.4-5.0) Albumin/Globulin Ratio 0.6 (1.0-1.7) Test 01/07/22 07:39 01/07/22 11:13 01/07/22 11:46 01/07/22 13:13 Glucose (Fingerstick) 74 mg/dL (70-99) 50 mg/dL (70-99) 67 mg/dL (70-99) 110 mg/dL (70-99) Test 01/07/22 16:56 Glucose (Fingerstick) 79 mg/dL (70-99) Laboratory Tests Test 01/06/22 20:20 01/07/22 07:39 01/07/22 11:13 01/07/22 11:46 White Blood Count 9.4 x10^3/uL (4.0-11.0) Red Blood Count 3.70 x10^6/uL (3.50-5.40) Hemoglobin 10.0 g/dL (12.0-15.5) Hematocrit 31.0 % (36.0-47.0) Mean Corpuscular Volume 84 fL (79-100) Mean Corpuscular Hemoglobin 27 pg (25-35) Mean Corpuscular Hemoglobin Concent 32 g/dL (31-37) Red Cell Distribution Width 15.4 % (11.5-14.5) Platelet Count 251 x10^3/uL (140-400) Neutrophils (%) (Auto) 70 % (31-73) Lymphocytes (%) (Auto) 17 % (24-48) Monocytes (%) (Auto) 8 % (0-9) Eosinophils (%) (Auto) 4 % (0-3) Basophils (%) (Auto) 1 % (0-3) Neutrophils # (Auto) 6.6 x10^3/uL (1.8-7.7) Lymphocytes # (Auto) 1.6 x10^3/uL (1.0-4.8) Monocytes # (Auto) 0.7 x10^3/uL (0.0-1.1) Eosinophils # (Auto) 0.4 x10^3/uL (0.0-0.7) Basophils # (Auto) 0.1 x10^3/uL (0.0-0.2) Erythrocyte Sedimentation Rate 65 (0-25) Sodium Level 140 mmol/L (136-145) Potassium Level 3.7 mmol/L (3.5-5.1) Chloride Level 105 mmol/L (98-107) Carbon Dioxide Level 28 mmol/L (21-32) Anion Gap 7 (6-14) Blood Urea Nitrogen 15 mg/dL (7-20) Creatinine 1.3 mg/dL (0.6-1.0) Estimated GFR (Cockcroft-Gault) 49.4 BUN/Creatinine Ratio 12 (6-20) Glucose Level 190 mg/dL (70-99) Calcium Level 7.9 mg/dL (8.5-10.1) Total Bilirubin 0.4 mg/dL (0.2-1.0) Aspartate Amino Transf (AST/SGOT) 20 U/L (15-37) Alanine Aminotransferase (ALT/SGPT) 30 U/L (14-59) Alkaline Phosphatase 141 U/L (46-116) Total Protein 6.6 g/dL (6.4-8.2) Albumin 2.4 g/dL (3.4-5.0) Albumin/Globulin Ratio 0.6 (1.0-1.7) Glucose (Fingerstick) 74 mg/dL (70-99) 50 mg/dL (70-99) 67 mg/dL (70-99) Test 01/07/22 13:13 01/07/22 16:56 Glucose (Fingerstick) 110 mg/dL (70-99) 79 mg/dL (70-99) Assessment/Plan Assessment/Plan Bilateral knee pain with established DJD Obesity Neuropathy Rheumatoid arthritis Congestive heart failure Hypertension Sarcoidosis Dyslipidemia Lymphedema Low back pain Migraines Osteoarthritis Fibromyalgia Fatty liver disease Anemia CKD GERD Plan discussed that since she has stable follow-up for her knees already established, she can continue to follow-up there. We can see her in our outpatient clinic but she is already established somewhere closer to her home. Discussed that given her current reason for admission, we would not entertain a steroid injection at this time. Patient agrees with this plan. I did offer to take an x-ray of her right knee since she had a fall 2 weeks ago and there were only left knee x-rays but she refuses this and does not think it is necessary. X-rays that were available were reviewed. DWAINE MOLINA Jan 07, 2022 17:28
[2022-01-07 19:00] VITALS: BP 167/59
[2022-01-07] MEDS ORDERED: INSULIN GLARGINE SYRINGE. SQ SCH (21:00)
[2022-01-07] MEDS: MIRTAZAPINE 15 MG TABLET PO SCH (21:53)
[2022-01-07] MEDS: tiZANidine 4 MG TABLET. PO SCH (21:53)
[2022-01-07 23:03] VITALS: BP 166/61
[2022-01-08 03:11] VITALS: BP 170/78
[2022-01-08 07:00] VITALS: BP 189/70
[2022-01-08] MEDS: INSULIN LISPRO 300 UNITS/3 ML VIAL. SQ SCH ×3 (07:43→17:00)
[2022-01-08] MEDS: PANTOPRAZOLE 40 MG TABLET.DR. PO SCH (07:49)
[2022-01-08] MEDS: traMADol 50 MG TABLET PO PRN (07:50)
--- NOTE | 2022-01-08 08:09 | PDOC ---
IM PROGRESS NOTES- Subjective Subjective Has knee pain- bilateral. Objective Vitals/I&O Vital Signs Date Time Temp Pulse Resp B/P (MAP) Pulse Ox O2 Delivery O2 Flow Rate FiO2 01/08/22 07:50 Room Air 01/08/22 03:11 97.7 63 18 170/78 (108) 95 97.7 I & O 01/07/22 01/07/22 01/08/22 15:00 23:00 07:00 Output Total 0 ml Balance 0 ml Physical Exam Physical Exam General Appearance - alert and in no distress Chest - decreased breath sounds at bases Heart - S1 and S2 normal Abdomen - soft, non tender Neurological - alert and oriented Musculoskeletal - generalized weakness Extremities -3+edema Bilateral heel wounds Labs Laboratory Tests Test 01/07/22 11:13 01/07/22 11:46 01/07/22 13:13 01/07/22 16:56 Glucose (Fingerstick) 50 mg/dL (70-99) L 67 mg/dL (70-99) L 110 mg/dL (70-99) H 79 mg/dL (70-99) Test 01/07/22 20:20 01/08/22 07:24 Glucose (Fingerstick) 113 mg/dL (70-99) H 87 mg/dL (70-99) Meds Current Medications Medications (Trade) Dose Ordered Sig/[place] Route PRN Reason Start Time Stop Time Status Last Admin Dose Admin Amlodipine Besylate (Norvasc) 5 mg DAILY PO 01/07/22 09:00 01/07/22 09:23 Heparin Sodium (Porcine) (Heparin Sodium) 5,000 unit Q12HR SQ 01/07/22 09:00 01/07/22 22:01 Mirtazapine (Remeron) 15 mg QHS PO 01/07/22 21:00 01/07/22 21:53 Diclofenac Sodium (Voltaren) 1 shelly BID TP 01/07/22 13:00 01/07/22 22:01 Assessment Assessment 1. Bilateral foot wounds. 2. Diabetic neuropathy. 3. Peripheral arterial disease. 4. Lymphedema. 5. Hypertension. 6. Rheumatoid arthritis. 7. Osteoarthritis. 8. Fatty liver. 9. Diverticulosis. 10. Severe protein calorie malnutrition. 11. Hyperlipidemia. 12. History of migraine. 13. Chronic kidney disease 2. 14. Anemia, iron deficiency. PLAN: Consult Dr. Napier for wound care management and Dr. Mooney for wound management. Decrease Lantus to [address] Solano for PAD. Consult wound care team. Also, consult Dr. Roman for bilateral knee pain and Dr. Ornelas for possible right foot drop. Bilateral heel wounds- non healing for 1 year. This is complicated by lymphedema and inability to do her wound care. No significant PAD per vascular surgery. Vascular boots have not helped her. Complete offloading,IV Rocephin. She does not want to go [facility] when ready. She wants to go home when discharged. Her brother will help her and she now has a bedside commode. Plan Plan For more details regarding further plans, please refer to the orders. Justifications for Admission Other Justification PRO SCHROEDER MD Jan 08, 2022 08:09
--- NOTE | 2022-01-08 08:09 | RAD ---
XR LUMBAR SPINE 2-3V History: Reason: painful DJD of both knees. / Spl. Instructions: / History: Technique: 2 views lumbar spine. Comparison: None. Findings: Degraded evaluation on lateral view due to patient difficulty with positioning. Grade 1 anterolisthesis L4 on L5. Normal vertebral body height. No acute fracture. Moderate degenerat dung changes most prominent L5-S1. Advanced lower lumbar facet arthropathy. Surgical clips right upper quadrant. Impression: 1. Degraded evaluation. 2. Moderate lumbar spondylosis. Electronically signed by: Elbert Hanna DO (01/08/2022 8:07 AM) [id number]
[2022-01-08] MEDS: NYSTATIN 100,000 UNIT/GM TOPICAL CREAM 15GM TUBE. TP SCH ×2 (09:00→21:00)
[2022-01-08] MEDS: DICLOFENAC SODIUM 1% TOPICAL GEL 100GM TUBE. TP SCH ×2 (09:00→21:00)
--- NOTE | 2022-01-08 09:15 | CONS ---
DATE OF CONSULTATION: 01/07/2022 ATTENDING PHYSICIAN: Dr. Adi Rivera. REASON FOR CONSULTATION: The patient was seen at the request of Dr. Rivera for rehab evaluation. HISTORY OF PRESENT ILLNESS: This is a 66-year-old female with known morbid obesity, diabetic peripheral neuropathy, peripheral artery disease, rheumatoid arthritis, congestive heart failure, hypertension, chronic lower extremity lymphedema with recurrent wounds of her lower extremities. She apparently had both heel wounds for the last two years, getting worse, was seen in the wound care center and as the wounds getting worse despite debridement. She was admitted for further evaluation and treatment. She admits pain limiting her walking. She had a Cam boots for use while up. The patient complains of lower back pain, chronic. She also admits pain in her knees and had no significant easing of her pain from steroid injection done about a week ago by Dr. Marie in the office. The patient lives at home with her brother had a ply top space with railing. She had a walker at home. The patient also with known hyperlipidemia, migraine, diverticulosis, gastroesophageal reflux disease, history of gastroparesis, fatty liver, iron deficiency anemia, fibromyalgia, chronic kidney disease stage 2, status post cholecystectomy, hysterectomy, right great toe ray amputation done in 05/2017, family history of coronary artery disease, diabetes, hearing loss, hyperlipidemia, and hypertension. ALLERGIES: THE PATIENT IS KNOWN ALLERGIC TO PENICILLIN, BENZOCAINE, HYDRALAZINE, LIDOCAINE, LOSARTAN, AND TETRACAINE. PHYSICAL EXAMINATION: On examination today revealed a middle-aged female. She is alert, cooperative, in no acute distress. She had 5/5 grade muscle strength in her extremities with significant stiffness of both knees and she had dressing to both feet. She had crepitus on range of motion of her hip joint. She keeps her right lower extremity in a position of external rotation. She had tenderness to palpation over sacroiliac joint area bilaterally. Straight leg raising test is negative bilaterally. She had decreased touch and pinprick sensation over a sock and glove distribution and she had significant edema of her feet and legs. She had absent knee and ankle jerks. She requires help with rolling from side to side, I have not tested her transfers or ambulation skills at this time. ASSESSMENT: A middle-aged female with chronic lower back pain from degenerative disk disease of lumbar vertebrae, painful degenerative joint disease of both knees, chronic lower extremity lymphedema and peripheral vascular disease with nonhealing ulcers both feet, congestive heart failure, hypertension, diabetic neuropathy, history of rheumatoid arthritis, degenerative joint disease of both knees, hyperlipidemia, migraine, diverticulosis, gastroesophageal reflux disease, gastroparesis, fatty liver, iron deficiency anemia, fibromyalgia, morbid obesity. RECOMMENDATIONS: To ask physical therapy and occupational therapy to see her. Dr. Rivera appreciate asking me to participate in the care of this interesting patient. I will be glad to see her for followup with you on as needed basis. BRAD/ELIANA/[facility] [place] DR: BRAD/thomas TID: [id number]
[2022-01-08] MEDS: ATENOLOL 25 MG TABLET. PO SCH ×2 (09:33→21:00)
[2022-01-08] MEDS: HYDROXYCHLOROQUINE 200 MG TABLET PO SCH ×2 (09:33→21:00)
[2022-01-08] MEDS: HEPARIN for SUB-Q USE 5,000 UNIT/ML VIAL. SQ SCH ×2 (09:35→22:52)
[2022-01-08 10:01] LABS: BASO # 0.1 x10^3/uL (0.0-0.2); BASO % 1 % (0-3); EOS # 0.3 x10^3/uL (0.0-0.7); EOS % 4 % (0-3); HEMATOCRIT 31.2 % (36.0-47.0); HEMOGLOBIN 9.9 g/dL (12.0-15.5); LYMPH % 24 % (24-48); MEAN CORPUSCULAR HEMOGLOBIN 27 pg (25-35); MEAN CORPUSCULAR HGB CONC 32 g/dL (31-37); MEAN CORPUSCULAR VOLUME 84 fL (79-100); MONO # 0.7 x10^3/uL (0.0-1.1); MONO % 9 % (0-9); NEUT % 62 % (31-73); PLATELET COUNT 275 x10^3/uL (140-400); RED BLOOD COUNT 3.71 x10^6/uL (3.50-5.40); RED CELL DISTRIBUTION WIDTH 15.7 % (11.5-14.5); WHITE BLOOD COUNT 8.1 x10^3/uL (4.0-11.0)
[2022-01-08 10:38] LABS: CALCIUM 8.4 mg/dL (8.5-10.1); CREATININE 1.3 mg/dL (0.6-1.0); GFR 49.4; POTASSIUM 3.9 mmol/L (3.5-5.1)
[2022-01-08 11:00] VITALS: BP 174/60
--- NOTE | 2022-01-08 11:19 | PDOC2 ---
CONSULT Date of Consult Date of Consult DATE: 01/08/22 TIME: 11:05 Reason for Consult Reason for Consult: Bilateral lower extremity diabetic ulcerations Referring Physician Referring Physician: Dr. Rivera Identification/Chief Complaint Chief Complaint This patient well-known to the wound care center was admitted for care of bilateral hindfoot DFU's of longstanding duration. Patient is also suffering from increasing generalized weakness and inability to self-care. She related several fall episodes and offloading options are becoming extremely limited because of this. The right hindfoot became increasingly odorous and red and finally demonstrated increased tissue loss requiring the need for hospitalization. At this time she continues on antibiotic therapy, tissue loss has been stabilized and discharge discussion has begun. Vascular status has been evaluated and well no flow-limiting stenosis was identified, increased velocity of 219 was noted in the right SFA. Patient is examined in the bed and appears comfortable and afebrile at this time. Source Source: Chart review, Patient History of Present Illness Reason for Visit: As above Past Medical History Cardiovascular: HTN, Hyperlipidemia CENTRAL NERVOUS SYSTEM: Migraine GI: Diverticulosis, GERD, Other Heme/Onc: Anemia NOS, Iron deficiency Anemia Psych: Anxiety Musculoskeletal: low back pain, Osteoarthritis Rheumatologic: Fibromyalgia, Rheumatoid arthritis, Other Renal/: Chronic renal insuff Endocrine: Diabetes Past Surgical History Past Surgical History: Cholecystectomy, Hysterectomy Family History Family History: Coronary Artery Disease, Diabetes, Hearing Loss, High Cholestrol, Hypertension Social History No ALCOHOL: none Drugs: None Current Medications Current Medications Current Medications Amlodipine Besylate (Norvasc) 5 mg DAILY PO Last administered on 01/08/22at 09:33; Start 01/07/22 at 09:00 Atenolol (Tenormin) 25 mg BID PO Last administered on 01/08/22at 09:33; Start 01/06/22 at 21:00 Hydroxychloroquine Sulfate (Plaquenil) 200 mg BID PO Last administered on 01/08/22at 09:33; Start 01/06/22 at 21:00 Mirtazapine (Remeron) 15 mg DAILY PO ; Start 01/07/22 at 09:00; Status Cancel Tizanidine HCl (Zanaflex) 4 mg QHS PO Last administered on 01/07/22at 21:53; Start 01/06/22 at 21:00 Insulin Glargine (Lantus Syringe) 80 unit QHS SQ Last administered on 01/06/22at 22:24; Start 01/06/22 at 21:00; Stop 01/07/22 at 08:10; Status DC Pantoprazole Sodium (Protonix) 40 mg DAILYAC PO Last administered on 01/08/22at 07:49; Start 01/07/22 at 07:30 Tramadol HCl (Ultram) 100 mg PRN Q6HRS PRN PO MODERATE-SEVERE PAIN Last administered on 01/08/22at 07:50; Start 01/06/22 at 14:00 Ceftriaxone Sodium (Rocephin) 2 gm Q24H IVP Last administered on 01/07/22at 15:38; Start 01/06/22 at 15:00 Acetaminophen (Tylenol) 650 mg PRN Q6HRS PRN PO MILD PAIN / TEMP > 100.3'F; Start 01/06/22 at 14:45 Insulin Human Lispro (HumaLOG) 0-5 UNITS TIDWMEALS SQ ; Start 01/06/22 at 17:00 Dextrose (Dextrose 50%-Water Syringe) 12.5 gm PRN Q15MIN PRN IV SEE COMMENTS; Start 01/06/22 at 14:45 Dextrose (Iv Dextrose 5%) 250 ml PRN Q15MIN PRN IV SEE COMMENTS; Start 01/06/22 at 14:45 Insulin Glargine (Lantus Syringe) 50 unit QHS SQ ; Start 01/07/22 at 21:00; Stop 01/08/22 at 08:04; Status DC Heparin Sodium (Porcine) (Heparin Sodium) 5,000 unit Q12HR SQ Last administered on 01/08/22at 09:35; Start 01/07/22 at 09:00 Mirtazapine (Remeron) 15 mg QHS PO Last administered on 01/07/22at 21:53; Start 01/07/22 at 21:00 Diclofenac Sodium (Voltaren) 1 shelly BID TP Last administered on 01/07/22at 22:01; Start 01/07/22 at 13:00 Nystatin (Mycostatin) 1 shelly BID TP ; Start 01/07/22 at 13:00 Insulin Glargine (Lantus Syringe) 20 unit QHS SQ ; Start 01/08/22 at 21:00 Active Scripts Active Reported Tramadol Hcl 100 Mg Tbmp.24hr 100 Mg PO Q6H PRN Tizanidine Hcl 4 Mg Tablet 1 Tab PO QHS Lantus Solostar (Insulin Glargine,Hum.rec.anlog) 100 Unit/1 Ml Insuln.pen 80 Unit SQ QHS Aciphex (Rabeprazole Sodium) 20 Mg Tablet.dr 1 Tab PO DAILY Amlodipine Besylate 5 Mg Tablet 5 Mg PO DAILY Mirtazapine 15 Mg Tablet 15 Mg PO DAILY Hydroxychloroquine Sulfate 200 Mg Tablet 1 Tab PO BID Atenolol 25 Mg Tablet 1 Tab PO BID Allergies Allergies: Coded Allergies: Penicillins (Verified Allergy, Intermediate, Rash, 07/14/17) benzocaine (Verified Allergy, Intermediate, Shortness of Air, 07/14/17) hydralazine (Verified Allergy, Intermediate, 07/14/17) BLOOD PRESSURE DROPPED TOO LOW lidocaine (Verified Allergy, Intermediate, Shortness of Air, 07/14/17) losartan (Verified Allergy, Intermediate, Rash, 07/14/17) tetracaine (Verified Allergy, Intermediate, Shortness of Air, 07/14/17) ROS Review of System Negative except as reported below General: YES: Fatigue Musculoskeletal: Yes Gait Disturbance, Yes Joint Pain (Large joint lower extremity discomfort) Skin: Yes Dry Skin, Yes Other (Bilateral hindfoot ulcerations) Physical Exam General: Alert, Oriented X3, Cooperative, No acute distress HEENT: Atraumatic, PERRLA, EOMI Lungs: Clear to auscultation, Normal air movement Heart: Regular rate Abdomen: Soft, No tenderness Extremities: Other (3+ lower extremity edema with associated distal lymphedema) Skin: Other (Left foot diabetic Mendez 1 ulceration at the hindfoot measuring 5 cm x 5 cm. Right hindfoot with extensive superficial skin loss extending out 20 cm in length with central ulceration measuring roughly 5 cm x 5 cm with 3 cm of depth. Minimal slough identified in this site. This is Mendez 1 ulceration with associated soft tissue cellulitis) Neuro: Normal speech, Other (Failed filament testing to bilateral plantar surfaces) Psych/Mental Status: Mental status NL, Mood NL MUSCULOSKELETAL: Not examined Vitals VITALS Vital Signs Date Time Temp Pulse Resp B/P (MAP) Pulse Ox O2 Delivery O2 Flow Rate FiO2 01/08/22 09:33 67 189/70 01/08/22 07:50 Room Air 01/08/22 07:00 98.3 18 94 98.3 Labs Labs Laboratory Tests Test 01/06/22 12:04 01/06/22 16:56 01/06/22 16:58 01/06/22 20:20 Glucose (Fingerstick) 108 mg/dL (70-99) 132 mg/dL (70-99) Urine Collection Type Unknown Urine Color (Auto) Light orange Urine Turbidity Hazy Urine pH (Auto) 6.5 (<5.0-8.0) Urine Specific [place] 1.015 (1.000-1.030) Urine Protein (Auto) 200 mg/dL (Negative) Urine Glucose (Auto)(UA) Negative mg/dL (Negative) Urine Ketones (Auto) Negative mg/dL (Negative) Urine Blood (Auto) Negative (Negative) Urine Nitrite Negative (Negative) Urine Bilirubin (Auto) Negative (Negative) Urine Urobilinogen (Auto) 2 mg/dL (Normal) Urine Leukocyte Esterase (Auto) Small (Negative) Urine RBC 0 /HPF (0-2) Urine WBC 20-40 /HPF (0-4) Urine Squamous Epithelial Cells Few /LPF Urine Transitional Epithelial Cells Occ /LPF Urine Renal Epithelial Cells Occ /LPF Urine Bacteria Many /HPF (0-FEW) Urine Mucus Slight /LPF White Blood Count 9.4 x10^3/uL (4.0-11.0) Red Blood Count 3.70 x10^6/uL (3.50-5.40) Hemoglobin 10.0 g/dL (12.0-15.5) Hematocrit 31.0 % (36.0-47.0) Mean Corpuscular Volume 84 fL (79-100) Mean Corpuscular Hemoglobin 27 pg (25-35) Mean Corpuscular Hemoglobin Concent 32 g/dL (31-37) Red Cell Distribution Width 15.4 % (11.5-14.5) Platelet Count 251 x10^3/uL (140-400) Neutrophils (%) (Auto) 70 % (31-73) Lymphocytes (%) (Auto) 17 % (24-48) Monocytes (%) (Auto) 8 % (0-9) Eosinophils (%) (Auto) 4 % (0-3) Basophils (%) (Auto) 1 % (0-3) Neutrophils # (Auto) 6.6 x10^3/uL (1.8-7.7) Lymphocytes # (Auto) 1.6 x10^3/uL (1.0-4.8) Monocytes # (Auto) 0.7 x10^3/uL (0.0-1.1) Eosinophils # (Auto) 0.4 x10^3/uL (0.0-0.7) Basophils # (Auto) 0.1 x10^3/uL (0.0-0.2) Erythrocyte Sedimentation Rate 65 (0-25) Sodium Level 140 mmol/L (136-145) Potassium Level 3.7 mmol/L (3.5-5.1) Chloride Level 105 mmol/L (98-107) Carbon Dioxide Level 28 mmol/L (21-32) Anion Gap 7 (6-14) Blood Urea Nitrogen 15 mg/dL (7-20) Creatinine 1.3 mg/dL (0.6-1.0) Estimated GFR (Cockcroft-Gault) 49.4 BUN/Creatinine Ratio 12 (6-20) Glucose Level 190 mg/dL (70-99) Calcium Level 7.9 mg/dL (8.5-10.1) Total Bilirubin 0.4 mg/dL (0.2-1.0) Aspartate Amino Transf (AST/SGOT) 20 U/L (15-37) Alanine Aminotransferase (ALT/SGPT) 30 U/L (14-59) Alkaline Phosphatase 141 U/L (46-116) Total Protein 6.6 g/dL (6.4-8.2) Albumin 2.4 g/dL (3.4-5.0) Albumin/Globulin Ratio 0.6 (1.0-1.7) Test 01/07/22 07:39 01/07/22 11:13 01/07/22 11:46 01/07/22 13:13 Glucose (Fingerstick) 74 mg/dL (70-99) 50 mg/dL (70-99) 67 mg/dL (70-99) 110 mg/dL (70-99) Test 01/07/22 16:56 01/07/22 20:20 01/08/22 07:24 01/08/22 09:35 Glucose (Fingerstick) 79 mg/dL (70-99) 113 mg/dL (70-99) 87 mg/dL (70-99) White Blood Count 8.1 x10^3/uL (4.0-11.0) Red Blood Count 3.71 x10^6/uL (3.50-5.40) Hemoglobin 9.9 g/dL (12.0-15.5) Hematocrit 31.2 % (36.0-47.0) Mean Corpuscular Volume 84 fL (79-100) Mean Corpuscular Hemoglobin 27 pg (25-35) Mean Corpuscular Hemoglobin Concent 32 g/dL (31-37) Red Cell Distribution Width 15.7 % (11.5-14.5) Platelet Count 275 x10^3/uL (140-400) Neutrophils (%) (Auto) 62 % (31-73) Lymphocytes (%) (Auto) 24 % (24-48) Monocytes (%) (Auto) 9 % (0-9) Eosinophils (%) (Auto) 4 % (0-3) Basophils (%) (Auto) 1 % (0-3) Neutrophils # (Auto) 5.0 x10^3/uL (1.8-7.7) Lymphocytes # (Auto) 2.0 x10^3/uL (1.0-4.8) Monocytes # (Auto) 0.7 x10^3/uL (0.0-1.1) Eosinophils # (Auto) 0.3 x10^3/uL (0.0-0.7) Basophils # (Auto) 0.1 x10^3/uL (0.0-0.2) Sodium Level 142 mmol/L (136-145) Potassium Level 3.9 mmol/L (3.5-5.1) Chloride Level 107 mmol/L (98-107) Carbon Dioxide Level 29 mmol/L (21-32) Anion Gap 6 (6-14) Blood Urea Nitrogen 16 mg/dL (7-20) Creatinine 1.3 mg/dL (0.6-1.0) Estimated GFR (Cockcroft-Gault) 49.4 Glucose Level 87 mg/dL (70-99) Calcium Level 8.4 mg/dL (8.5-10.1) Laboratory Tests Test 01/07/22 11:13 01/07/22 11:46 01/07/22 13:13 4/26/22 16:56 Glucose (Fingerstick) 50 mg/dL (70-99) 67 mg/dL (70-99) 110 mg/dL (70-99) 79 mg/dL (70-99) Test 01/07/22 20:20 01/08/22 07:24 01/08/22 09:35 Glucose (Fingerstick) 113 mg/dL (70-99) 87 mg/dL (70-99) White Blood Count 8.1 x10^3/uL (4.0-11.0) Red Blood Count 3.71 x10^6/uL (3.50-5.40) Hemoglobin 9.9 g/dL (12.0-15.5) Hematocrit 31.2 % (36.0-47.0) Mean Corpuscular Volume 84 fL (79-100) Mean Corpuscular Hemoglobin 27 pg (25-35) Mean Corpuscular Hemoglobin Concent 32 g/dL (31-37) Red Cell Distribution Width 15.7 % (11.5-14.5) Platelet Count 275 x10^3/uL (140-400) Neutrophils (%) (Auto) 62 % (31-73) Lymphocytes (%) (Auto) 24 % (24-48) Monocytes (%) (Auto) 9 % (0-9) Eosinophils (%) (Auto) 4 % (0-3) Basophils (%) (Auto) 1 % (0-3) Neutrophils # (Auto) 5.0 x10^3/uL (1.8-7.7) Lymphocytes # (Auto) 2.0 x10^3/uL (1.0-4.8) Monocytes # (Auto) 0.7 x10^3/uL (0.0-1.1) Eosinophils # (Auto) 0.3 x10^3/uL (0.0-0.7) Basophils # (Auto) 0.1 x10^3/uL (0.0-0.2) Sodium Level 142 mmol/L (136-145) Potassium Level 3.9 mmol/L (3.5-5.1) Chloride Level 107 mmol/L (98-107) Carbon Dioxide Level 29 mmol/L (21-32) Anion Gap 6 (6-14) Blood Urea Nitrogen 16 mg/dL (7-20) Creatinine 1.3 mg/dL (0.6-1.0) Estimated GFR (Cockcroft-Gault) 49.4 Glucose Level 87 mg/dL (70-99) Calcium Level 8.4 mg/dL (8.5-10.1) Images Images Plain film x-ray negative for osteomyelitis Assessment/Plan Assessment/Plan Bilateral diabetic Mendez 1 ulcerations with fat necrosis, complicated by soft tissue infection and progressive tissue loss identified to the right hindfoot. Patient now demonstrating an inability to self-care effectively or to be safe with limited lower body strength in the setting of morbid obesity and bilateral hindfoot diabetic ulcerations. Dressing recommendations as above. Discharge recommendations were discussed at length with the patient. We would recommend fdc facility discharge with opportunity for patient to not only avoid to a great extent further pressure related injury to the lower extremities but also be assisted with e ivelisse strengthening, motion and movement therapies. Would recommend [facility] Full Contact boot utilization anytime she has to transfer. She has these in her possession. Limit weightbearing to transfer only at this time. When appropriate we can follow patient again in wound care center. Debridement note: Following informed patient consent of risk and benefits of debridement and not requiring anesthetic, nonviable tissues was removed to the right hindfoot. No significant bleeding occurred and this was well-tolerated by the patient. Total area debrided was roughly 20 cm x 8 cm. This constituted a selective debridement of nonviable tissue only. This utilized forceps and scissors. RAUL BALLARD DO Jan 08, 2022 11:19
--- NOTE | 2022-01-08 11:52 | NUR ---
Pt's BLE wound dressings changed by ANIL Campa RN. RLE dressed with contact layer, optilock, ABD pad, kerlix, and tubigrip. LLE dressed with contact layer, drawtex, ABD pad, kerlix, and tubigrip. Pt tolerated dressing change well. Denies pain at this time. Recommendations from ANIL Campa RN and Dr. Napier to keep pt NWB to BLE. Addendum: 01/08/22 at 1545 by DEDRA VANG RN Per Dr. Napier's note-limit weightbearing to transfer only.
--- NOTE | 2022-01-08 13:03 | PDOC ---
Infectious Disease Note Subjective Subjective Patient is feeling better ROS ROS No nausea vomiting diarrhea Vital Sign Vital Signs Vital Signs Date Time Temp Pulse Resp B/P (MAP) Pulse Ox O2 Delivery O2 Flow Rate FiO2 01/08/22 11:00 98.1 75 18 174/60 (98) 93 98.1 01/08/22 07:50 Room Air Physical Exam PHYSICAL EXAM GENERAL: Alert, oriented female, not in distress. VITAL SIGNS: Stable, afebrile. HEENT: NAD. NECK: Supple, no JVP, no lymphadenopathy. LUNGS: Clear. HEART: S1, S2, regular. ABDOMEN: Soft, nontender, no organomegaly. EXTREMITIES: No edema or cyanosis. Bilateral lower extremity calcaneal wounds are very large area of bright red, part of the skin appears clean. SKIN: Unremarkable. NEUROLOGIC: The patient is alert, awake, and appropriate. No focal neurologic deficit. Labs Lab Laboratory Tests Test 01/07/22 13:13 01/07/22 16:56 01/07/22 20:20 01/08/22 07:24 Glucose (Fingerstick) 110 mg/dL (70-99) 79 mg/dL (70-99) 113 mg/dL (70-99) 87 mg/dL (70-99) Test 01/08/22 09:35 01/08/22 11:56 White Blood Count 8.1 x10^3/uL (4.0-11.0) Red Blood Count 3.71 x10^6/uL (3.50-5.40) Hemoglobin 9.9 g/dL (12.0-15.5) Hematocrit 31.2 % (36.0-47.0) Mean Corpuscular Volume 84 fL (79-100) Mean Corpuscular Hemoglobin 27 pg (25-35) Mean Corpuscular Hemoglobin Concent 32 g/dL (31-37) Red Cell Distribution Width 15.7 % (11.5-14.5) Platelet Count 275 x10^3/uL (140-400) Neutrophils (%) (Auto) 62 % (31-73) Lymphocytes (%) (Auto) 24 % (24-48) Monocytes (%) (Auto) 9 % (0-9) Eosinophils (%) (Auto) 4 % (0-3) Basophils (%) (Auto) 1 % (0-3) Neutrophils # (Auto) 5.0 x10^3/uL (1.8-7.7) Lymphocytes # (Auto) 2.0 x10^3/uL (1.0-4.8) Monocytes # (Auto) 0.7 x10^3/uL (0.0-1.1) Eosinophils # (Auto) 0.3 x10^3/uL (0.0-0.7) Basophils # (Auto) 0.1 x10^3/uL (0.0-0.2) Sodium Level 142 mmol/L (136-145) Potassium Level 3.9 mmol/L (3.5-5.1) Chloride Level 107 mmol/L (98-107) Carbon Dioxide Level 29 mmol/L (21-32) Anion Gap 6 (6-14) Blood Urea Nitrogen 16 mg/dL (7-20) Creatinine 1.3 mg/dL (0.6-1.0) Estimated GFR (Cockcroft-Gault) 49.4 Glucose Level 87 mg/dL (70-99) Calcium Level 8.4 mg/dL (8.5-10.1) Glucose (Fingerstick) 77 mg/dL (70-99) Micro Culture positive with Acinetobacter and staph aureus Objective Assessment IMPRESSION: 1. 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 The patient basically needs offload completely. Her special boots are evidently not effective. We will also try to obtain the culture. 2. Morbid obesity. 3. Diabetes mellitus. 4. Hypertension. 5. Rheumatoid arthritis. Plan Plan of Care Offload Tigecycline Wound care MARYANN MAYES MD Jan 08, 2022 13:03
[2022-01-08 15:00] VITALS: BP 179/78
[2022-01-08] MEDS ORDERED: TIGECYCLINE 100 MG in IV DEXTROSE 5% 100ML 100 ML IV ONE (15:00)
--- NOTE | 2022-01-08 15:20 | PDOC ---
PROGRESS NOTES Date of Service DATE: 01/08/22 TIME: 15:13 Subjective Subjective No new complaints. Objective Objective Vital Signs Date Time Temp Pulse Resp B/P (MAP) Pulse Ox O2 Delivery O2 Flow Rate FiO2 01/08/22 11:00 98.1 75 18 174/60 (98) 93 98.1 01/08/22 07:50 Room Air Intake and Output 01/08/22 07:00 Output Total 0 ml Balance 0 ml Output Urine Total 0 ml # Voids 1 Physical Exam Physical Exam She is alert,supine in bed and continues with dressing to her feet and she had DJD of both knees with significant narrowing of medial knee joint line, DJD of hips and lumbar vertebrae with associated DDD at L5-S1 level. Plan Plan of Care Agree with plans for transfer to SNF when medically stable. Comment Review of Relevant I have reviewed the following items meg (where applicable) has been applied. Labs Laboratory Tests Test 01/06/22 16:56 01/06/22 16:58 01/06/22 20:20 01/07/22 07:39 Urine Collection Type Unknown Urine Color (Auto) Light orange Urine Turbidity Hazy Urine pH (Auto) 6.5 (<5.0-8.0) Urine Specific [place] 1.015 (1.000-1.030) Urine Protein (Auto) 200 mg/dL (Negative) Urine Glucose (Auto)(UA) Negative mg/dL (Negative) Urine Ketones (Auto) Negative mg/dL (Negative) Urine Blood (Auto) Negative (Negative) Urine Nitrite Negative (Negative) Urine Bilirubin (Auto) Negative (Negative) Urine Urobilinogen (Auto) 2 mg/dL (Normal) Urine Leukocyte Esterase (Auto) Small (Negative) Urine RBC 0 /HPF (0-2) Urine WBC 20-40 /HPF (0-4) Urine Squamous Epithelial Cells Few /LPF Urine Transitional Epithelial Cells Occ /LPF Urine Renal Epithelial Cells Occ /LPF Urine Bacteria Many /HPF (0-FEW) Urine Mucus Slight /LPF Glucose (Fingerstick) 132 mg/dL (70-99) 74 mg/dL (70-99) White Blood Count 9.4 x10^3/uL (4.0-11.0) Red Blood Count 3.70 x10^6/uL (3.50-5.40) Hemoglobin 10.0 g/dL (12.0-15.5) Hematocrit 31.0 % (36.0-47.0) Mean Corpuscular Volume 84 fL (79-100) Mean Corpuscular Hemoglobin 27 pg (25-35) Mean Corpuscular Hemoglobin Concent 32 g/dL (31-37) Red Cell Distribution Width 15.4 % (11.5-14.5) Platelet Count 251 x10^3/uL (140-400) Neutrophils (%) (Auto) 70 % (31-73) Lymphocytes (%) (Auto) 17 % (24-48) Monocytes (%) (Auto) 8 % (0-9) Eosinophils (%) (Auto) 4 % (0-3) Basophils (%) (Auto) 1 % (0-3) Neutrophils # (Auto) 6.6 x10^3/uL (1.8-7.7) Lymphocytes # (Auto) 1.6 x10^3/uL (1.0-4.8) Monocytes # (Auto) 0.7 x10^3/uL (0.0-1.1) Eosinophils # (Auto) 0.4 x10^3/uL (0.0-0.7) Basophils # (Auto) 0.1 x10^3/uL (0.0-0.2) Erythrocyte Sedimentation Rate 65 (0-25) Sodium Level 140 mmol/L (136-145) Potassium Level 3.7 mmol/L (3.5-5.1) Chloride Level 105 mmol/L (98-107) Carbon Dioxide Level 28 mmol/L (21-32) Anion Gap 7 (6-14) Blood Urea Nitrogen 15 mg/dL (7-20) Creatinine 1.3 mg/dL (0.6-1.0) Estimated GFR (Cockcroft-Gault) 49.4 BUN/Creatinine Ratio 12 (6-20) Glucose Level 190 mg/dL (70-99) Calcium Level 7.9 mg/dL (8.5-10.1) Total Bilirubin 0.4 mg/dL (0.2-1.0) Aspartate Amino Transf (AST/SGOT) 20 U/L (15-37) Alanine Aminotransferase (ALT/SGPT) 30 U/L (14-59) Alkaline Phosphatase 141 U/L (46-116) Total Protein 6.6 g/dL (6.4-8.2) Albumin 2.4 g/dL (3.4-5.0) Albumin/Globulin Ratio 0.6 (1.0-1.7) Test 01/07/22 11:13 01/07/22 11:46 01/07/22 13:13 01/07/22 16:56 Glucose (Fingerstick) 50 mg/dL (70-99) 67 mg/dL (70-99) 110 mg/dL (70-99) 79 mg/dL (70-99) Test 01/07/22 20:20 01/08/22 07:24 01/08/22 09:35 01/08/22 11:56 Glucose (Fingerstick) 113 mg/dL (70-99) 87 mg/dL (70-99) 77 mg/dL (70-99) White Blood Count 8.1 x10^3/uL (4.0-11.0) Red Blood Count 3.71 x10^6/uL (3.50-5.40) Hemoglobin 9.9 g/dL (12.0-15.5) Hematocrit 31.2 % (36.0-47.0) Mean Corpuscular Volume 84 fL (79-100) Mean Corpuscular Hemoglobin 27 pg (25-35) Mean Corpuscular Hemoglobin Concent 32 g/dL (31-37) Red Cell Distribution Width 15.7 % (11.5-14.5) Platelet Count 275 x10^3/uL (140-400) Neutrophils (%) (Auto) 62 % (31-73) Lymphocytes (%) (Auto) 24 % (24-48) Monocytes (%) (Auto) 9 % (0-9) Eosinophils (%) (Auto) 4 % (0-3) Basophils (%) (Auto) 1 % (0-3) Neutrophils # (Auto) 5.0 x10^3/uL (1.8-7.7) Lymphocytes # (Auto) 2.0 x10^3/uL (1.0-4.8) Monocytes # (Auto) 0.7 x10^3/uL (0.0-1.1) Eosinophils # (Auto) 0.3 x10^3/uL (0.0-0.7) Basophils # (Auto) 0.1 x10^3/uL (0.0-0.2) Sodium Level 142 mmol/L (136-145) Potassium Level 3.9 mmol/L (3.5-5.1) Chloride Level 107 mmol/L (98-107) Carbon Dioxide Level 29 mmol/L (21-32) Anion Gap 6 (6-14) Blood Urea Nitrogen 16 mg/dL (7-20) Creatinine 1.3 mg/dL (0.6-1.0) Estimated GFR (Cockcroft-Gault) 49.4 Glucose Level 87 mg/dL (70-99) Calcium Level 8.4 mg/dL (8.5-10.1) Laboratory Tests Test 01/07/22 16:56 01/07/22 20:20 01/08/22 07:24 01/08/22 09:35 Glucose (Fingerstick) 79 mg/dL (70-99) 113 mg/dL (70-99) 87 mg/dL (70-99) White Blood Count 8.1 x10^3/uL (4.0-11.0) Red Blood Count 3.71 x10^6/uL (3.50-5.40) Hemoglobin 9.9 g/dL (12.0-15.5) Hematocrit 31.2 % (36.0-47.0) Mean Corpuscular Volume 84 fL (79-100) Mean Corpuscular Hemoglobin 27 pg (25-35) Mean Corpuscular Hemoglobin Concent 32 g/dL (31-37) Red Cell Distribution Width 15.7 % (11.5-14.5) Platelet Count 275 x10^3/uL (140-400) Neutrophils (%) (Auto) 62 % (31-73) Lymphocytes (%) (Auto) 24 % (24-48) Monocytes (%) (Auto) 9 % (0-9) Eosinophils (%) (Auto) 4 % (0-3) Basophils (%) (Auto) 1 % (0-3) Neutrophils # (Auto) 5.0 x10^3/uL (1.8-7.7) Lymphocytes # (Auto) 2.0 x10^3/uL (1.0-4.8) Monocytes # (Auto) 0.7 x10^3/uL (0.0-1.1) Eosinophils # (Auto) 0.3 x10^3/uL (0.0-0.7) Basophils # (Auto) 0.1 x10^3/uL (0.0-0.2) Sodium Level 142 mmol/L (136-145) Potassium Level 3.9 mmol/L (3.5-5.1) Chloride Level 107 mmol/L (98-107) Carbon Dioxide Level 29 mmol/L (21-32) Anion Gap 6 (6-14) Blood Urea Nitrogen 16 mg/dL (7-20) Creatinine 1.3 mg/dL (0.6-1.0) Estimated GFR (Cockcroft-Gault) 49.4 Glucose Level 87 mg/dL (70-99) Calcium Level 8.4 mg/dL (8.5-10.1) Test 01/08/22 11:56 Glucose (Fingerstick) 77 mg/dL (70-99) Microbiology 01/06/22 Blood Culture - Preliminary, Resulted NO GROWTH AFTER 1 DAY Medications Current Medications Amlodipine Besylate (Norvasc) 5 mg DAILY PO Last administered on 01/08/22at 09:33; Start 01/07/22 at 09:00 Atenolol (Tenormin) 25 mg BID PO Last administered on 01/08/22at 09:33; Start 01/06/22 at 21:00 Hydroxychloroquine Sulfate (Plaquenil) 200 mg BID PO Last administered on 01/08/22at 09:33; Start 01/06/22 at 21:00 Mirtazapine (Remeron) 15 mg DAILY PO ; Start 01/07/22 at 09:00; Status Cancel Tizanidine HCl (Zanaflex) 4 mg QHS PO Last administered on 01/07/22at 21:53; Start 01/06/22 at 21:00 Insulin Glargine (Lantus Syringe) 80 unit QHS SQ Last administered on 01/06/22at 22:24; Start 01/06/22 at 21:00; Stop 01/07/22 at 08:10; Status DC Pantoprazole Sodium (Protonix) 40 mg DAILYAC PO Last administered on 01/08/22at 07:49; Start 01/07/22 at 07:30 Tramadol HCl (Ultram) 100 mg PRN Q6HRS PRN PO MODERATE-SEVERE PAIN Last administered on 01/08/22at 07:50; Start 01/06/22 at 14:00 Ceftriaxone Sodium (Rocephin) 2 gm Q24H IVP Last administered on 01/07/22at 15:38; Start 01/06/22 at 15:00; Stop 01/08/22 at 12:49; Status DC Acetaminophen (Tylenol) 650 mg PRN Q6HRS PRN PO MILD PAIN / TEMP > 100.3'F; Start 01/06/22 at 14:45 Insulin Human Lispro (HumaLOG) 0-5 UNITS TIDWMEALS SQ ; Start 01/06/22 at 17:00 Dextrose (Dextrose 50%-Water Syringe) 12.5 gm PRN Q15MIN PRN IV SEE COMMENTS; Start 01/06/22 at 14:45 Dextrose (Iv Dextrose 5%) 250 ml PRN Q15MIN PRN IV SEE COMMENTS; Start 01/06/22 at 14:45 Insulin Glargine (Lantus Syringe) 50 unit QHS SQ ; Start 01/07/22 at 21:00; Stop 01/08/22 at 08:04; Status DC Heparin Sodium (Porcine) (Heparin Sodium) 5,000 unit Q12HR SQ Last administered on 01/08/22at 09:35; Start 01/07/22 at 09:00 Mirtazapine (Remeron) 15 mg QHS PO Last administered on 01/07/22at 21:53; Start 01/07/22 at 21:00 Diclofenac Sodium (Voltaren) 1 shelly BID TP Last administered on 01/07/22at 22:01; Start 01/07/22 at 13:00 Nystatin (Mycostatin) 1 shelly BID TP ; Start 01/07/22 at 13:00 Insulin Glargine (Lantus Syringe) 20 unit QHS SQ ; Start 01/08/22 at 21:00 Tigecycline 50 mg/ Dextrose 50 ml @ 100 mls/hr Q12HR IV ; Start 01/08/22 at 21:00 Tigecycline 100 mg/Dextrose 100 ml @ 200 mls/hr 1X ONCE IV Last administered on 01/08/22at 14:32; Start 01/08/22 at 15:00; Stop 01/08/22 at 15:29 Active Scripts Active Reported Tramadol Hcl 100 Mg Tbmp.24hr 100 Mg PO Q6H PRN Tizanidine Hcl 4 Mg Tablet 1 Tab PO QHS Lantus Solostar (Insulin Glargine,Hum.rec.anlog) 100 Unit/1 Ml Insuln.pen 80 Unit SQ QHS Aciphex (Rabeprazole Sodium) 20 Mg Tablet. 1 Tab PO DAILY Amlodipine Besylate 5 Mg Tablet 5 Mg PO DAILY Mirtazapine 15 Mg Tablet 15 Mg PO DAILY Hydroxychloroquine Sulfate 200 Mg Tablet 1 Tab PO BID Atenolol 25 Mg Tablet 1 Tab PO BID Vitals/I & O Vital Sign - Last 24 Hours 01/07/22 01/07/22 01/07/22 01/07/22 15:37 16:07 19:00 20:00 Temp 98.4 98.4 Pulse 70 Resp 19 18 B/P (MAP) 167/59 (95) Pulse Ox 94 95 95 O2 Delivery Room Air Room Air Room Air Room Air 01/07/22 01/07/22 01/07/22 01/07/22 21:53 22:14 22:44 23:03 Temp 98.7 98.7 Pulse 70 71 Resp 20 B/P (MAP) 167/59 166/61 (96) Pulse Ox 95 95 95 O2 Delivery Room Air Room Air Room Air 01/08/22 01/08/22 01/08/22 01/08/22 03:11 07:00 07:50 09:33 Temp 97.7 98.3 97.7 98.3 Pulse 63 67 67 Resp 18 18 B/P (MAP) 170/78 (108) 189/70 (109) 189/70 Pulse Ox 95 94 O2 Delivery Room Air Room Air 01/08/22 01/08/22 09:33 11:00 Temp 98.1 98.1 Pulse 67 75 Resp 18 B/P (MAP) 189/70 174/60 (98) Pulse Ox 93 Intake and Output 01/07/22 01/07/22 01/08/22 15:00 23:00 07:00 Output Total 0 ml Balance 0 ml Justifications for Admission Other Justification RADHA HERNANDEZ MD Jan 08, 2022 15:20
--- NOTE | 2022-01-08 16:57 | NUR ---
SS following up with discharge planning. SS reviewed pt chart and discussed with pt RN. Pt is currently on room air. Pt on IV Tigecycline. PT/OT recommended alf unit. SS met with pt and discussed discharge planning and alf unit. Pt requesting to go to [facility], ; fax [phone]. Referral sent as requested. COVID19 PCR requested for placement. SS will continue to follow for discharge planning.
--- NOTE | 2022-01-08 18:51 | NUR ---
Pt reports to this RN that she is experiencing nausea and states "I feel like I'm burning from the inside all over." Dr. Rivera notified by this RN. Orders received for Pepcid 40 mg PO x1 and Benadryl 25 mg PO x1. Addendum: 01/08/22 at 1935 by DEDRA VANG RN This RN administered PO meds as ordered by Dr. Rivera. Shortly after, pt vomited and one pill was visualized. This RN paged Dr. Rivera for orders and passed along information to lindsay Glaser RN.
[2022-01-08 19:00] VITALS: BP 215/87
[2022-01-08] MEDS ORDERED: FAMOTIDINE 20 MG TABLET. PO ONE (19:00)
[2022-01-08] MEDS ORDERED: diphenhydrAMINE HCL 25 MG CAPSULE PO ONE (19:00)
[2022-01-08] MEDS: MIRTAZAPINE 15 MG TABLET PO SCH (21:00)
[2022-01-08] MEDS: TIGECYCLINE 50 MG in IV DEXTROSE 5% 50 ML IV SCH (21:00)
[2022-01-08] MEDS: tiZANidine 4 MG TABLET. PO SCH (21:00)
[2022-01-08] MEDS ORDERED: INSULIN GLARGINE SYRINGE. SQ SCH (21:00)
[2022-01-08 23:23] VITALS: BP 176/101
[2022-01-09] VITALS (7 sets, daily range): BP systolic 138–207; BP diastolic 59–93
[2022-01-09] MEDS: INSULIN LISPRO 300 UNITS/3 ML VIAL. SQ SCH ×3 (08:00→17:00)
[2022-01-09] MEDS: HYDROXYCHLOROQUINE 200 MG TABLET PO SCH ×2 (08:20→20:49)
[2022-01-09] MEDS: FUROSEMIDE 40 MG TABLET. PO SCH (08:20)
[2022-01-09] MEDS: PANTOPRAZOLE 40 MG TABLET.DR. PO SCH (08:20)
[2022-01-09] MEDS: ATENOLOL 25 MG TABLET. PO SCH (08:21)
[2022-01-09] MEDS: NYSTATIN 100,000 UNIT/GM TOPICAL CREAM 15GM TUBE. TP SCH ×2 (08:21→20:53)
[2022-01-09] MEDS: DICLOFENAC SODIUM 1% TOPICAL GEL 100GM TUBE. TP SCH ×2 (08:21→20:52)
[2022-01-09] MEDS: HEPARIN for SUB-Q USE 5,000 UNIT/ML VIAL. SQ SCH ×2 (08:24→21:00)
[2022-01-09] MEDS: TIGECYCLINE 50 MG in IV DEXTROSE 5% 50 ML IV SCH ×2 (08:42→21:51)
--- NOTE | 2022-01-09 09:36 | PDOC ---
IM PROGRESS NOTES- Subjective Subjective Has knee pain- bilateral. Objective Vitals/I&O Vital Signs Date Time Temp Pulse Resp B/P (MAP) Pulse Ox O2 Delivery O2 Flow Rate FiO2 01/09/22 08:21 85 202/86 01/09/22 07:00 98.2 18 95 Room Air 98.2 I & O 01/08/22 01/08/22 01/09/22 15:00 23:00 07:00 Intake Total 220 ml 120 ml Output Total 60 ml Balance 160 ml 120 ml Physical Exam Physical Exam General Appearance - alert and in no distress Chest - decreased breath sounds at bases Heart - S1 and S2 normal Abdomen - soft, non tender Neurological - alert and oriented Musculoskeletal - generalized weakness Extremities - no edema Labs Laboratory Tests Test 01/08/22 09:35 01/08/22 11:56 01/08/22 17:09 01/08/22 19:45 White Blood Count 8.1 x10^3/uL (4.0-11.0) Red Blood Count 3.71 x10^6/uL (3.50-5.40) Hemoglobin 9.9 g/dL (12.0-15.5) L Hematocrit 31.2 % (36.0-47.0) L Mean Corpuscular Volume 84 fL (79-100) Mean Corpuscular Hemoglobin 27 pg (25-35) Mean Corpuscular Hemoglobin Concent 32 g/dL (31-37) Red Cell Distribution Width 15.7 % (11.5-14.5) H Platelet Count 275 x10^3/uL (140-400) Neutrophils (%) (Auto) 62 % (31-73) Lymphocytes (%) (Auto) 24 % (24-48) Monocytes (%) (Auto) 9 % (0-9) Eosinophils (%) (Auto) 4 % (0-3) H Basophils (%) (Auto) 1 % (0-3) Neutrophils # (Auto) 5.0 x10^3/uL (1.8-7.7) Lymphocytes # (Auto) 2.0 x10^3/uL (1.0-4.8) Monocytes # (Auto) 0.7 x10^3/uL (0.0-1.1) Eosinophils # (Auto) 0.3 x10^3/uL (0.0-0.7) Basophils # (Auto) 0.1 x10^3/uL (0.0-0.2) Sodium Level 142 mmol/L (136-145) Potassium Level 3.9 mmol/L (3.5-5.1) Chloride Level 107 mmol/L (98-107) Carbon Dioxide Level 29 mmol/L (21-32) Anion Gap 6 (6-14) Blood Urea Nitrogen 16 mg/dL (7-20) Creatinine 1.3 mg/dL (0.6-1.0) H Estimated GFR (Cockcroft-Gault) 49.4 Glucose Level 87 mg/dL (70-99) Calcium Level 8.4 mg/dL (8.5-10.1) L Glucose (Fingerstick) 77 mg/dL (70-99) 84 mg/dL (70-99) 88 mg/dL (70-99) Test 01/08/22 19:51 01/08/22 22:41 01/09/22 07:28 Glucose (Fingerstick) 93 mg/dL (70-99) 130 mg/dL (70-99) H 94 mg/dL (70-99) Laboratory Tests 01/08/22 09:35 Laboratory Tests 01/08/22 09:35 Meds Current Medications Medications (Trade) Dose Ordered Sig/[place] Route PRN Reason Start Time Stop Time Status Last Admin Dose Admin Insulin Glargine (Lantus Syringe) 20 unit QHS SQ 01/08/22 21:00 01/08/22 21:00 Tigecycline 100 mg/Dextrose 100 ml @ 200 mls/hr 1X ONCE IV 01/08/22 15:00 01/08/22 15:29 DC 01/08/22 14:32 Furosemide (Lasix) 40 mg DAILY PO 01/09/22 09:00 01/09/22 08:20 Famotidine (Pepcid) 40 mg 1X ONCE PO 01/08/22 19:00 01/08/22 19:07 DC 01/08/22 19:09 Diphenhydramine HCl (Benadryl) 25 mg 1X ONCE PO 01/08/22 19:00 01/08/22 19:07 DC 01/08/22 19:09 Assessment Assessment 1. Bilateral foot wounds. 2. Diabetic neuropathy. 3. Peripheral arterial disease. 4. Lymphedema. 5. Hypertension. 6. Rheumatoid arthritis. 7. Osteoarthritis. 8. Fatty liver. 9. Diverticulosis. 10. Severe protein calorie malnutrition. 11. Hyperlipidemia. 12. History of migraine. 13. Chronic kidney disease 2. 14. Anemia, iron deficiency. PLAN: Consult Dr. Napier for wound care management and Dr. Mooney for wound management. Decrease Lantus to [address] Solano for PAD. Consult wound care team. Also, consult Dr. Roman for bilateral knee pain and Dr. Ornelas for possible right foot drop. Diabetes mellitus. Discontinue Lantus because blood sugar remains low. Patient did not take Lantus for last 3 weeks at home. Bilateral heel wounds- non healing for 1 year. This is complicated by lymphedema and inability to do her wound care. No significant PAD per vascular surgery. Vascular boots have not helped her. Complete offloading,IV Rocephin. IV Rocephin was discontinued and patient was started on tigecycline yesterday by Dr. Mooney. 2 hours later patient reported feeling of burning everywhere. She was given Pepcid and Benadryl. She had no rash. She just felt funny. She does not want to take it again. She does not want to go fdc when ready. She wants to go home when discharged. Her brother will help her and she now has a bedside commode. Hypertensive crisis. Started on furosemide yesterday. Discussed with pharmacist yesterday.. Increase Atenolol to 50 mg daily. Start Clonidine 0.1 mg tid. Consider stopping amlodipine if possible because of swelling of the lower extremities. Transfer [facility] when stable. Plan Plan For more details regarding further plans, please refer to the orders. Justifications for Admission Other Justification PRO SCHROEDER MD Jan 09, 2022 09:36
--- NOTE | 2022-01-09 09:42 | PDOC ---
PROGRESS NOTES Date of Service DATE: 01/09/22 TIME: 09:41 Subjective Subjective No new complaints. Objective Objective Vital Signs Date Time Temp Pulse Resp B/P (MAP) Pulse Ox O2 Delivery O2 Flow Rate FiO2 01/09/22 08:21 85 202/86 01/09/22 07:00 98.2 18 95 Room Air 98.2 Intake and Output 01/09/22 07:00 Intake Total 340 ml Output Total 60 ml Balance 280 ml Intake Oral 240 ml IV Total 100 ml Emesis 60 ml # Voids 3 Physical Exam Physical Exam She is alert,supine in bed and had PRAFO boots sitting in bedside chair and she had dressing to her feet and she continues with significant stiffness of her knee joints. Plan Plan of Care To continue present wound care. Comment Review of Relevant I have reviewed the following items meg (where applicable) has been applied. Labs Laboratory Tests Test 01/07/22 11:13 01/07/22 11:46 01/07/22 13:13 01/07/22 16:56 Glucose (Fingerstick) 50 mg/dL (70-99) 67 mg/dL (70-99) 110 mg/dL (70-99) 79 mg/dL (70-99) Test 01/07/22 20:20 01/08/22 07:24 01/08/22 09:35 01/08/22 11:56 Glucose (Fingerstick) 113 mg/dL (70-99) 87 mg/dL (70-99) 77 mg/dL (70-99) White Blood Count 8.1 x10^3/uL (4.0-11.0) Red Blood Count 3.71 x10^6/uL (3.50-5.40) Hemoglobin 9.9 g/dL (12.0-15.5) Hematocrit 31.2 % (36.0-47.0) Mean Corpuscular Volume 84 fL (79-100) Mean Corpuscular Hemoglobin 27 pg (25-35) Mean Corpuscular Hemoglobin Concent 32 g/dL (31-37) Red Cell Distribution Width 15.7 % (11.5-14.5) Platelet Count 275 x10^3/uL (140-400) Neutrophils (%) (Auto) 62 % (31-73) Lymphocytes (%) (Auto) 24 % (24-48) Monocytes (%) (Auto) 9 % (0-9) Eosinophils (%) (Auto) 4 % (0-3) Basophils (%) (Auto) 1 % (0-3) Neutrophils # (Auto) 5.0 x10^3/uL (1.8-7.7) Lymphocytes # (Auto) 2.0 x10^3/uL (1.0-4.8) Monocytes # (Auto) 0.7 x10^3/uL (0.0-1.1) Eosinophils # (Auto) 0.3 x10^3/uL (0.0-0.7) Basophils # (Auto) 0.1 x10^3/uL (0.0-0.2) Sodium Level 142 mmol/L (136-145) Potassium Level 3.9 mmol/L (3.5-5.1) Chloride Level 107 mmol/L (98-107) Carbon Dioxide Level 29 mmol/L (21-32) Anion Gap 6 (6-14) Blood Urea Nitrogen 16 mg/dL (7-20) Creatinine 1.3 mg/dL (0.6-1.0) Estimated GFR (Cockcroft-Gault) 49.4 Glucose Level 87 mg/dL (70-99) Calcium Level 8.4 mg/dL (8.5-10.1) Test 01/08/22 17:09 01/08/22 19:45 01/08/22 19:51 01/08/22 22:41 Glucose (Fingerstick) 84 mg/dL (70-99) 88 mg/dL (70-99) 93 mg/dL (70-99) 130 mg/dL (70-99) Test 01/09/22 07:28 Glucose (Fingerstick) 94 mg/dL (70-99) Laboratory Tests Test 01/08/22 11:56 01/08/22 17:09 01/08/22 19:45 01/08/22 19:51 Glucose (Fingerstick) 77 mg/dL (70-99) 84 mg/dL (70-99) 88 mg/dL (70-99) 93 mg/dL (70-99) Test 01/08/22 22:41 01/09/22 07:28 Glucose (Fingerstick) 130 mg/dL (70-99) 94 mg/dL (70-99) Microbiology 01/06/22 Blood Culture - Preliminary, Resulted NO GROWTH AFTER 2 DAYS 01/06/22 Urine Culture - Final, Complete Enterococcus Avium Medications Current Medications Amlodipine Besylate (Norvasc) 5 mg DAILY PO Last administered on 01/09/22at 08:20; Start 01/07/22 at 09:00 Atenolol (Tenormin) 25 mg BID PO Last administered on 01/09/22at 08:21; Start 01/06/22 at 21:00 Hydroxychloroquine Sulfate (Plaquenil) 200 mg BID PO Last administered on 01/09/22at 08:20; Start 01/06/22 at 21:00 Mirtazapine (Remeron) 15 mg DAILY PO ; Start 01/07/22 at 09:00; Status Cancel Tizanidine HCl (Zanaflex) 4 mg QHS PO Last administered on 01/07/22at 21:53; Start 01/06/22 at 21:00 Insulin Glargine (Lantus Syringe) 80 unit QHS SQ Last administered on 01/06/22at 22:24; Start 01/06/22 at 21:00; Stop 01/07/22 at 08:10; Status DC Pantoprazole Sodium (Protonix) 40 mg DAILYAC PO Last administered on 01/09/22at 08:20; Start 01/07/22 at 07:30 Tramadol HCl (Ultram) 100 mg PRN Q6HRS PRN PO MODERATE-SEVERE PAIN Last administered on 01/08/22at 07:50; Start 01/06/22 at 14:00 Ceftriaxone Sodium (Rocephin) 2 gm Q24H IVP Last administered on 01/07/22at 15:38; Start 01/06/22 at 15:00; Stop 01/08/22 at 12:49; Status DC Acetaminophen (Tylenol) 650 mg PRN Q6HRS PRN PO MILD PAIN / TEMP > 100.3'F; Start 01/06/22 at 14:45 Insulin Human Lispro (HumaLOG) 0-5 UNITS TIDWMEALS SQ ; Start 01/06/22 at 17:00 Dextrose (Dextrose 50%-Water Syringe) 12.5 gm PRN Q15MIN PRN IV SEE COMMENTS; Start 01/06/22 at 14:45 Dextrose (Iv Dextrose 5%) 250 ml PRN Q15MIN PRN IV SEE COMMENTS; Start 01/06/22 at 14:45 Insulin Glargine (Lantus Syringe) 50 unit QHS SQ ; Start 01/07/22 at 21:00; Stop 01/08/22 at 08:04; Status DC Heparin Sodium (Porcine) (Heparin Sodium) 5,000 unit Q12HR SQ Last administered on 01/09/22at 08:24; Start 01/07/22 at 09:00 Mirtazapine (Remeron) 15 mg QHS PO Last administered on 01/07/22at 21:53; Start 01/07/22 at 21:00 Diclofenac Sodium (Voltaren) 1 shelly BID TP Last administered on 01/09/22at 08:21; Start 01/07/22 at 13:00 Nystatin (Mycostatin) 1 shelly BID TP Last administered on 01/09/22at 08:21; Start 01/07/22 at 13:00 Insulin Glargine (Lantus Syringe) 20 unit QHS SQ Last administered on 01/08/22at 21:00; Start 01/08/22 at 21:00; Stop 01/09/22 at 09:34; Status DC Tigecycline 50 mg/ Dextrose 50 ml @ 100 mls/hr Q12HR IV ; Start 01/08/22 at 21:00 Tigecycline 100 mg/Dextrose 100 ml @ 200 mls/hr 1X ONCE IV Last administered on 01/08/22at 14:32; Start 01/08/22 at 15:00; Stop 01/08/22 at 15:29; Status DC Furosemide (Lasix) 40 mg DAILY PO Last administered on 01/09/22at 08:20; Start 01/09/22 at 09:00 Famotidine (Pepcid) 40 mg 1X ONCE PO Last administered on 01/08/22at 19:09; Start 01/08/22 at 19:00; Stop 01/08/22 at 19:07; Status DC Diphenhydramine HCl (Benadryl) 25 mg 1X ONCE PO Last administered on 01/08/22at 19:09; Start 01/08/22 at 19:00; Stop 01/08/22 at 19:07; Status DC Active Scripts Active Reported Tramadol Hcl 100 Mg Tbmp.24hr 100 Mg PO Q6H PRN Tizanidine Hcl 4 Mg Tablet 1 Tab PO QHS Lantus Solostar (Insulin Glargine,Hum.rec.anlog) 100 Unit/1 Ml Insuln.pen 80 Unit SQ QHS Aciphex (Rabeprazole Sodium) 20 Mg Tablet.dr 1 Tab PO DAILY Amlodipine Besylate 5 Mg Tablet 5 Mg PO DAILY Mirtazapine 15 Mg Tablet 15 Mg PO DAILY Hydroxychloroquine Sulfate 200 Mg Tablet 1 Tab PO BID Atenolol 25 Mg Tablet 1 Tab PO BID Vitals/I & O Vital Sign - Last 24 Hours 01/08/22 01/08/22 01/08/22 01/08/22 11:00 15:00 19:00 23:23 Temp 98.1 98.2 97.6 97.5 98.1 98.2 97.6 97.5 Pulse 75 79 75 70 Resp 18 18 18 18 B/P (MAP) 174/60 (98) 179/78 (111) 215/87 (129) 176/101 (126) Pulse Ox 93 94 93 98 O2 Delivery Room Air Room Air 01/09/22 01/09/22 01/09/22 01/09/22 03:46 07:00 08:20 08:21 Temp 97.9 98.2 97.9 98.2 Pulse 83 85 85 85 Resp 18 18 B/P (MAP) 197/93 (127) 202/86 (124) 202/86 202/86 Pulse Ox 93 95 O2 Delivery Room Air Room Air Intake and Output 01/08/22 01/08/22 01/09/22 15:00 23:00 07:00 Intake Total 220 ml 120 ml Output Total 60 ml Balance 160 ml 120 ml Justifications for Admission Other Justification RADHA HERNANDEZ MD Jan 09, 2022 09:42
[2022-01-09] MEDS ORDERED: METOPROLOL SUCC 24HR ER 25 MG TAB.ER.24H. PO SCH (09:45)
[2022-01-09] MEDS ORDERED: ATENOLOL 50 MG TABLET. PO ONE (10:00)
[2022-01-09] MEDS: cloNIDine HCL 0.1 MG TABLET PO SCH ×3 (10:44→20:50)
--- NOTE | 2022-01-09 12:53 | NUR ---
SS following up with discharge planning. SS reviewed pt chart and discussed with pt RN. Pt is currently on room air. COVID19 test pending for placement. Pt on IV Tigecycline. PT/OT recommended senior living unit. Referrals sent to [facility], ; fax [phone], and [facility], ; fax [phone]. [facility] out of network with pt's [employer] insurance. Currently awaiting acceptance decision at [facility]. SS will continue to follow for discharge planning. Addendum: 01/09/22 at 1626 by YASMIN CARRILLO SS SS notified that pt will need IV Tigecycline Q12 hours at facility. PICC line ordered. [facility] notified and clinically declined pt. Referrals sent to [facility], ; fax [phone], and [facility], . fax [phone]. SS will continue to follow for discharge planning.
--- NOTE | 2022-01-09 13:51 | PDOC ---
Infectious Disease Note Subjective Subjective Patient is feeling better ROS ROS no n/v/d/sob Vital Sign Vital Signs Vital Signs Date Time Temp Pulse Resp B/P (MAP) Pulse Ox O2 Delivery O2 Flow Rate FiO2 01/09/22 13:24 69 138/84 01/09/22 10:52 98.3 18 96 Room Air 98.3 Physical Exam PHYSICAL EXAM GENERAL: Alert, oriented female, not in distress. VITAL SIGNS: Stable, afebrile. HEENT: NAD. NECK: Supple, no JVP, no lymphadenopathy. LUNGS: Clear. HEART: S1, S2, regular. ABDOMEN: Soft, nontender, no organomegaly. EXTREMITIES: No edema or cyanosis. Bilateral lower extremity calcaneal wounds are very large area of bright red, part of the skin appears clean. SKIN: Unremarkable. NEUROLOGIC: The patient is alert, awake, and appropriate. No focal neurologic deficit. Labs Lab Laboratory Tests Test 01/08/22 17:09 01/08/22 19:45 01/08/22 19:51 01/08/22 22:41 Glucose (Fingerstick) 84 mg/dL (70-99) 88 mg/dL (70-99) 93 mg/dL (70-99) 130 mg/dL (70-99) Test 01/09/22 07:28 01/09/22 11:32 Glucose (Fingerstick) 94 mg/dL (70-99) 76 mg/dL (70-99) Micro Culture positive with Acinetobacter and staph aureus/mrsa Objective Assessment IMPRESSION: 1. 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 The patient basically needs offload completely. Her special boots are evidently not effective. We will also try to obtain the culture. 2. Morbid obesity. 3. Diabetes mellitus. 4. Hypertension. 5. Rheumatoid arthritis. Plan Plan of Care Offload Tigecycline Wound care MARYANN MAYES MD Jan 09, 2022 13:51
[2022-01-09] MEDS ORDERED: CHLOROPROCAINE 3% MPF 20 ML VIAL. INFIL ONE (14:15)
[2022-01-09] MEDS: MIRTAZAPINE 15 MG TABLET PO SCH (20:49)
[2022-01-09] MEDS: diphenhydrAMINE HCL 25 MG CAPSULE PO SCH (20:49)
[2022-01-09] MEDS: ATENOLOL 50 MG TABLET. PO SCH (20:50)
[2022-01-09] MEDS: tiZANidine 4 MG TABLET. PO SCH (20:50)
[2022-01-09] MEDS: traMADol 50 MG TABLET PO PRN (20:53)
[2022-01-09] MEDS: PROCHLORPERAZINE 10 MG/2 ML VIAL. IV PRN (20:54)
[2022-01-10 03:00] VITALS: BP 165/62
[2022-01-10 07:00] VITALS: BP 180/63
[2022-01-10] MEDS: INSULIN LISPRO 300 UNITS/3 ML VIAL. SQ SCH ×3 (07:32→16:49)
[2022-01-10] MEDS: PANTOPRAZOLE 40 MG TABLET.DR. PO SCH (08:04)
[2022-01-10 08:12] LABS: BASO # 0.1 x10^3/uL (0.0-0.2); BASO % 1 % (0-3); EOS # 0.3 x10^3/uL (0.0-0.7); EOS % 3 % (0-3); HEMATOCRIT 32.1 % (36.0-47.0); HEMOGLOBIN 10.5 g/dL (12.0-15.5); LYMPH # 2.1 x10^3/uL (1.0-4.8); LYMPH % 23 % (24-48); MEAN CORPUSCULAR HEMOGLOBIN 28 pg (25-35); MEAN CORPUSCULAR HGB CONC 33 g/dL (31-37); MEAN CORPUSCULAR VOLUME 84 fL (79-100); MONO % 11 % (0-9); NEUT # 5.7 x10^3/uL (1.8-7.7); NEUT % 62 % (31-73); PLATELET COUNT 272 x10^3/uL (140-400); RED BLOOD COUNT 3.81 x10^6/uL (3.50-5.40); RED CELL DISTRIBUTION WIDTH 15.7 % (11.5-14.5); WHITE BLOOD COUNT 9.1 x10^3/uL (4.0-11.0)
[2022-01-10 08:40] LABS: CALCIUM 8.5 mg/dL (8.5-10.1); CREATININE 1.3 mg/dL (0.6-1.0); GFR 49.4; POTASSIUM 3.7 mmol/L (3.5-5.1)
[2022-01-10] MEDS: NYSTATIN 100,000 UNIT/GM TOPICAL CREAM 15GM TUBE. TP SCH ×2 (09:00→21:00)
[2022-01-10] MEDS: DICLOFENAC SODIUM 1% TOPICAL GEL 100GM TUBE. TP SCH ×2 (09:00→21:00)
[2022-01-10] MEDS ORDERED: LIDOCAINE WITH 8.4% SOD BICARB 3 ML DISP.SYRIN. ONE (09:30)
[2022-01-10] MEDS ORDERED: CLON0.1T PO (09:56)
[2022-01-10] MEDS ORDERED: HEPA50003 SQ (09:56)
[2022-01-10] MEDS ORDERED: NYST15CR TP (09:56)
[2022-01-10] MEDS ORDERED: Diclofenac Sodium TP (09:56)
[2022-01-10] MEDS ORDERED: ACET325T21 PO (09:56)
[2022-01-10] MEDS ORDERED: TIGE50VI IV (09:56)
[2022-01-10] MEDS ORDERED: FURO40TA4 PO (09:56)
[2022-01-10] MEDS ORDERED: ATEN50TA PO (09:56)
[2022-01-10] MEDS ORDERED: LIDOCAINE WITH 8.4% SOD BICARB 3 ML DISP.SYRIN. INJ ONE (10:00)
--- NOTE | 2022-01-10 10:01 | SNU/HH DC ---
DISCHARGE ORDERS DISCHARGE INFORMATION: CONDITION ON DISCHARGE: Stable LONGTERM: SNF STAY <30 DAYS: Yes POST DISCHARGE ORDERS: ACTIVITY ORDERS: Activity as tolerated WEIGHT BEARING STATUS: No restrictions, Partial weight bearing DIET AFTER DISCHARGE: Cardiac (ADA) WOUND/INCISION CARE: Keep wound/cast CDI, Change dressing CHECKS AFTER DISCHARGE: CHECKS AFTER DISCHARGE: Check blood sugar, ac/hs FOLLOW-UP: PHYSICIAN FOLLOW-UP: Dr. Pro Schroeder 1 week after discharge from SNF ADDITIONAL FOLLOW-UP: Wound care center, Dr.Samir Mooney LAB ORDERS FOR FOLLOW-UP: Finger sticks AC,HS. CBC,CMP twice a week TREATMENT/EQUIPMENT ORDERS: ADAPTIVE EQUIPMENT NEEDED: None DISCHARGE MEDICATIONS: Home Meds Active Scripts Atenolol (ATENOLOL) 50 Mg Tablet, 50 MG PO BID for HTN for 30 Days, #60 TAB Hold if BP less thaan 100, heart rate less than 55. Prov:PRO SCHROEDER MD 01/10/22 [Diclofenac Sodium 1% Topical] 100 GM GEL..GRAM. No Conflict Check, 1 MAURICIO TP BID for arthritis for 14 Days, #28 EACH Prov:PRO SCHROEDER MD 01/10/22 Nystatin (NYSTATIN) 15 Gm Cream..g., 1 MAURICIO TP BID for skin candidiasis for 14 Days, #28 EACH Prov:PRO SCHROEDER MD 01/10/22 Furosemide (FUROSEMIDE) 40 Mg Tablet, 40 MG PO DAILY for CHF for 30 Days, #30 TAB Prov:PRO SCHROEDER MD 01/10/22 Acetaminophen (ACETAMINOPHEN) 325 Mg Tablet, 650 MG PO PRN Q6HRS PRN for MILD PAIN / TEMP > 100.3'F for 7 Days, TAB Prov:PRO SCHROEDER MD 01/10/22 Clonidine Hcl (CLONIDINE HCL) 0.1 Mg Tablet, 0.1 MG PO TID for HTN for 30 Days, #90 TAB Hold if systolic BP less than 100, heart rate less than 55. Prov:PRO SCHROEDER MD 01/10/22 Heparin Sodium,Porcine (HEPARIN SODIUM) 5,000 Unit/1 Ml Vial, 5000 UNIT SQ Q12HR for DVT prophylaxis for 14 Days, EACH Prov:PRO SCHROEDER MD 01/10/22 Tigecycline (TYGACIL) 50 Mg Vial, 50 MG IV Q12HR for wound infection for 10 Days, #20 EACH Prov:PRO SCHROEDER MD 01/10/22 Reported Medications Tramadol Hcl (TRAMADOL HCL) 100 Mg Tbmp.24hr, 100 MG PO Q6H PRN for PAIN, TAB 0 Refills 07/06/20 Tizanidine Hcl (TIZANIDINE HCL) 4 Mg Tablet, 1 TAB PO QHS for muscle spasms, #30 TAB 07/06/20 Rabeprazole Sodium (ACIPHEX) 20 Mg Tablet.dr, 1 TAB PO DAILY, #90 TAB 1 Refill 05/13/16 Amlodipine Besylate (AMLODIPINE BESYLATE) 5 Mg Tablet, 5 MG PO DAILY, TAB 05/13/16 Mirtazapine (MIRTAZAPINE) 15 Mg Tablet, 15 MG PO DAILY, TAB 05/13/16 Hydroxychloroquine Sulfate (HYDROXYCHLOROQUINE SULFATE) 200 Mg Tablet, 1 TAB PO BID, #180 TAB 1 Refill 05/13/16 Discontinued Reported Medications Insulin Glargine,Hum.rec.anlog (LANTUS SOLOSTAR) 100 Unit/1 Ml Insuln.pen, 80 UNIT SQ QHS, #15 ML 3 Refills 07/14/17 Atenolol (ATENOLOL) 25 Mg Tablet, 1 TAB PO BID, #30 TAB 5 Refills 05/13/16 PRO SCHROEDER MD Jan 10, 2022 10:00
--- NOTE | 2022-01-10 10:08 | PDOC3 ---
IM DISCHARGE SUMMARY Date of Admission Date of Admission Date of Admission: Jan 06, 2022 at 08:57 Date of Discharge Date of Discharge 01/13/22 Primary Diagnosis Primary Diagnosis 1. Bilateral foot wounds. 2. Diabetic neuropathy. 3. Peripheral arterial disease. 4. Lymphedema. 5. Hypertension. 6. Rheumatoid arthritis. 7. Osteoarthritis. 8. Fatty liver. 9. Diverticulosis. 10. Severe protein calorie malnutrition. 11. Hyperlipidemia. 12. History of migraine. 13. Chronic kidney disease 2. 14. Anemia, iron deficiency. Consults Consults DIPTI GASPAR Jr. DO; Malick Napier DO; Erica Ornelas MD; Dante Solano MD; Mando Mooney MD Labs Labs Laboratory Tests Test 01/09/22 11:32 01/09/22 16:52 01/09/22 20:24 01/10/22 06:40 Glucose (Fingerstick) 76 mg/dL (70-99) 70 mg/dL (70-99) 83 mg/dL (70-99) White Blood Count 9.1 x10^3/uL (4.0-11.0) Red Blood Count 3.81 x10^6/uL (3.50-5.40) Hemoglobin 10.5 g/dL (12.0-15.5) L Hematocrit 32.1 % (36.0-47.0) L Mean Corpuscular Volume 84 fL (79-100) Mean Corpuscular Hemoglobin 28 pg (25-35) Mean Corpuscular Hemoglobin Concent 33 g/dL (31-37) Red Cell Distribution Width 15.7 % (11.5-14.5) H Platelet Count 272 x10^3/uL (140-400) Neutrophils (%) (Auto) 62 % (31-73) Lymphocytes (%) (Auto) 23 % (24-48) L Monocytes (%) (Auto) 11 % (0-9) H Eosinophils (%) (Auto) 3 % (0-3) Basophils (%) (Auto) 1 % (0-3) Neutrophils # (Auto) 5.7 x10^3/uL (1.8-7.7) Lymphocytes # (Auto) 2.1 x10^3/uL (1.0-4.8) Monocytes # (Auto) 1.0 x10^3/uL (0.0-1.1) Eosinophils # (Auto) 0.3 x10^3/uL (0.0-0.7) Basophils # (Auto) 0.1 x10^3/uL (0.0-0.2) Sodium Level 141 mmol/L (136-145) Potassium Level 3.7 mmol/L (3.5-5.1) Chloride Level 104 mmol/L (98-107) Carbon Dioxide Level 30 mmol/L (21-32) Anion Gap 7 (6-14) Blood Urea Nitrogen 19 mg/dL (7-20) Creatinine 1.3 mg/dL (0.6-1.0) H Estimated GFR (Cockcroft-Gault) 49.4 Glucose Level 64 mg/dL (70-99) L Calcium Level 8.5 mg/dL (8.5-10.1) Test 01/10/22 07:29 Glucose (Fingerstick) 78 mg/dL (70-99) Laboratory Tests 01/10/22 06:40 Laboratory Tests 01/10/22 06:40 Brief hospital course Brief hospital course This is a 66-year-old female who has a history of diabetic neuropathy, peripheral artery disease, rheumatoid arthritis, congestive heart failure, hypertension, and chronic lymphedema with recurring wounds of the lower extremities, has both heel wounds, getting worse. The patient was seen by Dr. Napier at the wound care center and even with the debridement, the wounds are continuing to get worse and so he called me and requested that the patient be admitted for further management as she is not able to walk. For more details regarding the past history, family history, social history, surgical history and other details, please refer to the H&P. Consult Dr. Napier for wound care management and Dr. Mooney for wound management. Consult Dr. Solano for PAD. Consult wound care team. Also, consult Dr. Roman for bilateral knee pain and Dr. Ornelas for possible right foot drop. Diabetes mellitus. Discontinue Lantus because blood sugar remains low. Patient did not take Lantus for last 3 weeks at home. Monitor blood sugar. Restarted Lantus low dose on discharge. Bilateral heel wounds- non healing for 1 year. This is complicated by lymphedema and inability to do her wound care. No significant PAD per vascular surgery. Vascular boots have not helped her. Complete offloading,IV Rocephin. IV Rocephin was discontinued and patient was started on tigecycline yesterday by Dr. Mooney. Wound Culture positive with Acinetobacter and staph aureus/mrsa Hypertensive crisis. Started on furosemide yesterday. Discussed with pharmacis t yesterday.. Increase Atenolol to 50 mg daily. Start Clonidine 0.1 mg tid. Consider stopping amlodipine if possible because of swelling of the lower extremities. BP control is improving. Added Clonidine and Doxazosin. Nausea. stop Feso4. Compazine prn. Overall stable. Transfer to SNF. Medications Medications reviewed and reconciled for discharge. Home Meds Active Scripts Prochlorperazine Maleate (Compazine) 10 Mg Tablet, 1 TAB PO Q6HRS for Nausea for 30 Days, #120 TAB 0 Refills Prov:PRO RIVERA MD 01/13/22 Lidocaine (Lidocaine PATCH ) 1 Each Adh..patch, 1 PATCH TD DAILY for Pain for 30 Days, #30 PATCH Prov:PRO RIVERA MD 01/13/22 Insulin Glargine,Hum.rec.anlog (LANTUS) 100 Unit/1 Ml Vial, 6 UNIT SQ DAILY10 for DM for 30 Days, #5 EACH Prov:PRO RIVERA MD 01/13/22 Potassium Chloride (POTASSIUM CHLORIDE ) 20 Meq Tablet.er, 20 MEQ PO DAILYWBKFT for Diuretic use for 30 Days, #30 TAB.SR Prov:PRO RIVERA MD 01/13/22 Doxazosin Mesylate (DOXAZOSIN MESYLATE) 2 Mg Tablet, 1 TAB PO DAILY for HTN for 30 Days, #30 TAB 5 Refills Prov:PRO RIVERA MD 01/13/22 Clonidine Hcl (CLONIDINE HCL) 0.1 Mg Tablet, 0.1 MG PO BID for HTN for 30 Days, #60 TAB Hold if golria rate less than 55/min Prov:PRO RIVERA MD 01/13/22 Atenolol (ATENOLOL) 50 Mg Tablet, 50 MG PO BID for HTN for 30 Days, #60 TAB Hold if BP less thaan 100, heart rate less than 55. Prov:PRO RIVERA MD 01/10/22 [Diclofenac Sodium 1% Topical] 100 GM GEL..GRAM. No Conflict Check, 1 MAURICIO TP BID for arthritis for 14 Days, #28 EACH Prov:PRO RIVERA MD 01/10/22 Nystatin (NYSTATIN) 15 Gm Cream..g., 1 MAURICIO TP BID for skin candidiasis for 14 Days, #28 EACH Prov:PRO RIVERA MD 01/10/22 Furosemide (FUROSEMIDE) 40 Mg Tablet, 40 MG PO DAILY for CHF for 30 Days, #30 TAB Prov:PRO RIVERA MD 01/10/22 Acetaminophen (ACETAMINOPHEN) 325 Mg Tablet, 650 MG PO PRN Q6HRS PRN for MILD PAIN / TEMP > 100.3'F for 7 Days, TAB Prov:PRO RIVERA MD 01/10/22 Clonidine Hcl (CLONIDINE HCL) 0.1 Mg Tablet, 0.1 MG PO TID for HTN for 30 Days, #90 TAB Hold if systolic BP less than 100, heart rate less than 55. Prov:PRO RIVERA MD 01/10/22 Heparin Sodium,Porcine (HEPARIN SODIUM) 5,000 Unit/1 Ml Vial, 5000 UNIT SQ Q12HR for DVT prophylaxis for 14 Days, EACH Prov:PRO RIVERA MD 01/10/22 Tigecycline (TYGACIL) 50 Mg Vial, 50 MG IV Q12HR for wound infection for 10 Days, #20 EACH Prov:PRO RIVERA MD 01/10/22 Reported Medications Tramadol Hcl (TRAMADOL HCL) 100 Mg Tbmp.24hr, 100 MG PO Q6H PRN for PAIN, TAB 0 Refills 07/06/20 Tizanidine Hcl (TIZANIDINE HCL) 4 Mg Tablet, 1 TAB PO QHS for muscle spasms, #30 TAB 07/06/20 Rabeprazole Sodium (ACIPHEX) 20 Mg Tablet.dr, 1 TAB PO DAILY, #90 TAB 1 Refill 05/13/16 Amlodipine Besylate (AMLODIPINE BESYLATE) 5 Mg Tablet, 5 MG PO DAILY, TAB 05/13/16 Mirtazapine (MIRTAZAPINE) 15 Mg Tablet, 15 MG PO DAILY, TAB 05/13/16 Hydroxychloroquine Sulfate (HYDROXYCHLOROQUINE SULFATE) 200 Mg Tablet, 1 TAB PO BID, #180 TAB 1 Refill 05/13/16 Discontinued Reported Medications Insulin Glargine,Hum.rec.anlog (LANTUS SOLOSTAR) 100 Unit/1 Ml Insuln.pen, 80 UNIT SQ QHS, #15 ML 3 Refills 07/14/17 Atenolol (ATENOLOL) 25 Mg Tablet, 1 TAB PO BID, #30 TAB 5 Refills 05/13/16 Allergy Allergies Coded Allergies Type Severity Reaction Last Updated Verified Penicillins Allergy Intermediate Rash 07/14/17 Yes benzocaine Allergy Intermediate Shortness of Air 07/14/17 Yes hydralazine Allergy Intermediate 07/14/17 Yes lidocaine Allergy Intermediate Shortness of Air 07/14/17 Yes losartan Allergy Intermediate Rash 07/14/17 Yes tetracaine Allergy Intermediate Shortness of Air 07/14/[address]Pratip Rivera in 7 days.after discharge from SNF. Follow up with and Dr. Mando Mooney DISPOSITION: Intermediate facility Comments Discharge Management - 35 minutes. For other details please refer to discharge instructions Justicifation of Admission Dx: Justifications for Admission: Justification of Admission Dx: Comment: (Complex wounds with infection) PRO RIVERA MD Jan 10, 2022 10:07
[2022-01-10] MEDS: diphenhydrAMINE HCL 25 MG CAPSULE PO SCH ×2 (10:34→21:00)
[2022-01-10] MEDS: HYDROXYCHLOROQUINE 200 MG TABLET PO SCH ×2 (10:34→21:00)
[2022-01-10] MEDS: FUROSEMIDE 40 MG TABLET. PO SCH (10:35)
[2022-01-10] MEDS: ATENOLOL 50 MG TABLET. PO SCH ×2 (10:35→21:00)
[2022-01-10] MEDS: traMADol 50 MG TABLET PO PRN (10:40)
[2022-01-10] MEDS: cloNIDine HCL 0.1 MG TABLET PO SCH ×3 (10:40→21:00)
[2022-01-10] MEDS: PROCHLORPERAZINE 10 MG/2 ML VIAL. IV PRN (10:40)
[2022-01-10] MEDS: HEPARIN for SUB-Q USE 5,000 UNIT/ML VIAL. SQ SCH ×2 (10:45→21:00)
[2022-01-10 11:00] VITALS: BP 172/73
[2022-01-10] MEDS: TIGECYCLINE 50 MG in IV DEXTROSE 5% 50 ML IV SCH ×2 (11:21→22:27)
--- NOTE | 2022-01-10 11:25 | PDOC ---
PROGRESS NOTES Date of Service DATE: 01/10/22 TIME: 11:23 Subjective Subjective No new complaints. Objective Objective Vital Signs Date Time Temp Pulse Resp B/P (MAP) Pulse Ox O2 Delivery O2 Flow Rate FiO2 01/10/22 10:40 95 180/63 01/10/22 08:14 Room Air 01/10/22 07:00 99.0 18 93 99.0 Intake and Output 01/10/22 07:00 Intake Total 860 ml Output Total 2 ml Balance 858 ml Intake Oral 860 ml Urine/Stool Mix 2 ml # Voids 2 Physical Exam Physical Exam She is alert,supine in bed with head end propped up and bilateral PROFO boots in place and she prefers keep her feet on external rotation and she had dressing to her feet. Plan Plan of Care To SNF when medically stable. Comment Review of Relevant I have reviewed the following items meg (where applicable) has been applied. Labs Laboratory Tests Test 01/08/22 11:56 01/08/22 17:09 01/08/22 18:01 01/08/22 19:45 Glucose (Fingerstick) 77 mg/dL (70-99) 84 mg/dL (70-99) 88 mg/dL (70-99) Coronavirus (COVID-19)(PCR) Not detected (NOT DETECTD) Test 01/08/22 19:51 01/08/22 22:41 01/09/22 07:28 01/09/22 11:32 Glucose (Fingerstick) 93 mg/dL (70-99) 130 mg/dL (70-99) 94 mg/dL (70-99) 76 mg/dL (70-99) Test 01/09/22 16:52 01/09/22 20:24 01/10/22 06:40 01/10/22 07:29 Glucose (Fingerstick) 70 mg/dL (70-99) 83 mg/dL (70-99) 78 mg/dL (70-99) White Blood Count 9.1 x10^3/uL (4.0-11.0) Red Blood Count 3.81 x10^6/uL (3.50-5.40) Hemoglobin 10.5 g/dL (12.0-15.5) Hematocrit 32.1 % (36.0-47.0) Mean Corpuscular Volume 84 fL (79-100) Mean Corpuscular Hemoglobin 28 pg (25-35) Mean Corpuscular Hemoglobin Concent 33 g/dL (31-37) Red Cell Distribution Width 15.7 % (11.5-14.5) Platelet Count 272 x10^3/uL (140-400) Neutrophils (%) (Auto) 62 % (31-73) Lymphocytes (%) (Auto) 23 % (24-48) Monocytes (%) (Auto) 11 % (0-9) Eosinophils (%) (Auto) 3 % (0-3) Basophils (%) (Auto) 1 % (0-3) Neutrophils # (Auto) 5.7 x10^3/uL (1.8-7.7) Lymphocytes # (Auto) 2.1 x10^3/uL (1.0-4.8) Monocytes # (Auto) 1.0 x10^3/uL (0.0-1.1) Eosinophils # (Auto) 0.3 x10^3/uL (0.0-0.7) Basophils # (Auto) 0.1 x10^3/uL (0.0-0.2) Sodium Level 141 mmol/L (136-145) Potassium Level 3.7 mmol/L (3.5-5.1) Chloride Level 104 mmol/L (98-107) Carbon Dioxide Level 30 mmol/L (21-32) Anion Gap 7 (6-14) Blood Urea Nitrogen 19 mg/dL (7-20) Creatinine 1.3 mg/dL (0.6-1.0) Estimated GFR (Cockcroft-Gault) 49.4 Glucose Level 64 mg/dL (70-99) Calcium Level 8.5 mg/dL (8.5-10.1) Laboratory Tests Test 01/09/22 11:32 01/09/22 16:52 01/09/22 20:24 01/10/22 06:40 Glucose (Fingerstick) 76 mg/dL (70-99) 70 mg/dL (70-99) 83 mg/dL (70-99) White Blood Count 9.1 x10^3/uL (4.0-11.0) Red Blood Count 3.81 x10^6/uL (3.50-5.40) Hemoglobin 10.5 g/dL (12.0-15.5) Hematocrit 32.1 % (36.0-47.0) Mean Corpuscular Volume 84 fL (79-100) Mean Corpuscular Hemoglobin 28 pg (25-35) Mean Corpuscular Hemoglobin Concent 33 g/dL (31-37) Red Cell Distribution Width 15.7 % (11.5-14.5) Platelet Count 272 x10^3/uL (140-400) Neutrophils (%) (Auto) 62 % (31-73) Lymphocytes (%) (Auto) 23 % (24-48) Monocytes (%) (Auto) 11 % (0-9) Eosinophils (%) (Auto) 3 % (0-3) Basophils (%) (Auto) 1 % (0-3) Neutrophils # (Auto) 5.7 x10^3/uL (1.8-7.7) Lymphocytes # (Auto) 2.1 x10^3/uL (1.0-4.8) Monocytes # (Auto) 1.0 x10^3/uL (0.0-1.1) Eosinophils # (Auto) 0.3 x10^3/uL (0.0-0.7) Basophils # (Auto) 0.1 x10^3/uL (0.0-0.2) Sodium Level 141 mmol/L (136-145) Potassium Level 3.7 mmol/L (3.5-5.1) Chloride Level 104 mmol/L (98-107) Carbon Dioxide Level 30 mmol/L (21-32) Anion Gap 7 (6-14) Blood Urea Nitrogen 19 mg/dL (7-20) Creatinine 1.3 mg/dL (0.6-1.0) Estimated GFR (Cockcroft-Gault) 49.4 Glucose Level 64 mg/dL (70-99) Calcium Level 8.5 mg/dL (8.5-10.1) Test 01/10/22 07:29 Glucose (Fingerstick) 78 mg/dL (70-99) Microbiology 01/06/22 Blood Culture - Preliminary, Resulted NO GROWTH AFTER 3 DAYS 01/06/22 Urine Culture - Final, Complete Enterococcus Avium Medications Current Medications Amlodipine Besylate (Norvasc) 5 mg DAILY PO Last administered on 01/10/22at 10:35; Start 01/07/22 at 09:00 Atenolol (Tenormin) 25 mg BID PO Last administered on 01/09/22at 08:21; Start 01/06/22 at 21:00; Stop 01/09/22 at 09:48; Status DC Hydroxychloroquine Sulfate (Plaquenil) 200 mg BID PO Last administered on 01/10/22at 10:34; Start 01/06/22 at 21:00 Mirtazapine (Remeron) 15 mg DAILY PO ; Start 01/07/22 at 09:00; Status Cancel Tizanidine HCl (Zanaflex) 4 mg QHS PO Last administered on 01/09/22at 20:50; Start 01/06/22 at 21:00 Insulin Glargine (Lantus Syringe) 80 unit QHS SQ Last administered on 01/06/22at 22:24; Start 01/06/22 at 21:00; Stop 01/07/22 at 08:10; Status DC Pantoprazole Sodium (Protonix) 40 mg DAILYAC PO Last administered on 01/10/22at 08:04; Start 01/07/22 at 07:30 Tramadol HCl (Ultram) 100 mg PRN Q6HRS PRN PO MODERATE-SEVERE PAIN Last administered on 01/10/22at 10:40; Start 01/06/22 at 14:00 Ceftriaxone Sodium (Rocephin) 2 gm Q24H IVP Last administered on 01/07/22at 15:38; Start 01/06/22 at 15:00; Stop 01/08/22 at 12:49; Status DC Acetaminophen (Tylenol) 650 mg PRN Q6HRS PRN PO MILD PAIN / TEMP > 100.3'F; Start 01/06/22 at 14:45 Insulin Human Lispro (HumaLOG) 0-5 UNITS TIDWMEALS SQ ; Start 01/06/22 at 17:00 Dextrose (Dextrose 50%-Water Syringe) 12.5 gm PRN Q15MIN PRN IV SEE COMMENTS; Start 01/06/22 at 14:45 Dextrose (Iv Dextrose 5%) 250 ml PRN Q15MIN PRN IV SEE COMMENTS; Start 01/06/22 at 14:45 Insulin Glargine (Lantus Syringe) 50 unit QHS SQ ; Start 01/07/22 at 21:00; Stop 01/08/22 at 08:04; Status DC Heparin Sodium (Porcine) (Heparin Sodium) 5,000 unit Q12HR SQ Last administered on 01/10/22 10:45; Start 01/07/22 at 09:00 Mirtazapine (Remeron) 15 mg QHS PO Last administered on 01/09/22at 20:49; Start 01/07/22 at 21:00 Diclofenac Sodium (Voltaren) 1 sherine BID TP Last administered on 01/09/22 20:52; Start 01/07/22 at 13:00 Nystatin (Mycostatin) 1 sherine BID TP Last administered on 01/09/22at 20:53; Start 01/07/22 at 13:00 Insulin Glargine (Lantus Syringe) 20 unit QHS SQ Last administered on 01/08/22at 21:00; Start 01/08/22 at 21:00; Stop 01/09/22 at 09:34; Status DC Tigecycline 50 mg/ Dextrose 50 ml @ 100 mls/hr Q12HR IV Last administered on 01/10/22at 11:21; Start 01/08/22 at 21:00 Tigecycline 100 mg/Dextrose 100 ml @ 200 mls/hr 1X ONCE IV Last administered on 01/08/22at 14:32; Start 01/08/22 at 15:00; Stop 01/08/22 at 15:29; Status DC Furosemide (Lasix) 40 mg DAILY PO Last administered on 01/10/22 10:35; Start 01/09/22 at 09:00 Famotidine (Pepcid) 40 mg 1X ONCE PO Last administered on 01/08/22at 19:09; Start 01/08/22 at 19:00; Stop 01/08/22 at 19:07; Status DC Diphenhydramine HCl (Benadryl) 25 mg 1X ONCE PO Last administered on 01/08/22at 19:09; Start 01/08/22 at 19:00; Stop 01/08/22 at 19:07; Status DC Metoprolol Succinate (Toprol Xl) 50 mg DAILY PO ; Start 01/09/22 at 09:45; Stop 01/09/22 at 09:48; Status DC Atenolol (Tenormin) 50 mg BID PO Last administered on 01/10/22at 10:35; Start 01/09/22 at 21:00 Atenolol (Tenormin) 25 mg 1X ONCE PO Last administered on 01/09/22at 10:45; Start 01/09/22 at 10:00; Stop 01/09/22 at 10:01; Status DC Clonidine HCl (Catapres) 0.1 mg TID PO Last administered on 01/10/22at 10:40; Start 01/09/22 at 10:15 Diphenhydramine HCl (Benadryl) 25 mg BID PO Last administered on 01/10/22at 10:34; Start 01/09/22 at 21:00 Chloroprocaine HCl (Nesacaine 3% Mpf) 20 ml 1X ONCE INFIL ; Start 01/09/22 at 14:15; Stop 01/09/22 at 14:16; Status DC Prochlorperazine Edisylate (Compazine) 10 mg PRN Q6HRS PRN IV NAUSEA/VOMITING Last administered on 01/10/22at 10:40; Start 01/09/22 at 20:45 Lidocaine HCl (Buffered Lidocaine 1%) 3 ml STK-MED ONCE .ROUTE ; Start 01/10/22 at 09:30; Stop 01/10/22 at 09:30; Status DC Lidocaine HCl (Buffered Lidocaine 1%) 4 ml 1X ONCE INJ ; Start 01/10/22 at 10:00; Stop 01/10/22 at 10:01; Status DC Active Scripts Active Atenolol 50 Mg Tablet 50 Mg PO BID 30 Days Hold if BP less thaan 100, heart rate less than 55. [Diclofenac Sodium] 100 GM Gel..gram. 1 Sherine TP BID 14 Days Nystatin 15 Gm Cream..g. 1 Sherine TP BID 14 Days Furosemide 40 Mg Tablet 40 Mg PO DAILY 30 Days Acetaminophen 325 Mg Tablet 650 Mg PO PRN Q6HRS PRN 7 Days Clonidine Hcl 0.1 Mg Tablet 0.1 Mg PO TID 30 Days Hold if systolic BP less than 100, heart rate less than 55. Heparin Sodium (Heparin Sodium,Porcine) 5,000 Unit/1 Ml Vial 5,000 Unit SQ Q12HR 14 Days Tygacil (Tigecycline) 50 Mg Vial 50 Mg IV Q12HR 10 Days Reported Tramadol Hcl 100 Mg Tbmp.24hr 100 Mg PO Q6H PRN Tizanidine Hcl 4 Mg Tablet 1 Tab PO QHS Aciphex (Rabeprazole Sodium) 20 Mg Tablet.dr 1 Tab PO DAILY Amlodipine Besylate 5 Mg Tablet 5 Mg PO DAILY Mirtazapine 15 Mg Tablet 15 Mg PO DAILY Hydroxychloroquine Sulfate 200 Mg Tablet 1 Tab PO BID Vitals/I & O Vital Sign - Last 24 Hours 01/09/22 01/09/22 01/09/22 01/09/22 12:58 13:24 15:00 19:00 Temp 98.1 98.9 98.1 98.9 Pulse 69 69 68 70 Resp 18 16 B/P (MAP) 138/84 (102) 138/84 207/70 (115) 163/59 (93) Pulse Ox 97 95 O2 Delivery Room Air Room Air 01/09/22 01/09/22 01/09/22 01/10/22 20:50 20:50 23:00 03:00 Temp 98.4 98.4 Pulse 70 70 63 57 Resp 18 18 B/P (MAP) 163/59 163/59 162/63 (96) 165/62 (96) Pulse Ox 90 92 O2 Delivery Room Air Room Air 01/10/22 01/10/22 01/10/22 01/10/22 07:00 08:14 10:35 10:35 Temp 99.0 99.0 Pulse 95 95 95 Resp 18 B/P (MAP) 180/63 (102) 180/63 180/63 Pulse Ox 93 O2 Delivery Room Air 01/10/22 10:40 Pulse 95 B/P (MAP) 180/63 Intake and Output 01/09/22 01/09/22 01/10/22 15:00 23:00 07:00 Intake Total 600 ml 260 ml 0 ml Output Total 2 ml Balance 600 ml 260 ml -2 ml Justifications for Admission Other Justification RADHA HERNANDEZ MD Jan 10, 2022 11:25
--- NOTE | 2022-01-10 12:33 | RAD ---
Date: 01/10/2022 Exam: Fluoroscopic and ultrasound guided peripheral central venous catheter placement. Indication: Consent: The procedure was explained in its entirety to the patient or the patients designated repres entative by a member of the treatment team, including a discussion of the risks, benefits and commonl y accepted alternatives to the procedure, as well as the expected consequences of no therapy whatsoev er. Discussion of the risks included, but was not limited to, those that are most frequent and thos e that are rare but possibly severe or life-threatening, as well as the possibility of unforeseen com plications. Discussion: A timeout procedure was performed. The patient was prepped and draped using maximum sterile techniq ue, including the use of: Current guideline approved cutaneous antisepsis, a large sterile sheet to e stablish a sterile field. Additionally the power system operator wore a hat, mask, sterile gloves, a sterile gown during the procedure as well as practiced acceptable hand hygiene prior to placing the line. 1% lidoc doris was administered for local anesthesia. Ultrasound evaluation demonstrates a patent right cephalic vein. Reference images were saved in the medical record. The selected vein was accessed using micropuncture technique. A guidewire was advance d centrally. The PICC line was cut to length, and advanced through a peel-away sheath such that it's tip resides at the cavoatrial junction. The peel-away sheath a sheath was removed. The catheter was secured in place. The catheter was found to flush and aspirate normally.. Sterile dressings were appl ied. No immediate complications were identified. Fluoroscopy time: 0.2 minutes Dose area product: 4 Gycm2 Impression: Successful placement of a right upper extremity PICC line Electronically signed by: Abraham Casiano MD (01/10/2022 12:31 PM) [id number]
--- NOTE | 2022-01-10 12:49 | PDOC ---
Infectious Disease Note Subjective Subjective Patient is feeling better ROS ROS no n/v/d/ Vital Sign Vital Signs Vital Signs Date Time Temp Pulse Resp B/P (MAP) Pulse Ox O2 Delivery O2 Flow Rate FiO2 01/10/22 10:40 95 180/63 01/10/22 08:14 Room Air 01/10/22 07:00 99.0 18 93 99.0 Physical Exam PHYSICAL EXAM GENERAL: Alert, oriented female, not in distress. VITAL SIGNS: Stable, afebrile. HEENT: NAD. NECK: Supple, no JVP, no lymphadenopathy. LUNGS: Clear. HEART: S1, S2, regular. ABDOMEN: Soft, nontender, no organomegaly. EXTREMITIES: No edema or cyanosis. Bilateral lower extremity calcaneal wounds are very large area of bright red, part of the skin appears clean. SKIN: Unremarkable. NEUROLOGIC: The patient is alert, awake, and appropriate. No focal neurologic deficit. Labs Lab Laboratory Tests Test 01/09/22 16:52 01/09/22 20:24 01/10/22 06:40 01/10/22 07:29 Glucose (Fingerstick) 70 mg/dL (70-99) 83 mg/dL (70-99) 78 mg/dL (70-99) White Blood Count 9.1 x10^3/uL (4.0-11.0) Red Blood Count 3.81 x10^6/uL (3.50-5.40) Hemoglobin 10.5 g/dL (12.0-15.5) Hematocrit 32.1 % (36.0-47.0) Mean Corpuscular Volume 84 fL (79-100) Mean Corpuscular Hemoglobin 28 pg (25-35) Mean Corpuscular Hemoglobin Concent 33 g/dL (31-37) Red Cell Distribution Width 15.7 % (11.5-14.5) Platelet Count 272 x10^3/uL (140-400) Neutrophils (%) (Auto) 62 % (31-73) Lymphocytes (%) (Auto) 23 % (24-48) Monocytes (%) (Auto) 11 % (0-9) Eosinophils (%) (Auto) 3 % (0-3) Basophils (%) (Auto) 1 % (0-3) Neutrophils # (Auto) 5.7 x10^3/uL (1.8-7.7) Lymphocytes # (Auto) 2.1 x10^3/uL (1.0-4.8) Monocytes # (Auto) 1.0 x10^3/uL (0.0-1.1) Eosinophils # (Auto) 0.3 x10^3/uL (0.0-0.7) Basophils # (Auto) 0.1 x10^3/uL (0.0-0.2) Sodium Level 141 mmol/L (136-145) Potassium Level 3.7 mmol/L (3.5-5.1) Chloride Level 104 mmol/L (98-107) Carbon Dioxide Level 30 mmol/L (21-32) Anion Gap 7 (6-14) Blood Urea Nitrogen 19 mg/dL (7-20) Creatinine 1.3 mg/dL (0.6-1.0) Estimated GFR (Cockcroft-Gault) 49.4 Glucose Level 64 mg/dL (70-99) Calcium Level 8.5 mg/dL (8.5-10.1) Test 01/10/22 11:50 Glucose (Fingerstick) 94 mg/dL (70-99) Micro Culture positive with Acinetobacter and staph aureus/mrsa Objective Assessment IMPRESSION: 1. 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 The patient basically needs offload completely. Her special boots are evidently not effective. We will also try to obtain the culture. 2. Morbid obesity. 3. Diabetes mellitus. 4. Hypertension. 5. Rheumatoid arthritis. Plan Plan of Care Offload Tigecycline Wound care MARYANN MAYES MD Jan 10, 2022 12:49
[2022-01-10 15:00] VITALS: BP 115/92
[2022-01-10 19:00] VITALS: BP 167/75
[2022-01-10] MEDS: tiZANidine 4 MG TABLET. PO SCH (21:00)
[2022-01-10] MEDS: MIRTAZAPINE 15 MG TABLET PO SCH (21:00)
[2022-01-10 23:00] VITALS: BP 160/61
[2022-01-11] VITALS (7 sets, daily range): BP systolic 157–179; BP diastolic 41–72
--- NOTE | 2022-01-11 08:00 | NUR ---
evening doses of medications for 01/10/2022 marked as non-administered in [place] since meditech was down through the night. Doses given by night nurse charted on paper chart.
--- NOTE | 2022-01-11 08:49 | PDOC ---
PROGRESS NOTES Date of Service: DATE: 01/11/22 TIME: 08:49 Subjective Subjective c/o low back pain Objective Objective Vital Signs Date Time Temp Pulse Resp B/P (MAP) Pulse Ox O2 Delivery O2 Flow Rate FiO2 01/11/22 07:00 98.1 51 16 179/69 (105) 94 98.1 01/11/22 03:17 Room Air Intake and Output 01/11/22 07:00 Intake Total 50 ml Output Total 0 ml Balance 50 ml IV Total 50 ml Output Urine Total 0 ml # Voids 1 Physical Exam Abdomen: Soft, No tenderness Heart: Regular rate Extremities: Other (3+ lower extremity edema with associated distal lymphedema) General: Alert, Oriented X3, Cooperative, No acute distress HEENT: Atraumatic, PERRLA, EOMI Lungs: Clear to auscultation, Normal air movement MUSCULOSKELETAL: Not examined Neuro: Normal speech, Other (Failed filament testing to bilateral plantar surfaces) Psych/Mental Status: Mental status NL, Mood NL Skin: Other (Left foot diabetic Mendez 1 ulceration at the hindfoot measuring 5 cm x 5 cm. Right hindfoot with extensive superficial skin loss extending out 20 cm in length with central ulceration measuring roughly 5 cm x 5 cm with 3 cm of depth. Minimal slough identified in this site. This is Mendez 1 ulceration with associated soft tissue cellulitis) COMMENT si joint tenderness Assessment Assessment IMP: SI joint pain rt side. 1. Bilateral foot wounds. 2. Diabetic neuropathy. 3. Peripheral arterial disease. 4. Lymphedema. 5. Hypertension. 6. Rheumatoid arthritis. 7. Osteoarthritis. 8. Fatty liver. 9. Diverticulosis. 10. Severe protein calorie malnutrition. 11. Hyperlipidemia. 12. History of migraine. 13. Chronic kidney disease 2. 14. Anemia, iron deficiency. PLAN: cortisone inj to si joint Lidoderm patch for pain iv antibiotics for wounds. waiting for SNU placement. Consult Dr. Napier for wound care management and Dr. Mooney for wound management. Decrease Lantus to [address] Solano for PAD. Consult wound care team. Also, consult Dr. Roman for bilateral knee pain and Dr. Ornelas for possible right foot drop. Diabetes mellitus. Discontinue Lantus because blood sugar remains low. Patient did not take Lantus for last 3 weeks at home. Bilateral heel wounds- non healing for 1 year. This is complicated by lymphedema and inability to do her wound care. No significant PAD per vascular surgery. Vascular boots have not helped her. Complete offloading,IV Rocephin. IV Rocephin was discontinued and patient was started on tigecycline yesterday by Dr. Mooney. 2 hours later patient reported feeling of burning everywhere. She was given Pepcid and Benadryl. She had no rash. She just felt funny. She does not want to take it again. She does not want to go [facility] when ready. She wants to go home when discharged. Her brother will help her and she now has a bedside commode. Hypertensive crisis. Started on furosemide yesterday. Discussed with pharmacist yesterday.. Increase Atenolol to 50 mg daily. Start Clonidine 0.1 mg tid. Consider stopping amlodipine if possible because of swelling of the lower extremities. Transfer to health care resort when stable. Comment Review of Relevant I have reviewed the following items meg (where applicable) has been applied. Labs Laboratory Tests Test 01/10/22 11:50 01/10/22 16:47 01/10/22 21:02 01/11/22 07:24 Glucose (Fingerstick) 94 mg/dL (70-99) 154 mg/dL (70-99) 137 mg/dL (70-99) 155 mg/dL (70-99) Microbiology 01/06/22 Blood Culture - Preliminary, Resulted NO GROWTH AFTER 4 DAYS 01/06/22 Urine Culture - Final, Complete Enterococcus Avium Medications Current Medications Lidocaine HCl (Buffered Lidocaine 1%) 3 ml STK-MED ONCE .ROUTE ; Start 01/10/22 at 09:30; Stop 01/10/22 at 09:30; Status DC Lidocaine HCl (Buffered Lidocaine 1%) 4 ml 1X ONCE INJ ; Start 01/10/22 at 10:00; Stop 01/10/22 at 10:01; Status DC Vitals/I & O Vital Sign - Last 24 Hours 01/10/22 01/10/22 01/10/22 01/10/22 10:35 10:35 10:40 11:00 Temp 98.1 98.1 Pulse 95 95 95 71 Resp 18 B/P (MAP) 180/63 180/63 180/63 172/73 (106) Pulse Ox 93 01/10/22 01/10/22 01/10/2201/10/22 14:03 15:00 19:00 21:00 Temp 98.3 97.6 98.3 97.6 Pulse 71 63 64 53 Resp 18 20 B/P (MAP) 172/73 115/92 (100) 167/75 (105) 164/61 Pulse Ox 94 95 O2 Delivery Room Air 01/10/22 01/10/22 01/11/22 01/11/22 21:00 23:00 03:17 07:00 Temp 98.2 98.0 98.1 98.2 98.0 98.1 Pulse 53 55 53 51 Resp 18 18 16 B/P (MAP) 164/61 160/61 (94) 164/61 (95) 179/69 (105) Pulse Ox 96 94 94 O2 Delivery Room Air Room Air Intake and Output 01/10/22 01/10/22 01/11/22 15:00 23:00 07:00 Intake Total 50 ml Output Total 0 ml Balance 50 ml 0 ml Justifications for Admission Other Justification AURELIA HOWELL MD Jan 11, 2022 08:49
[2022-01-11] MEDS: NYSTATIN 100,000 UNIT/GM TOPICAL CREAM 15GM TUBE. TP SCH ×2 (09:00→20:46)
[2022-01-11] MEDS: DICLOFENAC SODIUM 1% TOPICAL GEL 100GM TUBE. TP SCH ×2 (09:00→20:46)
[2022-01-11] MEDS: ATENOLOL 50 MG TABLET. PO SCH ×2 (09:28→20:36)
[2022-01-11] MEDS: diphenhydrAMINE HCL 25 MG CAPSULE PO SCH ×2 (09:28→20:33)
[2022-01-11] MEDS: PANTOPRAZOLE 40 MG TABLET.DR. PO SCH (09:28)
[2022-01-11] MEDS: FUROSEMIDE 40 MG TABLET. PO SCH (09:28)
[2022-01-11] MEDS: HYDROXYCHLOROQUINE 200 MG TABLET PO SCH ×2 (09:28→20:42)
[2022-01-11] MEDS: cloNIDine HCL 0.1 MG TABLET PO SCH ×3 (09:29→20:37)
[2022-01-11] MEDS: HEPARIN for SUB-Q USE 5,000 UNIT/ML VIAL. SQ SCH ×2 (09:38→20:43)
[2022-01-11] MEDS: INSULIN LISPRO 300 UNITS/3 ML VIAL. SQ SCH ×3 (09:39→17:00)
[2022-01-11] MEDS ORDERED: LIDOCAINE (700MG/PATCH) PATCH. TD SCH (10:00)
[2022-01-11] MEDS ORDERED: BUPIVACAINE MPF 0.25% 10 ML VIAL. IJ ONE (10:00)
[2022-01-11] MEDS ORDERED: TRIAMCINOLONE PRES.FREE 40 MG/ML VIAL. INT ART ONE (10:00)
--- NOTE | 2022-01-11 10:05 | PDOC ---
PROGRESS NOTES Date of Service DATE: 01/11/22 TIME: 10:02 Subjective Subjective She admits pain in her low back and knees. Objective Objective Vital Signs Date Time Temp Pulse Resp B/P (MAP) Pulse Ox O2 Delivery O2 Flow Rate FiO2 01/11/22 09:29 51 179/69 01/11/22 07:00 98.1 16 94 98.1 01/11/22 03:17 Room Air Intake and Output 01/11/22 07:00 Intake Total 50 ml Output Total 0 ml Balance 50 ml IV Total 50 ml Output Urine Total 0 ml # Voids 1 Physical Exam Physical Exam She is alert,in bed with head end propped up and she continues with painfully limited knee joint and lumbar spine ROM and tenderness to palpation over sacroiliac joints and SLR test is negative bilaterally. Plan Plan of Care To proceed with injecting painful right sacroiliac joint as she requests and to start her on niferex as she is anemic. Comment Review of Relevant I have reviewed the following items meg (where applicable) has been applied. Labs Laboratory Tests Test 01/09/22 11:32 01/09/22 16:52 01/09/22 20:24 01/10/22 06:40 Glucose (Fingerstick) 76 mg/dL (70-99) 70 mg/dL (70-99) 83 mg/dL (70-99) White Blood Count 9.1 x10^3/uL (4.0-11.0) Red Blood Count 3.81 x10^6/uL (3.50-5.40) Hemoglobin 10.5 g/dL (12.0-15.5) Hematocrit 32.1 % (36.0-47.0) Mean Corpuscular Volume 84 fL (79-100) Mean Corpuscular Hemoglobin 28 pg (25-35) Mean Corpuscular Hemoglobin Concent 33 g/dL (31-37) Red Cell Distribution Width 15.7 % (11.5-14.5) Platelet Count 272 x10^3/uL (140-400) Neutrophils (%) (Auto) 62 % (31-73) Lymphocytes (%) (Auto) 23 % (24-48) Monocytes (%) (Auto) 11 % (0-9) Eosinophils (%) (Auto) 3 % (0-3) Basophils (%) (Auto) 1 % (0-3) Neutrophils # (Auto) 5.7 x10^3/uL (1.8-7.7) Lymphocytes # (Auto) 2.1 x10^3/uL (1.0-4.8) Monocytes # (Auto) 1.0 x10^3/uL (0.0-1.1) Eosinophils # (Auto) 0.3 x10^3/uL (0.0-0.7) Basophils # (Auto) 0.1 x10^3/uL (0.0-0.2) Sodium Level 141 mmol/L (136-145) Potassium Level 3.7 mmol/L (3.5-5.1) Chloride Level 104 mmol/L (98-107) Carbon Dioxide Level 30 mmol/L (21-32) Anion Gap 7 (6-14) Blood Urea Nitrogen 19 mg/dL (7-20) Creatinine 1.3 mg/dL (0.6-1.0) Estimated GFR (Cockcroft-Gault) 49.4 Glucose Level 64 mg/dL (70-99) Calcium Level 8.5 mg/dL (8.5-10.1) Test 01/10/22 07:29 01/10/22 11:50 01/10/22 16:47 01/10/22 21:02 Glucose (Fingerstick) 78 mg/dL (70-99) 94 mg/dL (70-99) 154 mg/dL (70-99) 137 mg/dL (70-99) Test 01/11/22 07:24 Glucose (Fingerstick) 155 mg/dL (70-99) Laboratory Tests Test 01/10/22 11:50 01/10/22 16:47 01/10/22 21:02 01/11/22 07:24 Glucose (Fingerstick) 94 mg/dL (70-99) 154 mg/dL (70-99) 137 mg/dL (70-99) 155 mg/dL (70-99) Microbiology 01/06/22 Blood Culture - Preliminary, Resulted NO GROWTH AFTER 4 DAYS 01/06/22 Urine Culture - Final, Complete Enterococcus Avium Medications Current Medications Amlodipine Besylate (Norvasc) 5 mg DAILY PO Last administered on 01/11/22at 09:28; Start 01/07/22 at 09:00 Atenolol (Tenormin) 25 mg BID PO Last administered on 01/09/22at 08:21; Start 01/06/22 at 21:00; Stop 01/09/22 at 09:48; Status DC Hydroxychloroquine Sulfate (Plaquenil) 200 mg BID PO Last administered on 01/11/22at 09:28; Start 01/06/22 at 21:00 Mirtazapine (Remeron) 15 mg DAILY PO ; Start 01/07/22 at 09:00; Status Cancel Tizanidine HCl (Zanaflex) 4 mg QHS PO Last administered on 01/09/22at 20:50; Start 01/06/22 at 21:00 Insulin Glargine (Lantus Syringe) 80 unit QHS SQ Last administered on 01/06/22at 22:24; Start 01/06/22 at 21:00; Stop 01/07/22 at 08:10; Status DC Pantoprazole Sodium (Protonix) 40 mg DAILYAC PO Last administered on 01/11/22at 09:28; Start 01/07/22 at 07:30 Tramadol HCl (Ultram) 100 mg PRN Q6HRS PRN PO MODERATE-SEVERE PAIN Last administered on 01/10/22at 10:40; Start 01/06/22 at 14:00 Ceftriaxone Sodium (Rocephin) 2 gm Q24H IVP Last administered on 01/07/22at 15:38; Start 01/06/22 at 15:00; Stop 01/08/22 at 12:49; Status DC Acetaminophen (Tylenol) 650 mg PRN Q6HRS PRN PO MILD PAIN / TEMP > 100.3'F; Start 01/06/22 at 14:45 Insulin Human Lispro (HumaLOG) 0-5 UNITS TIDWMEALS SQ Last administered on 01/11/22at 09:39; Start 01/06/22 at 17:00 Dextrose (Dextrose 50%-Water Syringe) 12.5 gm PRN Q15MIN PRN IV SEE COMMENTS; Start 01/06/22 at 14:45 Dextrose (Iv Dextrose 5%) 250 ml PRN Q15MIN PRN IV SEE COMMENTS; Start 01/06/22 at 14:45 Insulin Glargine (Lantus Syringe) 50 unit QHS SQ ; Start 01/07/22 at 21:00; Stop 01/08/22 at 08:04; Status DC Heparin Sodium (Porcine) (Heparin Sodium) 5,000 unit Q12HR SQ Last administered on 01/11/22at 09:38; Start 01/07/22 at 09:00 Mirtazapine (Remeron) 15 mg QHS PO Last administered on 01/09/22at 20:49; Start 01/07/22 at 21:00 Diclofenac Sodium (Voltaren) 1 sherine BID TP Last administered on 01/09/22at 20:52; Start 01/07/22 at 13:00 Nystatin (Mycostatin) 1 sherine BID TP Last administered on 01/09/22at 20:53; Start 01/07/22 at 13:00 Insulin Glargine (Lantus Syringe) 20 unit QHS SQ Last administered on 01/08/22at 21:00; Start 01/08/22 at 21:00; Stop 01/09/22 at 09:34; Status DC Tigecycline 50 mg/ Dextrose 50 ml @ 100 mls/hr Q12HR IV Last administered on 01/10/22at 22:27; Start 01/08/22 at 21:00 Tigecycline 100 mg/Dextrose 100 ml @ 200 mls/hr 1X ONCE IV Last administered on 01/08/22at 14:32; Start 01/08/22 at 15:00; Stop 01/08/22 at 15:29; Status DC Furosemide (Lasix) 40 mg DAILY PO Last administered on 01/11/22at 09:28; Start 01/09/22 at 09:00 Famotidine (Pepcid) 40 mg 1X ONCE PO Last administered on 01/08/22at 19:09; Start 01/08/22 at 19:00; Stop 01/08/22 at 19:07; Status DC Diphenhydramine HCl (Benadryl) 25 mg 1X ONCE PO Last administered on 01/08/22at 19:09; Start 01/08/22 at 19:00; Stop 01/08/22 at 19:07; Status DC Metoprolol Succinate (Toprol Xl) 50 mg DAILY PO ; Start 01/09/22 at 09:45; Stop 01/09/22 at 09:48; Status DC Atenolol (Tenormin) 50 mg BID PO Last administered on 01/11/22at 09:28; Start 01/09/22 at 21:00 Atenolol (Tenormin) 25 mg 1X ONCE PO Last administered on 01/09/22at 10:45; Start 01/09/22 at 10:00; Stop 01/09/22 at 10:01; Status DC Clonidine HCl (Catapres) 0.1 mg TID PO Last administered on 01/11/22at 09:29; Start 01/09/22 at 10:15 Diphenhydramine HCl (Benadryl) 25 mg BID PO Last administered on 01/11/22at 09:28; Start 01/09/22 at 21:00 Chloroprocaine HCl (Nesacaine 3% Mpf) 20 ml 1X ONCE INFIL ; Start 01/09/22 at 14:15; Stop 01/09/22 at 14:16; Status DC Prochlorperazine Edisylate (Compazine) 10 mg PRN Q6HRS PRN IV NAUSEA/VOMITING Last administered on 01/10/22at 10:40; Start 01/09/22 at 20:45 Lidocaine HCl (Buffered Lidocaine 1%) 3 ml STK-MED ONCE .ROUTE ; Start 01/10/22 at 09:30; Stop 01/10/22 at 09:30; Status DC Lidocaine HCl (Buffered Lidocaine 1%) 4 ml 1X ONCE INJ ; Start 01/10/22 at 10:00; Stop 01/10/22 at 10:01; Status DC Lidocaine (Lidoderm) 1 patch DAILY TD ; Start 01/11/22 at 10:00; Status UNV Miscellaneous (Lidoderm Patch Removal) 1 [facility] ; Start 01/11/22 at 21:00; Status UNV Lidocaine (Lidoderm) 1 patch DAILY TD ; Start 01/12/22 at 09:00; Status UNV Miscellaneous (Lidoderm Patch Removal) 1 [facility] ; Start 01/11/22 at 21:00; Status UNV Active Scripts Active Atenolol 50 Mg Tablet 50 Mg PO BID 30 Days Hold if BP less thaan 100, heart rate less than 55. [Diclofenac Sodium] 100 GM Gel..gram. 1 Sherine TP BID 14 Days Nystatin 15 Gm Cream..g. 1 Sherine TP BID 14 Days Furosemide 40 Mg Tablet 40 Mg PO DAILY 30 Days Acetaminophen 325 Mg Tablet 650 Mg PO PRN Q6HRS PRN 7 Days Clonidine Hcl 0.1 Mg Tablet 0.1 Mg PO TID 30 Days Hold if systolic BP less than 100, heart rate less than 55. Heparin Sodium (Heparin Sodium,Porcine) 5,000 Unit/1 Ml Vial 5,000 Unit SQ Q12HR 14 Days Tygacil (Tigecycline) 50 Mg Vial 50 Mg IV Q12HR 10 Days Reported Tramadol Hcl 100 Mg Tbmp.24hr 100 Mg PO Q6H PRN Tizanidine Hcl 4 Mg Tablet 1 Tab PO QHS Aciphex (Rabeprazole Sodium) 20 Mg Tablet.dr 1 Tab PO DAILY Amlodipine Besylate 5 Mg Tablet 5 Mg PO DAILY Mirtazapine 15 Mg Tablet 15 Mg PO DAILY Hydroxychloroquine Sulfate 200 Mg Tablet 1 Tab PO BID Vitals/I & O Vital Sign - Last 24 Hours 01/10/22 01/10/22 01/10/22 01/10/22 10:35 10:35 10:40 11:00 Temp 98.1 98.1 Pulse 95 95 95 71 Resp 18 B/P (MAP) 180/63 180/63 180/63 172/73 (106) Pulse Ox 93 01/10/22 01/10/22 01/10/22 01/10/22 14:03 15:00 19:00 21:00 Temp 98.3 97.6 98.3 97.6 Pulse 71 63 64 53 Resp 18 20 B/P (MAP) 172/73 115/92 (100) 167/75 (105) 164/61 Pulse Ox 94 95 O2 Delivery Room Air 01/10/22 01/10/22 01/11/22 01/11/22 21:00 23:00 03:17 07:00 Temp 98.2 98.0 98.1 98.2 98.0 98.1 Pulse 53 55 53 51 Resp 18 18 16 B/P (MAP) 164/61 160/61 (94) 164/61 (95) 179/69 (105) Pulse Ox 96 94 94 O2 Delivery Room Air Room Air 01/11/22 01/11/22 01/11/22 09:28 09:28 09:29 Pulse 51 51 51 B/P (MAP) 179/69 179/69 179/69 Intake and Output 4/01/10/22 01/11/22 15:00 23:00 07:00 Intake Total 50 ml Output Total 0 ml Balance 50 ml 0 ml Justifications for Admission Other Justification RADHA HERNANDEZ MD Jan 11, 2022 10:05
--- NOTE | 2022-01-11 10:22 | PDOC4 ---
PROCEDURE Procedure At her request,I have injected painful right sacroiliac joint under aseptic skin technique,with alcohol skin prep using 1 ml of triamcinolone acetonide solution mixed with 2 ml of 0.25% marcaine solution and she tolerated the procedure satisfactorily without any side effects. RADHA HERNANDEZ MD Jan 11, 2022 10:22
[2022-01-11] MEDS: TIGECYCLINE 50 MG in IV DEXTROSE 5% 50 ML IV SCH ×2 (10:27→20:34)
--- NOTE | 2022-01-11 15:59 | PDOC ---
Infectious Disease Note Subjective: Subjective Patient without complaints Vital Signs: Vital Signs Vital Signs Date Time Temp Pulse Resp B/P (MAP) Pulse Ox O2 Delivery O2 Flow Rate FiO2 01/11/22 11:00 97.7 56 18 158/57 (90) 95 97.7 01/11/22 03:17 Room Air Physical Exam: PHYSICAL EXAM GENERAL: Alert, oriented female, not in distress. VITAL SIGNS: Stable, afebrile. HEENT: NAD. NECK: Supple, no JVP, no lymphadenopathy. LUNGS: Clear. HEART: S1, S2, regular. ABDOMEN: Soft, nontender, no organomegaly. EXTREMITIES: No edema or cyanosis. Bilateral lower extremity calcaneal wounds are very large area of bright red, part of the skin appears clean. SKIN: Unremarkable. NEUROLOGIC: The patient is alert, awake, and appropriate. No focal neurologic deficit. Medications: Inpatient Meds: Medications reviewed. Labs: Lab Laboratory Tests Test 01/10/22 16:47 01/10/22 21:02 01/11/22 07:24 01/11/22 11:51 Glucose (Fingerstick) 154 mg/dL (70-99) 137 mg/dL (70-99) 155 mg/dL (70-99) 138 mg/dL (70-99) Micro --------- --- RUN DATE: 01/09/22 [facility] LAB *LIVE* PAGE 1 RUN TIME: 821 Specimen Inquiry PATIENT: DAFNEMARLENI ACCT: [id number] LOC: [address] [place] [address] U: [id number] AGE/SX: 66/F ROOM: [facility] RE01/06/[address]: PRO SCHROEDER MD : [id number] BED: 1 DIS: STATUS: ADM IN TLOC: SPEC #: [id number] YARITZA: 01/06/22 STATUS: COMP REQ #: [id number] RECD: 01/06/[address]: PRO SCHROEDER MD SOURCE: VOID ENTR: 01/06/[address]: MARYANN MAYES MD [facility]: RAUL BALLARD DO ORDERED: CULTURE URINE* Procedure Result CULTURE URINE Final THREE OR MORE ORGANISMS ISOLATED. RESULTS CONSISTENT WITH COLONIZATION OR CONTAMINATION DURING COLLECTION PROCESS. RECOLLECTION RECOMMENDED USING A METHOD TO MINIMIZE CONTAMINATION. Testing performed by [address] [address] radiology director: Kita Granger MD Organism 1 ENTEROCOCCUS AVIUM Objective: Assessment: 1. 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 The patient basically needs offload completely. Her special boots are evidently not effective. We will also try to obtain the culture. 1 colony of Enterococcus Avium but no susceptibilities reported.... Multiple organisms 2. Morbid obesity. 3. Diabetes mellitus. 4. Hypertension. 5. Rheumatoid arthritis. Plan: Plan of Care Offload Due to no further microbiology report available for polymicrobial organism Limited choices for antibiotics. Continue tigecycline Wound care Discussed with nursing staff KAYODE MAYES MD Jan 11, 2022 15:59
[2022-01-11] MEDS: MIRTAZAPINE 15 MG TABLET PO SCH (20:33)
[2022-01-11] MEDS: tiZANidine 4 MG TABLET. PO SCH (20:33)
[2022-01-11] MEDS: IRON POLYSACCHARIDE COMPLEX 150 MG CAPSULE PO SCH (20:33)
[2022-01-11] MEDS: PATCH REMOVAL. MC SCH (20:47)
[2022-01-11] MEDS ORDERED: PATCH REMOVAL. MC SCH (21:00)
[2022-01-11] MEDS: traMADol 50 MG TABLET PO PRN (22:08)
[2022-01-12 03:26] VITALS: BP 173/71
[2022-01-12 04:50] LABS: BASO # 0.1 x10^3/uL (0.0-0.2); BASO % 1 % (0-3); EOS # 0.2 x10^3/uL (0.0-0.7); EOS % 2 % (0-3); HEMATOCRIT 31.6 % (36.0-47.0); HEMOGLOBIN 10.1 g/dL (12.0-15.5); LYMPH # 1.8 x10^3/uL (1.0-4.8); LYMPH % 17 % (24-48); MEAN CORPUSCULAR HEMOGLOBIN 27 pg (25-35); MEAN CORPUSCULAR HGB CONC 32 g/dL (31-37); MEAN CORPUSCULAR VOLUME 84 fL (79-100); MONO % 9 % (0-9); NEUT # 7.6 x10^3/uL (1.8-7.7); NEUT % 71 % (31-73); PLATELET COUNT 235 x10^3/uL (140-400); RED BLOOD COUNT 3.75 x10^6/uL (3.50-5.40); RED CELL DISTRIBUTION WIDTH 15.6 % (11.5-14.5); WHITE BLOOD COUNT 10.6 x10^3/uL (4.0-11.0)
[2022-01-12 05:08] LABS: CREATININE 1.5 mg/dL (0.6-1.0); GFR 41.9; POTASSIUM 3.6 mmol/L (3.5-5.1)
[2022-01-12 07:00] VITALS: BP 170/62
[2022-01-12] MEDS: TIGECYCLINE 50 MG in IV DEXTROSE 5% 50 ML IV SCH ×2 (08:57→22:36)
[2022-01-12] MEDS: LIDOCAINE (700MG/PATCH) PATCH. TD SCH (08:57)
[2022-01-12] MEDS: HEPARIN for SUB-Q USE 5,000 UNIT/ML VIAL. SQ SCH ×2 (08:58→22:44)
[2022-01-12] MEDS: INSULIN LISPRO 300 UNITS/3 ML VIAL. SQ SCH ×3 (08:59→17:10)
[2022-01-12] MEDS: DICLOFENAC SODIUM 1% TOPICAL GEL 100GM TUBE. TP SCH ×2 (09:00→21:21)
[2022-01-12] MEDS: NYSTATIN 100,000 UNIT/GM TOPICAL CREAM 15GM TUBE. TP SCH ×2 (09:00→21:00)
[2022-01-12] MEDS: HYDROXYCHLOROQUINE 200 MG TABLET PO SCH ×2 (09:05→22:38)
[2022-01-12] MEDS: cloNIDine HCL 0.1 MG TABLET PO SCH ×2 (09:05→22:38)
[2022-01-12] MEDS: PANTOPRAZOLE 40 MG TABLET.DR. PO SCH (09:05)
[2022-01-12] MEDS: FUROSEMIDE 40 MG TABLET. PO SCH (09:06)
[2022-01-12] MEDS: diphenhydrAMINE HCL 25 MG CAPSULE PO SCH ×2 (09:06→21:18)
[2022-01-12] MEDS: ATENOLOL 50 MG TABLET. PO SCH ×2 (09:06→22:39)
--- NOTE | 2022-01-12 09:24 | PDOC ---
IM PROGRESS NOTES- Subjective Subjective Has knee pain- bilateral. Objective Vitals/I&O Vital Signs Date Time Temp Pulse Resp B/P (MAP) Pulse Ox O2 Delivery O2 Flow Rate FiO2 01/12/22 09:06 51 170/62 01/12/22 07:00 97.6 18 97 97.6 01/12/22 03:26 Room Air I & O 01/11/22 01/11/22 01/12/22 15:00 23:00 07:00 Intake Total 240 ml Balance 240 ml Physical Exam Physical Exam General Appearance - alert and in no distress Chest - decreased breath sounds at bases Heart - S1 and S2 normal Abdomen - soft, non tender Neurological - alert and oriented Musculoskeletal - generalized weakness Extremities - no edema Labs Laboratory Tests Test 01/11/22 11:51 01/11/22 16:45 01/11/22 19:52 01/12/22 04:00 Glucose (Fingerstick) 138 mg/dL (70-99) H 144 mg/dL (70-99) H 184 mg/dL (70-99) H White Blood Count 10.6 x10^3/uL (4.0-11.0) Red Blood Count 3.75 x10^6/uL (3.50-5.40) Hemoglobin 10.1 g/dL (12.0-15.5) L Hematocrit 31.6 % (36.0-47.0) L Mean Corpuscular Volume 84 fL (79-100) Mean Corpuscular Hemoglobin 27 pg (25-35) Mean Corpuscular Hemoglobin Concent 32 g/dL (31-37) Red Cell Distribution Width 15.6 % (11.5-14.5) H Platelet Count 235 x10^3/uL (140-400) Neutrophils (%) (Auto) 71 % (31-73) Lymphocytes (%) (Auto) 17 % (24-48) L Monocytes (%) (Auto) 9 % (0-9) Eosinophils (%) (Auto) 2 % (0-3) Basophils (%) (Auto) 1 % (0-3) Neutrophils # (Auto) 7.6 x10^3/uL (1.8-7.7) Lymphocytes # (Auto) 1.8 x10^3/uL (1.0-4.8) Monocytes # (Auto) 1.0 x10^3/uL (0.0-1.1) Eosinophils # (Auto) 0.2 x10^3/uL (0.0-0.7) Basophils # (Auto) 0.1 x10^3/uL (0.0-0.2) Sodium Level 141 mmol/L (136-145) Potassium Level 3.6 mmol/L (3.5-5.1) Chloride Level 105 mmol/L (98-107) Carbon Dioxide Level 30 mmol/L (21-32) Anion Gap 6 (6-14) Blood Urea Nitrogen 26 mg/dL (7-20) H Creatinine 1.5 mg/dL (0.6-1.0) H Estimated GFR (Cockcroft-Gault) 41.9 Glucose Level 177 mg/dL (70-99) H Calcium Level 8.0 mg/dL (8.5-10.1) L Test 01/12/22 07:30 Glucose (Fingerstick) 156 mg/dL (70-99) H Laboratory Tests 01/12/22 04:00 Laboratory Tests 01/12/22 04:00 Meds Current Medications Medications (Trade) Dose Ordered Sig/Val[place] Route PRN Reason Start Time Stop Time Status Last Admin Dose Admin Lidocaine (Lidoderm) 1 patch DAILY TD 01/11/22 10:00 01/11/22 23:00 DC 01/11/22 10:58 Lidocaine (Lidoderm) 1 patch DAILY TD 01/12/22 09:00 01/12/22 08:57 Miscellaneous (Lidoderm Patch Removal) 1 ea QHS 01/11/22 21:00 01/11/22 20:47 Triamcinolone Acetonide (Kenalog-40) 40 mg 1X ONCE INT ART 01/11/22 10:00 01/11/22 10:05 DC 01/11/22 10:00 Bupivacaine HCl (Sensorcaine-Mpf 0.25%) 10 ml 1X ONCE IJ 01/11/22 10:00 01/11/22 10:05 DC 01/11/22 10:00 Polysaccharide Iron Complex (Niferex 150) 150 mg BIDWLD PO 01/11/22 21:00 01/11/22 20:33 Assessment Assessment IMP: SI joint pain rt side. 1. Bilateral foot wounds. 2. Diabetic neuropathy. 3. Peripheral arterial disease. 4. Lymphedema. 5. Hypertension. 6. Rheumatoid arthritis. 7. Osteoarthritis. 8. Fatty liver. 9. Diverticulosis. 10. Severe protein calorie malnutrition. 11. Hyperlipidemia. 12. History of migraine. 13. Chronic kidney disease 2. 14. Anemia, iron deficiency. PLAN: cortisone inj to si joint Lidoderm patch for pain iv antibiotics for wounds. waiting for SNU placement. Consult Dr. Napier for wound care management and Dr. Mooney for wound management. Decrease Lantus to [address] Solano for PAD. Consult wound care team. Also, consult Dr. Roman for bilateral knee pain and Dr. Ornelas for possible right foot drop. Diabetes mellitus. Discontinue Lantus because blood sugar remains low. Patient did not take Lantus for last 3 weeks at home. Bilateral heel wounds- non healing for 1 year. This is complicated by lymphedema and inability to do her wound care. No significant PAD per vascular surgery. Vascular boots have not helped her. Complete offloading,IV Rocephin. IV Rocephin was discontinued and patient was started on tigecycline yesterday by Dr. Mooney. 2 hours later patient reported feeling of burning everywhere. She was given Pepcid and Benadryl. She had no rash. She just felt funny. She does not want to take it again. She does not want to go jail when ready. She wants to go home when discharged. Her brother will help her and she now has a bedside commode. Hypertensive crisis. Started on furosemide yesterday. Discussed with pharmacist yesterday.. Increase Atenolol to 50 mg daily. Decrease Clonidine to 0.1 mg bid. Add Doxazosin. Consider stopping amlodipine if possible because of swelling of the lower extremities.Monitor bradycardia. Hypokalemia- replace KCL. Transfer to [facility] when stable. Plan Plan For more details regarding further plans, please refer to the orders. Justifications for Admission Other Justification PRO SCHROEDER MD January 12, 2022 09:24
[2022-01-12] MEDS ORDERED: TERAZOSIN 1 MG CAPSULE. PO SCH (10:15)
[2022-01-12 11:00] VITALS: BP 110/71
[2022-01-12] MEDS: POTASSIUM CHLORIDE 20 MEQ TABLET.ER. PO SCH (11:01)
[2022-01-12] MEDS: DOXAZOSIN MESYLATE 1 MG TABLET. PO SCH (11:02)
[2022-01-12] MEDS: IRON POLYSACCHARIDE COMPLEX 150 MG CAPSULE PO SCH ×2 (12:24→16:25)
--- NOTE | 2022-01-12 12:43 | PDOC ---
Infectious Disease Note Subjective: Subjective Patient had nausea and vomiting which started this afternoon after she took an iron pill. Patient has not had any lunch She did not have the symptoms until late this afternoon. Vital Signs: Vital Signs Vital Signs Date Time Temp Pulse Resp B/P (MAP) Pulse Ox O2 Delivery O2 Flow Rate FiO2 01/12/22 11:02 51 170/62 01/12/22 11:00 97.9 18 95 97.9 01/12/22 03:26 Room Air Physical Exam: PHYSICAL EXAM GENERAL: Alert, oriented female, not in distress. VITAL SIGNS: Stable, afebrile. HEENT: NAD. NECK: Supple, no JVP, no lymphadenopathy. LUNGS: Clear. HEART: S1, S2, regular. ABDOMEN: Soft, nontender, no organomegaly. EXTREMITIES: No edema or cyanosis. Bilateral lower extremity calcaneal wounds are very large area of bright red, part of the skin appears clean. SKIN: Unremarkable. NEUROLOGIC: The patient is alert, awake, and appropriate. No focal neurologic deficit. Medications: Inpatient Meds: Medications reviewed. Labs: Lab Laboratory Tests Test 01/11/22 16:45 01/11/22 19:52 01/12/22 04:00 01/12/22 07:30 Glucose (Fingerstick) 144 mg/dL (70-99) 184 mg/dL (70-99) 156 mg/dL (70-99) White Blood Count 10.6 x10^3/uL (4.0-11.0) Red Blood Count 3.75 x10^6/uL (3.50-5.40) Hemoglobin 10.1 g/dL (12.0-15.5) Hematocrit 31.6 % (36.0-47.0) Mean Corpuscular Volume 84 fL (79-100) Mean Corpuscular Hemoglobin 27 pg (25-35) Mean Corpuscular Hemoglobin Concent 32 g/dL (31-37) Red Cell Distribution Width 15.6 % (11.5-14.5) Platelet Count 235 x10^3/uL (140-400) Neutrophils (%) (Auto) 71 % (31-73) Lymphocytes (%) (Auto) 17 % (24-48) Monocytes (%) (Auto) 9 % (0-9) Eosinophils (%) (Auto) 2 % (0-3) Basophils (%) (Auto) 1 % (0-3) Neutrophils # (Auto) 7.6 x10^3/uL (1.8-7.7) Lymphocytes # (Auto) 1.8 x10^3/uL (1.0-4.8) Monocytes # (Auto) 1.0 x10^3/uL (0.0-1.1) Eosinophils # (Auto) 0.2 x10^3/uL (0.0-0.7) Basophils # (Auto) 0.1 x10^3/uL (0.0-0.2) Sodium Level 141 mmol/L (136-145) Potassium Level 3.6 mmol/L (3.5-5.1) Chloride Level 105 mmol/L (98-107) Carbon Dioxide Level 30 mmol/L (21-32) Anion Gap 6 (6-14) Blood Urea Nitrogen 26 mg/dL (7-20) Creatinine 1.5 mg/dL (0.6-1.0) Estimated GFR (Cockcroft-Gault) 41.9 Glucose Level 177 mg/dL (70-99) Calcium Level 8.0 mg/dL (8.5-10.1) Test 01/12/22 12:16 Glucose (Fingerstick) 202 mg/dL (70-99) Micro RUN DATE: 01/09/22 [facility] *LIVE* PAGE 1 RUN TIME: 821 Specimen Inquiry PATIENT: MARLENI LEOS ACCT: [id number] LOC: [address] [place] [address] U: [id number] AGE/SX: 66/F ROOM: 508 RE01/06/[address]: PRO SCHROEDER MD : [id number] BED: 1 DIS: STATUS: ADM IN TLOC: SPEC #: [id number] YARITZA: 01/06/22 STATUS: COMP REQ #: [id number] RECD: 01/06/[address]: PRO SCHROEDER MD SOURCE: VOID ENTR: 01/06/[address] [facility] DR: MARYANN MAYES MD [facility]: RAUL BALLARD DO ORDERED: CULTURE URINE* - Procedure Result CULTURE URINE Final THREE OR MORE ORGANISMS ISOLATED. RESULTS CONSISTENT WITH COLONIZATION OR CONTAMINATION DURING COLLECTION PROCESS. RECOLLECTION RECOMMENDED USING A METHOD TO MINIMIZE CONTAMINATION. Testing performed by [address] [address] underwriter solicitation director: Kita Granger MD Organism 1 ENTEROCOCCUS AVIUM Objective: Assessment: 1. 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 The patient basically needs offload completely. Her special boots are evidently not effective. Cultures positive for 1 colony of Enterococcus Avium but no susceptibilities reported.... Also Multiple organisms,no further ID or suscep available 2. Morbid obesity. 3. Diabetes mellitus. 4. Hypertension. 5. Rheumatoid arthritis. 6. Nausea and vomiting Plan: Plan of Care Maintain aspiration precautions Due to no further microbiology report available for polymicrobial organisms,there are Limited choices for antibiotics. Continue tigecycline can give slow infusion if nausea persists Offload Local Wound care Discussed with nursing staff KAYODE MAYES MD January 12, 2022 12:43
[2022-01-12 15:00] VITALS: BP 149/76
[2022-01-12] MEDS: PROCHLORPERAZINE 10 MG/2 ML VIAL. IV PRN ×2 (16:25→21:15)
[2022-01-12 19:00] VITALS: BP 181/59
[2022-01-12] MEDS: PATCH REMOVAL. MC SCH (21:00)
[2022-01-12] MEDS: MIRTAZAPINE 15 MG TABLET PO SCH (22:38)
[2022-01-12] MEDS: tiZANidine 4 MG TABLET. PO SCH (22:39)
[2022-01-12] MEDS: traMADol 50 MG TABLET PO PRN (22:41)
--- NOTE | 2022-01-12 22:45 | NUR ---
NURSING NOTE This RN went to changed pts dressings on feet and leg. Pt reports that the dressings to her feet were already changed today, and does not want them changed again. Pts allowed left medial leg dressing to be changed and pictured.
[2022-01-12 23:00] VITALS: BP 173/64
[2022-01-13 03:00] VITALS: BP 155/75
[2022-01-13 07:00] VITALS: BP 176/68
[2022-01-13] MEDS: PANTOPRAZOLE 40 MG TABLET.DR. PO SCH (07:30)
[2022-01-13] MEDS: INSULIN LISPRO 300 UNITS/3 ML VIAL. SQ SCH ×3 (08:00→16:00)
[2022-01-13] MEDS: diphenhydrAMINE HCL 25 MG CAPSULE PO SCH ×2 (08:31→21:04)
[2022-01-13] MEDS: POTASSIUM CHLORIDE 20 MEQ TABLET.ER. PO SCH (08:31)
[2022-01-13] MEDS: PROCHLORPERAZINE 10 MG/2 ML VIAL. IV PRN ×3 (08:31→21:25)
[2022-01-13] MEDS: FUROSEMIDE 40 MG TABLET. PO SCH (08:32)
[2022-01-13] MEDS: DOXAZOSIN MESYLATE 1 MG TABLET. PO SCH (08:32)
[2022-01-13] MEDS: ATENOLOL 50 MG TABLET. PO SCH ×2 (08:32→21:01)
[2022-01-13] MEDS: HYDROXYCHLOROQUINE 200 MG TABLET PO SCH ×2 (08:32→21:01)
[2022-01-13] MEDS: cloNIDine HCL 0.1 MG TABLET PO SCH ×2 (08:33→21:01)
[2022-01-13] MEDS: DICLOFENAC SODIUM 1% TOPICAL GEL 100GM TUBE. TP SCH ×2 (08:34→21:03)
[2022-01-13] MEDS: LIDOCAINE (700MG/PATCH) PATCH. TD SCH (08:34)
[2022-01-13] MEDS: NYSTATIN 100,000 UNIT/GM TOPICAL CREAM 15GM TUBE. TP SCH ×2 (08:34→21:00)
[2022-01-13] MEDS: HEPARIN for SUB-Q USE 5,000 UNIT/ML VIAL. SQ SCH ×2 (08:46→21:10)
--- NOTE | 2022-01-13 08:53 | PDOC ---
IM PROGRESS NOTES- Subjective Subjective Continues to have nausea and occasional vomiting. Did not eat breakfast. Objective Vitals/I&O Vital Signs Date Time Temp Pulse Resp B/P (MAP) Pulse Ox O2 Delivery O2 Flow Rate FiO2 01/13/22 08:33 58 176/68 01/13/22 07:00 98.1 18 94 Room Air 98.1 I & O 01/12/22 01/12/22 01/13/22 15:00 23:00 07:00 Output Total 0 ml 600 ml Balance 0 ml -600 ml Physical Exam Physical Exam General Appearance - alert and in no distress Chest - decreased breath sounds at bases Heart - S1 and S2 normal Abdomen - soft, non tender Neurological - alert and oriented Musculoskeletal - generalized weakness Extremities - no edema Labs Laboratory Tests Test 01/12/22 12:16 01/12/22 16:33 01/12/22 19:56 01/13/22 07:32 Glucose (Fingerstick) 202 mg/dL (70-99) H 168 mg/dL (70-99) H 201 mg/dL (70-99) H 195 mg/dL (70-99) H Meds Current Medications Medications (Trade) Dose Ordered Sig/Valencia Route PRN Reason Start Time Stop Time Status Last Admin Dose Admin Lidocaine (Lidoderm) 1 patch DAILY TD 01/12/22 09:00 01/13/22 08:34 Potassium Chloride (Klor-Con) 20 meq DAILYWBKFT PO 01/12/22 09:30 01/13/22 08:31 Clonidine HCl (Catapres) 0.1 mg BID PO 01/12/22 21:00 01/13/22 08:33 Doxazosin Mesylate (Cardura) 1 mg DAILY PO 01/12/22 10:00 01/13/22 08:32 Prochlorperazine Edisylate (Compazine) 10 mg PRN Q4HRS PRN IV NAUSEA/VOMITING 01/12/22 21:15 01/13/22 08:31 Assessment Assessment IMP: SI joint pain rt side. 1. Bilateral foot wounds. 2. Diabetic neuropathy. 3. Peripheral arterial disease. 4. Lymphedema. 5. Hypertension. 6. Rheumatoid arthritis. 7. Osteoarthritis. 8. Fatty liver. 9. Diverticulosis. 10. Severe protein calorie malnutrition. 11. Hyperlipidemia. 12. History of migraine. 13. Chronic kidney disease 2. 14. Anemia, iron deficiency. PLAN: cortisone inj to si joint Lidoderm patch for pain iv antibiotics for wounds. waiting for SNU placement. Consult Dr. Napier for wound care management and Dr. Mooney for wound management. Decrease Lantus to [address] Solano for PAD. Consult wound care team. Also, consult Dr. Roman for bilateral knee pain and Dr. Ornelas for possible right foot drop. Diabetes mellitus. Discontinue Lantus because blood sugar remains low. Patient did not take Lantus for last 3 weeks at home. Bilateral heel wounds- non healing for 1 year. This is complicated by lymphedema and inability to do her wound care. No significant PAD per vascular surgery. Vascular boots have not helped her. Complete offloading,IV Rocephin. IV Rocephin was discontinued and patient was started on tigecycline yesterday by Dr. Mooney. 2 hours later patient reported feeling of burning everywhere. She was given Pepcid and Benadryl. She had no rash. She just felt funny. She does not want to take it again. She does not want to go correction when ready. She wants to go home when disc harged. Her brother will help her and she now has a bedside commode. Hypertensive crisis. Started on furosemide yesterday. Discussed with pharmacist yesterday.. Increase Atenolol to 50 mg daily. Decrease Clonidine to 0.1 mg bid. Increase Doxazosin. Consider stopping amlodipine if possible because of swelling of the lower extremities.Monitor bradycardia. Hypokalemia- replace KCL. Nausea- stop Ferrous sulfate.Compazine prn Transfer to SNF when accepted. Discharge management 35 minutes. Plan Plan For more details regarding further plans, please refer to the orders. Justifications for Admission Other Justification PRO SCHROEDER MD January 13, 2022 08:53
[2022-01-13] MEDS ORDERED: DOXAZOSIN MESYLATE 1 MG TABLET. PO SCH (09:00)
--- NOTE | 2022-01-13 09:29 | PDOC ---
PROGRESS NOTES Date of Service DATE: 01/13/22 TIME: 09:28 Subjective Subjective She admits easing of her back pain from right sacroiliac joint injection. Objective Objective Vital Signs Date Time Temp Pulse Resp B/P (MAP) Pulse Ox O2 Delivery O2 Flow Rate FiO2 01/13/22 08:33 58 176/68 01/13/22 07:00 98.1 18 94 Room Air 98.1 Intake and Output 01/13/22 07:00 Output Total 600 ml Balance -600 ml Urine/Stool Mix 600 ml Emesis 0 ml # Voids 4 Physical Exam Physical Exam She is alert,supine in bed and had PRAFO boots in place to her feet. Plan Plan of Care To continue present wound care. Comment Review of Relevant I have reviewed the following items meg (where applicable) has been applied. Labs Laboratory Tests Test 01/11/22 11:51 01/11/22 16:45 01/11/22 19:52 01/12/22 04:00 Glucose (Fingerstick) 138 mg/dL (70-99) 144 mg/dL (70-99) 184 mg/dL (70-99) White Blood Count 10.6 x10^3/uL (4.0-11.0) Red Blood Count 3.75 x10^6/uL (3.50-5.40) Hemoglobin 10.1 g/dL (12.0-15.5) Hematocrit 31.6 % (36.0-47.0) Mean Corpuscular Volume 84 fL (79-100) Mean Corpuscular Hemoglobin 27 pg (25-35) Mean Corpuscular Hemoglobin Concent 32 g/dL (31-37) Red Cell Distribution Width 15.6 % (11.5-14.5) Platelet Count 235 x10^3/uL (140-400) Neutrophils (%) (Auto) 71 % (31-73) Lymphocytes (%) (Auto) 17 % (24-48) Monocytes (%) (Auto) 9 % (0-9) Eosinophils (%) (Auto) 2 % (0-3) Basophils (%) (Auto) 1 % (0-3) Neutrophils # (Auto) 7.6 x10^3/uL (1.8-7.7) Lymphocytes # (Auto) 1.8 x10^3/uL (1.0-4.8) Monocytes # (Auto) 1.0 x10^3/uL (0.0-1.1) Eosinophils # (Auto) 0.2 x10^3/uL (0.0-0.7) Basophils # (Auto) 0.1 x10^3/uL (0.0-0.2) Sodium Level 141 mmol/L (136-145) Potassium Level 3.6 mmol/L (3.5-5.1) Chloride Level 105 mmol/L (98-107) Carbon Dioxide Level 30 mmol/L (21-32) Anion Gap 6 (6-14) Blood Urea Nitrogen 26 mg/dL (7-20) Creatinine 1.5 mg/dL (0.6-1.0) Estimated GFR (Cockcroft-Gault) 41.9 Glucose Level 177 mg/dL (70-99) Calcium Level 8.0 mg/dL (8.5-10.1) Test 01/12/22 07:30 01/12/22 12:16 01/12/22 16:33 01/12/22 19:56 Glucose (Fingerstick) 156 mg/dL (70-99) 202 mg/dL (70-99) 168 mg/dL (70-99) 201 mg/dL (70-99) Test 01/13/22 07:32 Glucose (Fingerstick) 195 mg/dL (70-99) Laboratory Tests Test 01/12/22 12:16 01/12/22 16:33 01/12/22 19:56 01/13/22 07:32 Glucose (Fingerstick) 202 mg/dL (70-99) 168 mg/dL (70-99) 201 mg/dL (70-99) 195 mg/dL (70-99) Microbiology 01/06/22 Blood Culture - Final, Complete NO GROWTH AFTER 5 DAYS 01/06/22 Urine Culture - Final, Complete Enterococcus Avium Medications Current Medications Amlodipine Besylate (Norvasc) 5 mg DAILY PO Last administered on 01/13/22at 08:31; Start 01/07/22 at 09:00 Atenolol (Tenormin) 25 mg BID PO Last administered on 01/09/22at 08:21; Start 01/06/22 at 21:00; Stop 01/09/22 at 09:48; Status DC Hydroxychloroquine Sulfate (Plaquenil) 200 mg BID PO Last administered on 01/13/22at 08:32; Start 01/06/22 at 21:00 Mirtazapine (Remeron) 15 mg DAILY PO ; Start 01/07/22 at 09:00; Status Cancel Tizanidine HCl (Zanaflex) 4 mg QHS PO Last administered on 01/12/22at 22:39; Start 01/06/22 at 21:00 Insulin Glargine (Lantus Syringe) 80 unit QHS SQ Last administered on 01/06/22at 22:24; Start 01/06/22 at 21:00; Stop 01/07/22 at 08:10; Status DC Pantoprazole Sodium (Protonix) 40 mg DAILYAC PO Last administered on 01/12/22at 09:05; Start 01/07/22 at 07:30 Tramadol HCl (Ultram) 100 mg PRN Q6HRS PRN PO MODERATE-SEVERE PAIN Last administered on 01/12/22at 22:41; Start 01/06/22 at 14:00 Ceftriaxone Sodium (Rocephin) 2 gm Q24H IVP Last administered on 01/07/22at 15:38; Start 01/06/22 at 15:00; Stop 01/08/22 at 12:49; Status DC Acetaminophen (Tylenol) 650 mg PRN Q6HRS PRN PO MILD PAIN / TEMP > 100.3'F; Start 01/06/22 at 14:45 Insulin Human Lispro (HumaLOG) 0-5 UNITS TIDWMEALS SQ Last administered on 01/12/22at 17:10; Start 01/06/22 at 17:00 Dextrose (Dextrose 50%-Water Syringe) 12.5 gm PRN Q15MIN PRN IV SEE COMMENTS; Start 01/06/22 at 14:45 Dextrose (Iv Dextrose 5%) 250 ml PRN Q15MIN PRN IV SEE COMMENTS; Start 01/06/22 at 14:45 Insulin Glargine (Lantus Syringe) 50 unit QHS SQ ; Start 01/07/22 at 21:00; Stop 01/08/22 at 08:04; Status DC Heparin Sodium (Porcine) (Heparin Sodium) 5,000 unit Q12HR SQ Last administered on 01/13/22at 08:46; Start 01/07/22 at 09:00 Mirtazapine (Remeron) 15 mg QHS PO Last administered on 01/12/22at 22:38; Start 01/07/22 at 21:00 Diclofenac Sodium (Voltaren) 1 sherine BID TP Last administered on 01/13/22at 08:34; Start 01/07/22 at 13:00 Nystatin (Mycostatin) 1 sherine BID TP Last administered on 01/13/22 08:34; Start 01/07/22 at 13:00 Insulin Glargine (Lantus Syringe) 20 unit QHS SQ Last administered on 01/08/22at 21:00; Start 01/08/22 at 21:00; Stop 01/09/22 at 09:34; Status DC Tigecycline 50 mg/ Dextrose 50 ml @ 100 mls/hr Q12HR IV Last administered on 01/12/22 22:36; Start 01/08/22 at 21:00 Tigecycline 100 mg/Dextrose 100 ml @ 200 mls/hr 1X ONCE IV Last administered on 01/08/22at 14:32; Start 01/08/22 at 15:00; Stop 01/08/22 at 15:29; Status DC Furosemide (Lasix) 40 mg DAILY PO Last administered on 01/13/22 08:32; Start 01/09/22 at 09:00 Famotidine (Pepcid) 40 mg 1X ONCE PO Last administered on 01/08/22at 19:09; Start 01/08/22 at 19:00; Stop 01/08/22 at 19:07; Status DC Diphenhydramine HCl (Benadryl) 25 mg 1X ONCE PO Last administered on 01/08/22at 19:09; Start 01/08/22 at 19:00; Stop 01/08/22 at 19:07; Status DC Metoprolol Succinate (Toprol Xl) 50 mg DAILY PO ; Start 01/09/22 at 09:45; Stop 01/09/22 at 09:48; Status DC Atenolol (Tenormin) 50 mg BID PO Last administered on 01/13/22 08:32; Start 01/09/22 at 21:00 Atenolol (Tenormin) 25 mg 1X ONCE PO Last administered on 01/09/22at 10:45; Start 01/09/22 at 10:00; Stop 01/09/22 at 10:01; Status DC Clonidine HCl (Catapres) 0.1 mg TID PO Last administered on 01/12/22at 09:05; Start 01/09/22 at 10:15; Stop 01/12/22 at 10:06; Status DC Diphenhydramine HCl (Benadryl) 25 mg BID PO Last administered on 01/13/22at 08:31; Start 01/09/22 at 21:00 Chloroprocaine HCl (Nesacaine 3% Mpf) 20 ml 1X ONCE INFIL ; Start 01/09/22 at 14:15; Stop 01/09/22 at 14:16; Status DC Prochlorperazine Edisylate (Compazine) 10 mg PRN Q6HRS PRN IV NAUSEA/VOMITING Last administered on 01/12/22at 16:25; Start 01/09/22 at 20:45; Stop 01/12/22 at 21:06; Status DC Lidocaine HCl (Buffered Lidocaine 1%) 3 ml STK-MED ONCE .ROUTE ; Start 01/10/22 at 09:30; Stop 01/10/22 at 09:30; Status DC Lidocaine HCl (Buffered Lidocaine 1%) 4 ml 1X ONCE INJ Last administered on 01/10/22at 10:00; Start 01/10/22 at 10:00; Stop 01/10/22 at 10:01; Status DC Lidocaine (Lidoderm) 1 patch DAILY TD Last administered on 01/11/22at 10:58; Start 01/11/22 at 10:00; Stop 01/11/22 at 23:00; Status DC Miscellaneous (Lidoderm Patch Removal) 1 ea QHS MC ; Start 01/11/22 at 21:00; Status Cancel Lidocaine (Lidoderm) 1 patch DAILY TD Last administered on 01/13/22at 08:34; Start 01/12/22 at 09:00 Miscellaneous (Lidoderm Patch Removal) 1 ea Q MC Last administered on 01/12/22at 21:00; Start 01/11/22 at 21:00 Triamcinolone Acetonide (Kenalog-40) 40 mg 1X ONCE INT ART Last administered on 01/11/22at 10:00; Start 01/11/22 at 10:00; Stop 01/11/22 at 10:05; Status DC Bupivacaine HCl (Sensorcaine-Mpf 0.25%) 10 ml 1X ONCE IJ Last administered on 01/11/22at 10:00; Start 01/11/22 at 10:00; Stop 01/11/22 at 10:05; Status DC Polysaccharide Iron Complex (Niferex 150) 150 mg BIDWLD PO Last administered on 01/12/22at 16:25; Start 01/11/22 at 21:00; Stop 01/13/22 at 09:02; Status DC Potassium Chloride (Klor-Con) 20 meq DAILYWBKFT PO Last administered on 01/13/22at 08:31; Start 01/12/22 at 09:30 Clonidine HCl (Catapres) 0.1 mg BID PO Last administered on 01/13/22at 08:33; Start 01/12/22 at 21:00 Terazosin HCl (Hytrin) 1 mg DAILY10 PO ; Start 01/12/22 at 10:15; Status UNV Doxazosin Mesylate (Cardura) 1 mg DAILY PO Last administered on 01/13/22at 08:32; Start 01/12/22 at 10:00; Stop 01/13/22 at 09:02; Status DC Prochlorperazine Edisylate (Compazine) 10 mg PRN Q4HRS PRN IV NAUSEA/VOMITING Last administered on 01/13/22at 08:31; Start 01/12/22 at 21:15 Insulin Glargine (Lantus Syringe) 6 unit DAILY10 SQ ; Start 01/13/22 at 10:00 Doxazosin Mesylate (Cardura) 2 mg DAILY PO ; Start 01/13/22 at 09:00 Polysaccharide Iron Complex (Niferex 150) 150 mg DAILYWBKFT PO ; Start 01/13/22 at 10:00 Active Scripts Active Atenolol 50 Mg Tablet 50 Mg PO BID 30 Days Hold if BP less thaan 100, heart rate less than 55. [Diclofenac Sodium] 100 GM Gel..gram. 1 Sherine TP BID 14 Days Nystatin 15 Gm Cream..g. 1 Sherine TP BID 14 Days Furosemide 40 Mg Tablet 40 Mg PO DAILY 30 Days Acetaminophen 325 Mg Tablet 650 Mg PO PRN Q6HRS PRN 7 Days Clonidine Hcl 0.1 Mg Tablet 0.1 Mg PO TID 30 Days Hold if systolic BP less than 100, heart rate less than 55. Heparin Sodium (Heparin Sodium,Porcine) 5,000 Unit/1 Ml Vial 5,000 Unit SQ Q12HR 14 Days Tygacil (Tigecycline) 50 Mg Vial 50 Mg IV Q12HR 10 Days Reported Tramadol Hcl 100 Mg Tbmp.24hr 100 Mg PO Q6H PRN Tizanidine Hcl 4 Mg Tablet 1 Tab PO QHS Aciphex (Rabeprazole Sodium) 20 Mg Tablet.dr 1 Tab PO DAILY Amlodipine Besylate 5 Mg Tablet 5 Mg PO DAILY Mirtazapine 15 Mg Tablet 15 Mg PO DAILY Hydroxychloroquine Sulfate 200 Mg Tablet 1 Tab PO BID Vitals/I & O Vital Sign - Last 24 Hours 01/12/22 01/12/22 01/12/22 01/12/22 11:00 11:02 15:00 19:00 Temp 97.9 97.5 97.7 97.9 97.5 97.7 Pulse 48 51 50 52 Resp 18 16 16 B/P (MAP) 110/71 (84) 170/62 149/76 (100) 181/59 (99) Pulse Ox 95 96 96 O2 Delivery Room Air 01/12/22 01/12/22 01/12/22 01/12/22 20:30 22:38 22:39 22:41 Pulse 52 52 Resp 20 B/P (MAP) 181/59 181/59 O2 Delivery Room Air Room Air 01/12/22 01/12/22 01/13/22 01/13/22 23:00 23:11 03:00 07:00 Temp 97.8 97.8 98.1 97.8 97.8 98.1 Pulse 58 60 58 Resp 16 20 16 18 B/P (MAP) 173/64 (100) 155/75 (101) 176/68 (104) Pulse Ox 95 98 94 O2 Delivery Room Air Room Air Room Air Room Air 01/13/22 01/13/22 01/13/22 01/13/22 08:31 08:32 08:32 08:33 Pulse 58 58 58 58 B/P (MAP) 176/68 176/68 176/68 176/68 Intake and Output 01/12/22 01/12/22 01/13/22 15:00 23:00 07:00 Output Total 0 ml 600 ml Balance 0 ml -600 ml Justifications for Admission Other Justification RADHA HERNANDEZ MD January 13, 2022 09:29
[2022-01-13] MEDS ORDERED: PROC10TA57 PO (09:49)
[2022-01-13] MEDS ORDERED: POTA20TA4 PO (09:49)
[2022-01-13] MEDS ORDERED: LIDO700A21 TD (09:49)
[2022-01-13] MEDS ORDERED: DOXA2TAB2 PO (09:49)
[2022-01-13] MEDS ORDERED: INSU100V8 SQ (09:49)
[2022-01-13] MEDS ORDERED: CLON0.1T PO (09:49)
[2022-01-13] MEDS ORDERED: IRON POLYSACCHARIDE COMPLEX 150 MG CAPSULE PO SCH (10:00)
[2022-01-13] MEDS: INSULIN GLARGINE SYRINGE. SQ SCH (10:07)
[2022-01-13] MEDS: TIGECYCLINE 50 MG in IV DEXTROSE 5% 50 ML IV SCH ×2 (10:08→21:00)
--- NOTE | 2022-01-13 10:29 | NUR ---
SS following up with discharge planning. SS reviewed pt chart and discussed with pt RN. Pt is currently on room air. COVID19 negative. Wound care following. PT/OT recommending fpc unit. Pt on IV Tigecycline BID and will need IV antibiotics post discharge. Pt has been declined clinically at [facility] due to IV antibiotic cost. Pt now reporting that she wants to discharge to home. SS met with pt and discussed home health with home infusions vs. outpatient infusions and wound care. Pt requested that SS run benefits for home IV infusions. Referral sent to [facility], ; fax [phone], and [facility], ; fax [phone], for insurance benefits. SS will meet with pt once benefits have been received. SS will continue to follow for discharge planning. Addendum: 01/13/22 at 1317 by YASMIN CARRILLO SS [facility] contacted SS and reported that they are unable to get Tigecycline in stock. They also reported that there out of pocket henriquez quote for the drug after insurance would be $586.84 per week. SS contacted [facility] and was notified that pt insurance rejected IV Tigecycline so they are now running benefits for the generic medication Tygacil and will notify SS when benefits are received. Addendum: 01/13/22 at 1415 by YASMIN CARRILLO [employer] contacted and reported that Tygecil is not available and is currently on back order. was notified that in order for them to order IV Tygecycline since it is not in network they would need hospital to contact [facility] at [phone] and request prior authorization. [employer] reported that they would need prior authorization prior to ordering the antibiotic.
[2022-01-13 11:00] VITALS: BP 160/56
[2022-01-13] MEDS ORDERED: DOXAZOSIN MESYLATE 1 MG TABLET. PO ONE (12:00)
--- NOTE | 2022-01-13 12:15 | PDOC ---
Infectious Disease Note Subjective: Subjective Patient still having nausea and vomiting Bilateral lower extremity pain is under control Vital Signs: Vital Signs Vital Signs Date Time Temp Pulse Resp B/P (MAP) Pulse Ox O2 Delivery O2 Flow Rate FiO2 01/13/22 11:00 98.0 57 20 160/56 (90) 93 Room Air 98.0 Physical Exam: PHYSICAL EXAM GENERAL: Alert, oriented female, not in distress. VITAL SIGNS: Stable, afebrile. HEENT: NAD. NECK: Supple, no JVP, no lymphadenopathy. LUNGS: Clear. HEART: S1, S2, regular. ABDOMEN: Soft, nontender, no organomegaly. EXTREMITIES: No edema or cyanosis. Bilateral lower extremity calcaneal wounds are very large area of bright red, part of the skin appears clean. SKIN: Unremarkable. NEUROLOGIC: The patient is alert, awake, and appropriate. No focal neurologic deficit. Medications: Inpatient Meds: Medications reviewed. Labs: Lab Laboratory Tests Test 01/12/22 12:16 01/12/22 16:33 01/12/22 19:56 01/13/22 07:32 Glucose (Fingerstick) 202 mg/dL (70-99) 168 mg/dL (70-99) 201 mg/dL (70-99) 195 mg/dL (70-99) Test 01/13/22 12:07 Glucose (Fingerstick) 190 mg/dL (70-99) Micro RUN DATE: 01/09/22 [facility] *LIVE* PAGE 1 RUN TIME: 821 Specimen Inquiry PATIENT: MARLENI LEOS ACCT: [id number] LOC: [address] [place] [address] U: [id number] AGE/SX: 66/F ROOM: 508 RE01/06/[address]: PRO SCHROEDER MD : 1955 BED: 1 DIS: STATUS: ADM IN TLOC: SPEC #: [id number] YARITZA: 01/06/22 STATUS: COMP REQ #: [id number] RECD: 01/06/[address]: PRO SCHROEDER MD SOURCE: VOID ENTR: 01/06/[address] [facility] [address]: MARYANN MAYES MD [facility]: RAUL BALLARD DO ORDERED: CULTURE URINE* Procedure Result CULTURE URINE Final THREE OR MORE ORGANISMS ISOLATED. RESULTS CONSISTENT WITH COLONIZATION OR CONTAMINATION DURING COLLECTION PROCESS. RECOLLECTION RECOMMENDED USING A METHOD TO MINIMIZE CONTAMINATION. Testing performed by [address] director: Kita Granger MD Organism 1 ENTEROCOCCUS AVIUM RUN DATE: 01/12/22 [facility] *LIVE* PAGE 1 RUN TIME: 1034 Specimen Inquiry PATIENT: MARLENI LEOS ACCT: [id number] LOC: [facility] U: [id number] AGE/SX: 66/F ROOM: RE01/06/[address]: RAUL BALLARD DO : 1955 BED: DIS: 01/11/22 STATUS: DIS RCR TLOC: SPEC #: [id number] YARITZA: 01/06/22 STATUS: COMP REQ #: [id number] RECD: 01/06/22 [facility] DR: RAUL BALLARD DO SOURCE: FOOT ENTR: 01/06/22-[address] [facility] [address]: PRO SCHROEDER MD [facility]: PLANTAR ORDERED: MILLIE/AEROBIC CUL Procedure Result GRAM STAIN-AER MILLIE Final PMNS (WBCS): NONE SEEN SQUAMOUS EPI CELL: RARE GRAM NEGATIVE RODS: MANY GRAM POS COCCI: MANY CULTURE ANAEROBIC/AEROBIC Final MANY STAPHYLOCOCCUS AUREUS on 01/08/22 at 0830. FINAL ID=STAPHYLOCOCCUS AUREUS (MRSA) MANY GRAM NEGATIVE RODS on 01/08/22 at 0830. FINAL ID= ACINETOBACTER BAU/NOS GROUP RARE CLOSTRIDIUM PERFRINGENS on 01/10/22 at 1418. Critical Results, call to and verified with: MATT AZUL 01/10/22 1419 Testing performed by [address] [address] internal audit director: Kita Granger MD Organism 1 STAPHYLOCOCCUS AUREUS (MRSA) Organism 2 ACINETOBACTER BAU/NOS GROUP Organism 3 CLOSTRIDIUM PERFRINGENS CONTINUED ON NEXT PAGE RUN DATE: 01/12/22 [facility] *LIVE* PAGE 2 RUN TIME: 1034 Specimen Inquiry SPEC: [id number] PATIENT: DAFNEMARLENI [id number] (Continued) Procedure Result CULTURE ANAEROBIC/AEROBIC Final (continued) MRSA A DOMINIK/TROY Spears.IAnthonyC. RX M.I.C. RX --------- ------ --------- ------ AZITHROMYCIN >4 R CEFOTAXIME <=2 S DAPTOMYCIN 1 S VANCOMYCIN 1 S CEFTAROLINE 1 S CEFEPIME <=2 S CEFTRIAXONE <=1 S TRIMETH/SULFA <=0.5/9.5 S <=0.5/9.5 S LEVOFLOXACIN >4 R <=0.5 S * CLINDAMYCIN >4 R LINEZOLID 2 S ERYTHROMYCIN >4 R MEROPENEM <=1 S PENICILLIN >2 R TETRACYCLINE <=4 S RIFAMPIN <=1 S OXACILLIN >2 R AMIKACIN <=16 S AMP/SULBACTAM 16/8 I CEFTAZIDIME <=1 S CIPROFLOXACIN <=0.25 S GENTAMICIN <=4 S <=2 S TOBRAMYCIN <=2 S 1. STAPHYLOCOCCUS AUREUS (MRSA) Target Route Dose RX AB Cost M.I.C. IQ ------ ----- ------ -- ------ --------- ------ AZITHROMYCIN R >4 DAPTOMYCIN S 1 VANCOMYCIN S 1 CEFTAROLINE S 1 TRIMETH/SULFA S <=0.5/9.5 LEVOFLOXACIN R >4 * CLINDAMYCIN R >4 LINEZOLID S 2 ERYTHROMYCIN R >4 PENICILLIN R >2 TETRACYCLINE S <=4 RIFAMPIN S <=1 OXACILLIN R >2 GENTAMICIN S <=4 CONTINUED ON NEXT PAGE RUN DATE: 01/12/22 [facility] *LIVE* PAGE 3 RUN TIME: 1034 Specimen Inquiry SPEC: [id number] PATIENT: MARLENI LEOS [id number] (Continued) Procedure Result CULTURE ANAEROBIC/AEROBIC Final (continued) 2. ACINETOBACTER BAU/NOS GROUP Target Route Dose RX AB Cost M.I.C. IQ ------ ----- ------ -- ------ --------- ------ CEFOTAXIME S <=2 CEFEPIME S <=2 CEFTRIAXONE S <=1 TRIMETH/SULFA S <=0.5/9.5 LEVOFLOXACIN S <=0.5 MEROPENEM S <=1 AMIKACIN S <=16 AMP/SULBACTAM I 16/8 CEFTAZIDIME S <=1 CIPROFLOXACIN S <=0.25 GENTAMICIN S <=2 TOBRAMYCIN S <=2 Objective: Assessment: 1. 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 The patient basically needs offload completely. Her special boots are evidently not effective. Cultures positive for MRSA, Clostridium perfringens, and Acinetobacter baumanni 2. Morbid obesity. 3. Diabetes mellitus. 4. Hypertension. 5. Rheumatoid arthritis. 6. Nausea and vomiting 7. Enterococcus avium on UC with other organisms Plan: Plan of Care Maintain aspiration precautions Continue Tygacil but for prolonged infusion time Offload Local Wound care Discussed with nursing staff KAYODE MAYES MD January 13, 2022 12:15
[2022-01-13 15:00] VITALS: BP 165/60
[2022-01-13 19:00] VITALS: BP 157/56
[2022-01-13] MEDS: PATCH REMOVAL. MC SCH (21:00)
[2022-01-13] MEDS: tiZANidine 4 MG TABLET. PO SCH (21:00)
[2022-01-13] MEDS: MIRTAZAPINE 15 MG TABLET PO SCH (21:04)
[2022-01-13] MEDS: traMADol 50 MG TABLET PO PRN (21:21)
[2022-01-13 23:00] VITALS: BP 151/54
[2022-01-14 03:00] VITALS: BP 161/58
[2022-01-14] MEDS: PANTOPRAZOLE 40 MG TABLET.DR. PO SCH (06:34)
[2022-01-14 07:00] VITALS: BP 162/60
[2022-01-14] MEDS: INSULIN LISPRO 300 UNITS/3 ML VIAL. SQ SCH ×3 (08:00→17:00)
[2022-01-14] MEDS: TIGECYCLINE 50 MG in IV DEXTROSE 5% 50 ML IV SCH (08:39)
[2022-01-14] MEDS: FUROSEMIDE 40 MG TABLET. PO SCH (08:39)
[2022-01-14] MEDS: PROCHLORPERAZINE 10 MG/2 ML VIAL. IV PRN ×2 (08:39→20:50)
[2022-01-14] MEDS: HYDROXYCHLOROQUINE 200 MG TABLET PO SCH ×2 (08:39→20:50)
[2022-01-14] MEDS: POTASSIUM CHLORIDE 20 MEQ TABLET.ER. PO SCH (08:40)
[2022-01-14] MEDS: DOXAZOSIN MESYLATE 1 MG TABLET. PO SCH (08:40)
[2022-01-14] MEDS: ATENOLOL 50 MG TABLET. PO SCH ×2 (08:41→20:49)
[2022-01-14] MEDS: cloNIDine HCL 0.1 MG TABLET PO SCH ×2 (08:41→20:50)
[2022-01-14] MEDS: diphenhydrAMINE HCL 25 MG CAPSULE PO SCH ×2 (08:41→20:50)
[2022-01-14] MEDS: LIDOCAINE (700MG/PATCH) PATCH. TD SCH (08:42)
[2022-01-14] MEDS: DICLOFENAC SODIUM 1% TOPICAL GEL 100GM TUBE. TP SCH ×2 (08:42→21:00)
[2022-01-14] MEDS: NYSTATIN 100,000 UNIT/GM TOPICAL CREAM 15GM TUBE. TP SCH ×2 (08:42→21:00)
--- NOTE | 2022-01-14 08:52 | PDOC ---
IM PROGRESS NOTES- Subjective Subjective Continues to have nausea and occasional vomiting. Did not eat breakfast. Objective Vitals/I&O Vital Signs Date Time Temp Pulse Resp B/P (MAP) Pulse Ox O2 Delivery O2 Flow Rate FiO2 01/14/22 03:00 98.2 59 18 161/58 (92) 92 Room Air 98.2 l I & O 01/13/22 01/13/22 01/14/22 15:00 23:00 07:00 Intake Total 50 ml 200 ml 360 ml Balance 50 ml 200 ml 360 ml Physical Exam Physical Exam General Appearance - alert and in no distress Chest - decreased breath sounds at bases Heart - S1 and S2 normal Abdomen - soft, non tender Neurological - alert and oriented Musculoskeletal - generalized weakness Extremities - no edema Labs Laboratory Tests Test 01/13/22 12:07 01/13/22 15:25 01/13/22 19:25 01/14/22 07:51 Glucose (Fingerstick) 190 mg/dL (70-99) H 185 mg/dL (70-99) H 196 mg/dL (70-99) H 165 mg/dL (70-99) H Meds Current Medications Medications (Trade) Dose Ordered Sig/Valencia Route PRN Reason Start Time Stop Time Status Last Admin Dose Admin Insulin Glargine (Lantus Syringe) 6 unit DAILY10 SQ 01/13/22 10:00 01/13/22 10:07 Doxazosin Mesylate (Cardura) 1 mg 1X ONCE PO 01/13/22 12:00 01/13/22 12:01 DC 01/13/22 15:57 Assessment Assessment IMP: SI joint pain rt side. 1. Bilateral foot wounds. 2. Diabetic neuropathy. 3. Peripheral arterial disease. 4. Lymphedema. 5. Hypertension. 6. Rheumatoid arthritis. 7. Osteoarthritis. 8. Fatty liver. 9. Diverticulosis. 10. Severe protein calorie malnutrition. 11. Hyperlipidemia. 12. History of migraine. 13. Chronic kidney disease 2. 14. Anemia, iron deficiency. PLAN: cortisone inj to si joint Lidoderm patch for pain iv antibiotics for wounds. waiting for SNU placement. Consult Dr. Napier for wound care management and Dr. Mooney for wound management. Decrease Lantus to [address] Solano for PAD. Consult wound care team. Also, consult Dr. Roman for bilateral knee pain and Dr. Ornelas for possible right foot drop. Diabetes mellitus. Discontinue Lantus because blood sugar remains low. Patient did not take Lantus for last 3 weeks at home. Bilateral heel wounds- non healing for 1 year. This is complicated by lymphedema and inability to do her wound care. No significant PAD per vascular surgery. Vascular boots have not helped her. Complete offloading,IV Rocephin. IV Rocephin was discontinued and patient was started on tigecycline yesterday by Dr. Mooney. 2 hours later patient reported feeling of burning everywhere. She was given Pepcid and Benadryl. She had no rash. She just felt funny. She does not want to take it again. She does not want to go residential when ready. She wants to go home when discharged. Her brother will help her and she now has a bedside commode. Hypertensive crisis. Started on furosemide yesterday. Discussed with stephanie bautista yesterday.. Increase Atenolol to 50 mg daily. Decrease Clonidine to 0.1 mg bid. Increase Doxazosin. Consider stopping amlodipine if possible because of swelling of the lower extremities.Monitor bradycardia. Blood pressure control is improving. Hypokalemia- replace KCL. Nausea- stop Ferrous sulfate.Compazine prn. GI consult. Also has diarrhea. Transfer to SNF when accepted. She wants to go home. galley worker is helping. Discharge management 35 minutes. Plan Plan For more details regarding further plans, please refer to the orders. Justifications for Admission Other Justification PRO SCHROEDER MD January 14, 2022 08:52
[2022-01-14] MEDS: HEPARIN for SUB-Q USE 5,000 UNIT/ML VIAL. SQ SCH ×2 (08:55→20:52)
[2022-01-14] MEDS: INSULIN GLARGINE SYRINGE. SQ SCH (08:56)
--- NOTE | 2022-01-14 09:47 | PDOC ---
PROGRESS NOTES Date of Service DATE: 01/14/22 TIME: 09:45 Subjective Subjective She admits nausea. Objective Objective Vital Signs Date Time Temp Pulse Resp B/P (MAP) Pulse Ox O2 Delivery O2 Flow Rate FiO2 01/14/22 08:41 59 162/60 01/14/22 07:00 98.4 18 92 Room Air 98.4 Intake and Output 01/14/22 07:00 Intake Total 610 ml Balance 610 ml Intake Oral 560 ml IV Total 50 ml Physical Exam Physical Exam She is alert,supine in bed and had dressing to her feet and PRAFO boots are in place. She continues with painfully limited knee and lumbar spine ROM. Plan Plan of Care To continue present wound care. Comment Review of Relevant I have reviewed the following items meg (where applicable) has been applied. Labs Laboratory Tests Test 01/12/22 12:16 01/12/22 16:33 01/12/22 19:56 01/13/22 07:32 Glucose (Fingerstick) 202 mg/dL (70-99) 168 mg/dL (70-99) 201 mg/dL (70-99) 195 mg/dL (70-99) Test 01/13/22 12:07 01/13/22 15:25 01/13/22 19:25 01/14/22 07:51 Glucose (Fingerstick) 190 mg/dL (70-99) 185 mg/dL (70-99) 196 mg/dL (70-99) 165 mg/dL (70-99) Laboratory Tests Test 01/13/22 12:07 01/13/22 15:25 01/13/22 19:25 01/14/22 07:51 Glucose (Fingerstick) 190 mg/dL (70-99) 185 mg/dL (70-99) 196 mg/dL (70-99) 165 mg/dL (70-99) Microbiology 01/06/22 Blood Culture - Final, Complete NO GROWTH AFTER 5 DAYS 01/06/22 Urine Culture - Final, Complete Enterococcus Avium Medications Current Medications Amlodipine Besylate (Norvasc) 5 mg DAILY PO Last administered on 01/14/22at 08:40; Start 01/07/22 at 09:00 Atenolol (Tenormin) 25 mg BID PO Last administered on 01/09/22at 08:21; Start 01/06/22 at 21:00; Stop 01/09/22 at 09:48; Status DC Hydroxychloroquine Sulfate (Plaquenil) 200 mg BID PO Last administered on 01/14/22at 08:39; Start 01/06/22 at 21:00 Mirtazapine (Remeron) 15 mg DAILY PO ; Start 01/07/22 at 09:00; Status Cancel Tizanidine HCl (Zanaflex) 4 mg QHS PO Last administered on 01/13/22at 21:00; Start 01/06/22 at 21:00 Insulin Glargine (Lantus Syringe) 80 unit QHS SQ Last administered on 01/06/22at 22:24; Start 01/06/22 at 21:00; Stop 01/07/22 at 08:10; Status DC Pantoprazole Sodium (Protonix) 40 mg DAILYAC PO Last administered on 01/12/22at 09:05; Start 01/07/22 at 07:30 Tramadol HCl (Ultram) 100 mg PRN Q6HRS PRN PO MODERATE-SEVERE PAIN Last administered on 01/13/22at 21:21; Start 01/06/22 at 14:00 Ceftriaxone Sodium (Rocephin) 2 gm Q24H IVP Last administered on 01/07/22at 15:38; Start 01/06/22 at 15:00; Stop 01/08/22 at 12:49; Status DC Acetaminophen (Tylenol) 650 mg PRN Q6HRS PRN PO MILD PAIN / TEMP > 100.3'F; Start 01/06/22 at 14:45 Insulin Human Lispro (HumaLOG) 0-5 UNITS TIDWMEALS SQ Last administered on 01/12/22at 17:10; Start 01/06/22 at 17:00 Dextrose (Dextrose 50%-Water Syringe) 12.5 gm PRN Q15MIN PRN IV SEE COMMENTS; Start 01/06/22 at 14:45 Dextrose (Iv Dextrose 5%) 250 ml PRN Q15MIN PRN IV SEE COMMENTS; Start 01/06/22 at 14:45 Insulin Glargine (Lantus Syringe) 50 unit QHS SQ ; Start 01/07/22 at 21:00; Stop 01/08/22 at 08:04; Status DC Heparin Sodium (Porcine) (Heparin Sodium) 5,000 unit Q12HR SQ Last administered on 01/14/22 08:55; Start 01/07/22 at 09:00 Mirtazapine (Remeron) 15 mg QHS PO Last administered on 01/13/22 21:04; Start 01/07/22 at 21:00 Diclofenac Sodium (Voltaren) 1 sherine BID TP Last administered on 01/13/22 21:03; Start 01/07/22 at 13:00 Nystatin (Mycostatin) 1 sherine BID TP Last administered on 01/13/22 08:34; Start 01/07/22 at 13:00 Insulin Glargine (Lantus Syringe) 20 unit QHS SQ Last administered on 01/08/22at 21:00; Start 01/08/22 at 21:00; Stop 01/09/22 at 09:34; Status DC Tigecycline 50 mg/ Dextrose 50 ml @ 50 mls/hr Q12HR IV Last administered on 01/14/22 08:39; Start 01/08/22 at 21:00 Tigecycline 100 mg/Dextrose 100 ml @ 200 mls/hr 1X ONCE IV Last administered on 01/08/22at 14:32; Start 01/08/22 at 15:00; Stop 01/08/22 at 15:29; Status DC Furosemide (Lasix) 40 mg DAILY PO Last administered on 01/14/22 08:39; Start 01/09/22 at 09:00 Famotidine (Pepcid) 40 mg 1X ONCE PO Last administered on 01/08/22at 19:09; Start 01/08/22 at 19:00; Stop 01/08/22 at 19:07; Status DC Diphenhydramine HCl (Benadryl) 25 mg 1X ONCE PO Last administered on 01/08/22at 19:09; Start 01/08/22 at 19:00; Stop 01/08/22 at 19:07; Status DC Metoprolol Succinate (Toprol Xl) 50 mg DAILY PO ; Start 01/09/22 at 09:45; Stop 01/09/22 at 09:48; Status DC Atenolol (Tenormin) 50 mg BID PO Last administered on 01/14/22 08:41; Start 01/09/22 at 21:00 Atenolol (Tenormin) 25 mg 1X ONCE PO Last administered on 01/09/22at 10:45; Start 01/09/22 at 10:00; Stop 01/09/22 at 10:01; Status DC Clonidine HCl (Catapres) 0.1 mg TID PO Last administered on 01/12/22at 09:05; Start 01/09/22 at 10:15; Stop 01/12/22 at 10:06; Status DC Diphenhydramine HCl (Benadryl) 25 mg BID PO Last administered on 01/14/22at 08:41; Start 01/09/22 at 21:00 Chloroprocaine HCl (Nesacaine 3% Mpf) 20 ml 1X ONCE INFIL ; Start 01/09/22 at 14:15; Stop 01/09/22 at 14:16; Status DC Prochlorperazine Edisylate (Compazine) 10 mg PRN Q6HRS PRN IV NAUSEA/VOMITING Last administered on 01/12/22at 16:25; Start 01/09/22 at 20:45; Stop 01/12/22 at 21:06; Status DC Lidocaine HCl (Buffered Lidocaine 1%) 3 ml STK-MED ONCE .ROUTE ; Start 01/10/22 at 09:30; Stop 01/10/22 at 09:30; Status DC Lidocaine HCl (Buffered Lidocaine 1%) 4 ml 1X ONCE INJ Last administered on 01/10/22at 10:00; Start 01/10/22 at 10:00; Stop 01/10/22 at 10:01; Status DC Lidocaine (Lidoderm) 1 patch DAILY TD Last administered on 01/11/22at 10:58; Start 01/11/22 at 10:00; Stop 01/11/22 at 23:00; Status DC Miscellaneous (Lidoderm Patch Removal) 1 ea QHS MC ; Start 01/11/22 at 21:00; Status Cancel Lidocaine (Lidoderm) 1 patch DAILY TD Last administered on 01/14/22at 08:42; Start 01/12/22 at 09:00 Miscellaneous (Lidoderm Patch Removal) 1 ea QHS MC Last administered on 01/13/22 at 21:00; Start 01/11/22 at 21:00 Triamcinolone Acetonide (Kenalog-40) 40 mg 1X ONCE INT ART Last administered on 01/11/22at 10:00; Start 01/11/22 at 10:00; Stop 01/11/22 at 10:05; Status DC Bupivacaine HCl (Sensorcaine-Mpf 0.25%) 10 ml 1X ONCE IJ Last administered on 01/11/22at 10:00; Start 01/11/22 at 10:00; Stop 01/11/22 at 10:05; Status DC Polysaccharide Iron Complex (Niferex 150) 150 mg BIDWLD PO Last administered on 01/12/22at 16:25; Start 01/11/22 at 21:00; Stop 01/13/22 at 09:02; Status DC Potassium Chloride (Klor-Con) 20 meq DAILYWBKFT PO Last administered on 01/14/22at 08:40; Start 01/12/22 at 09:30 Clonidine HCl (Catapres) 0.1 mg BID PO Last administered on 01/14/22at 08:41; Start 01/12/22 at 21:00 Terazosin HCl (Hytrin) 1 mg DAILY10 PO ; Start 01/12/22 at 10:15; Status UNV Doxazosin Mesylate (Cardura) 1 mg DAILY PO Last administered on 01/13/22at 08:32; Start 01/12/22 at 10:00; Stop 01/13/22 at 09:02; Status DC Prochlorperazine Edisylate (Compazine) 10 mg PRN Q4HRS PRN IV NAUSEA/VOMITING Last administered on 01/14/22at 08:39; Start 01/12/22 at 21:15 Insulin Glargine (Lantus Syringe) 6 unit DAILY10 SQ Last administered on 2at 08:56; Start 01/13/22 at 10:00 Doxazosin Mesylate (Cardura) 2 mg DAILY PO ; Start 01/13/22 at 09:00; Stop 01/13/22 at 11:51; Status DC Polysaccharide Iron Complex (Niferex 150) 150 mg DAILYWBKFT PO ; Start 01/13/22 at 10:00; Stop 01/13/22 at 09:45; Status DC Doxazosin Mesylate (Cardura) 2 mg DAILY PO Last administered on 01/14/22at 08:40; Start 01/14/22 at 09:00 Doxazosin Mesylate (Cardura) 1 mg 1X ONCE PO Last administered on 01/13/22at 15:57; Start 01/13/22 at 12:00; Stop 01/13/22 at 12:01; Status DC Active Scripts Active Compazine (Prochlorperazine Maleate) 10 Mg Tablet 1 Tab PO Q6HRS 30 Days Lidocaine PATCH (Lidocaine) 1 Each Adh..patch 1 Patch TD DAILY 30 Days Lantus (Insulin Glargine,Hum.rec.anlog) 100 Unit/1 Ml Vial 6 Unit SQ DAILY10 30 Days Potassium Chloride (Potassium Chloride) 20 Meq Tablet.er 20 Meq PO DAILYWBKFT 30 Days Doxazosin Mesylate 2 Mg Tablet 1 Tab PO DAILY 30 Days Clonidine Hcl 0.1 Mg Tablet 0.1 Mg PO BID 30 Days Hold if gloria rate less than 55/min Atenolol 50 Mg Tablet 50 Mg PO BID 30 Days Hold if BP less thaan 100, heart rate less than 55. [Diclofenac Sodium] 100 GM Gel..gram. 1 Sherine TP BID 14 Days Nystatin 15 Gm Cream..g. 1 Sherine TP BID 14 Days Furosemide 40 Mg Tablet 40 Mg PO DAILY 30 Days Acetaminophen 325 Mg Tablet 650 Mg PO PRN Q6HRS PRN 7 Days Clonidine Hcl 0.1 Mg Tablet 0.1 Mg PO TID 30 Days Hold if systolic BP less than 100, heart rate less than 55. Heparin Sodium (Heparin Sodium,Porcine) 5,000 Unit/1 Ml Vial 5,000 Unit SQ Q12HR 14 Days Tygacil (Tigecycline) 50 Mg Vial 50 Mg IV Q12HR 10 Days Reported Tramadol Hcl 100 Mg Tbmp.24hr 100 Mg PO Q6H PRN Tizanidine Hcl 4 Mg Tablet 1 Tab PO QHS Aciphex (Rabeprazole Sodium) 20 Mg Tablet.dr 1 Tab PO DAILY Amlodipine Besylate 5 Mg Tablet 5 Mg PO DAILY Mirtazapine 15 Mg Tablet 15 Mg PO DAILY Hydroxychloroquine Sulfate 200 Mg Tablet 1 Tab PO BID Vitals/I & O Vital Sign - Last 24 Hours 01/13/22 01/13/22 01/13/22 01/13/22 11:00 15:00 15:57 19:00 Temp 98.0 97.7 98.8 98.0 97.7 98.8 Pulse 57 58 58 63 Resp 20 18 16 B/P (MAP) 160/56 (90) 165/60 (95) 165/60 157/56 (89) Pulse Ox 93 92 92 O2 Delivery Room Air Room Air Room Air 01/13/22 01/13/22 01/13/22 01/13/22 20:00 21:01 21:01 21:21 Pulse 60 60 Resp 18 B/P (MAP) 169/60 169/60 Pulse Ox 92 O2 Delivery Room Air Room Air 01/13/22 01/13/22 01/14/22 01/14/22 21:51 23:00 03:00 07:00 Temp 98.0 98.2 98.4 98.0 98.2 98.4 Pulse 61 59 59 Resp 16 18 18 18 B/P (MAP) 151/54 (86) 161/58 (92) 162/60 (94) Pulse Ox 93 93 92 92 O2 Delivery Room Air Room Air Room Air Room Air 01/14/22 01/14/22 01/14/22 01/14/22 08:40 08:40 08:41 08:41 Pulse 59 59 59 59 B/P (MAP) 162/60 162/60 162/60 162/60 Intake and Output 01/13/22 01/13/22 01/14/22 15:00 23:00 07:00 Intake Total 50 ml 200 ml 360 ml Balance 50 ml 200 ml 360 ml Justifications for Admission Other Justification RADHA HERNANDEZ MD January 14, 2022 09:47
[2022-01-14] MEDS ORDERED: PROCHLORPERAZINE 25 MG SUPP.RECT. PR PRN (10:00)
[2022-01-14 11:00] VITALS: BP 148/58
--- NOTE | 2022-01-14 11:29 | PDOC2 ---
GI CONSULT Date of Service: DATE: 01/14/22 TIME: 10:59 Reason For Consult: vomiting HPI: HPI: 66 y/o female admitted 01/06/22 w/ bilateral non-healing calcaneal wounds. Also has UTI, h/o DM, obesity. We're asked to see for n/v that started a couple days ago with an IV antibiotic. "My whole body felt like it was on fire and I haven't felt right since." Nausea is constant. Says it's easier just not to try eating because food/liquids immediately come back up (?but keeping pills down). Denies chronic issues with this at home. H/o CHRISTOPHER - was not on iron at home. Took here but now stopped due to n/v. (Iron and B12 checked here in 2017.) H/o GERD on Aciphex at home. Refusing pantoprazole here because it makes her feel worse - gets "a knot" in epigastrium. Says the only PPI that works is Aciphex and it's not worth re-trying pantoprazole. Also c/o diarrhea "constantly just running out of me." Two "black" liquid stools today. No dysphagia, hematemesis, abdominal pain, constipation, hematochezia, weight loss, and dizziness. GES in 04/2016 showed markedly delayed emptying. Has taken Reglan briefly in the past but stopped because she didn't need it and it caused diarrhea. EGD by Dr. Brooks for CHRISTOPHER in 04/2017 showed GERD, non-specific antral erythema (biopsies w/ chronic gastritis, negative for H. pylori), small <1mm AVM in fundus, normal duodenum (random biopsies unremarkable, negative for celiac). Reports normal colonoscopy in [place] >10 years ago. S/p cholecystectomy. Hepatic steatosis. No pancreas or PUD history. PMH: PMH: HTN, HLD, DM, RA, sarcoidosis, osteomyelitis cholecystectomy, hysterectomy, partial right foot amputation/wound dehiscence/closure FH: Family History: No pertinent hx (no GI cancers) Social History: Smoke: No ALCOHOL: none Drugs: None ROS: GEN: Denies fevers, chills, sweats HEENT: Denies blurred vision, sore throat CV: Denies chest pain RESP: Denies shortness of air, cough GI: Per HPI : Denies hematuria, dysuria ENDO: Denies weight changes NEURO: Denies confusion, dizziness MSK:/SKIN: foot wounds, chronic pain Vitals: Vitals: Vital Signs Date Time Temp Pulse Resp B/P (MAP) Pulse Ox O2 Delivery O2 Flow Rate FiO2 01/14/22 08:41 59 162/60 01/14/22 08:00 Room Air 01/14/22 07:00 98.4 18 92 98.4 Labs: Labs: Laboratory Tests Test 01/13/22 12:07 01/13/22 15:25 01/13/22 19:25 01/14/22 07:51 Glucose (Fingerstick) 190 mg/dL 185 mg/dL 196 mg/dL 165 mg/dL CULTURE URINE Final THREE OR MORE ORGANISMS ISOLATED. RESULTS CONSISTENT WITH COLONIZATION OR CONTAMINATION DURING COLLECTION PROCESS. RECOLLECTION RECOMMENDED USING A METHOD TO MINIMIZE CONTAMINATION. [place] [address] director of casework services: Tory Ravi Organism 1 ENTEROCOCCUS AVIUM BLOOD CULTURE Final NO GROWTH AFTER 5 DAYS GRAM STAIN-AER MILLIE Final PMNS (WBCS): NONE SEEN SQUAMOUS EPI CELL: RARE GRAM NEGATIVE RODS: MANY GRAM POS COCCI: MANY CULTURE ANAEROBIC/AEROBIC Final MANY STAPHYLOCOCCUS AUREUS on 01/08/22 at 0830. FINAL ID=STAPHYLOCOCCUS AUREUS (MRSA) MANY GRAM NEGATIVE RODS on 01/08/22 at 0830. FINAL ID= ACINETOBACTER BAU/NOS GROUP RARE CLOSTRIDIUM PERFRINGENS on 01/10/22 at 1418. Critical Results, call to and verified with: MATT AZUL 01/10/22 1419 [place] [address] director of casework services: Kita Granger MD Organism 1 STAPHYLOCOCCUS AUREUS (MRSA) Organism 2 ACINETOBACTER BAU/NOS GROUP Organism 3 CLOSTRIDIUM PERFRINGENS Allergies: Coded Allergies: Penicillins (Verified Allergy, Intermediate, Rash, 07/14/17) benzocaine (Verified Allergy, Intermediate, Shortness of Air, 07/14/17) lidocaine (Verified Allergy, Intermediate, Shortness of Air, 07/14/17) losartan (Verified Allergy, Intermediate, Rash, 07/14/17) tetracaine (Verified Allergy, Intermediate, Shortness of Air, 07/14/17) I S O L A T I O N *CONTACT* (Verified Allergy, Unknown, 01/12/22) mrsa hydralazine (Verified Adverse Reaction, Intermediate, BLOOD PRESSURE DROPPED TOO LOW, 01/12/22) Medications: Current Medications Medications (Trade) Dose Ordered Sig/Valencia Route PRN Reason Start Time Stop Time Status Last Admin Dose Admin Doxazosin Mesylate (Cardura) 2 mg DAILY PO 01/14/22 09:00 01/14/22 08:40 Doxazosin Mesylate (Cardura) 1 mg 1X ONCE PO 01/13/22 12:00 01/13/22 12:01 DC 01/13/22 15:57 Imaging: Imaging: LE Duplex 01/06 Impression: Peripheral vascular disease on the right more so than left with elevated peak systolic velocities but no findings of a flow-limiting stenosis from the common femoral artery to the popliteal artery. On the right there is an isolated monophasic waveform within the dorsalis pedis suggesting a stenosis above this level. Consider eventual MELISSA to help determine the severity of PAD. Hip/Pelv X-Ray 01/07 Impression: 1. No acute osseous abnormality. Knee X-Ray 01/07 Impression: 1. 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 Progressed on the left compared to prior. L-Spine X-ray 01/07 Impression: 1. Degraded evaluation. 2. Moderate lumbar spondylosis Foot X-ray .Impression: 1. No radiographic evidence of osteomyelitis. If persistent clinical concern of a specific region, MRI can further assess. 2. Chronic deformities bilaterally, as described. 3. Prior right first digit amputation PICC insertion 01/10 PE: GEN: NAD - was asleep HEENT: Atraumatic, PERRL LUNGS: CTAB HEART: RRR ABD: NABS, S/NT, obese EXTREMITY/SKIN: BLE w/ wraps/boots NEURO/PSYCH: A & O 3 A/P: A/P: Bilateral calcaneal wounds/infection, UTI N/v, diarrhea CHRISTOPHER - AVM noted on EGD in 2016 - Hgb stable, PO iron stopped GERD - controlled w/ Aciphex, declines other PPIs H/o gastroparesis - declines Reglan due to possible adverse effect of diarrhea several years ago CRC screen - reports normal colonoscopy >10 years ago S/p cholecystectomy Hepatic steatosis HTN, DM, CKD, BMI 56, RA on Plaquenil COVID negative -- ?antibiotic effect in part? Off her usual PPI and declines PPIs on formulary here, also declines Reglan. ?try H2 austen - we didn't discuss this - will review w/ Dr. Brooks. Check C Diff. REGIS SANFORD January 14, 2022 11:29
[2022-01-14] MEDS ORDERED: LIDO:MAALOX 1:1 20 ML SINGLE DOSE. PO PRN (13:15)
--- NOTE | 2022-01-14 13:48 | PDOC ---
Infectious Disease Note Subjective: Subjective Patient still having nausea and vomiting Bilateral lower extremity pain is under control Vital Signs: Vital Signs Vital Signs Date Time Temp Pulse Resp B/P (MAP) Pulse Ox O2 Delivery O2 Flow Rate FiO2 01/14/22 08:41 59 162/60 01/14/22 08:00 Room Air 01/14/22 07:00 98.4 18 92 98.4 Physical Exam: PHYSICAL EXAM GENERAL: Alert, oriented female, not in distress. VITAL SIGNS: Stable, afebrile. HEENT: NAD. NECK: Supple, no JVP, no lymphadenopathy. LUNGS: Clear. HEART: S1, S2, regular. ABDOMEN: Soft, nontender, no organomegaly. EXTREMITIES: No edema or cyanosis. Bilateral lower extremity calcaneal wounds are very large area of bright red, part of the skin appears clean. SKIN: Unremarkable. NEUROLOGIC: The patient is alert, awake, and appropriate. No focal neurologic deficit. Medications: Inpatient Meds: Medications reviewed. Labs: Lab Laboratory Tests Test 01/13/22 15:25 01/13/22 19:25 01/14/22 07:51 01/14/22 11:44 Glucose (Fingerstick) 185 mg/dL (70-99) 196 mg/dL (70-99) 165 mg/dL (70-99) 188 mg/dL (70-99) Micro RUN DATE: 01/09/22 [facility] *LIVE* PAGE 1 RUN TIME: 821 Specimen Inquiry PATIENT: MARLENI LEOS ACCT: [id number] LOC: [address] [place] [address] U: [id number] AGE/SX: 66/F ROOM: 508 RE01/06/[address]: PRO SCHROEDER MD : 1955 BED: 1 DIS: STATUS: ADM IN TLOC: SPEC #: [id number] YARITZA: 01/06/22 STATUS: COMP REQ #: [id number] RECD: 01/06/[address]: PRO SCHROEDER MD SOURCE: VOID ENTR: 01/06/[address]: MARYANN MAYES MD [facility] [place] RAUL BALLARD DO ORDERED: CULTURE URINE* Procedure Result CULTURE URINE Final THREE OR MORE ORGANISMS ISOLATED. RESULTS CONSISTENT WITH COLONIZATION OR CONTAMINATION DURING COLLECTION PROCESS. RECOLLECTION RECOMMENDED USING A METHOD TO MINIMIZE CONTAMINATION. Testing performed by [address] [address] health education director: Kita Granger MD Organism 1 ENTEROCOCCUS AVIUM -- RUN DATE: 01/12/22 [facility] *LIVE* PAGE 1 RUN TIME: 1034 Specimen Inquiry PATIENT: MARLENI LEOS Danilo ACCT: [id number] LOC: [facility] U: [id number] AGE/SX: 66/F ROOM: RE01/06/[address]: RAUL BALLARD DO : 1955 BED: DIS: 01/11/22 STATUS: DIS RCR TLOC: SPEC #: [id number] YARITZA: 01/06/22 STATUS: GERMAINE REQ #: [id number] RECD: 01/06/[address]: RAUL BALLARD DO SOURCE: FOOT ENTR: 01/06/[address]: PRO SCHROEDER MD [facility] [place] PLANTAR ORDERED: MILLIE/AEROBIC CUL Procedure Result GRAM STAIN-AER MILLIE Final PMNS (WBCS): NONE SEEN SQUAMOUS EPI CELL: RARE GRAM NEGATIVE RODS: MANY GRAM POS COCCI: MANY CULTURE ANAEROBIC/AEROBIC Final MANY STAPHYLOCOCCUS AUREUS on 01/08/22 at 0830. FINAL ID=STAPHYLOCOCCUS AUREUS (MRSA) MANY GRAM NEGATIVE RODS on 01/08/22 at 0830. FINAL ID= ACINETOBACTER BAU/NOS GROUP RARE CLOSTRIDIUM PERFRINGENS on 01/10/22 at 1418. Critical Results, call to and verified with: MATT AZUL 01/10/22 1419 Testing [place] [address] health education director: Kita Granger MD Organism 1 STAPHYLOCOCCUS AUREUS (MRSA) Organism 2 ACINETOBACTER BAU/NOS GROUP Organism 3 CLOSTRIDIUM PERFRINGENS CONTINUED ON NEXT PAGE RUN DATE: 01/12/22 [facility] *LIVE* PAGE 2 RUN TIME: 1034 Specimen Inquiry SPEC: [id number] PATIENT: DAFNEMARLENI [id number] (Continued) Procedure Result CULTURE ANAEROBIC/AEROBIC Final (continued) MRSA A DOMINIK/NO M.I.C. RX M.I.C. RX --------- ------ --------- ------ AZITHROMYCIN >4 R CEFOTAXIME <=2 S DAPTOMYCIN 1 S VANCOMYCIN 1 S CEFTAROLINE 1 S CEFEPIME <=2 S CEFTRIAXONE <=1 S TRIMETH/SULFA <=0.5/9.5 S <=0.5/9.5 S LEVOFLOXACIN >4 R <=0.5 S * CLINDAMYCIN >4 R LINEZOLID 2 S ERYTHROMYCIN >4 R MEROPENEM <=1 S PENICILLIN >2 R TETRACYCLINE <=4 S RIFAMPIN <=1 S OXACILLIN >2 R AMIKACIN <=16 S AMP/SULBACTAM 16/8 I CEFTAZIDIME <=1 S CIPROFLOXACIN <=0.25 S GENTAMICIN <=4 S <=2 S TOBRAMYCIN <=2 S 1. STAPHYLOCOCCUS AUREUS (MRSA) Target Route Dose RX AB Cost M.I.C. IQ ------ ----- ------ -- ------ --------- ------ AZITHROMYCIN R >4 DAPTOMYCIN S 1 VANCOMYCIN S 1 CEFTAROLINE S 1 TRIMETH/SULFA S <=0.5/9.5 LEVOFLOXACIN R >4 * CLINDAMYCIN R >4 LINEZOLID S 2 ERYTHROMYCIN R >4 PENICILLIN R >2 TETRACYCLINE S <=4 RIFAMPIN S <=1 OXACILLIN R >2 GENTAMICIN S <=4 CONTINUED ON NEXT PAGE RUN DATE: 01/12/22 [facility] *LIVE* PAGE 3 RUN TIME: 1034 Specimen Inquiry SPEC: [id number] PATIENT: MARELNI LEOS [id number] (Continued) Procedure Result ------ ------ CULTURE ANAEROBIC/AEROBIC Final (continued) 2. ACINETOBACTER SUSAN/NOS GROUP Target Route Dose RX AB Cost M.I.C. IQ ------ ----- ------ -- ------ --------- ------ CEFOTAXIME S <=2 CEFEPIME S <=2 CEFTRIAXONE S <=1 TRIMETH/SULFA S <=0.5/9.5 LEVOFLOXACIN S <=0.5 MEROPENEM S <=1 AMIKACIN S <=16 AMP/SULBACTAM I 16/8 CEFTAZIDIME S <=1 CIPROFLOXACIN S <=0.25 GENTAMICIN S <=2 TOBRAMYCIN S <=2 Objective: Assessment: 1. 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 The patient basically needs offload completely. Her special boots are evidently not effective. Cultures positive for MRSA, Clostridium perfringens, and Ac inetobacter baumanni 2. Morbid obesity. 3. Diabetes mellitus. 4. Hypertension. 5. Rheumatoid arthritis. 6. Nausea and vomiting 7. Enterococcus avium on UC with other organisms Plan: Plan of Care Maintain aspiration precautions Change tigacyl due to gi upset to daptomycin,minocycline and merrem Offload Local Wound care Discussed with nursing staff KAYODE MAYES MD January 14, 2022 13:48
[2022-01-14] MEDS ORDERED: MAG HYDROX/ALUMINUM HYD/SIMETH 30 ML ORAL.SUSP PO PRN (14:00)
[2022-01-14] MEDS ORDERED: ALTEPLASE 1MG SYRINGE. INT CAT ONE (14:30)
[2022-01-14 15:00] VITALS: BP 157/59
[2022-01-14] MEDS: DAPTOmycin (GENERIC) IVPB 590 MG in IV NORMAL SALINE 50ML 50 ML IV SCH (16:00)
--- NOTE | 2022-01-14 16:31 | NUR ---
SS following up with discharge planning. SS reviewed pt chart and discussed with pt RN. Pt is currently on room air. COVID19 negative. Pt IV antibiotics changed to IV Daptomycin and IV Meropenem. [place], ; fax [phone], and [place], ; fax [phone], notified of medication changes and are running benefits for new medications. SS will continue to follow for discharge planning.
[2022-01-14 17:22] LABS: BASO % 0 % (0-3); EOS % 0 % (0-3); HEMATOCRIT 34.6 % (36.0-47.0); HEMOGLOBIN 11.1 g/dL (12.0-15.5); LYMPH # 1.4 x10^3/uL (1.0-4.8); LYMPH % 8 % (24-48); MEAN CORPUSCULAR HEMOGLOBIN 27 pg (25-35); MEAN CORPUSCULAR HGB CONC 32 g/dL (31-37); MEAN CORPUSCULAR VOLUME 84 fL (79-100); MONO # 1.7 x10^3/uL (0.0-1.1); MONO % 9 % (0-9); NEUT # 15.9 x10^3/uL (1.8-7.7); NEUT % 83 % (31-73); PLATELET COUNT 221 x10^3/uL (140-400); RED BLOOD COUNT 4.11 x10^6/uL (3.50-5.40); WHITE BLOOD COUNT 19.1 x10^3/uL (4.0-11.0)
[2022-01-14 17:35] LABS: ALBUMIN 1.8 g/dL (3.4-5.0); ALBUMIN/GLOBULIN RATIO 0.5 (1.0-1.7); CALCIUM 7.6 mg/dL (8.5-10.1); CREATININE 1.6 mg/dL (0.6-1.0); GFR 38.9; POTASSIUM 3.8 mmol/L (3.5-5.1); TOTAL BILIRUBIN 0.5 mg/dL (0.2-1.0); TOTAL PROTEIN 5.5 g/dL (6.4-8.2)
[2022-01-14 17:58] LABS: % LYMPHS 1 % (24-48); % MONOS 3 % (0-10); % SEGS 96 % (35-66)
[2022-01-14 17:59] LABS: PLT ESTIMATE ADEQUATE (ADEQUATE)
[2022-01-14] MEDS: MEROPENEM 500 MG in IV NORMAL SALINE 50ML 50 ML IV SCH (18:12)
[2022-01-14 19:00] VITALS: BP 162/62
[2022-01-14] MEDS: MINOCYCLINE 100 MG CAPSULE PO SCH (20:48)
[2022-01-14] MEDS: MIRTAZAPINE 15 MG TABLET PO SCH (20:49)
[2022-01-14] MEDS: tiZANidine 4 MG TABLET. PO SCH (20:50)
[2022-01-14] MEDS: PATCH REMOVAL. MC SCH (21:00)
[2022-01-14] MEDS: traMADol 50 MG TABLET PO PRN (21:15)
[2022-01-14 23:00] VITALS: BP 141/59
[2022-01-15] MEDS: MEROPENEM 500 MG in IV NORMAL SALINE 50ML 50 ML IV SCH ×5 (00:06→23:57)
[2022-01-15 03:00] VITALS: BP 156/64
[2022-01-15 07:00] VITALS: BP 148/57
[2022-01-15] MEDS: INSULIN LISPRO 300 UNITS/3 ML VIAL. SQ SCH ×3 (08:00→17:00)
--- NOTE | 2022-01-15 08:48 | PDOC ---
IM PROGRESS NOTES- Subjective Subjective Nausea and vomiting is improving slowly. Eating better. Objective Vitals/I&O Vital Signs Date Time Temp Pulse Resp B/P (MAP) Pulse Ox O2 Delivery O2 Flow Rate FiO2 01/15/22 07:00 98.1 60 18 148/57 (87) 96 Room Air 98.1 I & O 01/14/22 01/14/22 01/15/22 15:00 23:00 07:00 Intake Total 150 ml 120 ml Output Total 1 ml Balance 150 ml 119 ml Physical Exam Physical Exam General Appearance - alert and in no distress Chest - decreased breath sounds at bases Heart - S1 and S2 normal Abdomen - soft, non tender Neurological - alert and oriented Musculoskeletal - generalized weakness Extremities - no edema Labs Laboratory Tests Test 01/14/22 11:44 01/14/22 15:40 01/14/22 17:29 01/14/22 19:50 Glucose (Fingerstick) 188 mg/dL (70-99) H 169 mg/dL (70-99) H 179 mg/dL (70-99) H White Blood Count 19.1 x10^3/uL (4.0-11.0) H Red Blood Count 4.11 x10^6/uL (3.50-5.40) Hemoglobin 11.1 g/dL (12.0-15.5) L Hematocrit 34.6 % (36.0-47.0) L Mean Corpuscular Volume 84 fL (79-100) Mean Corpuscular Hemoglobin 27 pg (25-35) Mean Corpuscular Hemoglobin Concent 32 g/dL (31-37) Red Cell Distribution Width 16.0 % (11.5-14.5) H Platelet Count 221 x10^3/uL (140-400) Neutrophils (%) (Auto) 83 % (31-73) H Lymphocytes (%) (Auto) 8 % (24-48) L Monocytes (%) (Auto) 9 % (0-9) Eosinophils (%) (Auto) 0 % (0-3) Basophils (%) (Auto) 0 % (0-3) Neutrophils # (Auto) 15.9 x10^3/uL (1.8-7.7) H Lymphocytes # (Auto) 1.4 x10^3/uL (1.0-4.8) Monocytes # (Auto) 1.7 x10^3/uL (0.0-1.1) H Eosinophils # (Auto) 0.0 x10^3/uL (0.0-0.7) Basophils # (Auto) 0.0 x10^3/uL (0.0-0.2) Segmented Neutrophils % 96 % (35-66) H Lymphocytes % 1 % (24-48) L Monocytes % 3 % (0-10) Platelet Estimate Adequate (ADEQUATE) Sodium Level 137 mmol/L (136-145) Potassium Level 3.8 mmol/L (3.5-5.1) Chloride Level 103 mmol/L (98-107) Carbon Dioxide Level 27 mmol/L (21-32) Anion Gap 7 (6-14) Blood Urea Nitrogen 33 mg/dL (7-20) H Creatinine 1.6 mg/dL (0.6-1.0) H Estimated GFR (Cockcroft-Gault) 38.9 BUN/Creatinine Ratio 21 (6-20) H Glucose Level 174 mg/dL (70-99) H Calcium Level 7.6 mg/dL (8.5-10.1) L Total Bilirubin 0.5 mg/dL (0.2-1.0) Aspartate Amino Transferase (AST) 20 U/L (15-37) Alanine Aminotransferase (ALT) 23 U/L (14-59) Alkaline Phosphatase 151 U/L (46-116) H Creatine Kinase 47 U/L (26-192) Total Protein 5.5 g/dL (6.4-8.2) L Albumin 1.8 g/dL (3.4-5.0) L Albumin/Globulin Ratio 0.5 (1.0-1.7) L Test 01/15/22 07:33 Glucose (Fingerstick) 182 mg/dL (70-99) H Laboratory Tests 01/14/22 15:40 Laboratory Tests 01/14/22 15:40 Meds Current Medications Medications (Trade) Dose Ordered Sig/Valencia Route PRN Reason Start Time Stop Time Status Last Admin Dose Admin Doxazosin Mesylate (Cardura) 2 mg DAILY PO 01/14/22 09:00 01/14/22 08:40 Alteplase, Recombinant (Cathflo For Central Catheter Clearance) 1 mg 1X ONCE INT CAT 01/14/22 14:30 01/14/22 14:31 DC 01/14/22 14:30 Daptomycin 590 mg/ Sodium Chloride 50 ml @ 100 mls/hr Q24H IV 01/14/22 16:00 01/14/22 16:00 Minocycline HCl (Minocin) 100 mg BID PO 01/14/22 21:00 01/14/22 20:48 Meropenem 500 mg/ Sodium Chloride 50 ml @ 100 mls/hr Q6HRS IV 01/14/22 18:00 01/15/22 05:47 Assessment Assessment IMP: SI joint pain rt side. 1. Bilateral foot wounds. 2. Diabetic neuropathy. 3. Peripheral arterial disease. 4. Lymphedema. 5. Hypertension. 6. Rheumatoid arthritis. 7. Osteoarthritis. 8. Fatty liver. 9. Diverticulosis. 10. Severe protein calorie malnutrition. 11. Hyperlipidemia. 12. History of migraine. 13. Chronic kidney disease 2. 14. Anemia, iron deficiency. PLAN: cortisone inj to si joint Lidoderm patch for pain iv antibiotics for wounds. waiting for SNU placement. Consult Dr. Napier for wound care management and Dr. Mooney for wound management. Decrease Lantus to [address] Solano for PAD. Consult wound care team. Also, consult Dr. Roman for bilateral knee pain and Dr. Ornelas for possible right foot drop. Diabetes mellitus. Discontinue Lantus because blood sugar remains low. Patient did not take Lantus for last 3 weeks at home. Bilateral heel wounds- non healing for 1 year. This is complicated by lymphedema and inability to do her wound care. No significant PAD per vascular surgery. Vascular boots have not helped her. Complete offloading,IV Rocephin. IV Rocephin was discontinued and patient was started on tigecycline . Tigecycline changed to daptomycin, meropenem and minocycline on January 14, 2022, because of nausea. WBC count has increased to 19.1. Recheck labs in AM and today. Check for c diff PCR. She does not want to go senior living when ready. She wants to go home when discharged. Her brother will help her and she now has a bedside commode. Hypertensive crisis. Started on furosemide yesterday. Discussed with pharmacist yesterday.. Increase Atenolol to 50 mg daily. Decrease Clonidine to 0.1 mg bid. Increase Doxazosin. Consider stopping amlodipine if possible because of swelling of the lower extremities.Monitor bradycardia. Blood pressure control is improving. Hypokalemia- replace KCL. Nausea- stop Ferrous sulfate.Compazine prn. GI consult. Acute kidney injury. BUN has increased to 33. Creatinine 1.6. Give IV fluids. Discontinue Lasix. Check labs today. D/w staff to call back with labs. Hold discharge today. She wants to go home. electrical linesworker is helping. Plan Plan For more details regarding further plans, please refer to the orders. Justifications for Admission Other Justification PRO SCHROEDER MD January 15, 2022 08:48
[2022-01-15] MEDS: cloNIDine HCL 0.1 MG TABLET PO SCH ×2 (09:00→21:56)
[2022-01-15] MEDS: NYSTATIN 100,000 UNIT/GM TOPICAL CREAM 15GM TUBE. TP SCH ×2 (09:00→21:00)
[2022-01-15] MEDS: DICLOFENAC SODIUM 1% TOPICAL GEL 100GM TUBE. TP SCH ×2 (09:00→21:00)
[2022-01-15] MEDS: HEPARIN for SUB-Q USE 5,000 UNIT/ML VIAL. SQ SCH ×2 (09:00→22:08)
--- NOTE | 2022-01-15 09:20 | PDOC ---
G I PROGRESS NOTE Subjective Remains nauseated. Denies vomiting. Did bring in her home Aciphex. Physical Exam Lugns clear anteriorly. RRR Abdomen soft. Review of Relevant I have reviewed the following items meg (where applicable) has been applied. Labs Laboratory Tests Test 01/13/22 12:07 01/13/22 15:25 01/13/22 19:25 01/14/22 07:51 Glucose (Fingerstick) 190 mg/dL (70-99) 185 mg/dL (70-99) 196 mg/dL (70-99) 165 mg/dL (70-99) Test 01/14/22 11:44 01/14/22 15:40 01/14/22 17:29 01/14/22 19:50 Glucose (Fingerstick) 188 mg/dL (70-99) 169 mg/dL (70-99) 179 mg/dL (70-99) White Blood Count 19.1 x10^3/uL (4.0-11.0) Red Blood Count 4.11 x10^6/uL (3.50-5.40) Hemoglobin 11.1 g/dL (12.0-15.5) Hematocrit 34.6 % (36.0-47.0) Mean Corpuscular Volume 84 fL (79-100) Mean Corpuscular Hemoglobin 27 pg (25-35) Mean Corpuscular Hemoglobin Concent 32 g/dL (31-37) Red Cell Distribution Width 16.0 % (11.5-14.5) Platelet Count 221 x10^3/uL (140-400) Neutrophils (%) (Auto) 83 % (31-73) Lymphocytes (%) (Auto) 8 % (24-48) Monocytes (%) (Auto) 9 % (0-9) Eosinophils (%) (Auto) 0 % (0-3) Basophils (%) (Auto) 0 % (0-3) Neutrophils # (Auto) 15.9 x10^3/uL (1.8-7.7) Lymphocytes # (Auto) 1.4 x10^3/uL (1.0-4.8) Monocytes # (Auto) 1.7 x10^3/uL (0.0-1.1) Eosinophils # (Auto) 0.0 x10^3/uL (0.0-0.7) Basophils # (Auto) 0.0 x10^3/uL (0.0-0.2) Segmented Neutrophils % 96 % (35-66) Lymphocytes % 1 % (24-48) Monocytes % 3 % (0-10) Platelet Estimate Adequate (ADEQUATE) Sodium Level 137 mmol/L (136-145) Potassium Level 3.8 mmol/L (3.5-5.1) Chloride Level 103 mmol/L (98-107) Carbon Dioxide Level 27 mmol/L (21-32) Anion Gap 7 (6-14) Blood Urea Nitrogen 33 mg/dL (7-20) Creatinine 1.6 mg/dL (0.6-1.0) Estimated GFR (Cockcroft-Gault) 38.9 BUN/Creatinine Ratio 21 (6-20) Glucose Level 174 mg/dL (70-99) Calcium Level 7.6 mg/dL (8.5-10.1) Total Bilirubin 0.5 mg/dL (0.2-1.0) Aspartate Amino Transf (AST/SGOT) 20 U/L (15-37) Alanine Aminotransferase (ALT/SGPT) 23 U/L (14-59) Alkaline Phosphatase 151 U/L (46-116) Creatine Kinase 47 U/L (26-192) Total Protein 5.5 g/dL (6.4-8.2) Albumin 1.8 g/dL (3.4-5.0) Albumin/Globulin Ratio 0.5 (1.0-1.7) Test 01/15/22 07:33 Glucose (Fingerstick) 182 mg/dL (70-99) Laboratory Tests Test 01/14/22 11:44 01/14/22 15:40 01/14/22 17:29 01/14/22 19:50 Glucose (Fingerstick) 188 mg/dL (70-99) 169 mg/dL (70-99) 179 mg/dL (70-99) White Blood Count 19.1 x10^3/uL (4.0-11.0) Red Blood Count 4.11 x10^6/uL (3.50-5.40) Hemoglobin 11.1 g/dL (12.0-15.5) Hematocrit 34.6 % (36.0-47.0) Mean Corpuscular Volume 84 fL (79-100) Mean Corpuscular Hemoglobin 27 pg (25-35) Mean Corpuscular Hemoglobin Concent 32 g/dL (31-37) Red Cell Distribution Width 16.0 % (11.5-14.5) Platelet Count 221 x10^3/uL (140-400) Neutrophils (%) (Auto) 83 % (31-73) Lymphocytes (%) (Auto) 8 % (24-48) Monocytes (%) (Auto) 9 % (0-9) Eosinophils (%) (Auto) 0 % (0-3) Basophils (%) (Auto) 0 % (0-3) Neutrophils # (Auto) 15.9 x10^3/uL (1.8-7.7) Lymphocytes # (Auto) 1.4 x10^3/uL (1.0-4.8) Monocytes # (Auto) 1.7 x10^3/uL (0.0-1.1) Eosinophils # (Auto) 0.0 x10^3/uL (0.0-0.7) Basophils # (Auto) 0.0 x10^3/uL (0.0-0.2) Segmented Neutrophils % 96 % (35-66) Lymphocytes % 1 % (24-48) Monocytes % 3 % (0-10) Platelet Estimate Adequate (ADEQUATE) Sodium Level 137 mmol/L (136-145) Potassium Level 3.8 mmol/L (3.5-5.1) Chloride Level 103 mmol/L (98-107) Carbon Dioxide Level 27 mmol/L (21-32) Anion Gap 7 (6-14) Blood Urea Nitrogen 33 mg/dL (7-20) Creatinine 1.6 mg/dL (0.6-1.0) Estimated GFR (Cockcroft-Gault) 38.9 BUN/Creatinine Ratio 21 (6-20) Glucose Level 174 mg/dL (70-99) Calcium Level 7.6 mg/dL (8.5-10.1) Total Bilirubin 0.5 mg/dL (0.2-1.0) Aspartate Amino Transf (AST/SGOT) 20 U/L (15-37) Alanine Aminotransferase (ALT/SGPT) 23 U/L (14-59) Alkaline Phosphatase 151 U/L (46-116) Creatine Kinase 47 U/L (26-192) Total Protein 5.5 g/dL (6.4-8.2) Albumin 1.8 g/dL (3.4-5.0) Albumin/Globulin Ratio 0.5 (1.0-1.7) Test 01/15/22 07:33 Glucose (Fingerstick) 182 mg/dL (70-99) Microbiology 01/06/22 Blood Culture - Final, Complete NO GROWTH AFTER 5 DAYS 01/06/22 Urine Culture - Final, Complete Enterococcus Avium Vitals/I & O Vital Sign - Last 24 Hours 01/14/22 01/14/22 01/14/22 01/14/22 11:00 15:00 19:00 20:15 Temp 98.5 98.1 98.2 98.5 98.1 98.2 Pulse 59 58 67 Resp 18 18 18 B/P (MAP) 148/58 (88) 157/59 (91) 162/62 (95) Pulse Ox 93 95 100 O2 Delivery Room Air Room Air Room Air Room Air 01/14/22 01/14/22 01/14/22 01/14/22 20:49 20:50 21:15 21:43 Pulse 67 67 B/P (MAP) 162/62 162/62 Pulse Ox 100 94 O2 Delivery Room Air Room Air 01/14/22 01/15/22 01/15/22 23:00 03:00 07:00 Temp 97.9 98.0 98.1 97.9 98.0 98.1 Pulse 63 58 60 Resp 18 18 18 B/P (MAP) 141/59 (86) 156/64 (94) 148/57 (87) Pulse Ox 94 94 96 O2 Delivery Room Air Room Air Room Air Intake and Output 01/14/22 01/14/22 01/15/22 15:00 23:00 07:00 Intake Total 150 ml 120 ml Output Total 1 ml Balance 150 ml 119 ml Assessment Nausea, suspect from GERD as off PPI for a week. Plan of Care Note Continue home Aciphex, antiemetics. Justicifation of Admission Dx: Justifications for Admission: Justification of Admission Dx: Comment: (Complex wounds with infection) KAYLI AUSTIN MD January 15, 2022 09:20
--- NOTE | 2022-01-15 09:22 | PDOC ---
PROGRESS NOTES Date of Service DATE: 01/15/22 TIME: 09:20 Subjective Subjective She admits continued nausea but less. Objective Objective Vital Signs Date Time Temp Pulse Resp B/P (MAP) Pulse Ox O2 Delivery O2 Flow Rate FiO2 01/15/22 07:00 98.1 60 18 148/57 (87) 96 Room Air 98.1 Intake and Output 01/15/22 07:00 Intake Total 270 ml Output Total 1 ml Balance 269 ml Intake Oral 120 ml IV Total 150 ml Stool Total 1 ml # Voids 4 # Bowel Movements 3 Physical Exam Physical Exam She is sitting in bed and had dressing to her feet and also PRAFO boots in place. Plan Plan of Care To continue present wound care. Comment Review of Relevant I have reviewed the following items meg (where applicable) has been applied. Labs Laboratory Tests Test 01/13/22 12:07 01/13/22 15:25 01/13/22 19:25 01/14/22 07:51 Glucose (Fingerstick) 190 mg/dL (70-99) 185 mg/dL (70-99) 196 mg/dL (70-99) 165 mg/dL (70-99) Test 01/14/22 11:44 01/14/22 15:40 01/14/22 17:29 01/14/22 19:50 Glucose (Fingerstick) 188 mg/dL (70-99) 169 mg/dL (70-99) 179 mg/dL (70-99) White Blood Count 19.1 x10^3/uL (4.0-11.0) Red Blood Count 4.11 x10^6/uL (3.50-5.40) Hemoglobin 11.1 g/dL (12.0-15.5) Hematocrit 34.6 % (36.0-47.0) Mean Corpuscular Volume 84 fL (79-100) Mean Corpuscular Hemoglobin 27 pg (25-35) Mean Corpuscular Hemoglobin Concent 32 g/dL (31-37) Red Cell Distribution Width 16.0 % (11.5-14.5) Platelet Count 221 x10^3/uL (140-400) Neutrophils (%) (Auto) 83 % (31-73) Lymphocytes (%) (Auto) 8 % (24-48) Monocytes (%) (Auto) 9 % (0-9) Eosinophils (%) (Auto) 0 % (0-3) Basophils (%) (Auto) 0 % (0-3) Neutrophils # (Auto) 15.9 x10^3/uL (1.8-7.7) Lymphocytes # (Auto) 1.4 x10^3/uL (1.0-4.8) Monocytes # (Auto) 1.7 x10^3/uL (0.0-1.1) Eosinophils # (Auto) 0.0 x10^3/uL (0.0-0.7) Basophils # (Auto) 0.0 x10^3/uL (0.0-0.2) Segmented Neutrophils % 96 % (35-66) Lymphocytes % 1 % (24-48) Monocytes % 3 % (0-10) Platelet Estimate Adequate (ADEQUATE) Sodium Level 137 mmol/L (136-145) Potassium Level 3.8 mmol/L (3.5-5.1) Chloride Level 103 mmol/L (98-107) Carbon Dioxide Level 27 mmol/L (21-32) Anion Gap 7 (6-14) Blood Urea Nitrogen 33 mg/dL (7-20) Creatinine 1.6 mg/dL (0.6-1.0) Estimated GFR (Cockcroft-Gault) 38.9 BUN/Creatinine Ratio 21 (6-20) Glucose Level 174 mg/dL (70-99) Calcium Level 7.6 mg/dL (8.5-10.1) Total Bilirubin 0.5 mg/dL (0.2-1.0) Aspartate Amino Transf (AST/SGOT) 20 U/L (15-37) Alanine Aminotransferase (ALT/SGPT) 23 U/L (14-59) Alkaline Phosphatase 151 U/L (46-116) Creatine Kinase 47 U/L (26-192) Total Protein 5.5 g/dL (6.4-8.2) Albumin 1.8 g/dL (3.4-5.0) Albumin/Globulin Ratio 0.5 (1.0-1.7) Test 01/15/22 07:33 Glucose (Fingerstick) 182 mg/dL (70-99) Laboratory Tests Test 01/14/22 11:44 01/14/22 15:40 01/14/22 17:29 01/14/22 19:50 Glucose (Fingerstick) 188 mg/dL (70-99) 169 mg/dL (70-99) 179 mg/dL (70-99) White Blood Count 19.1 x10^3/uL (4.0-11.0) Red Blood Count 4.11 x10^6/uL (3.50-5.40) Hemoglobin 11.1 g/dL (12.0-15.5) Hematocrit 34.6 % (36.0-47.0) Mean Corpuscular Volume 84 fL (79-100) Mean Corpuscular Hemoglobin 27 pg (25-35) Mean Corpuscular Hemoglobin Concent 32 g/dL (31-37) Red Cell Distribution Width 16.0 % (11.5-14.5) Platelet Count 221 x10^3/uL (140-400) Neutrophils (%) (Auto) 83 % (31-73) Lymphocytes (%) (Auto) 8 % (24-48) Monocytes (%) (Auto) 9 % (0-9) Eosinophils (%) (Auto) 0 % (0-3) Basophils (%) (Auto) 0 % (0-3) Neutrophils # (Auto) 15.9 x10^3/uL (1.8-7.7) Lymphocytes # (Auto) 1.4 x10^3/uL (1.0-4.8) Monocytes # (Auto) 1.7 x10^3/uL (0.0-1.1) Eosinophils # (Auto) 0.0 x10^3/uL (0.0-0.7) Basophils # (Auto) 0.0 x10^3/uL (0.0-0.2) Segmented Neutrophils % 96 % (35-66) Lymphocytes % 1 % (24-48) Monocytes % 3 % (0-10) Platelet Estimate Adequate (ADEQUATE) Sodium Level 137 mmol/L (136-145) Potassium Level 3.8 mmol/L (3.5-5.1) Chloride Level 103 mmol/L (98-107) Carbon Dioxide Level 27 mmol/L (21-32) Anion Gap 7 (6-14) Blood Urea Nitrogen 33 mg/dL (7-20) Creatinine 1.6 mg/dL (0.6-1.0) Estimated GFR (Cockcroft-Gault) 38.9 BUN/Creatinine Ratio 21 (6-20) Glucose Level 174 mg/dL (70-99) Calcium Level 7.6 mg/dL (8.5-10.1) Total Bilirubin 0.5 mg/dL (0.2-1.0) Aspartate Amino Transf (AST/SGOT) 20 U/L (15-37) Alanine Aminotransferase (ALT/SGPT) 23 U/L (14-59) Alkaline Phosphatase 151 U/L (46-116) Creatine Kinase 47 U/L (26-192) Total Protein 5.5 g/dL (6.4-8.2) Albumin 1.8 g/dL (3.4-5.0) Albumin/Globulin Ratio 0.5 (1.0-1.7) Test 01/15/22 07:33 Glucose (Fingerstick) 182 mg/dL (70-99) Microbiology 01/06/22 Blood Culture - Final, Complete NO GROWTH AFTER 5 DAYS 01/06/22 Urine Culture - Final, Complete Enterococcus Avium Medications Current Medications Amlodipine Besylate (Norvasc) 5 mg DAILY PO Last administered on 01/14/22at 08:40; Start 01/07/22 at 09:00 Atenolol (Tenormin) 25 mg BID PO Last administered on 01/09/22at 08:21; Start 01/06/22 at 21:00; Stop 01/09/22 at 09:48; Status DC Hydroxychloroquine Sulfate (Plaquenil) 200 mg BID PO Last administered on 01/14/22at 20:50; Start 01/06/22 at 21:00 Mirtazapine (Remeron) 15 mg DAILY PO ; Start 01/07/22 at 09:00; Status Cancel Tizanidine HCl (Zanaflex) 4 mg QHS PO Last administered on 01/14/22at 20:50; Start 01/06/22 at 21:00 Insulin Glargine (Lantus Syringe) 80 unit QHS SQ Last administered on 01/06/22at 22:24; Start 01/06/22 at 21:00; Stop 01/07/22 at 08:10; Status DC Pantoprazole Sodium (Protonix) 40 mg DAILYAC PO Last administered on 01/12/22at 09:05; Start 01/07/22 at 07:30 Tramadol HCl (Ultram) 100 mg PRN Q6HRS PRN PO MODERATE-SEVERE PAIN Last administered on 01/14/22 21:15; Start 01/06/22 at 14:00 Ceftriaxone Sodium (Rocephin) 2 gm Q24H IVP Last administered on 01/07/22at 15:3 8; Start 01/06/22 at 15:00; Stop 01/08/22 at 12:49; Status DC Acetaminophen (Tylenol) 650 mg PRN Q6HRS PRN PO MILD PAIN / TEMP > 100.3'F; Start 01/06/22 at 14:45 Insulin Human Lispro (HumaLOG) 0-5 UNITS TIDWMEALS SQ Last administered on 01/12/22at 17:10; Start 01/06/22 at 17:00 Dextrose (Dextrose 50%-Water Syringe) 12.5 gm PRN Q15MIN PRN IV SEE COMMENTS; Start 01/06/22 at 14:45 Dextrose (Iv Dextrose 5%) 250 ml PRN Q15MIN PRN IV SEE COMMENTS; Start 01/06/22 at 14:45 Insulin Glargine (Lantus Syringe) 50 unit QHS SQ ; Start 01/07/22 at 21:00; Stop 01/08/22 at 08:04; Status DC Heparin Sodium (Porcine) (Heparin Sodium) 5,000 unit Q12HR SQ Last administered on 01/14/22at 20:52; Start 01/07/22 at 09:00 Mirtazapine (Remeron) 15 mg QHS PO Last administered on 01/14/22 20:49; Start 01/07/22 at 21:00 Diclofenac Sodium (Voltaren) 1 sherine BID TP Last administered on 01/13/22 21:03; Start 01/07/22 at 13:00 Nystatin (Mycostatin) 1 sherine BID TP Last administered on 01/13/22 08:34; Start 01/07/22 at 13:00 Insulin Glargine (Lantus Syringe) 20 unit QHS SQ Last administered on 01/08/22at 21:00; Start 01/08/22 at 21:00; Stop 01/09/22 at 09:34; Status DC Tigecycline 50 mg/ Dextrose 50 ml @ 50 mls/hr Q12HR IV Last administered on 01/14/22at 08:39; Start 01/08/22 at 21:00; Stop 01/14/22 at 14:45; Status DC Tigecycline 100 mg/Dextrose 100 ml @ 200 mls/hr 1X ONCE IV Last administered on 01/08/22at 14:32; Start 01/08/22 at 15:00; Stop 01/08/22 at 15:29; Status DC Furosemide (Lasix) 40 mg DAILY PO Last administered on 01/14/22at 08:39; Start 01/09/22 at 09:00; Stop 01/15/22 at 08:46; Status DC Famotidine (Pepcid) 40 mg 1X ONCE PO Last administered on 01/08/22at 19:09; Start 01/08/22 at 19:00; Stop 01/08/22 at 19:07; Status DC Diphenhydramine HCl (Benadryl) 25 mg 1X ONCE PO Last administered on 01/08/22at 19:09; Start 01/08/22 at 19:00; Stop 01/08/22 at 19:07; Status DC Metoprolol Succinate (Toprol Xl) 50 mg DAILY PO ; Start 01/09/22 at 09:45; Stop 01/09/22 at 09:48; Status DC Atenolol (Tenormin) 50 mg BID PO Last administered on 01/14/22at 20:49; Start 01/09/22 at 21:00 Atenolol (Tenormin) 25 mg 1X ONCE PO Last administered on 01/09/22at 10:45; Start 01/09/22 at 10:00; Stop 01/09/22 at 10:01; Status DC Clonidine HCl (Catapres) 0.1 mg TID PO Last administered on 01/12/22at 09:05; St art 01/09/22 at 10:15; Stop 01/12/22 at 10:06; Status DC Diphenhydramine HCl (Benadryl) 25 mg BID PO Last administered on 01/14/22at 20:50; Start 01/09/22 at 21:00 Chloroprocaine HCl (Nesacaine 3% Mpf) 20 ml 1X ONCE INFIL ; Start 01/09/22 at 14:15; Stop 01/09/22 at 14:16; Status DC Prochlorperazine Edisylate (Compazine) 10 mg PRN Q6HRS PRN IV NAUSEA/VOMITING Last administered on 01/12/22 16:25; Start 01/09/22 at 20:45; Stop 01/12/22 at 21:06; Status DC Lidocaine HCl (Buffered Lidocaine 1%) 3 ml STK-MED ONCE .ROUTE ; Start 01/10/22 at 09:30; Stop 01/10/22 at 09:30; Status DC Lidocaine HCl (Buffered Lidocaine 1%) 4 ml 1X ONCE INJ Last administered on 01/10/22at 10:00; Start 01/10/22 at 10:00; Stop 01/10/22 at 10:01; Status DC Lidocaine (Lidoderm) 1 patch DAILY TD Last administered on 01/11/22at 10:58; Start 01/11/22 at 10:00; Stop 01/11/22 at 23:00; Status DC Miscellaneous (Lidoderm Patch Removal) 1 ea QHS MC ; Start 01/11/22 at 21:00; Status Cancel Lidocaine (Lidoderm) 1 patch DAILY TD Last administered on 01/14/22at 08:42; Start 01/12/22 at 09:00 Miscellaneous (Lidoderm Patch Removal) 1 ea QHS MC Last administered on 01/13/22at 21:00; Start 01/11/22 at 21:00 Triamcinolone Acetonide (Kenalog-40) 40 mg 1X ONCE INT ART Last administered on 01/11/22at 10:00; Start 01/11/22 at 10:00; Stop 01/11/22 at 10:05; Status DC Bupivacaine HCl (Sensorcaine-Mpf 0.25%) 10 ml 1X ONCE IJ Last administered on 01/11/22at 10:00; Start 01/11/22 at 10:00; Stop 01/11/22 at 10:05; Status DC Polysaccharide Iron Complex (Niferex 150) 150 mg BIDWLD PO Last administered on 01/12/22 16:25; Start 01/11/22 at 21:00; Stop 01/13/22 at 09:02; Status DC Potassium Chloride (Klor-Con) 20 meq DAILYWBKFT PO Last administered on 01/14/22 08:40; Start 01/12/22 at 09:30 Clonidine HCl (Catapres) 0.1 mg BID PO Last administered on 01/14/22at 20:50; Start 01/12/22 at 21:00 Terazosin HCl (Hytrin) 1 mg DAILY10 PO ; Start 01/12/22 at 10:15; Status UNV Doxazosin Mesylate (Cardura) 1 mg DAILY PO Last administered on 01/13/22at 08:32; Start 01/12/22 at 10:00; Stop 01/13/22 at 09:02; Status DC Prochlorperazine Edisylate (Compazine) 10 mg PRN Q4HRS PRN IV NAUSEA/VOMITING Last administered on 01/14/22at 20:50; Start 01/12/22 at 21:15 Insulin Glargine (Lantus Syringe) 6 unit DAILY10 SQ Last administered on 01/14/22at 08:56; Start 01/13/22 at 10:00 Doxazosin Mesylate (Cardura) 2 mg DAILY PO ; Start 01/13/22 at 09:00; Stop 01/13/22 at 11:51; Status DC Polysaccharide Iron Complex (Niferex 150) 150 mg DAILYWBKFT PO ; Start 01/13/22 at 10:00; Stop 01/13/22 at 09:45; Status DC Doxazosin Mesylate (Cardura) 2 mg DAILY PO Last administered on 01/14/22at 08:40; Start 01/14/22 at 09:00 Doxazosin Mesylate (Cardura) 1 mg 1X ONCE PO Last administered on 01/13/22at 15:57; Start 01/13/22 at 12:00; Stop 01/13/22 at 12:01; Status DC Prochlorperazine (Compazine) [address] NAUSEA/VOMITING; Start 01/14/22 at 10:00 Multi-Ingredient Mouthwash/Gargle (Gi Cocktail) 20 ml PRN QID PRN PO epigastric pain; Start 01/14/22 at 13:15; Stop 01/14/22 at 13:47; Status DC Al Hydroxide/Mg Hydroxide (Mylanta Plus Xs) 30 ml PRN Q2HR PRN PO HEARTBURN / GAS; Start 01/14/22 at 14:00 Alteplase, Recombinant (Cathflo For Central Catheter Clearance) 1 mg 1X ONCE INT CAT Last administered on 01/14/22at 14:30; Start 01/14/22 at 14:30; Stop 01/14/22 at 14:31; Status DC Daptomycin 590 mg/ Sodium Chloride 50 ml @ 100 mls/hr Q24H IV Last administered on 01/14/22at 16:00; Start 01/14/22 at 16:00 Minocycline HCl (Minocin) 100 mg BID PO Last administered on 01/14/22at 20:48; Start 01/14/22 at 21:00 Meropenem 500 mg/ Sodium Chloride 50 ml @ 100 mls/hr Q6HRS IV Last administered on 01/15/22at 05:47; Start 01/14/22 at 18:00 Sodium Chloride 1,000 ml @ 75 mls/hr [id number] IV ; Start 01/15/22 at 09:00 Active Scripts Active Compazine (Prochlorperazine Maleate) 10 Mg Tablet 1 Tab PO Q6HRS 30 Days Lidocaine PATCH (Lidocaine) 1 Each Adh..patch 1 Patch TD DAILY 30 Days Lantus (Insulin Glargine,Hum.rec.anlog) 100 Unit/1 Ml Vial 6 Unit SQ DAILY10 30 Days Potassium Chloride (Potassium Chloride) 20 Meq Tablet.er 20 Meq PO DAILYWBKFT 30 Days Doxazosin Mesylate 2 Mg Tablet 1 Tab PO DAILY 30 Days Clonidine Hcl 0.1 Mg Tablet 0.1 Mg PO BID 30 Days Hold if gloria rate less than 55/min Atenolol 50 Mg Tablet 50 Mg PO BID 30 Days Hold if BP less thaan 100, heart rate less than 55. [Diclofenac Sodium] 100 GM Gel..gram. 1 Sherine TP BID 14 Days Nystatin 15 Gm Cream..g. 1 Sherine TP BID 14 Days Furosemide 40 Mg Tablet 40 Mg PO DAILY 30 Days Acetaminophen 325 Mg Tablet 650 Mg PO PRN Q6HRS PRN 7 Days Clonidine Hcl 0.1 Mg Tablet 0.1 Mg PO TID 30 Days Hold if systolic BP less than 100, heart rate less than 55. Heparin Sodium (Heparin Sodium,Porcine) 5,000 Unit/1 Ml Vial 5,000 Unit SQ Q12HR 14 Days Tygacil (Tigecycline) 50 Mg Vial 50 Mg IV Q12HR 10 Days Reported Tramadol Hcl 100 Mg Tbmp.24hr 100 Mg PO Q6H PRN Tizanidine Hcl 4 Mg Tablet 1 Tab PO QHS Aciphex (Rabeprazole Sodium) 20 Mg Tablet.dr 1 Tab PO DAILY Amlodipine Besylate 5 Mg Tablet 5 Mg PO DAILY Mirtazapine 15 Mg Tablet 15 Mg PO DAILY Hydroxychloroquine Sulfate 200 Mg Tablet 1 Tab PO BID Vitals/I & O Vital Sign - Last 24 Hours 01/14/22 01/14/22 01/14/22 01/14/22 11:00 15:00 19:00 20:15 Temp 98.5 98.1 98.2 98.5 98.1 98.2 Pulse 59 58 67 Resp 18 18 18 B/P (MAP) 148/58 (88) 157/59 (91) 162/62 (95) Pulse Ox 93 95 100 O2 Delivery Room Air Room Air Room Air Room Air 01/14/22 01/14/22 01/14/22 01/14/22 20:49 20:50 21:15 21:43 Pulse 67 67 B/P (MAP) 162/62 162/62 Pulse Ox 100 94 O2 Delivery Room Air Room Air 01/14/22 01/15/22 01/15/22 23:00 03:00 07:00 Temp 97.9 98.0 98.1 97.9 98.0 98.1 Pulse 63 58 60 Resp 18 18 18 B/P (MAP) 141/59 (86) 156/64 (94) 148/57 (87) Pulse Ox 94 94 96 O2 Delivery Room Air Room Air Room Air Intake and Output 01/14/22 01/14/22 01/15/22 15:00 23:00 07:00 Intake Total 150 ml 120 ml Output Total 1 ml Balance 150 ml 119 ml Justifications for Admission Other Justification RADHA HERNANDEZ MD January 15, 2022 09:22
[2022-01-15] MEDS: diphenhydrAMINE HCL 25 MG CAPSULE PO SCH ×2 (09:39→21:55)
[2022-01-15] MEDS: MINOCYCLINE 100 MG CAPSULE PO SCH ×2 (09:39→21:57)
[2022-01-15] MEDS: POTASSIUM CHLORIDE 20 MEQ TABLET.ER. PO SCH (09:40)
[2022-01-15] MEDS: DOXAZOSIN MESYLATE 1 MG TABLET. PO SCH (09:41)
[2022-01-15] MEDS: PANTOPRAZOLE 40 MG TABLET.DR. PO SCH (09:42)
[2022-01-15] MEDS: HYDROXYCHLOROQUINE 200 MG TABLET PO SCH ×2 (09:42→21:55)
[2022-01-15] MEDS: LIDOCAINE (700MG/PATCH) PATCH. TD SCH (09:43)
[2022-01-15] MEDS: ATENOLOL 50 MG TABLET. PO SCH ×2 (09:43→21:53)
[2022-01-15] MEDS: INSULIN GLARGINE SYRINGE. SQ SCH (10:00)
--- NOTE | 2022-01-15 10:33 | NUR ---
Patient refused lantus because she is nauseated and did not eat breakfast, patient also refused protonix and potassium stating that those medications make her nauseated.
[2022-01-15] MEDS: IV NORMAL SALINE 1000ML BAG 1,000 ML IV SCH ×2 (10:53→23:56)
[2022-01-15 11:00] VITALS: BP 140/50
--- NOTE | 2022-01-15 11:19 | NUR ---
SS following up with discharge planning. SS reviewed pt chart and discussed with pt RN. Pt is from home with caregiver and is currently on room air. Pt on IV Daptomycin and IV Meropenem. [facility] contacted SS with cost estimate of $1119.89/week for current medications. [facility] reported that they can do payment plans with family if needed. SS met with pt and family and discussed. Pt and family agreeable to home infusions with [facility], ; fax [phone]. [facility] coming this afternoon to complete teach with pt and caregiver. Pt requested information for privately purchasing hospital bed. Pt and caregiver provided with contact information for [facility], . Pt and caregiver reported that pt had [facility], ; fax [phone]. Referral sent to [facility]. SS currently awaiting discharge orders and script for IV antibiotics. Pt's RN notified. Per RN, pt not discharging today. SS will continue to follow for discharge planning. Addendum: 01/15/22 at 1504 by YASMIN CARRILLO SS [facility] declined pt for services. Referral sent to [facility] and pt accepted on services. Addendum: 01/15/22 at 1533 by YASMIN CARRILLO SS Script received for IV antibiotics and faxed to [facility].
--- NOTE | 2022-01-15 12:38 | NUR ---
Message left on Dr. Rivera's message center that patient wishes to be a DNR, awaiting callback.
[2022-01-15] MEDS ORDERED: ALTEPLASE 1MG SYRINGE. INT CAT ONE (14:15)
[2022-01-15 15:00] VITALS: BP 146/53
--- NOTE | 2022-01-15 15:14 | PDOC ---
Infectious Disease Note Subjective: Subjective Feels a little better today Ready for discharge Less nausea and vomiting No diarrhea Vital Signs: Vital Signs Vital Signs Date Time Temp Pulse Resp B/P (MAP) Pulse Ox O2 Delivery O2 Flow Rate FiO2 01/15/22 11:00 98.9 58 18 140/50 (80) 97 Room Air 98.9 Physical Exam: PHYSICAL EXAM GENERAL: Alert, oriented female, not in distress. VITAL SIGNS: Stable, afebrile. HEENT: NAD. NECK: Supple, no JVP, no lymphadenopathy. LUNGS: Clear. HEART: S1, S2, regular. ABDOMEN: Soft, nontender, no organomegaly. EXTREMITIES: No edema or cyanosis. Bilateral lower extremity calcaneal wounds are very large area of bright red, part of the skin appears clean. SKIN: Unremarkable. NEUROLOGIC: The patient is alert, awake, and appropriate. No focal neurologic deficit. Medications: Inpatient Meds: Medications reviewed. Labs: Lab Laboratory Tests Test 01/14/22 15:40 01/14/22 17:29 01/14/22 19:50 01/14/22 21:45 White Blood Count 19.1 x10^3/uL (4.0-11.0) Red Blood Count 4.11 x10^6/uL (3.50-5.40) Hemoglobin 11.1 g/dL (12.0-15.5) Hematocrit 34.6 % (36.0-47.0) Mean Corpuscular Volume 84 fL (79-100) Mean Corpuscular Hemoglobin 27 pg (25-35) Mean Corpuscular Hemoglobin Concent 32 g/dL (31-37) Red Cell Distribution Width 16.0 % (11.5-14.5) Platelet Count 221 x10^3/uL (140-400) Neutrophils (%) (Auto) 83 % (31-73) Lymphocytes (%) (Auto) 8 % (24-48) Monocytes (%) (Auto) 9 % (0-9) Eosinophils (%) (Auto) 0 % (0-3) Basophils (%) (Auto) 0 % (0-3) Neutrophils # (Auto) 15.9 x10^3/uL (1.8-7.7) Lymphocytes # (Auto) 1.4 x10^3/uL (1.0-4.8) Monocytes # (Auto) 1.7 x10^3/uL (0.0-1.1) Eosinophils # (Auto) 0.0 x10^3/uL (0.0-0.7) Basophils # (Auto) 0.0 x10^3/uL (0.0-0.2) Segmented Neutrophils % 96 % (35-66) Lymphocytes % 1 % (24-48) Monocytes % 3 % (0-10) Platelet Estimate Adequate (ADEQUATE) Sodium Level 137 mmol/L (136-145) Potassium Level 3.8 mmol/L (3.5-5.1) Chloride Level 103 mmol/L (98-107) Carbon Dioxide Level 27 mmol/L (21-32) Anion Gap 7 (6-14) Blood Urea Nitrogen 33 mg/dL (7-20) Creatinine 1.6 mg/dL (0.6-1.0) Estimated GFR (Cockcroft-Gault) 38.9 BUN/Creatinine Ratio 21 (6-20) Glucose Level 174 mg/dL (70-99) Calcium Level 7.6 mg/dL (8.5-10.1) Total Bilirubin 0.5 mg/dL (0.2-1.0) Aspartate Amino Transf (AST/SGOT) 20 U/L (15-37) Alanine Aminotransferase (ALT/SGPT) 23 U/L (14-59) Alkaline Phosphatase 151 U/L (46-116) Creatine Kinase 47 U/L (26-192) Total Protein 5.5 g/dL (6.4-8.2) Albumin 1.8 g/dL (3.4-5.0) Albumin/Globulin Ratio 0.5 (1.0-1.7) Glucose (Fingerstick) 169 mg/dL (70-99) 179 mg/dL (70-99) Clostridium difficile Toxin (PCR) Negative (NEGATIVE) Test 01/15/22 07:33 01/15/22 11:17 Glucose (Fingerstick) 182 mg/dL (70-99) 188 mg/dL (70-99) Micro RUN DATE: 01/09/22 [facility] LAB *LIVE* PAGE 1 RUN TIME: 821 Specimen Inquiry -- PATIENT: MARLENI LEOS ACCT: [id number] LOC: [address] [place] [address] U: [id number] AGE/SX: 66/F ROOM: [facility] RE01/06/[address]: PRO SCHROEDER MD : 1955 BED: 1 DIS: STATUS: ADM IN TLOC: SPEC #: [id number] YARITZA: 01/06/22 STATUS: COMP REQ #: [id number] RECD: 01/06/[address] [facility] [address]: PRO SCHROEDER MD SOURCE: VOID ENTR: 01/06/22 [facility] DR: MARYANN MAYES [facility] RAUL BALLARD DO ORDERED: CULTURE URINE* Procedure Result CULTURE URINE Final THREE OR MORE ORGANISMS ISOLATED. RESULTS CONSISTENT WITH COLONIZATION OR CONTAMINATION DURING COLLECTION PROCESS. RECOLLECTION RECOMMENDED USING A METHOD TO MINIMIZE CONTAMINATION. Testing performed by [address] [address] director of application development: Kita Granger MD Organism 1 ENTEROCOCCUS AVIUM RUN DATE: 01/12/22 [facility] LAB *LIVE* PAGE 1 RUN TIME: 1034 Specimen Inquiry PATIENT: MARLENI LEOS ACCT: [id number] LOC: [facility] U: [id number] AGE/SX: 66/F ROOM: RE01/06/[address]: RAUL BALLARD DO : 1955 BED: DIS: 01/11/22 STATUS: DIS RCR TLOC: SPEC #: [id number] YARITZA: 01/06/22 STATUS: COMP REQ #: [id number] RECD: 01/06/[address]: RAUL BALLARD DO SOURCE: FOOT ENTR: 01/06/22-[address]: PRO SCHROEDER MD SPDESC: PLANTAR ORDERED: MILLIE/AEROBIC CUL Procedure Result GRAM STAIN-AER MILLIE Final PMNS (WBCS): NONE SEEN SQUAMOUS EPI CELL: RARE GRAM NEGATIVE RODS: MANY GRAM POS COCCI: MANY CULTURE ANAEROBIC/AEROBIC Final MANY STAPHYLOCOCCUS AUREUS on 01/08/22 at 0830. FINAL ID=STAPHYLOCOCCUS AUREUS (MRSA) MANY GRAM NEGATIVE RODS on 01/08/22 at 0830. FINAL ID= ACINETOBACTER BAU/NOS GROUP RARE CLOSTRIDIUM PERFRINGENS on 04/29/22 at 1418. Critical Results, call to and verified with: MATT POOL PVONGNARKATELYN 01/10/22 1419 Testing performed by [address] [address] director of application development: Kita Granger MD Organism 1 STAPHYLOCOCCUS AUREUS (MRSA) Organism 2 ACINETOBACTER BAU/NOS GROUP Organism 3 CLOSTRIDIUM PERFRINGENS CONTINUED ON NEXT PAGE RUN DATE: 01/12/22 [facility] LAB *LIVE* PAGE 2 RUN TIME: 1034 Specimen Inquiry SPEC: [id number] PATIENT: MARLENI LEOS [id number] (Continued) Procedure Result CULTURE ANAEROBIC/AEROBIC Final (continued) MRSA A DOMINIK/TROY M.I.C. RX M.I.C. RX --------- ------ --------- ------ AZITHROMYCIN >4 R CEFOTAXIME <=2 S DAPTOMYCIN 1 S VANCOMYCIN 1 S CEFTAROLINE 1 S CEFEPIME <=2 S CEFTRIAXONE <=1 S TRIMETH/SULFA <=0.5/9.5 S <=0.5/9.5 S LEVOFLOXACIN >4 R <=0.5 S * CLINDAMYCIN >4 R LINEZOLID 2 S ERYTHROMYCIN >4 R MEROPENEM <=1 S PENICILLIN >2 R TETRACYCLINE <=4 S RIFAMPIN <=1 S OXACILLIN >2 R AMIKACIN <=16 S AMP/SULBACTAM 16/8 I CEFTAZIDIME <=1 S CIPROFLOXACIN <=0.25 S GENTAMICIN <=4 S <=2 S TOBRAMYCIN <=2 S 1. STAPHYLOCOCCUS AUREUS (MRSA) Target Route Dose RX AB Cost M.I.C. IQ ------ ----- ------ -- ------ --------- ------ AZITHROMYCIN R >4 DAPTOMYCIN S 1 VANCOMYCIN S 1 CEFTAROLINE S 1 TRIMETH/SULFA S <=0.5/9.5 LEVOFLOXACIN R >4 * CLINDAMYCIN R >4 LINEZOLID S 2 ERYTHROMYCIN R >4 PENICILLIN R >2 TETRACYCLINE S <=4 RIFAMPIN S <=1 OXACILLIN R >2 GENTAMICIN S <=4 CONTINUED ON NEXT PAGE RUN DATE: 01/12/22 [facility] *LIVE* PAGE 3 RUN TIME: 1034 Specimen Inquiry SPEC: [id number] PATIENT: MARLENI LEOS Danilo [id number] (Continued) Procedure Result CULTURE ANAEROBIC/AEROBIC Final (continued) 2. ACINETOBACTER BAU/NOS GROUP Target Route Dose RX AB Cost M.I.C. IQ ------ ----- ------ -- ------ --------- ------ CEFOTAXIME S <=2 CEFEPIME S <=2 CEFTRIAXONE S <=1 TRIMETH/SULFA S <=0.5/9.5 LEVOFLOXACIN S <=0.5 MEROPENEM S <=1 AMIKACIN S <=16 AMP/SULBACTAM I 16/8 CEFTAZIDIME S <=1 CIPROFLOXACIN S <=0.25 GENTAMICIN S <=2 TOBRAMYCIN S <=2 Objective: Assessment: 1. 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 The patient basically needs offload completely. Her special boots are evidently not effective. Cultures positive for MRSA, Clostridium perfringens, and Acinetobacter baumanni 2. Morbid obesity. 3. Diabetes mellitus. 4. Hypertension. 5. Rheumatoid arthritis. 6. Nausea and vomiting 7. Enterococcus avium on UC with other organisms Plan: Plan of Care Maintain aspiration precautions Continue daptomycin,minocycline and merrem Transition Merrem to Invanz first dose here before discharge tomorrow Off tigecycline Offload Local Wound care Prescription chart Social service to assist with discharge antibiotics Follow-up in ID clinic in 2 weeks [phone] Discussed with nursing staff KAYODE MAYES MD January 15, 2022 15:14
[2022-01-15 15:55] LABS: BASO # 0.1 x10^3/uL (0.0-0.2); BASO % 0 % (0-3); EOS # 0.1 x10^3/uL (0.0-0.7); EOS % 1 % (0-3); HEMATOCRIT 33.5 % (36.0-47.0); HEMOGLOBIN 10.7 g/dL (12.0-15.5); LYMPH # 1.8 x10^3/uL (1.0-4.8); LYMPH % 10 % (24-48); MEAN CORPUSCULAR HEMOGLOBIN 27 pg (25-35); MEAN CORPUSCULAR HGB CONC 32 g/dL (31-37); MEAN CORPUSCULAR VOLUME 84 fL (79-100); MONO # 1.6 x10^3/uL (0.0-1.1); MONO % 8 % (0-9); NEUT # 15.4 x10^3/uL (1.8-7.7); NEUT % 81 % (31-73); PLATELET COUNT 206 x10^3/uL (140-400); RED BLOOD COUNT 4.01 x10^6/uL (3.50-5.40)
[2022-01-15] MEDS: DAPTOmycin (GENERIC) IVPB 590 MG in IV NORMAL SALINE 50ML 50 ML IV SCH (16:18)
[2022-01-15 16:20] LABS: CALCIUM 7.7 mg/dL (8.5-10.1); CREATININE 1.6 mg/dL (0.6-1.0); GFR 38.9; POTASSIUM 3.8 mmol/L (3.5-5.1)
--- NOTE | 2022-01-15 18:40 | NUR ---
Once patient is discharged, she is to follow up with Dr. Mooney on January 29, 2022 @ 1381. Message left with Christy in social work and message also written on [facility].
[2022-01-15 19:00] VITALS: BP 162/50
[2022-01-15] MEDS: PATCH REMOVAL. MC SCH (21:00)
[2022-01-15] MEDS: MIRTAZAPINE 15 MG TABLET PO SCH (21:53)
[2022-01-15] MEDS: tiZANidine 4 MG TABLET. PO SCH (21:54)
[2022-01-15] MEDS: traMADol 50 MG TABLET PO PRN (21:55)
[2022-01-15 23:04] VITALS: BP 146/59
[2022-01-16 00:05] VITALS: BP 158/43
--- NOTE | 2022-01-16 00:15 | NUR ---
patient transferred from [address] [place] [address]. no complaints at this time
[2022-01-16 03:00] VITALS: BP 155/66
[2022-01-16] MEDS: MEROPENEM 500 MG in IV NORMAL SALINE 50ML 50 ML IV SCH ×2 (06:07→12:21)
[2022-01-16 06:20] LABS: BASO % 0 % (0-3); EOS # 0.4 x10^3/uL (0.0-0.7); EOS % 3 % (0-3); HEMATOCRIT 31.3 % (36.0-47.0); LYMPH # 1.7 x10^3/uL (1.0-4.8); LYMPH % 12 % (24-48); MEAN CORPUSCULAR HEMOGLOBIN 27 pg (25-35); MEAN CORPUSCULAR HGB CONC 32 g/dL (31-37); MEAN CORPUSCULAR VOLUME 84 fL (79-100); MONO # 1.2 x10^3/uL (0.0-1.1); MONO % 8 % (0-9); NEUT # 11.3 x10^3/uL (1.8-7.7); NEUT % 77 % (31-73); PLATELET COUNT 200 x10^3/uL (140-400); RED BLOOD COUNT 3.72 x10^6/uL (3.50-5.40); RED CELL DISTRIBUTION WIDTH 16.1 % (11.5-14.5); WHITE BLOOD COUNT 14.6 x10^3/uL (4.0-11.0)
[2022-01-16 06:38] LABS: ALBUMIN 1.6 g/dL (3.4-5.0); ALBUMIN/GLOBULIN RATIO 0.4 (1.0-1.7); CALCIUM 7.5 mg/dL (8.5-10.1); CREATININE 1.5 mg/dL (0.6-1.0); GFR 41.9; POTASSIUM 3.7 mmol/L (3.5-5.1); TOTAL BILIRUBIN 0.5 mg/dL (0.2-1.0); TOTAL PROTEIN 5.3 g/dL (6.4-8.2)
[2022-01-16 07:00] VITALS: BP 164/60
[2022-01-16] MEDS: PANTOPRAZOLE 40 MG TABLET.DR. PO SCH (07:30)
[2022-01-16] MEDS: POTASSIUM CHLORIDE 20 MEQ TABLET.ER. PO SCH (08:00)
[2022-01-16] MEDS: INSULIN LISPRO 300 UNITS/3 ML VIAL. SQ SCH ×2 (08:00→12:24)
--- NOTE | 2022-01-16 09:13 | PDOC ---
IM PROGRESS NOTES- Subjective Subjective Nausea and vomiting is improving slowly. Eating better. Objective Vitals/I&O Vital Signs Date Time Temp Pulse Resp B/P (MAP) Pulse Ox O2 Delivery O2 Flow Rate FiO2 01/16/22 07:00 98.1 61 18 164/60 (94) 94 Room Air 98.1 I & O 01/15/22 01/15/22 01/16/22 15:00 23:00 07:00 Intake Total 100 ml 765 ml Balance 100 ml 765 ml Physical Exam Physical Exam General Appearance - alert and in no distress Chest - decreased breath sounds at bases Heart - S1 and S2 normal Abdomen - soft, non tender Neurological - alert and oriented Musculoskeletal - generalized weakness Extremities - no edema Labs Laboratory Tests Test 01/15/22 11:17 01/15/22 13:30 01/15/22 16:54 01/15/22 19:40 Glucose (Fingerstick) 188 mg/dL (70-99) H 165 mg/dL (70-99) H 184 mg/dL (70-99) H White Blood Count 19.0 x10^3/uL (4.0-11.0) H Red Blood Count 4.01 x10^6/uL (3.50-5.40) Hemoglobin 10.7 g/dL (12.0-15.5) L Hematocrit 33.5 % (36.0-47.0) L Mean Corpuscular Volume 84 fL (79-100) Mean Corpuscular Hemoglobin 27 pg (25-35) Mean Corpuscular Hemoglobin Concent 32 g/dL (31-37) Red Cell Distribution Width 16.0 % (11.5-14.5) H Platelet Count 206 x10^3/uL (140-400) Neutrophils (%) (Auto) 81 % (31-73) H Lymphocytes (%) (Auto) 10 % (24-48) L Monocytes (%) (Auto) 8 % (0-9) Eosinophils (%) (Auto) 1 % (0-3) Basophils (%) (Auto) 0 % (0-3) Neutrophils # (Auto) 15.4 x10^3/uL (1.8-7.7) H Lymphocytes # (Auto) 1.8 x10^3/uL (1.0-4.8) Monocytes # (Auto) 1.6 x10^3/uL (0.0-1.1) H Eosinophils # (Auto) 0.1 x10^3/uL (0.0-0.7) Basophils # (Auto) 0.1 x10^3/uL (0.0-0.2) Sodium Level 137 mmol/L (136-145) Potassium Level 3.8 mmol/L (3.5-5.1) Chloride Level 104 mmol/L (98-107) Carbon Dioxide Level 29 mmol/L (21-32) Anion Gap 4 (6-14) L Blood Urea Nitrogen 34 mg/dL (7-20) H Creatinine 1.6 mg/dL (0.6-1.0) H Estimated GFR (Cockcroft-Gault) 38.9 Glucose Level 161 mg/dL (70-99) H Calcium Level 7.7 mg/dL (8.5-10.1) L Test 01/16/22 06:00 01/16/22 07:21 White Blood Count 14.6 x10^3/uL (4.0-11.0) H Red Blood Count 3.72 x10^6/uL (3.50-5.40) Hemoglobin 10.0 g/dL (12.0-15.5) L Hematocrit 31.3 % (36.0-47.0) L Mean Corpuscular Volume 84 fL (79-100) Mean Corpuscular Hemoglobin 27 pg (25-35) Mean Corpuscular Hemoglobin Concent 32 g/dL (31-37) Red Cell Distribution Width 16.1 % (11.5-14.5) H Platelet Count 200 x10^3/uL (140-400) Neutrophils (%) (Auto) 77 % (31-73) H Lymphocytes (%) (Auto) 12 % (24-48) L Monocytes (%) (Auto) 8 % (0-9) Eosinophils (%) (Auto) 3 % (0-3) Basophils (%) (Auto) 0 % (0-3) Neutrophils # (Auto) 11.3 x10^3/uL (1.8-7.7) H Lymphocytes # (Auto) 1.7 x10^3/uL (1.0-4.8) Monocytes # (Auto) 1.2 x10^3/uL (0.0-1.1) H Eosinophils # (Auto) 0.4 x10^3/uL (0.0-0.7) Basophils # (Auto) 0.0 x10^3/uL (0.0-0.2) Sodium Level 138 mmol/L (136-145) Potassium Level 3.7 mmol/L (3.5-5.1) Chloride Level 106 mmol/L (98-107) Carbon Dioxide Level 29 mmol/L (21-32) Anion Gap 3 (6-14) L Blood Urea Nitrogen 33 mg/dL (7-20) H Creatinine 1.5 mg/dL (0.6-1.0) H Estimated GFR (Cockcroft-Gault) 41.9 BUN/Creatinine Ratio 22 (6-20) H Glucose Level 175 mg/dL (70-99) H Calcium Level 7.5 mg/dL (8.5-10.1) L Total Bilirubin 0.5 mg/dL (0.2-1.0) Aspartate Amino Transferase (AST) 22 U/L (15-37) Alanine Aminotransferase (ALT) 22 U/L (14-59) Alkaline Phosphatase 166 U/L (46-116) H Total Protein 5.3 g/dL (6.4-8.2) L Albumin 1.6 g/dL (3.4-5.0) L Albumin/Globulin Ratio 0.4 (1.0-1.7) L Glucose (Fingerstick) 157 mg/dL (70-99) H Laboratory Tests 01/15/22 13:30 01/16/22 06:00 Laboratory Tests 01/15/22 13:30 01/16/22 06:00 Meds Current Medications Medications (Trade) Dose Ordered Sig/[place] Route PRN Reason Start Time Stop Time Status Last Admin Dose Admin Alteplase, Recombinant (Cathflo For Central Catheter Clearance) 1 mg 1X ONCE INT CAT 01/15/22 14:15 01/15/22 14:16 DC 01/15/22 14:23 Assessment Assessment IMP: SI joint pain rt side. 1. Bilateral foot wounds. 2. Diabetic neuropathy. 3. Peripheral arterial disease. 4. Lymphedema. 5. Hypertension. 6. Rheumatoid arthritis. 7. Osteoarthritis. 8. Fatty liver. 9. Diverticulosis. 10. Severe protein calorie malnutrition. 11. Hyperlipidemia. 12. History of migraine. 13. Chronic kidney disease 2. 14. Anemia, iron deficiency. PLAN: cortisone inj to si joint Lidoderm patch for pain iv antibiotics for wounds. waiting for SNU placement. Consult Dr. Napier for wound care management and Dr. Mooney for wound management. Decrease Lantus to [address] Solano for PAD. Consult wound care team. Also, consult Dr. Roman for bilateral knee pain and Dr. Ornelas for possible right foot drop. Diabetes mellitus. Discontinue Lantus because blood sugar remains low. Patient did not take Lantus for last 3 weeks at home. Bilateral heel wounds- non healing for 1 year. This is complicated by lymphedema and inability to do her wound care. No significant PAD per vascular surgery. Vascular boots have not helped her. Complete offloading,IV Rocephin. IV Rocephin was discontinued and patient was started on tigecycline . Tigecycline changed to daptomycin, meropenem and minocycline on January 14, 2022, because of nausea. WBC count has increased to 19.1. WBC count today is 14.6. check for c diff PCR. She will go home with IV daptomycin, Invanz and minocycline. Antibiotics to be managed as outpatient by infectious disease specialist. She does not want to go jail when ready. She wants to go home when discharged. Her brother will help her and she now has a bedside commode. Hypertensive crisis. Started on furosemide yesterday. Discussed with pharmacist yesterday.. Increase Atenolol to 50 mg daily. Decrease Clonidine to 0.1 mg bid. Increase Doxazosin. Consider stopping amlodipine if possible because of swelling of the lower extremities.Monitor bradycardia. Blood pressure control is improving. Hypokalemia- replace KCL. Nausea- stop Ferrous sulfate.Compazine prn. GI consult. Acute kidney injury. BUN is 33. Creatinine decreased to 1.5. Give IV fluids. Discontinue Lasix. Okay to discharge home with home health services, home IV antibiotics later this afternoon if she tolerates diet.. Prognosis of this patient is poor due to her multiple medical problems. She needs to offload completely to help healing the calcaneal wounds. Discussed with staff. Antibiotics per infectious disease specialist. Discharge management 35 minutes. Plan Plan For more details regarding further plans, please refer to the orders. Justifications for Admission Other Justification PRO SCHROEDER MD January 16, 2022 09:13
[2022-01-16] MEDS ORDERED: DOXA1TAB PO (09:16)
[2022-01-16] MEDS: diphenhydrAMINE HCL 25 MG CAPSULE PO SCH (09:41)
[2022-01-16] MEDS: ATENOLOL 50 MG TABLET. PO SCH (09:42)
[2022-01-16] MEDS: HYDROXYCHLOROQUINE 200 MG TABLET PO SCH (09:42)
[2022-01-16] MEDS: cloNIDine HCL 0.1 MG TABLET PO SCH (09:43)
[2022-01-16] MEDS: MINOCYCLINE 100 MG CAPSULE PO SCH (09:43)
[2022-01-16] MEDS: DOXAZOSIN MESYLATE 1 MG TABLET. PO SCH (09:43)
[2022-01-16] MEDS: LIDOCAINE (700MG/PATCH) PATCH. TD SCH (09:45)
[2022-01-16] MEDS: INSULIN GLARGINE SYRINGE. SQ SCH (09:49)
[2022-01-16] MEDS: HEPARIN for SUB-Q USE 5,000 UNIT/ML VIAL. SQ SCH (09:50)
[2022-01-16] MEDS: DICLOFENAC SODIUM 1% TOPICAL GEL 100GM TUBE. TP SCH (09:54)
[2022-01-16] MEDS: NYSTATIN 100,000 UNIT/GM TOPICAL CREAM 15GM TUBE. TP SCH (09:55)
--- NOTE | 2022-01-16 10:11 | SNU/HH DC ---
DISCHARGE WITH HOME HEALTH DISCHARGE INFORMATION: Condition on Discharge: Stable HOME HEALTH: Face to Face: I certify this patient is under my care and that I, or a nurse practitioner or physician's assistant district attorney working with me, had a face to face encounter that meets the physician face to face encounter requirements with this patient on 01/16/22. Medical Complications: Other (wounds) RN For Eval/Treatment: Yes Physical Therapy For: Evalulation/Treatment Occupational Therapy For: Evaluation/Treatment Home Health Aide For: Self-care Pt Meets Homebound Status: Other: (has wounds on feet) POST DISCHARGE ORDERS: Activity Instructions for Disc: Activity as tolerated Weight Bearing Status after Di: No restrictions, Non weight bearing (on feet) DIET AFTER DISCHARGE: Cardiac (ADA) Wound/Incision Care: Keep wound/cast CDI, Change dressing CHECKS AFTER DISCHARGE: Checks after discharge: Check blood sugar, ac/hs Comment: Needs hospital bed FOLLOW-UP: PCP to follow Home Health: Yes Follow up with: Dr. Pro Schroeder in 1 week Follow Up With: Wound care center, Dr.Samir Mooney in 2 weeks DC TO SNF LABS: Finger sticks AC,HS. CBC,CMP twice a week TREATMENT/EQUIPMENT ORDERS: Adaptive Equipment Issued: None CERTIFICATION STATEMENT: Certification Statement: Certification Statement: Based on the above finding, I certify that this patient is confined to the home and needs intermittent care home care, physical therapy and/or speech therapy, or continues to need occupational therapy.~ This patient is under my care, and I have initiated the establishment of the plan of care.~ This patient will be followed by myself or a community physician who will periodically review the plan of care. Home Meds Active Scripts Doxazosin Mesylate (CARDURA) 1 Mg Tablet, 2 MG PO DAILY for HTN for 30 Days, #60 TAB 3 Refills Prov:PRO SCHROEDER MD 01/16/22 Prochlorperazine Maleate (Compazine) 10 Mg Tablet, 1 TAB PO Q6HRS for Nausea for 30 Days, #120 TAB 0 Refills Prov:PRO SCHROEDER MD 01/13/22 Lidocaine (Lidocaine PATCH ) 1 Each Adh..patch, 1 PATCH TD DAILY for Pain for 30 Days, #30 PATCH Prov:PRO SCHROEDER MD 01/13/22 Insulin Glargine,Hum.rec.anlog (LANTUS) 100 Unit/1 Ml Vial, 6 UNIT SQ DAILY10 for DM for 30 Days, #5 EACH Prov:PRO SCHROEDER MD 01/13/22 Doxazosin Mesylate (DOXAZOSIN MESYLATE) 2 Mg Tablet, 1 TAB PO DAILY for HTN for 30 Days, #30 TAB 5 Refills Prov:PRO SCHROEDER MD 01/13/22 Clonidine Hcl (CLONIDINE HCL) 0.1 Mg Tablet, 0.1 MG PO BID for HTN for 30 Days, #60 TAB Hold if gloria rate less than 55/min Prov:PRO SCHROEDER MD 01/13/22 Atenolol (ATENOLOL) 50 Mg Tablet, 50 MG PO BID for HTN for 30 Days, #60 TAB Hold if BP less thaan 100, heart rate less than 55. Prov:PRO SCHROEDER MD 01/10/22 [Diclofenac Sodium 1% Topical] 100 GM GEL..GRAM. No Conflict Check, 1 MAURICIO TP BID for arthritis for 14 Days, #28 EACH Prov:PRO SCHROEDER MD 01/10/22 Nystatin (NYSTATIN) 15 Gm Cream..g., 1 MAURICIO TP BID for skin candidiasis for 14 Days, #28 EACH Prov:PRO SCHROEDER MD 01/10/22 Acetaminophen (ACETAMINOPHEN) 325 Mg Tablet, 650 MG PO PRN Q6HRS PRN for MILD PAIN / TEMP > 100.3'F for 7 Days, TAB Prov:PRO SCHROEDER MD 01/10/22 Clonidine Hcl (CLONIDINE HCL) 0.1 Mg Tablet, 0.1 MG PO TID for HTN for 30 Days, #90 TAB Hold if systolic BP less than 100, heart rate less than 55. Prov:PRO SCHROEDER MD 01/10/22 Heparin Sodium,Porcine (HEPARIN SODIUM) 5,000 Unit/1 Ml Vial, 5000 UNIT SQ Q12HR for DVT prophylaxis for 14 Days, EACH Prov:PRO SCHROEDER MD 01/10/22 Tigecycline (TYGACIL) 50 Mg Vial, 50 MG IV Q12HR for wound infection for 10 Days, #20 EACH Prov:PRO SCHROEDER MD 01/10/22 Reported Medications Tramadol Hcl (TRAMADOL HCL) 100 Mg Tbmp.24hr, 100 MG PO Q6H PRN for PAIN, TAB 0 Refills 07/06/20 Tizanidine Hcl (TIZANIDINE HCL) 4 Mg Tablet, 1 TAB PO QHS for muscle spasms, #30 TAB 07/06/20 Rabeprazole Sodium (ACIPHEX) 20 Mg Tablet.dr, 1 TAB PO DAILY, #90 TAB 1 Refill 05/13/16 Amlodipine Besylate (AMLODIPINE BESYLATE) 5 Mg Tablet, 5 MG PO DAILY, TAB 05/13/16 Mirtazapine (MIRTAZAPINE) 15 Mg Tablet, 15 MG PO DAILY, TAB 05/13/16 Hydroxychloroquine Sulfate (HYDROXYCHLOROQUINE SULFATE) 200 Mg Tablet, 1 TAB PO BID, #180 TAB 1 Refill 05/13/16 Discontinued Reported Medications Insulin Glargine,Hum.rec.anlog (LANTUS SOLOSTAR) 100 Unit/1 Ml Insuln.pen, 80 UNIT SQ QHS, #15 ML 3 Refills 07/14/17 Atenolol (ATENOLOL) 25 Mg Tablet, 1 TAB PO BID, #30 TAB 5 Refills 05/13/16 PRO SCHROEDER MD January 16, 2022 10:11
[2022-01-16 11:00] VITALS: BP 144/52
[2022-01-16] MEDS: IV NORMAL SALINE 1000ML BAG 1,000 ML IV SCH (11:40)
--- NOTE | 2022-01-16 11:44 | PDOC ---
PROGRESS NOTES Date of Service DATE: 01/16/22 TIME: 11:41 Subjective Subjective She is worried about how she can afford to pay for her antibiotic infusion therapy which costs about 1500 dollars per day. Objective Objective Vital Signs Date Time Temp Pulse Resp B/P (MAP) Pulse Ox O2 Delivery O2 Flow Rate FiO2 01/16/22 11:00 98.2 60 18 144/52 (82) 94 Room Air 98.2 Intake and Output 01/16/22 07:00 Intake Total 865 ml Balance 865 ml Intake Oral 340 ml IV Total 525 ml # Voids 1 Physical Exam Physical Exam She is alert,sitting in bed with head end propped up and she had dressing to her feet and PRAFO boots in place. Plan Plan of Care She is not refusing to go to SNF. Comment Review of Relevant I have reviewed the following items meg (where applicable) has been applied. Labs Laboratory Tests Test 01/14/22 11:44 01/14/22 15:40 01/14/22 17:29 01/14/22 19:50 Glucose (Fingerstick) 188 mg/dL (70-99) 169 mg/dL (70-99) 179 mg/dL (70-99) White Blood Count 19.1 x10^3/uL (4.0-11.0) Red Blood Count 4.11 x10^6/uL (3.50-5.40) Hemoglobin 11.1 g/dL (12.0-15.5) Hematocrit 34.6 % (36.0-47.0) Mean Corpuscular Volume 84 fL (79-100) Mean Corpuscular Hemoglobin 27 pg (25-35) Mean Corpuscular Hemoglobin Concent 32 g/dL (31-37) Red Cell Distribution Width 16.0 % (11.5-14.5) Platelet Count 221 x10^3/uL (140-400) Neutrophils (%) (Auto) 83 % (31-73) Lymphocytes (%) (Auto) 8 % (24-48) Monocytes (%) (Auto) 9 % (0-9) Eosinophils (%) (Auto) 0 % (0-3) Basophils (%) (Auto) 0 % (0-3) Neutrophils # (Auto) 15.9 x10^3/uL (1.8-7.7) Lymphocytes # (Auto) 1.4 x10^3/uL (1.0-4.8) Monocytes # (Auto) 1.7 x10^3/uL (0.0-1.1) Eosinophils # (Auto) 0.0 x10^3/uL (0.0-0.7) Basophils # (Auto) 0.0 x10^3/uL (0.0-0.2) Segmented Neutrophils % 96 % (35-66) Lymphocytes % 1 % (24-48) Monocytes % 3 % (0-10) Platelet Estimate Adequate (ADEQUATE) Sodium Level 137 mmol/L (136-145) Potassium Level 3.8 mmol/L (3.5-5.1) Chloride Level 103 mmol/L (98-107) Carbon Dioxide Level 27 mmol/L (21-32) Anion Gap 7 (6-14) Blood Urea Nitrogen 33 mg/dL (7-20) Creatinine 1.6 mg/dL (0.6-1.0) Estimated GFR (Cockcroft-Gault) 38.9 BUN/Creatinine Ratio 21 (6-20) Glucose Level 174 mg/dL (70-99) Calcium Level 7.6 mg/dL (8.5-10.1) Total Bilirubin 0.5 mg/dL (0.2-1.0) Aspartate Amino Transf (AST/SGOT) 20 U/L (15-37) Alanine Aminotransferase (ALT/SGPT) 23 U/L (14-59) Alkaline Phosphatase 151 U/L (46-116) Creatine Kinase 47 U/L (26-192) Total Protein 5.5 g/dL (6.4-8.2) Albumin 1.8 g/dL (3.4-5.0) Albumin/Globulin Ratio 0.5 (1.0-1.7) Test 01/14/22 21:45 01/15/22 07:33 01/15/22 11:17 01/15/22 13:30 Clostridium difficile Toxin (PCR) Negative (NEGATIVE) Glucose (Fingerstick) 182 mg/dL (70-99) 188 mg/dL (70-99) White Blood Count 19.0 x10^3/uL (4.0-11.0) Red Blood Count 4.01 x10^6/uL (3.50-5.40) Hemoglobin 10.7 g/dL (12.0-15.5) Hematocrit 33.5 % (36.0-47.0) Mean Corpuscular Volume 84 fL (79-100) Mean Corpuscular Hemoglobin 27 pg (25-35) Mean Corpuscular Hemoglobin Concent 32 g/dL (31-37) Red Cell Distribution Width 16.0 % (11.5-14.5) Platelet Count 206 x10^3/uL (140-400) Neutrophils (%) (Auto) 81 % (31-73) Lymphocytes (%) (Auto) 10 % (24-48) Monocytes (%) (Auto) 8 % (0-9) Eosinophils (%) (Auto) 1 % (0-3) Basophils (%) (Auto) 0 % (0-3) Neutrophils # (Auto) 15.4 x10^3/uL (1.8-7.7) Lymphocytes # (Auto) 1.8 x10^3/uL (1.0-4.8) Monocytes # (Auto) 1.6 x10^3/uL (0.0-1.1) Eosinophils # (Auto) 0.1 x10^3/uL (0.0-0.7) Basophils # (Auto) 0.1 x10^3/uL (0.0-0.2) Sodium Level 137 mmol/L (136-145) Potassium Level 3.8 mmol/L (3.5-5.1) Chloride Level 104 mmol/L (98-107) Carbon Dioxide Level 29 mmol/L (21-32) Anion Gap 4 (6-14) Blood Urea Nitrogen 34 mg/dL (7-20) Creatinine 1.6 mg/dL (0.6-1.0) Estimated GFR (Cockcroft-Gault) 38.9 Glucose Level 161 mg/dL (70-99) Calcium Level 7.7 mg/dL (8.5-10.1) Test 01/15/22 16:54 01/15/22 19:40 01/16/22 06:00 01/16/22 07:21 Glucose (Fingerstick) 165 mg/dL (70-99) 184 mg/dL (70-99) 157 mg/dL (70-99) White Blood Count 14.6 x10^3/uL (4.0-11.0) Red Blood Count 3.72 x10^6/uL (3.50-5.40) Hemoglobin 10.0 g/dL (12.0-15.5) Hematocrit 31.3 % (36.0-47.0) Mean Corpuscular Volume 84 fL (79-100) Mean Corpuscular Hemoglobin 27 pg (25-35) Mean Corpuscular Hemoglobin Concent 32 g/dL (31-37) Red Cell Distribution Width 16.1 % (11.5-14.5) Platelet Count 200 x10^3/uL (140-400) Neutrophils (%) (Auto) 77 % (31-73) Lymphocytes (%) (Auto) 12 % (24-48) Monocytes (%) (Auto) 8 % (0-9) Eosinophils (%) (Auto) 3 % (0-3) Basophils (%) (Auto) 0 % (0-3) Neutrophils # (Auto) 11.3 x10^3/uL (1.8-7.7) Lymphocytes # (Auto) 1.7 x10^3/uL (1.0-4.8) Monocytes # (Auto) 1.2 x10^3/uL (0.0-1.1) Eosinophils # (Auto) 0.4 x10^3/uL (0.0-0.7) Basophils # (Auto) 0.0 x10^3/uL (0.0-0.2) Sodium Level 138 mmol/L (136-145) Potassium Level 3.7 mmol/L (3.5-5.1) Chloride Level 106 mmol/L (98-107) Carbon Dioxide Level 29 mmol/L (21-32) Anion Gap 3 (6-14) Blood Urea Nitrogen 33 mg/dL (7-20) Creatinine 1.5 mg/dL (0.6-1.0) Estimated GFR (Cockcroft-Gault) 41.9 BUN/Creatinine Ratio 22 (6-20) Glucose Level 175 mg/dL (70-99) Calcium Level 7.5 mg/dL (8.5-10.1) Total Bilirubin 0.5 mg/dL (0.2-1.0) Aspartate Amino Transf (AST/SGOT) 22 U/L (15-37) Alanine Aminotransferase (ALT/SGPT) 22 U/L (14-59) Alkaline Phosphatase 166 U/L (46-116) Total Protein 5.3 g/dL (6.4-8.2) Albumin 1.6 g/dL (3.4-5.0) Albumin/Globulin Ratio 0.4 (1.0-1.7) Laboratory Tests Test 01/15/22 13:30 01/15/22 16:54 01/15/22 19:40 01/16/22 06:00 White Blood Count 19.0 x10^3/uL (4.0-11.0) 14.6 x10^3/uL (4.0-11.0) Red Blood Count 4.01 x10^6/uL (3.50-5.40) 3.72 x10^6/uL (3.50-5.40) Hemoglobin 10.7 g/dL (12.0-15.5) 10.0 g/dL (12.0-15.5) Hematocrit 33.5 % (36.0-47.0) 31.3 % (36.0-47.0) Mean Corpuscular Volume 84 fL (79-100) 84 fL (79-100) Mean Corpuscular Hemoglobin 27 pg (25-35) 27 pg (25-35) Mean Corpuscular Hemoglobin Concent 32 g/dL (31-37) 32 g/dL (31-37) Red Cell Distribution Width 16.0 % (11.5-14.5) 16.1 % (11.5-14.5) Platelet Count 206 x10^3/uL (140-400) 200 x10^3/uL (140-400) Neutrophils (%) (Auto) 81 % (31-73) 77 % (31-73) Lymphocytes (%) (Auto) 10 % (24-48) 12 % (24-48) Monocytes (%) (Auto) 8 % (0-9) 8 % (0-9) Eosinophils (%) (Auto) 1 % (0-3) 3 % (0-3) Basophils (%) (Auto) 0 % (0-3) 0 % (0-3) Neutrophils # (Auto) 15.4 x10^3/uL (1.8-7.7) 11.3 x10^3/uL (1.8-7.7) Lymphocytes # (Auto) 1.8 x10^3/uL (1.0-4.8) 1.7 x10^3/uL (1.0-4.8) Monocytes # (Auto) 1.6 x10^3/uL (0.0-1.1) 1.2 x10^3/uL (0.0-1.1) Eosinophils # (Auto) 0.1 x10^3/uL (0.0-0.7) 0.4 x10^3/uL (0.0-0.7) Basophils # (Auto) 0.1 x10^3/uL (0.0-0.2) 0.0 x10^3/uL (0.0-0.2) Sodium Level 137 mmol/L (136-145) 138 mmol/L (136-145) Potassium Level 3.8 mmol/L (3.5-5.1) 3.7 mmol/L (3.5-5.1) Chloride Level 104 mmol/L (98-107) 106 mmol/L (98-107) Carbon Dioxide Level 29 mmol/L (21-32) 29 mmol/L (21-32) Anion Gap 4 (6-14) 3 (6-14) Blood Urea Nitrogen 34 mg/dL (7-20) 33 mg/dL (7-20) Creatinine 1.6 mg/dL (0.6-1.0) 1.5 mg/dL (0.6-1.0) Estimated GFR (Cockcroft-Gault) 38.9 41.9 Glucose Level 161 mg/dL (70-99) 175 mg/dL (70-99) Calcium Level 7.7 mg/dL (8.5-10.1) 7.5 mg/dL (8.5-10.1) Glucose (Fingerstick) 165 mg/dL (70-99) 184 mg/dL (70-99) BUN/Creatinine Ratio 22 (6-20) Total Bilirubin 0.5 mg/dL (0.2-1.0) Aspartate Amino Transf (AST/SGOT) 22 U/L (15-37) Alanine Aminotransferase (ALT/SGPT) 22 U/L (14-59) Alkaline Phosphatase 166 U/L (46-116) Total Protein 5.3 g/dL (6.4-8.2) Albumin 1.6 g/dL (3.4-5.0) Albumin/Globulin Ratio 0.4 (1.0-1.7) Test 01/16/22 07:21 Glucose (Fingerstick) 157 mg/dL (70-99) Microbiology 01/06/22 Blood Culture - Final, Complete NO GROWTH AFTER 5 DAYS 01/06/22 Urine Culture - Final, Complete Enterococcus Avium Medications Current Medications Amlodipine Besylate (Norvasc) 5 mg DAILY PO Last administered on 01/16/22at 09:43; Start 01/07/22 at 09:00 Atenolol (Tenormin) 25 mg BID PO Last administered on 01/09/22at 08:21; Start 01/06/22 at 21:00; Stop 01/09/22 at 09:48; Status DC Hydroxychloroquine Sulfate (Plaquenil) 200 mg BID PO Last administered on 01/16/22at 09:42; Start 01/06/22 at 21:00 Mirtazapine (Remeron) 15 mg DAILY PO ; Start 01/07/22 at 09:00; Status Cancel Tizanidine HCl (Zanaflex) 4 mg QHS PO Last administered on 01/15/22at 21:54; Start 01/06/22 at 21:00 Insulin Glargine (Lantus Syringe) 80 unit QHS SQ Last administered on 01/06/22at 22:24; Start 01/06/22 at 21:00; Stop 01/07/22 at 08:10; Status DC Pantoprazole Sodium (Protonix) 40 mg DAILYAC PO Last administered on 01/15/22at 09:42; Start 01/07/22 at 07:30 Tramadol HCl (Ultram) 100 mg PRN Q6HRS PRN PO MODERATE-SEVERE PAIN Last administered on 01/15/22at 21:55; Start 01/06/22 at 14:00 Ceftriaxone Sodium (Rocephin) 2 gm Q24H IVP Last administered on 01/07/22at 15:38; Start 01/06/22 at 15:00; Stop 01/08/22 at 12:49; Status DC Acetaminophen (Tylenol) 650 mg PRN Q6HRS PRN PO MILD PAIN / TEMP > 100.3'F; Start 01/06/22 at 14:45 Insulin Human Lispro (HumaLOG) 0-5 UNITS TIDWMEALS SQ Last administered on 01/15/22at 12:12; Start 01/06/22 at 17:00 Dextrose (Dextrose 50%-Water Syringe) 12.5 gm PRN Q15MIN PRN IV SEE COMMENTS; Start 01/06/22 at 14:45 Dextrose (Iv Dextrose 5%) 250 ml PRN Q15MIN PRN IV SEE COMMENTS; Start 01/06/22 at 14:45 Insulin Glargine (Lantus Syringe) 50 unit QHS SQ ; Start 01/07/22 at 21:00; Stop 01/08/22 at 08:04; Status DC Heparin Sodium (Porcine) (Heparin Sodium) 5,000 unit Q12HR SQ Last administered on 01/16/22at 09:50; Start 01/07/22 at 09:00 Mirtazapine (Remeron) 15 mg QHS PO Last administered on 01/15/22 21:53; Start 01/07/22 at 21:00 Diclofenac Sodium (Voltaren) 1 sherine BID TP Last administered on 01/16/22 09:54; Start 01/07/22 at 13:00 Nystatin (Mycostatin) 1 sherine BID TP Last administered on 01/16/22 09:55; Start 01/07/22 at 13:00 Insulin Glargine (Lantus Syringe) 20 unit QHS SQ Last administered on 01/08/22at 21:00; Start 01/08/22 at 21:00; Stop 01/09/22 at 09:34; Status DC Tigecycline 50 mg/ Dextrose 50 ml @ 50 mls/hr Q12HR IV Last administered on 01/14/22 08:39; Start 01/08/22 at 21:00; Stop 01/14/22 at 14:45; Status DC Tigecycline 100 mg/Dextrose 100 ml @ 200 mls/hr 1X ONCE IV Last administered on 01/08/22at 14:32; Start 01/08/22 at 15:00; Stop 01/08/22 at 15:29; Status DC Furosemide (Lasix) 40 mg DAILY PO Last administered on 01/14/22 08:39; Start 01/09/22 at 09:00; Stop 01/15/22 at 08:46; Status DC Famotidine (Pepcid) 40 mg 1X ONCE PO Last administered on 01/08/22at 19:09; Start 01/08/22 at 19:00; Stop 01/08/22 at 19:07; Status DC Diphenhydramine HCl (Benadryl) 25 mg 1X ONCE PO Last administered on 01/08/22at 19:09; Start 01/08/22 at 19:00; Stop 01/08/22 at 19:07; Status DC Metoprolol Succinate (Toprol Xl) 50 mg DAILY PO ; Start 01/09/22 at 09:45; Stop 01/09/22 at 09:48; Status DC Atenolol (Tenormin) 50 mg BID PO Last administered on 01/16/22at 09:42; Start 01/09/22 at 21:00 Atenolol (Tenormin) 25 mg 1X ONCE PO Last administered on 01/09/22at 10:45; Start 01/09/22 at 10:00; Stop 01/09/22 at 10:01; Status DC Clonidine HCl (Catapres) 0.1 mg TID PO Last administered on 01/12/22at 09:05; Start 01/09/22 at 10:15; Stop 01/12/22 at 10:06; Status DC Diphenhydramine HCl (Benadryl) 25 mg BID PO Last administered on 01/16/22at 09:41; Start 01/09/22 at 21:00 Chloroprocaine HCl (Nesacaine 3% Mpf) 20 ml 1X ONCE INFIL ; Start 01/09/22 at 14:15; Stop 01/09/22 at 14:16; Status DC Prochlorperazine Edisylate (Compazine) 10 mg PRN Q6HRS PRN IV NAUSEA/VOMITING Last administered on 01/12/22at 16:25; Start 01/09/22 at 20:45; Stop 01/12/22 at 21:06; Status DC Lidocaine HCl (Buffered Lidocaine 1%) 3 ml STK-MED ONCE .ROUTE ; Start 01/10/22 at 09:30; Stop 01/10/22 at 09:30; Status DC Lidocaine HCl (Buffered Lidocaine 1%) 4 ml 1X ONCE INJ Last administered on 01/10/22at 10:00; Start 01/10/22 at 10:00; Stop 01/10/22 at 10:01; Status DC Lidocaine (Lidoderm) 1 patch DAILY TD Last administered on 01/11/22at 10:58; Start 01/11/22 at 10:00; Stop 01/11/22 at 23:00; Status DC [facility] Start 01/11/22 at 21:00; Status Cancel Lidocaine (Lidoderm) 1 patch DAILY TD Last administered on 01/16/22at 09:45; Start 01/12/22 at 09:00 Miscellaneous (Lidoderm Patch Removal) 1 ea [facility] Last administered on 01/13/22at 21:00; Start 01/11/22 at 21:00 Triamcinolone Acetonide (Kenalog-40) 40 mg 1X ONCE INT ART Last administered on 01/11/22at 10:00; Start 01/11/22 at 10:00; Stop 01/11/22 at 10:05; Status DC Bupivacaine HCl (Sensorcaine-Mpf 0.25%) 10 ml 1X ONCE IJ Last administered on 01/11/22at 10:00; Start 01/11/22 at 10:00; Stop 01/11/22 at 10:05; Status DC Polysaccharide Iron Complex (Niferex 150) 150 mg BIDWLD PO Last administered on 01/12/22at 16:25; Start 01/11/22 at 21:00; Stop 01/13/22 at 09:02; Status DC Potassium Chloride (Klor-Con) 20 meq DAILYWBKFT PO Last administered on 01/15/22at 09:40; Start 01/12/22 at 09:30 Clonidine HCl (Catapres) 0.1 mg BID PO Last administered on 01/16/22 09:43; Start 01/12/22 at 21:00 Terazosin HCl (Hytrin) 1 mg DAILY10 PO ; Start 01/12/22 at 10:15; Status UNV Doxazosin Mesylate (Cardura) 1 mg DAILY PO Last administered on 01/13/22at 08:32; Start 01/12/22 at 10:00; Stop 01/13/22 at 09:02; Status DC Prochlorperazine Edisylate (Compazine) 10 mg PRN Q4HRS PRN IV NAUSEA/VOMITING Last administered on 01/14/22at 20:50; Start 01/12/22 at 21:15 Insulin Glargine (Lantus Syringe) 6 unit DAILY10 SQ Last administered on 01/16/22at 09:49; Start 01/13/22 at 10:00 Doxazosin Mesylate (Cardura) 2 mg DAILY PO ; Start 01/13/22 at 09:00; Stop 01/13/22 at 11:51; Status DC Polysaccharide Iron Complex (Niferex 150) 150 mg DAILYWBKFT PO ; Start 01/13/22 at 10:00; Stop 01/13/22 at 09:45; Status DC Doxazosin Mesylate (Cardura) 2 mg DAILY PO Last administered on 01/16/22at 09:43; Start 01/14/22 at 09:00 Doxazosin Mesylate (Cardura) 1 mg 1X ONCE PO Last administered on 01/13/22at 15:57; Start 01/13/22 at 12:00; Stop 01/13/22 at 12:01; Status DC Prochlorperazine (Compazine) 25 mg PRN Q12HR PRN [place] NAUSEA/VOMITING; Start 01/14/22 at 10:00 Multi-Ingredient Mouthwash/Gargle (Gi Cocktail) 20 ml PRN QID PRN PO epigastric pain; Start 01/14/22 at 13:15; Stop 01/14/22 at 13:47; Status DC Al Hydroxide/Mg Hydroxide (Mylanta Plus Xs) 30 ml PRN Q2HR PRN PO HEARTBURN / GAS; Start 01/14/22 at 14:00 Alteplase, Recombinant (Cathflo For Central Catheter Clearance) 1 mg 1X ONCE INT CAT Last administered on 01/14/22at 14:30; Start 01/14/22 at 14:30; Stop 01/14/22 at 14:31; Status DC Daptomycin 590 mg/ Sodium Chloride 50 ml @ 100 mls/hr Q24H IV Last administered on 01/15/22at 16:18; Start 01/14/22 at 16:00 Minocycline HCl (Minocin) 100 mg BID PO Last administered on 01/16/22at 09:43; Start 01/14/22 at 21:00 Meropenem 500 mg/ Sodium Chloride 50 ml @ 100 mls/hr Q6HRS IV Last administered on 01/16/22at 06:07; Start 01/14/22 at 18:00 Sodium Chloride 1,000 ml @ 75 mls/hr [id number] IV Last administered on 01/15/22at 23:56; Start 01/15/22 at 09:00 Alteplase, Recombinant (Cathflo For Central Catheter Clearance) 1 mg 1X ONCE INT CAT Last administered on 01/15/22at 14:23; Start 01/15/22 at 14:15; Stop 01/15/22 at 14:16; Status DC Active Scripts Active Cardura (Doxazosin Mesylate) 1 Mg Tablet 2 Mg PO DAILY 30 Days Compazine (Prochlorperazine Maleate) 10 Mg Tablet 1 Tab PO Q6HRS 30 Days Lidocaine PATCH (Lidocaine) 1 Each Adh..patch 1 Patch TD DAILY 30 Days Lantus (Insulin Glargine,Hum.rec.anlog) 100 Unit/1 Ml Vial 6 Unit SQ DAILY10 30 Days Doxazosin Mesylate 2 Mg Tablet 1 Tab PO DAILY 30 Days Clonidine Hcl 0.1 Mg Tablet 0.1 Mg PO BID 30 Days Hold if gloria rate less than 55/min Atenolol 50 Mg Tablet 50 Mg PO BID 30 Days Hold if BP less thaan 100, heart rate less than 55. [Diclofenac Sodium] 100 GM Gel..gram. 1 Sherine TP BID 14 Days Nystatin 15 Gm Cream..g. 1 Sherine TP BID 14 Days Acetaminophen 325 Mg Tablet 650 Mg PO PRN Q6HRS PRN 7 Days Clonidine Hcl 0.1 Mg Tablet 0.1 Mg PO TID 30 Days Hold if systolic BP less than 100, heart rate less than 55. Heparin Sodium (Heparin Sodium,Porcine) 5,000 Unit/1 Ml Vial 5,000 Unit SQ Q12HR 14 Days Tygacil (Tigecycline) 50 Mg Vial 50 Mg IV Q12HR 10 Days Reported Tramadol Hcl 100 Mg Tbmp.24hr 100 Mg PO Q6H PRN Tizanidine Hcl 4 Mg Tablet 1 Tab PO QHS Aciphex (Rabeprazole Sodium) 20 Mg Tablet.dr 1 Tab PO DAILY Amlodipine Besylate 5 Mg Tablet 5 Mg PO DAILY Mirtazapine 15 Mg Tablet 15 Mg PO DAILY Hydroxychloroquine Sulfate 200 Mg Tablet 1 Tab PO BID Vitals/I & O Vital Sign - Last 24 Hours 01/15/22 01/15/22 01/15/22 01/15/22 15:00 19:00 20:00 21:53 Temp 98.6 98.0 98.6 98.0 Pulse 53 58 58 Resp 18 18 B/P (MAP) 146/53 (84) 162/50 (87) 162/50 Pulse Ox 94 97 O2 Delivery Room Air Room Air Room Air 01/15/22 01/15/22 01/15/22 01/15/22 21:55 21:56 22:25 23:04 Temp 97.9 97.9 Pulse 58 56 Resp 18 18 18 B/P (MAP) 162/50 146/59 (88) Pulse Ox 98 O2 Delivery Room Air Room Air 01/16/22 01/16/22 01/16/22 01/16/22 00:05 03:00 07:00 08:00 Temp 98.2 98.6 98.1 98.2 98.6 98.1 Pulse 59 60 61 Resp 18 16 18 B/P (MAP) 158/43 (81) 155/66 (95) 164/60 (94) Pulse Ox 96 91 94 O2 Delivery Room Air Room Air 01/16/22 01/16/22 01/16/22 01/16/22 09:42 09:43 09:43 09:43 Pulse 61 61 61 61 B/P (MAP) 164/60 164/60 164/60 164/60 01/16/22 11:00 Temp 98.2 98.2 Pulse 60 Resp 18 B/P (MAP) 144/52 (82) Pulse Ox 94 O2 Delivery Room Air Intake and Output 01/15/22 01/15/22 01/16/22 15:00 23:00 07:00 Intake Total 100 ml 765 ml Balance 100 ml 765 ml Justifications for Admission Other Justification RDAHA HERNANDEZ MD January 16, 2022 11:43
--- NOTE | 2022-01-16 12:20 | PDOC ---
Infectious Disease Note Subjective: Subjective Patient without complaints No more episodes of nausea or vomiting or abdominal pain Denies any fevers chills shortness of breath or cough Ready for discharge today Vital Signs: Vital Signs Vital Signs Date Time Temp Pulse Resp B/P (MAP) Pulse Ox O2 Delivery O2 Flow Rate FiO2 01/16/22 11:00 98.2 60 18 144/52 (82) 94 Room Air 98.2 Physical Exam: PHYSICAL EXAM GENERAL: Alert, oriented female, not in distress. VITAL SIGNS: Stable, afebrile. HEENT: NAD. NECK: Supple, no JVP, no lymphadenopathy. LUNGS: Clear. HEART: S1, S2, regular. ABDOMEN: Soft, nontender, no organomegaly. EXTREMITIES: No edema or cyanosis. Bilateral lower extremity calcaneal wounds are very large area of bright red, part of the skin appears clean. SKIN: Unremarkable. NEUROLOGIC: The patient is alert, awake, and appropriate. No focal neurologic deficit. PICC line clean Medications: Inpatient Meds: Medications reviewed. Labs: Lab Laboratory Tests Test 01/15/22 13:30 01/15/22 16:54 01/15/22 19:40 01/16/22 06:00 White Blood Count 19.0 x10^3/uL (4.0-11.0) 14.6 x10^3/uL (4.0-11.0) Red Blood Count 4.01 x10^6/uL (3.50-5.40) 3.72 x10^6/uL (3.50-5.40) Hemoglobin 10.7 g/dL (12.0-15.5) 10.0 g/dL (12.0-15.5) Hematocrit 33.5 % (36.0-47.0) 31.3 % (36.0-47.0) Mean Corpuscular Volume 84 fL (79-100) 84 fL (79-100) Mean Corpuscular Hemoglobin 27 pg (25-35) 27 pg (25-35) Mean Corpuscular Hemoglobin Concent 32 g/dL (31-37) 32 g/dL (31-37) Red Cell Distribution Width 16.0 % (11.5-14.5) 16.1 % (11.5-14.5) Platelet Count 206 x10^3/uL (140-400) 200 x10^3/uL (140-400) Neutrophils (%) (Auto) 81 % (31-73) 77 % (31-73) Lymphocytes (%) (Auto) 10 % (24-48) 12 % (24-48) Monocytes (%) (Auto) 8 % (0-9) 8 % (0-9) Eosinophils (%) (Auto) 1 % (0-3) 3 % (0-3) Basophils (%) (Auto) 0 % (0-3) 0 % (0-3) Neutrophils # (Auto) 15.4 x10^3/uL (1.8-7.7) 11.3 x10^3/uL (1.8-7.7) Lymphocytes # (Auto) 1.8 x10^3/uL (1.0-4.8) 1.7 x10^3/uL (1.0-4.8) Monocytes # (Auto) 1.6 x10^3/uL (0.0-1.1) 1.2 x10^3/uL (0.0-1.1) Eosinophils # (Auto) 0.1 x10^3/uL (0.0-0.7) 0.4 x10^3/uL (0.0-0.7) Basophils # (Auto) 0.1 x10^3/uL (0.0-0.2) 0.0 x10^3/uL (0.0-0.2) Sodium Level 137 mmol/L (136-145) 138 mmol/L (136-145) Potassium Level 3.8 mmol/L (3.5-5.1) 3.7 mmol/L (3.5-5.1) Chloride Level 104 mmol/L (98-107) 106 mmol/L (98-107) Carbon Dioxide Level 29 mmol/L (21-32) 29 mmol/L (21-32) Anion Gap 4 (6-14) 3 (6-14) Blood Urea Nitrogen 34 mg/dL (7-20) 33 mg/dL (7-20) Creatinine 1.6 mg/dL (0.6-1.0) 1.5 mg/dL (0.6-1.0) Estimated GFR (Cockcroft-Gault) 38.9 41.9 Glucose Level 161 mg/dL (70-99) 175 mg/dL (70-99) Calcium Level 7.7 mg/dL (8.5-10.1) 7.5 mg/dL (8.5-10.1) Glucose (Fingerstick) 165 mg/dL (70-99) 184 mg/dL (70-99) BUN/Creatinine Ratio 22 (6-20) Total Bilirubin 0.5 mg/dL (0.2-1.0) Aspartate Amino Transf (AST/SGOT) 22 U/L (15-37) Alanine Aminotransferase (ALT/SGPT) 22 U/L (14-59) Alkaline Phosphatase 166 U/L (46-116) Total Protein 5.3 g/dL (6.4-8.2) Albumin 1.6 g/dL (3.4-5.0) Albumin/Globulin Ratio 0.4 (1.0-1.7) Test 01/16/22 07:21 01/16/22 11:42 Glucose (Fingerstick) 157 mg/dL (70-99) 196 mg/dL (70-99) Micro RUN DATE: 01/09/22 [facility] *LIVE* PAGE 1 RUN TIME: 821 Specimen Inquiry PATIENT: MARLENI LEOS Danilo ACCT: [id number] LOC: [address] [place] [address] U: [id number] AGE/SX: 66/F ROOM: 508 RE01/06/[address]: PRO SCHROEDER MD : 1955 BED: 1 DIS: STATUS: ADM IN TLOC: -- SPEC #: [id number] YARITZA: 01/06/22 STATUS: COMP REQ #: [id number] RECD: 01/06/[address]: PRO SCHROEDER MD SOURCE: VOID ENTR: 01/06/[address]: MARYANN MAYES MD [facility]: RAUL BALLARD DO ORDERED: CULTURE URINE* Procedure Result CULTURE URINE Final THREE OR MORE ORGANISMS ISOLATED. RESULTS CONSISTENT WITH COLONIZATION OR CONTAMINATION DURING COLLECTION PROCESS. RECOLLECTION RECOMMENDED USING A METHOD TO MINIMIZE CONTAMINATION. Testing performed by [address] [address] field representatives director: Kita Granger MD Organism 1 ENTEROCOCCUS AVIUM RUN DATE: 01/12/22 [facility] *LIVE* PAGE 1 RUN TIME: 1034 Specimen Inquiry PATIENT: MARLENI LEOS ACCT: [id number] LOC: [facility] U: [id number] AGE/SX: 66/F ROOM: RE01/06/[address]: RAUL BALLARD DO : 1955 BED: DIS: 01/11/22 STATUS: DIS RCR TLOC: SPEC #: [id number] YARITZA: 01/06/22 STATUS: COMP REQ #: [id number] RECD: 01/06/[address]: RAUL BALLARD DO SOURCE: FOOT ENTR: 01/06/22-1752 [facility] DR: PRO SCHROEDER MD [facility]: PLANTAR ORDERED: MILLIE/AEROBIC CUL Procedure Result GRAM STAIN-AER MILLIE Final PMNS (WBCS): NONE SEEN SQUAMOUS EPI CELL: RARE GRAM NEGATIVE RODS: MANY GRAM POS COCCI: MANY CULTURE ANAEROBIC/AEROBIC Final MANY STAPHYLOCOCCUS AUREUS on 01/08/22 at 0830. FINAL ID=STAPHYLOCOCCUS AUREUS (MRSA) MANY GRAM NEGATIVE RODS on 01/08/22 at 0830. FINAL ID= ACINETOBACTER BAU/NOS GROUP RARE CLOSTRIDIUM PERFRINGENS on 01/10/22 at 1418. Critical Results, call to and verified with: MATT THAYERONGLIZANDRO 01/10/22 1419 Testing [place] [address] field representatives director: Kita Granger MD Organism 1 STAPHYLOCOCCUS AUREUS (MRSA) Organism 2 ACINETOBACTER BAU/NOS GROUP Organism 3 CLOSTRIDIUM PERFRINGENS CONTINUED ON NEXT PAGE RUN DATE: 01/12/22 [facility] *LIVE* PAGE 2 RUN TIME: 1034 Specimen Inquiry SPEC: [id number] PATIENT: GIOVANNY LEOSMAYA Carrasco [id number] (Continued) Procedure Result CULTURE ANAEROBIC/AEROBIC Final (continued) MRSA A DOMINIK/NO M.I.C. RX M.I.C. RX --------- ------ --------- ------ AZITHROMYCIN >4 R CEFOTAXIME <=2 S DAPTOMYCIN 1 S VANCOMYCIN 1 S CEFTAROLINE 1 S CEFEPIME <=2 S CEFTRIAXONE <=1 S TRIMETH/SULFA <=0.5/9.5 S <=0.5/9.5 S LEVOFLOXACIN >4 R <=0.5 S * CLINDAMYCIN >4 R LINEZOLID 2 S ERYTHROMYCIN >4 R MEROPENEM <=1 S PENICILLIN >2 R TETRACYCLINE <=4 S RIFAMPIN <=1 S OXACILLIN >2 R AMIKACIN <=16 S AMP/SULBACTAM 16/8 I CEFTAZIDIME <=1 S CIPROFLOXACIN <=0.25 S GENTAMICIN <=4 S <=2 S TOBRAMYCIN <=2 S 1. STAPHYLOCOCCUS AUREUS (MRSA) Target Route Dose RX AB Cost M.I.C. IQ ------ ----- ------ -- ------ --------- ------ AZITHROMYCIN R >4 DAPTOMYCIN S 1 VANCOMYCIN S 1 CEFTAROLINE S 1 TRIMETH/SULFA S <=0.5/9.5 LEVOFLOXACIN R >4 * CLINDAMYCIN R >4 LINEZOLID S 2 ERYTHROMYCIN R >4 PENICILLIN R >2 TETRACYCLINE S <=4 RIFAMPIN S <=1 OXACILLIN R >2 GENTAMICIN S <=4 CONTINUED ON NEXT PAGE RUN DATE: 01/12/22 [facility] *LIVE* PAGE 3 RUN TIME: 1034 Specimen Inquiry SPEC: [id number] PATIENT: MARLENI LEOS [id number] (Continued) Procedure Result CULTURE ANAEROBIC/AEROBIC Final (continued) 2. ACINETOBACTER JOSEU/NOS GROUP Target Route Dose RX AB Cost M.I.C. IQ ------ ----- ------ -- ------ --------- ------ CEFOTAXIME S <=2 CEFEPIME S <=2 CEFTRIAXONE S <=1 TRIMETH/SULFA S <=0.5/9.5 LEVOFLOXACIN S <=0.5 MEROPENEM S <=1 AMIKACIN S <=16 AMP/SULBACTAM I 16/8 CEFTAZIDIME S <=1 CIPROFLOXACIN S <=0.25 GENTAMICIN S <=2 TOBRAMYCIN S <=2 Objective: Assessment: 1. 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 The patient basically needs offload completely. Her special boots are evidently not effective. Cultures positive for MRSA, Clostridium perfringens, and Acinetobacter baumanni 2. Morbid obesity. 3. Diabetes mellitus. 4. Hypertension. 5. Rheumatoid arthritis. 6. Nausea and vomiting 7. Enterococcus avium on UC with other organisms Plan: Plan of Care Patient states that Case management has reached out antibiotic treatment for her for discharge and she is agreeable with the plan. Continue daptomycin,minocycline Transition Merrem to Invanz first dose here before discharge today Off tigecycline Offload Local Wound care Prescription chart Social service to assist with discharge antibiotics Follow-up in ID clinic January 29 at 1:45 PM phone [phone] PT and OT as tolerated Discussed with nursing staff KAYODE MAYES MD January 16, 2022 12:20
[2022-01-16] MEDS ORDERED: ERTAPENEM 1 GM in IV NORMAL SALINE 50ML 50 ML IV ONE (14:30)
[2022-01-16 15:00] VITALS: BP 163/59
[2022-01-16] MEDS: DAPTOmycin (GENERIC) IVPB 590 MG in IV NORMAL SALINE 50ML 50 ML IV SCH (15:01)
--- NOTE | 2022-01-16 16:13 | NUR ---
PT DISCHARGED HOME WITH SELF CARE. DISCHARGE INSTRUCTIONS AND PRESCRIPTIONS DISCUSSED. PT VERBALIZED UNDERSTANDING. WOUND PICS AND WOUND DRESSINGS COMPLETED. CENTRAL LINE DRESSING CHANGED. PT ASSISTED TO STRETCHER AND WAS TAKEN BY EMS TRANSPORT. Addendum: 01/16/22 at 1617 by KIRT PELLETIER RN PT DISCHARGING HOME WITH HOME HEALTH AND IV INFUSION.
== END 2022-01-16 16:16 | disposition home health service (06) | DRG 622 ==
LOC: 5 NORTH 08:57 → 4 NORTH 01-15 23:35
PROVIDERS: ADMIT Internal Medicine; ATTEND Internal Medicine
PROC: 0JBQ0ZZ Excision of Right Foot Subcutaneous Tissue and Fascia, Open Approach (ICD-10-PCS; principal; 2022-01-08)
PROC: 02HV33Z Insertion of Infusion Device into Superior Vena Cava, Percutaneous Approach (ICD-10-PCS; 2022-01-10)
PROC: B5181ZA Fluoroscopy of Superior Vena Cava using Low Osmolar Contrast, Guidance (ICD-10-PCS; 2022-01-10)
PROC: B548ZZA Ultrasonography of Superior Vena Cava, Guidance (ICD-10-PCS; 2022-01-10)
PROC: 3E0233Z Introduction of Anti-inflammatory into Muscle, Percutaneous Approach (ICD-10-PCS; 2022-01-11)
PROC: 3E023BZ Introduction of Anesthetic Agent into Muscle, Percutaneous Approach (ICD-10-PCS; 2022-01-11)
DX: E11.621 Type 2 diabetes mellitus with foot ulcer (principal); E43 Unspecified severe protein-calorie malnutrition; I13.0 Hypertensive heart and chronic kidney disease with heart failure and stage 1 through stage 4 chronic kidney disease, or unspecified chronic kidney disease; I16.9 Hypertensive crisis, unspecified; N39.0 Urinary tract infection, site not specified; Z68.43 Body mass index [BMI] 50.0-59.9, adult; E11.69 Type 2 diabetes mellitus with other specified complication; E11.51 Type 2 diabetes mellitus with diabetic peripheral angiopathy without gangrene; E11.42 Type 2 diabetes mellitus with diabetic polyneuropathy; E11.43 Type 2 diabetes mellitus with diabetic autonomic (poly)neuropathy; K57.90 Diverticulosis of intestine, part unspecified, without perforation or abscess without bleeding; I50.9 Heart failure, unspecified; D50.9 Iron deficiency anemia, unspecified; D86.9 Sarcoidosis, unspecified; E11.22 Type 2 diabetes mellitus with diabetic chronic kidney disease; E66.01 Morbid (severe) obesity due to excess calories; E78.5 Hyperlipidemia, unspecified; G43.909 Migraine, unspecified, not intractable, without status migrainosus; G89.29 Other chronic pain; K21.9 Gastro-esophageal reflux disease without esophagitis; K29.50 Unspecified chronic gastritis without bleeding; K76.0 Fatty (change of) liver, not elsewhere classified; L89.619 Pressure ulcer of right heel, unspecified stage; L89.629 Pressure ulcer of left heel, unspecified stage; M06.9 Rheumatoid arthritis, unspecified; M17.0 Bilateral primary osteoarthritis of knee; M47.816 Spondylosis without myelopathy or radiculopathy, lumbar region; M51.36 Other intervertebral disc degeneration, lumbar region; M53.3 Sacrococcygeal disorders, not elsewhere classified; M79.7 Fibromyalgia; N18.9 Chronic kidney disease, unspecified; Z79.4 Long term (current) use of insulin; Z82.49 Family history of ischemic heart disease and other diseases of the circulatory system; Z83.3 Family history of diabetes mellitus; Z90.49 Acquired absence of other specified parts of digestive tract; Z90.711 Acquired absence of uterus with remaining cervical stump; Z91.81 History of falling; F41.9 Anxiety disorder, unspecified; B95.2 Enterococcus as the cause of diseases classified elsewhere
CPT/HCPCS: 36415; 36573; 72100; 73521; 73565; 80048; 80053; 81001; 82550; 82962; 85007; 85025; 85651; 87040; 87086; 87493; 93925; C1751; C1892; J0696; J0780; J0878; J1335; J1644; J1815; J2185; J2997; J3243; J3301; J3490; J7030; J7060; U0003; 73630-50; 97110-GO; 97530-GO; 97530-GP; G0378; Q0163

== ENCOUNTER 2022-01-18 11:16 | Inpatient (IN) | payer MEDICARE, OTHER ==
[~2022-01-18] VITALS: Ht 167.6 cm; Wt 148.3 kg
[~2022-01-18 11:16] MED LIST changes: +ACET325T21 PO; +ATEN50TA PO; +CLON0.1T PO; +DOXA1TAB PO; +DOXA2TAB2 PO; +Diclofenac Sodium TP; +HEPA50003 SQ; +LIDO700A21 TD; +NYST15CR TP; +PROC10TA57 PO; +TIGE50VI IV
--- NOTE | 2022-01-18 11:45 | RAD ---
PROCEDURE: XR CHEST 1V.01/18/2022 11:42 AM REASON FOR STUDY: Reason: picc placement / Spl. Instructions: / History: . COMPARISON: None. FINDINGS: Right-sided PICC line has been placed. Its tip lies near the cavoatrial junction. There is no apparent infiltrate in the lungs. Evaluation of the left base is slightly limited by overlying hea rt and soft tissues. No pleural fluid is seen. IMPRESSION: Placement of PICC line as described above. Electronically signed by: Regino Elmore Jr., MD (01/18/2022 11:43 AM) [id number]
--- NOTE | 2022-01-18 11:57 | PHYS DOC ---
Past Medical History Past Medical History: Arthritis, Diabetes-Type II, GERD, Hypertension, Pn eumonia, Other Additional Past Medical Histor: SARCOIDOSIS; wound on left 1st toe Past Surgical History: Cholecystectomy, Hysterectomy, Other Additional Past Surgical Histo: R toe amputation Smoking Status: Never Smoker Alcohol Use: None Drug Use: None General Adult EDM: Chief Complaint: UPPER EXTREMITY SWELLING HPI: HPI: Patient is a 66 year old female who presents with right arm swelling and pain after her PICC line that was placed here on January 10 with use for the first time for antibiotics for her wounds on her feet bilaterally. Patient has home health that comes in and start antibiotics for her. She also follows up with wound care. She rates her pain a 10 out of 10 states it is throbbing. She denies numbness or tingling, focal weakness, chest pain, shortness of air, coolness of the extremity, skin color change, Fever, abdominal pain, nausea, vomiting, diarrhea, dizziness, headache. Patient has a history of hysterectomy, sarcoidosis, GERD, hypertension, diabetes, cellulitis, feet wounds, kidney disease, yeast infection. Review of Systems: Review of Systems: Constitutional: Denies fever or chills. [] Eyes: Denies change in visual acuity. [] HENT: Denies nasal congestion or sore throat. [] Respiratory: Denies cough or shortness of breath. [] Cardiovascular: Denies chest pain or +Right arm edema. [] GI: Denies abdominal pain, nausea, vomiting, bloody stools or diarrhea. [] : Denies dysuria. [] Musculoskeletal: Denies back pain or joint pain. +Right arm pain[] Integument: Denies rash. [] Neurologic: Denies headache, focal weakness or sensory changes. [] Endocrine: Denies polyuria or polydipsia. [] Lymphatic: Denies swollen glands. [] Psychiatric: Denies depression or anxiety. [] Heart Score: C/O Chest Pain: No Allergies: Allergies: Allergies Coded Allergies Type Severity Reaction Last Updated Verified Penicillins Allergy Intermediate Rash 07/14/17 Yes benzocaine Allergy Intermediate Shortness of Air 07/14/17 Yes lidocaine Allergy Intermediate Shortness of Air 07/14/17 Yes losartan Allergy Intermediate Rash 07/14/17 Yes tetracaine Allergy Intermediate Shortness of Air 07/14/17 Yes I S O L A T I O N *CONTACT* Allergy Unknown 01/12/22 Yes hydralazine Adverse Reaction Intermediate BLOOD PRESSURE DROPPED TOO LOW 01/12/22 Yes Physical Exam: PE: Constitutional: Well developed, well nourished, no acute distress, non-toxic appearance. [] HENT: Normocephalic, atraumatic, bilateral external ears normal, oropharynx moist, no oral exudates, nose normal. [] Eyes: PERRLA, EOMI, conjunctiva normal, no discharge. [] Neck: Normal range of motion, no tenderness, supple, no stridor. [] Cardiovascular:Heart rate regular rhythm, no murmur [] Lungs & Thorax: Bilateral breath sounds clear to auscultation [] Abdomen: Bowel sounds normal, soft, no tenderness, no masses, no pulsatile masses. [] Skin: Warm, dry, no erythema, no rash. [] Back: No tenderness, no CVA tenderness. [] Extremities: Whole right arm tenderness, no cyanosis, no clubbing, ROM intact, 3+ edema. [] Neurologic: Alert and oriented X 3, normal motor function, normal sensory function, no focal deficits noted. [] Psychologic: Affect normal, judgement normal, mood normal. [] Current Patient Data: Vital Signs: Vital Signs Date Time Temp Pulse Resp B/P (MAP) Pulse Ox O2 Delivery O2 Flow Rate FiO2 01/18/22 11:16 97.3 68 16 158/70 (99) 96 Room Air 97.3 EKG: EKG: [] Radiology/Procedures: Radiology/Procedures: [] Impression: [facility] [address] [place] [address] IMAGING REPORT Signed PATIENT: MARLENI LEOS DACCOUNT: [id number] : 1955 LOCATION: ER AGE: 66 SEX: F EXAM STATUS: PRE ER ORD. PHYSICIAN: ONEAL CHRISTIANSON APRN REASON: picc placement PROCEDURE: PORTABLE CHEST 1V PROCEDURE: XR CHEST 1V.01/18/2022 11:42 AM REASON FOR STUDY: Reason: picc placement / Spl. Instructions: / History: . COMPARISON: None. FINDINGS: Right-sided PICC line has been placed. Its tip lies near the ca voatrial junction. There is no apparent infiltrate in the lungs. Evaluation of the left base is slightly limited by overlying heart and soft tissues. No pleural fluid is seen. IMPRESSION: Placement of PICC line as described above. Electronically signed by: Cesario Elmore Jr., MD (01/18/2022 11:43 AM) [id number] DICTATED and SIGNED BY: CESARIO ELMORE Jr, MD DATE: 01/18/[address] [facility] [address] [place] [address] IMAGING REPORT Signed PATIENT: MARLENI LEOSUNT: [id number] : 1955 LOCATION: ER AGE: 66 SEX: F EXAM STATUS: REG ER ORD. PHYSICIAN: ONEAL CHRISTIANSON APRN REASON: swelling after 1st use of picc line TECH NOTIFIED. NC PROCEDURE: VENOUS UPPER EXTREMITY RIGHT Right upper extremity venous duplex Doppler ultrasound HISTORY: Right upper extremity swelling and edema after PICC line placement. FINDINGS: There is no DVT of the right internal jugular vein or subclavian vein with patent color Doppler blood flow and cardiac pulsatility. There is no DVT of the right axillary vein or brachial veins with compressibility and patent color flow and augmentation of flow. Limited visualization of the radial and ulnar veins on grayscale images provided. No thrombosis of the right basilic vein with compressibility and patent color flow and augmentation of flow. The right cephalic vein was not documented. The right PICC line was not documented. IMPRESSION: Negative right upper extremity for DVT. Electronically signed by: Rhonda Adame MD (01/18/2022 1:13 PM) [id number] DICTATED and SIGNED BY: RHONDA ADAME MD DATE: 01/18/[address] [facility] [address] [place], [place] [id number] IMAGING REPORT Signed PATIENT: MARLENI LEOSCOUNT: [id number] : 1955 LOCATION: ER AGE: 66 SEX: F EXAM STATUS: REG ER ORD. PHYSICIAN: ONEAL CHRISTIANSON APRN REASON: SWELLING, INFILTRATED PICC PROCEDURE: FOREARM RIGHT XR HUMERUS_RT 2 VIEWS, XR FOREARM_RIGHT 2 VIEWS dated 01/18/2022 2:28 PM. History: Reason: SWELLING, INFILTRATED PICC / Spl. Instructions: / History: Comparison: None. Findings: PICC line is seen entering the upper arm and extending toward the subclavian region. This is not demonstrated in its entirety. No other foreign body is seen. Humerus appears normal. Views of the forearm show evidence of soft tissue swelling. No foreign body is seen. There is no bony abnormality. Impression: 1. No acute bony abnormality evident. Electronically signed by: Cesario Elmore Jr., MD (01/18/2022 2:57 PM) [id number] DICTATED and SIGNED BY: CESARIO ELMORE Jr, MD DATE: 01/18/22 1456 Course & Med Decision Making: Course & Med Decision Making Pertinent Labs and Imaging studies reviewed. (See chart for details) See HPI. Alert and oriented x4. Ambulatory steady gait. Skin pink warm and dry. Radial pulses are present. Cap refill less than 2 seconds. Whole right arm is 3+ swelling and tight. The arm is also very tender. No redness to consider cellulitis. Incision site of the PICC line is within normal limits. Ultrasound showed no acute findings. highway engineering technician stated that she could not visualize the cephalic vein due to patient habitus. I spoke to Dr. Rivera and let him know when he states to start IV peripheral line so that the patient can get her antibiotics. Spoke to warehouse logistics coordinator who stated that we are not able to send the patient home with IV unless there is some either to flush it every 8 hours and patient gets antibiotic and twice daily. Patient also unable to ambulate or get around on her own. She states that she scoots around at home and a wheelchair if she can. Patient is unable to stand or get up without assistance. I called Dr. Rivera back and he states okay to admit the patient to continue getting her IV antibiotic and PICC line can be replaced. [] Dragon Disclaimer: Dragon Disclaimer: This electronic medical record was generated, in whole or in part, using a voice recognition dictation system. Departure Departure Impression: Primary Impression: PICC line infiltration Qualified Codes: T82.898A - Other specified complication of vascular prosthetic devices, implants and grafts, initial encounter Additional Impression: Antibiotic long-term use Disposition: 09 ADMITTED INPATIENT Admitting Physician: Pro Rivera Condition: STABLE Referrals: PRO RIVERA MD (PCP) ONEAL CHRISTIANSON MUSIC DIRECTOR January 18, 2022 11:57
--- NOTE | 2022-01-18 13:15 | RAD ---
Right upper extremity venous duplex Doppler ultrasound HISTORY: Right upper extremity swelling and edema after PICC line placement. FINDINGS: There is no DVT of the right internal jugular vein or subclavian vein with patent color Dop pler blood flow and cardiac pulsatility. There is no DVT of the right axillary vein or brachial veins with compressibility and patent color flow and augmentation of flow. Limited visualization of the ra dial and ulnar veins on grayscale images provided. No thrombosis of the right basilic vein with compr essibility and patent color flow and augmentation of flow. The right cephalic vein was not documented . The right PICC line was not documented. IMPRESSION: Negative right upper extremity for DVT. Electronically signed by: Prakash Adame MD (01/18/2022 1:13 PM) [id number]
--- NOTE | 2022-01-18 14:59 | RAD ---
XR HUMERUS_RT 2 VIEWS, XR FOREARM_RIGHT 2 VIEWS dated 01/18/2022 2:28 PM. History: Reason: SWELLING, INFILTRATED PICC / Spl. Instructions: / History: Comparison: None. Findings: PICC line is seen entering the upper arm and extending toward the subclavian region. This is not demo nstrated in its entirety. No other foreign body is seen. Humerus appears normal. Views of the forearm show evidence of soft tissue swelling. No foreign body is seen. There is no bony abnormality. Impression: 1. No acute bony abnormality evident. Electronically signed by: Regino Elmore Jr., MD (01/18/2022 2:57 PM) [id number]
[2022-01-18 15:51] LABS: BASO # 0.1 x10^3/uL (0.0-0.2); BASO % 0 % (0-3); EOS # 0.1 x10^3/uL (0.0-0.7); EOS % 1 % (0-3); HEMATOCRIT 31.7 % (36.0-47.0); LYMPH # 1.5 x10^3/uL (1.0-4.8); LYMPH % 11 % (24-48); MEAN CORPUSCULAR HEMOGLOBIN 26 pg (25-35); MEAN CORPUSCULAR HGB CONC 32 g/dL (31-37); MEAN CORPUSCULAR VOLUME 83 fL (79-100); MONO # 1.4 x10^3/uL (0.0-1.1); MONO % 10 % (0-9); NEUT # 10.9 x10^3/uL (1.8-7.7); NEUT % 78 % (31-73); PLATELET COUNT 296 x10^3/uL (140-400); RED CELL DISTRIBUTION WIDTH 16.1 % (11.5-14.5)
[2022-01-18 15:57] LABS: CALCIUM 7.7 mg/dL (8.5-10.1); CREATININE 1.3 mg/dL (0.6-1.0); GFR 49.4; POTASSIUM 3.1 mmol/L (3.5-5.1)
[2022-01-18 16:03] LABS: ALBUMIN 1.8 g/dL (3.4-5.0); ALBUMIN/GLOBULIN RATIO 0.5 (1.0-1.7); TOTAL BILIRUBIN 0.3 mg/dL (0.2-1.0); TOTAL PROTEIN 5.3 g/dL (6.4-8.2)
[2022-01-18 19:00] VITALS: BP 180/61
[2022-01-18] MEDS ORDERED: ACETAMINOPHEN 650 MG/20.3 ML SOLUTION. PEG PRN (19:00)
--- NOTE | 2022-01-18 19:03 | NUR ---
Pt arrived to the unit from the ER after PICC line dysfunction. Right arm is significantly more swollen than the left arm. Orders received from Dr. Rivera. Admission will be done by the mine shifter nurse. Pt is stable at this time, at the bedside.
[2022-01-18 22:53] VITALS: BP 173/63
--- NOTE | 2022-01-18 23:15 | NUR ---
Late Entry: PICC line DC'D at 1930 per MD order.
[2022-01-19 03:22] VITALS: BP 165/53
[2022-01-19 06:05] VITALS: BP 170/61
[2022-01-19] MEDS ORDERED: ACETAMINOPHEN 325 MG TABLET. PO PRN (07:45)
--- NOTE | 2022-01-19 08:20 | PDOC ---
Provider Note Date of Service: DATE: 01/19/22 TIME: 08:19 Provider Note H&P dictated #[id number] Justifications for Admission Other Justification PRO SCHROEDER MD January 19, 2022 08:20
[2022-01-19 08:29] LABS: ALBUMIN 1.8 g/dL (3.4-5.0); ALBUMIN/GLOBULIN RATIO 0.4 (1.0-1.7); CALCIUM 8.1 mg/dL (8.5-10.1); CREATININE 1.2 mg/dL (0.6-1.0); GFR 54.2; POTASSIUM 3.4 mmol/L (3.5-5.1); TOTAL BILIRUBIN 0.3 mg/dL (0.2-1.0); TOTAL PROTEIN 6.1 g/dL (6.4-8.2)
--- NOTE | 2022-01-19 08:59 | HP ---
DATE OF SERVICE: 01/19/2022 ADMIT DATE: 01/18/2022 HISTORY OF PRESENT ILLNESS: This 66-year-old female who has nonhealing bilateral heel wounds, complicated by lymphedema and wound culture showing Acinetobacter Staph aureus, MRSA, and Clostridium perfringens, was treated during the last admission at the end of December 2021, initially with IV Rocephin and then tigecycline and then daptomycin, minocycline and meropenem. The patient was sent home with IV antibiotics as she did not want to go to correction. A PICC line was placed in the right upper extremity on 01/10/2022. It infiltrated at home. The patient was discharged home on 01/16/2022. The PICC line infiltrated at home and because of the increasing right upper extremity swelling and pain, the patient was brought to the Emergency Room. In the Emergency Room, the patient was noted to have significant swelling. A PICC line was removed. A new PICC line could not be placed until Thursday. The patient also had leukocytosis and significant pain and because of that the patient was admitted for further evaluation and management. SYSTEMS REVIEW: The patient is complaining of pain. She is not eating well. She denies any fever or chills. She denies any dyspnea. She does admit to joint pains, especially foot pain. Other systems reviewed and are negative. PAST MEDICAL HISTORY: The patient has bilateral nonhealing wounds for 1 year. She follows at wound care center. She has hypertension, hyperlipidemia, fluid retention, migraines, lymphedema, diverticulosis, GERD, history of gastroparesis, fatty liver, iron deficiency anemia, chronic low back pain, osteoarthritis, fibromyalgia, rheumatoid arthritis, CKD 2, diabetes with neuropathy and gastroparesis. PAST SURGICAL HISTORY: Includes cholecystectomy, hysterectomy, right great toe ray amputation in 05/2017. FAMILY HISTORY: Includes coronary artery disease, diabetes, hearing loss, hyperlipidemia, hypertension. SOCIAL HISTORY: No history of smoking, alcoholism, drug abuse. MEDICATIONS: Reviewed and reconciled. ALLERGIES: THE PATIENT IS ALLERGIC TO PENICILLIN, BENZOCAINE, HYDRALAZINE, LIDOCAINE, LOSARTAN, AND TETRACAINE. PHYSICAL EXAMINATION: GENERAL: The patient is an elderly female who is alert, oriented x 3, obese, and not in acute distress. EYES: Pupils reactive to light. Conjunctivae pale. Sclerae muddy. HENT: Unremarkable. NECK: Supple. JVP normal. No thyromegaly. Trachea midline. LUNGS: Decreased breath sounds at bases. CARDIOVASCULAR SYSTEM: S1, S2, regular. ABDOMEN: Soft, nontender, obese. No guarding, no rigidity. Bowel sounds present. EXTREMITIES: The patient has 4+ edema of the right upper extremity, 3+ edema of the left upper extremity with some bruising and ecchymosis. She has chronic lymphedema of both lower extremities with bilateral heel wounds. Please refer to the wound care/nursing note for details. CENTRAL NERVOUS SYSTEM: Generalized weakness. LABORATORY FINDINGS: Sodium 142, potassium 3.1, BUN 18, creatinine 1.3, glucose 47, calcium 7.7, albumin 1.8, alkaline phosphatase 185, AST 54, ALT 35. WBC count 14, hemoglobin 10, platelet count is 296,000. Chest x-ray did not show any infiltrates. Right upper extremity ultrasound is negative for DVT. X-rays of the right humerus and forearm do not show any acute abnormalities. IMPRESSION: 1. Bilateral foot wounds nonhealing with infection. 2. Right arm swelling with IV PICC line, IV infiltration. 3. Diabetes mellitus type 2 with neuropathy. 4. Peripheral artery disease. 5. Chronic lymphedema. 6. Hypertension. 7. Rheumatoid arthritis. 8. Osteoarthritis. 9. Hyperglycemia 10. Fatty liver. 11. Diverticulosis. 12. Severe protein calorie malnutrition. 13. Hyperlipidemia. 14. History of migraine headaches. 15. Chronic kidney disease to stage 2. 16. Anemia, iron deficiency. PLAN: Consult Dr. Mooney for Infectious Disease evaluation and management. Some clarification of the IV antibiotics at home is needed. The patient also has leukocytosis. A PICC line in the right upper extremity has been removed. The patient has a peripheral likely external jugular in the neck at this time. She will need another line to be placed on Thursday. Prognosis of this patient is very poor due to her multiple medical problems. She also has fluid retention and hypokalemia. We will replace potassium. Because of the hypokalemia, I will wait until this afternoon to give her IV Lasix. I feel that even the patient wants to go back home when ready. She should actually go to a correction because of her multiple medical problems and IV issues. For details, please refer to the orders. SHYAM/JOHN DR: SHYAM/thomas TID: [id number]
[2022-01-19] MEDS: POTASSIUM CHLORIDE 20 MEQ TABLET.ER. PO SCH ×3 (09:00→11:36)
[2022-01-19] MEDS ORDERED: TIGECYCLINE 50 MG IV SCH (09:00)
[2022-01-19] MEDS ORDERED: INSULIN GLARGINE SYRINGE. SQ SCH ×2 (10:00→21:00)
[2022-01-19 10:11] LABS: BASO % 0 % (0-3); EOS # 0.2 x10^3/uL (0.0-0.7); EOS % 1 % (0-3); HEMATOCRIT 33.2 % (36.0-47.0); HEMOGLOBIN 10.4 g/dL (12.0-15.5); LYMPH # 1.7 x10^3/uL (1.0-4.8); LYMPH % 12 % (24-48); MEAN CORPUSCULAR HEMOGLOBIN 27 pg (25-35); MEAN CORPUSCULAR HGB CONC 31 g/dL (31-37); MEAN CORPUSCULAR VOLUME 86 fL (79-100); MONO # 1.2 x10^3/uL (0.0-1.1); MONO % 9 % (0-9); NEUT # 11.1 x10^3/uL (1.8-7.7); NEUT % 78 % (31-73); PLATELET COUNT 329 x10^3/uL (140-400); RED BLOOD COUNT 3.87 x10^6/uL (3.50-5.40); RED CELL DISTRIBUTION WIDTH 16.6 % (11.5-14.5); WHITE BLOOD COUNT 14.2 x10^3/uL (4.0-11.0)
[2022-01-19 11:00] VITALS: BP 177/63
[2022-01-19] MEDS: ATENOLOL 50 MG TABLET. PO SCH ×2 (11:24→21:48)
[2022-01-19] MEDS: HYDROXYCHLOROQUINE 200 MG TABLET PO SCH ×2 (11:25→21:48)
[2022-01-19] MEDS: MIRTAZAPINE 15 MG TABLET PO SCH (11:25)
[2022-01-19] MEDS: cloNIDine HCL 0.1 MG TABLET PO SCH ×2 (11:26→21:48)
[2022-01-19] MEDS: PROCHLORPERAZINE 5 MG TABLET. PO SCH ×2 (11:26→18:28)
[2022-01-19] MEDS: traMADol 50 MG TABLET PO PRN (11:26)
[2022-01-19] MEDS: DOXAZOSIN MESYLATE 1 MG TABLET. PO SCH (11:26)
[2022-01-19] MEDS: FUROSEMIDE 40 MG/4 ML VIAL. IVP ONE ×2 (11:28→12:00)
[2022-01-19] MEDS: LIDOCAINE (700MG/PATCH) PATCH. TD SCH (11:28)
[2022-01-19] MEDS: NYSTATIN 100,000 UNIT/GM TOPICAL CREAM 15GM TUBE. TP SCH ×2 (11:28→22:34)
[2022-01-19] MEDS: DEXTROSE 50% 25 GM / 50ML DISP.SYRIN. IV PRN ×2 (11:29→16:46)
[2022-01-19] MEDS: HEPARIN for SUB-Q USE 5,000 UNIT/ML VIAL. SQ SCH ×2 (11:31→21:50)
--- NOTE | 2022-01-19 11:40 | CONS ---
DATE OF CONSULTATION: 01/19/2022 REFERRING PHYSICIAN: Adi Rivera MD REASON FOR CONSULTATION: Antibiotic management. HISTORY OF PRESENT ILLNESS: A 66-year-old female well known to our service with nonhealing bilateral lower extremity heel wounds, complicated by lymphedema with cultures positive for MRSA, Clostridium perfringens and Acinetobacter who returned to the hospital as the PICC line got infiltrated at home. Because of worsening right upper extremity swelling and pain, she was brought to the ER. PICC line was removed. A new PICC line cannot be placed until Thursday. The patient has currently IJ in place. White count was 14,000. ID consultation has been requested for further evaluation and treatment. The patient underwent Doppler ultrasound of the left upper extremity, which is negative for DVT. Humerus x-ray is negative for any acute bony abnormality. Forearm x-ray is negative for any bony abnormality. Patient was restarted on tigecycline PAST MEDICAL HISTORY: Hypertension, obesity, hyperlipidemia, gastroesophageal reflux disease, diabetes, rheumatoid arthritis, fibromyalgia, osteoarthritis, renal insufficiency, bilateral lower extremity lymphedema. SOCIAL HISTORY: No smoking, no alcohol, no illicit drugs. ALLERGIES: PENICILLIN. The patient has tolerated cephalosporins well. REVIEW OF SYSTEMS: Negative except for above in HPI. The patient does have some hiccups and intermittent nausea, but much improved than last hospitalization. PHYSICAL EXAMINATION: VITAL SIGNS: Temperature 98.2, pulse 77, respiratory rate 18, blood pressure 170/61, oxygen saturation 95% on room air. GENERAL: Alert, oriented x 3 female, lying in bed comfortably, in no acute distress. HEENT: Normocephalic, atraumatic. Anicteric. No thrush. NECK: Supple. LUNGS: Clear. HEART: S1, S2. ABDOMEN: Soft, nontender, obese. Bowel sounds present. EXTREMITIES: Edema present in the right upper extremity with some bruising, ecchymosis, especially at the previous PICC line, chronic lymphedema of lower extremities with bilateral heel wounds. Please refer to wound care nurse notes for details. CENTRAL NERVOUS SYSTEM: Alert, oriented x 3, grossly nonfocal. PSYCHIATRIC: Calm and cooperative. LABORATORY DATA: WBC 14.2, was 14; hemoglobin 10.4; hematocrit 33.2; platelets 329. Sodium 144; potassium 3.4; chloride 109; bicarbonate 27; BUN 15; creatinine 1.2, was 1.3; alk phos 193; total protein 6.1, albumin 1.8. MICRO: Blood culture on 01/06 was negative. Urine culture on 01/06, more than 3 colonies, likely colonization. Wound cultures positive for MRSA, Clostridium perfringens and Acinetobacter baumannii. IMPRESSION: 1. Right upper extremity PICC line infiltration, Doppler negative for deep venous thrombosis, admitted for IV access. 2. 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 Cultures positive for MRSA, Clostridium perfringens and Acinetobacter baumannii. 3. Morbid obesity. 4. Diabetes mellitus. 5. Hypertension. 6. Rheumatoid arthritis. 7. Nausea and vomiting, improved. 8. Enterococcus avium on urine culture with other organisms, could be contaminant. RECOMMENDATIONS: 1. Restart daptomycin and meropenem.. DC tigecycline 2. Offload. 3. Local wound care as directed. 4. We will evaluate the wound tomorrow with wound care team. 5. Maintain aspiration precautions. 6. We will obtain ultrasound of the left upper extremity to rule out DVT. Discussed with RN. Thank you for allowing me to participate in this patient's care. If you have any questions, do not hesitate to contact me. FIDE/KEILA/HUNG DR: Ester TID: [id number] STEFANI
[2022-01-19] MEDS ORDERED: ONDANSETRON PF 4 MG/2 ML VIAL. IVP PRN (12:30)
[2022-01-19] MEDS: POTASSIUM CHLORIDE 10MEQ 100 ML IV SCH ×2 (13:54→14:37)
[2022-01-19] MEDS: DAPTOmycin (GENERIC) IVPB 570 MG in IV NORMAL SALINE 50ML 50 ML IV SCH (14:36)
[2022-01-19] MEDS: MEROPENEM 500 MG in IV NORMAL SALINE 50ML 50 ML IV SCH ×2 (14:38→18:28)
[2022-01-19 15:00] VITALS: BP 163/59
[2022-01-19 19:00] VITALS: BP 160/54
[2022-01-19] MEDS: tiZANidine 4 MG TABLET. PO SCH (21:47)
--- NOTE | 2022-01-19 21:54 | RAD ---
STUDY: US DPLX VENOUS EXTREMITY UPPER LT INDICATION: Left upper extremity edema. DVT. TECHNIQUE: Color-flow and pulsed wave duplex ultrasound with compression of venous structures of the left upper extremity. COMPARISON: None recently. FINDINGS: Duplex ultrasound with compression of the deep venous structures of the left upper extremity from the internal jugular vein through the radial/ulnar veins is negative for DVT. Normal venous waveforms an d augmentation are noted throughout. The superficial basilic and cephalic veins are patent. IMPRESSION: No deep or superficial venous thrombosis throughout the left upper extremity. Electronically signed by: BRIAN HUIZAR MD (01/19/2022 9:52 PM) [facility]
[2022-01-19] MEDS: PATCH REMOVAL. MC SCH (22:00)
[2022-01-19] MEDS: DICLOFENAC SODIUM 1% TOPICAL GEL 100GM TUBE. TP SCH (22:34)
[2022-01-19 22:51] VITALS: BP 170/56
[2022-01-20] MEDS: PROCHLORPERAZINE 5 MG TABLET. PO SCH ×4 (00:10→17:23)
[2022-01-20] MEDS: MEROPENEM 500 MG in IV NORMAL SALINE 50ML 50 ML IV SCH ×4 (00:12→17:23)
[2022-01-20] MEDS: traMADol 50 MG TABLET PO PRN ×2 (00:16→07:59)
[2022-01-20 03:17] VITALS: BP 137/52
[2022-01-20] MEDS: PANTOPRAZOLE 40 MG TABLET.DR. PO SCH ×2 (06:05→06:10)
[2022-01-20 06:47] LABS: ALBUMIN 1.5 g/dL (3.4-5.0); ALBUMIN/GLOBULIN RATIO 0.4 (1.0-1.7); CALCIUM 7.6 mg/dL (8.5-10.1); CREATININE 1.3 mg/dL (0.6-1.0); GFR 49.4; POTASSIUM 3.3 mmol/L (3.5-5.1); TOTAL BILIRUBIN 0.3 mg/dL (0.2-1.0); TOTAL PROTEIN 5.2 g/dL (6.4-8.2)
[2022-01-20 06:48] LABS: BASO # 0.1 x10^3/uL (0.0-0.2); BASO % 1 % (0-3); EOS # 0.6 x10^3/uL (0.0-0.7); EOS % 5 % (0-3); HEMATOCRIT 28.8 % (36.0-47.0); HEMOGLOBIN 9.3 g/dL (12.0-15.5); LYMPH % 19 % (24-48); MEAN CORPUSCULAR HEMOGLOBIN 27 pg (25-35); MEAN CORPUSCULAR HGB CONC 32 g/dL (31-37); MEAN CORPUSCULAR VOLUME 84 fL (79-100); MONO # 1.1 x10^3/uL (0.0-1.1); MONO % 10 % (0-9); NEUT # 6.8 x10^3/uL (1.8-7.7); NEUT % 65 % (31-73); PLATELET COUNT 313 x10^3/uL (140-400); RED BLOOD COUNT 3.45 x10^6/uL (3.50-5.40); RED CELL DISTRIBUTION WIDTH 16.5 % (11.5-14.5); WHITE BLOOD COUNT 10.6 x10^3/uL (4.0-11.0)
[2022-01-20 07:00] VITALS: BP 137/49
[2022-01-20] MEDS: HYDROXYCHLOROQUINE 200 MG TABLET PO SCH ×2 (07:59→21:43)
[2022-01-20] MEDS: ATENOLOL 50 MG TABLET. PO SCH ×2 (08:00→21:44)
[2022-01-20] MEDS: DICLOFENAC SODIUM 1% TOPICAL GEL 100GM TUBE. TP SCH ×2 (08:00→21:46)
[2022-01-20] MEDS: NYSTATIN 100,000 UNIT/GM TOPICAL CREAM 15GM TUBE. TP SCH ×2 (08:01→21:00)
[2022-01-20] MEDS: LIDOCAINE (700MG/PATCH) PATCH. TD SCH (08:01)
[2022-01-20] MEDS: POTASSIUM CHLORIDE 20 MEQ TABLET.ER. PO SCH ×3 (08:01→13:25)
[2022-01-20] MEDS: cloNIDine HCL 0.1 MG TABLET PO SCH ×2 (08:02→21:44)
[2022-01-20] MEDS: DOXAZOSIN MESYLATE 1 MG TABLET. PO SCH (08:02)
[2022-01-20] MEDS: MIRTAZAPINE 15 MG TABLET PO SCH (08:02)
[2022-01-20] MEDS: HEPARIN for SUB-Q USE 5,000 UNIT/ML VIAL. SQ SCH ×2 (08:10→21:52)
--- NOTE | 2022-01-20 08:42 | PDOC ---
PROGRESS NOTES- Subjective Subjective Patient declined to take Lasix and potassium yesterday.She is agrreable to take only IV Lasix and IV Potassium. Objective Vitals/I&O Vital Signs Date Time Temp Pulse Resp B/P (MAP) Pulse Ox O2 Delivery O2 Flow Rate FiO2 01/20/22 08:02 57 137/49 01/20/22 07:59 Room Air 01/20/22 07:00 98.1 18 94 98.1 I & O 01/19/22 01/19/22 01/20/22 15:00 23:00 07:00 Intake Total 500 ml 150 ml Balance 500 ml 150 ml Physical Exam Physical Exam General Appearance - alert and in no distress Chest - decreased breath sounds at bases Heart - S1 and S2 normal Abdomen - soft, non tender Neurological - alert and oriented Musculoskeletal - generalized weakness Extremities -she has swelling of both upper and lower extremities. 3-4+ edema. skin bilateral heel wounds Labs Laboratory Tests Test 01/19/22 09:07 01/19/22 11:14 01/19/22 16:28 01/19/22 22:57 Glucose (Fingerstick) 62 mg/dL (70-99) L 57 mg/dL (70-99) L 61 mg/dL (70-99) L 81 mg/dL (70-99) Test 01/20/22 06:20 01/20/22 07:32 White Blood Count 10.6 x10^3/uL (4.0-11.0) Red Blood Count 3.45 x10^6/uL (3.50-5.40) L Hemoglobin 9.3 g/dL (12.0-15.5) L Hematocrit 28.8 % (36.0-47.0) L Mean Corpuscular Volume 84 fL (79-100) Mean Corpuscular Hemoglobin 27 pg (25-35) Mean Corpuscular Hemoglobin Concent 32 g/dL (31-37) Red Cell Distribution Width 16.5 % (11.5-14.5) H Platelet Count 313 x10^3/uL (140-400) Neutrophils (%) (Auto) 65 % (31-73) Lymphocytes (%) (Auto) 19 % (24-48) L Monocytes (%) (Auto) 10 % (0-9) H Eosinophils (%) (Auto) 5 % (0-3) H Basophils (%) (Auto) 1 % (0-3) Neutrophils # (Auto) 6.8 x10^3/uL (1.8-7.7) Lymphocytes # (Auto) 2.0 x10^3/uL (1.0-4.8) Monocytes # (Auto) 1.1 x10^3/uL (0.0-1.1) Eosinophils # (Auto) 0.6 x10^3/uL (0.0-0.7) Basophils # (Auto) 0.1 x10^3/uL (0.0-0.2) Sodium Level 143 mmol/L (136-145) Potassium Level 3.3 mmol/L (3.5-5.1) L Chloride Level 110 mmol/L (98-107) H Carbon Dioxide Level 29 mmol/L (21-32) Anion Gap 4 (6-14) L Blood Urea Nitrogen 8 mg/dL (7-20) Creatinine 1.3 mg/dL (0.6-1.0) H Estimated GFR (Cockcroft-Gault) 49.4 BUN/Creatinine Ratio 6 (6-20) Glucose Level 71 mg/dL (70-99) Calcium Level 7.6 mg/dL (8.5-10.1) L Total Bilirubin 0.3 mg/dL (0.2-1.0) Aspartate Amino Transferase (AST) 42 U/L (15-37) H Alanine Aminotransferase (ALT) 31 U/L (14-59) Alkaline Phosphatase 159 U/L (46-116) H Total Protein 5.2 g/dL (6.4-8.2) L Albumin 1.5 g/dL (3.4-5.0) L Albumin/Globulin Ratio 0.4 (1.0-1.7) L Glucose (Fingerstick) 68 mg/dL (70-99) L Laboratory Tests 01/20/22 06:20 Laboratory Tests 01/20/22 06:20 Meds Current Medications Medications (Trade) Dose Ordered Sig/Valencia Route PRN Reason Start Time Stop Time Status Last Admin Dose Admin Amlodipine Besylate (Norvasc) 5 mg DAILY PO 01/19/22 09:00 01/20/22 08:02 Atenolol (Tenormin) 50 mg BID PO 01/19/22 09:00 01/20/22 08:00 Clonidine HCl (Catapres) 0.1 mg BID PO 01/19/22 09:00 01/20/22 08:02 Heparin Sodium (Porcine) (Heparin Sodium) 5,000 unit Q12HR SQ 01/19/22 09:00 01/20/22 08:10 Hydroxychloroquine Sulfate (Plaquenil) 200 mg BID PO 01/19/22 09:00 01/20/22 07:59 Lidocaine (Lidoderm) 1 patch DAILY TD 01/19/22 09:00 01/20/22 08:01 Mirtazapine (Remeron) 15 mg DAILY PO 01/19/22 09:00 01/20/22 08:02 Nystatin (Mycostatin) 1 shelly BID TP 01/19/22 09:00 01/20/22 08:01 Tizanidine HCl (Zanaflex) 4 mg QHS PO 01/19/22 21:00 01/19/22 21:47 Doxazosin Mesylate (Cardura) 2 mg DAILY PO 01/19/22 09:00 01/20/22 08:02 Prochlorperazine Maleate (Compazine) 10 mg Q6HRS PO 01/19/22 12:00 01/20/22 06:05 Diclofenac Sodium (Voltaren) 1 shelly BID TP 01/19/22 21:00 01/20/22 08:00 Miscellaneous (Lidoderm Patch Removal) 1 ea QHS MC 01/19/22 21:00 01/19/22 22:00 Potassium Chloride (Klor-Con) 20 meq BID92 PO 01/19/22 09:00 01/20/22 08:01 Dextrose (Dextrose 50%-Water Syringe) 25 gm PRN Q15MIN PRN IV HYPOGLYCEMIA 01/19/22 10:15 01/19/22 16:46 Daptomycin 570 mg/ Sodium Chloride 50 ml @ 100 mls/hr Q24H IV 01/19/22 13:00 01/19/22 14:36 Meropenem 500 mg/ Sodium Chloride 50 ml @ 100 mls/hr Q6HRS IV 01/19/22 12:00 01/20/22 06:08 Potassium Chloride/Water 100 ml @ 100 mls/hr Q1H IV 01/19/22 13:00 01/19/22 14:59 DC 01/19/22 14:37 Assessment Assessment 1. Bilateral foot wounds nonhealing with infection. 2. Right arm swelling with IV PICC line, IV infiltration. 3. Diabetes mellitus type 2 with neuropathy. 4. Peripheral artery disease. 5. Chronic lymphedema. 6. Hypertension. 7. Rheumatoid arthritis. 8. Osteoarthritis. 9. Hyperglycemia 10. Fatty liver. 11. Diverticulosis. 12. Severe protein calorie malnutrition. 13. Hyperlipidemia. 14. History of migraine headaches. 15. Chronic kidney disease to stage 2. 16. Anemia, iron deficiency. PLAN: Consult Dr. Mooney for Infectious Disease evaluation and management. Some clarification of the IV antibiotics at home is needed. The patient also has leukocytosis. A PICC line in the right upper extremity has been removed. The patient has a peripheral likely external jugular in the neck at this time. She will need another line to be placed on Thursday. Prognosis of this patient is very poor due to her multiple medical problems. She also has fluid retention and hypokalemia. We will replace potassium. Because of the hypokalemia, I will wait until this afternoon to give her IV Lasix. I feel that even the patient wants to go back home when ready. She should actually go to a long term because of her multiple medical problems and IV issues. For details, please refer to the orders. Bilateral heel wounds. Continue IV daptomycin, meropenem and minocycline. Fluid retention. Congestive heart failure. Consult Dr. Armstrong for cardiology evaluation and management. Patient is agreeable to IV Lasix. She does not want Mccray catheter. She wants IV potassium only. I have encouraged her to eat high potassium foods. Check BNP Hypokalemia. Replace potassium. Patient states that she does not have any problems going to a assisted unit which she should but because of her expensive antibiotics assisted units are not willing to accept her. PICC line infiltration of the right upper extremity and swelling of both upper extremities. Slightly better. Bilateral venous Dopplers of upper extremities are negative for DVT. Plan Plan For more details regarding further plans, please refer to the orders. Justifications for Admission Other Justification PRO SCHROEDER MD January 20, 2022 08:42
[2022-01-20] MEDS: POTASSIUM CHLORIDE 10MEQ 100 ML IV SCH ×2 (09:13→10:31)
[2022-01-20 11:00] VITALS: BP 149/56
--- NOTE | 2022-01-20 11:46 | PDOC2 ---
LENA IRVIN CINDER SNAPPER 01/20/22 1146: CARDIAC CONSULT DATE OF CONSULT Date of Consult DATE: 01/20/22 TIME: 11:38 REASON FOR CONSULT Reason for Consult: CHF REFERRING PHYSICIAN Referring Physician: Dr. Rivera SOURCE Source: Chart review, Patient HISTORY OF PRESENT ILLNESS HISTORY OF PRESENT ILLNESS This is a 66 yo female who presented secondary to right arm swelling and pain follow PICC line placement. Has been receiving outpatient antibioitic therapy due to bilateral foot wounds with infection. Has had bilateral foot wounds for > 1 year. Is followed by wound clinic. Also has chronic bilateral LE lymphedema. Is no non-weight bearing due to wounds. LE edema has been worse recently, which prompted this consult. She denies any chest pain, shortness of breath, dizziness, diaphoresis, or nausea/vomiting. Does c/o right arm swelling and pain. PICC line has been removed and another has been placed in the left arm. PAST MEDICAL HISTORY Cardiovascular: HTN, Hyperlipidemia CENTRAL NERVOUS SYSTEM: Periperal neuropathy GI: GERD Heme/Onc: Anemia NOS Hepatobiliary: Other (fatty liver ) Psych: Anxiety Musculoskeletal: Osteoarthritis Rheumatologic: Rheumatoid arthritis Renal/: Chronic renal insuff Endocrine: Diabetes PAST SURGICAL HISTORY Past Surgical History: Cholecystectomy, Hysterectomy FAMILY HISTORY Family History: Heart Disease SOCIAL HISTORY Smoke: No ALCOHOL: none Drugs: None Lives: with Family CURRENT MEDICATIONS CURRENT MEDICATIONS Current Medications Medications (Trade) Dose Ordered Sig/Valencia Route PRN Reason Start Time Stop Time Status Last Admin Dose Admin Tizanidine HCl (Zanaflex) 4 mg QHS PO 01/19/22 21:00 01/19/22 21:47 Prochlorperazine Maleate (Compazine) 10 mg Q6HRS PO 01/19/22 12:00 01/20/22 11:32 Diclofenac Sodium (Voltaren) 1 shelly BID TP 01/19/22 21:00 01/20/22 08:00 Miscellaneous (Lidoderm Patch Removal) 1 ea QHS MC 01/19/22 21:00 01/19/22 22:00 Daptomycin 570 mg/ Sodium Chloride 50 ml @ 100 mls/hr Q24H IV 01/19/22 13:00 01/19/22 14:36 Meropenem 500 mg/ Sodium Chloride 50 ml @ 100 mls/hr Q6HRS IV 01/19/22 12:00 01/20/22 11:32 Potassium Chloride/Water 100 ml @ 100 mls/hr Q1H IV 01/19/22 13:00 01/19/22 14:59 DC 01/19/22 14:37 Potassium Chloride/Water 100 ml @ 100 mls/hr Q1H IV 01/20/22 09:30 01/20/22 11:29 DC 01/20/22 10:31 ALLERGIES ALLERGIES: Coded Allergies: Penicillins (Verified Allergy, Intermediate, Rash, 07/14/17) benzocaine (Verified Allergy, Intermediate, Shortness of Air, 07/14/17) lidocaine (Verified Allergy, Intermediate, Shortness of Air, 07/14/17) losartan (Verified Allergy, Intermediate, Rash, 07/14/17) tetracaine (Verified Allergy, Intermediate, Shortness of Air, 07/14/17) I S O L A T I O N *CONTACT* (Verified Allergy, Unknown, 01/12/22) mrsa hydralazine (Verified Adverse Reaction, Intermediate, BLOOD PRESSURE DROPPED TOO LOW, 01/12/22) ROS Review of System 14 point ROS conducted with pertinent positives noted above in HPI PHYSICAL EXAM General: Alert, Oriented X3, Cooperative, No acute distress HEENT: Atraumatic Lungs: Other (diminished bases) Heart: Regular rate (not on tele) Abdomen: Soft, Other (obese) Extremities: Other (chronic LE lymphedema. RUE edema ) Skin: Other (bilateral foot wounds with dressings intact ) Neuro: Normal speech, Sensation intact Psych/Mental Status: Mood NL MUSCULOSKELETAL: Osteoarthritic changes both hands VITALS/I&O VITALS/I&O: Vital Signs Date Time Temp Pulse Resp B/P (MAP) Pulse Ox O2 Delivery O2 Flow Rate FiO2 01/20/22 11:00 98.0 63 16 149/56 (87) 95 Room Air 98.0 l I & O 01/19/22 01/19/22 01/20/22 15:00 23:00 07:00 Intake Total 500 ml 150 ml Balance 500 ml 150 ml LABS Lab: Laboratory Tests Test 01/19/22 16:28 01/19/22 22:57 01/20/22 06:20 01/20/22 07:32 Glucose (Fingerstick) 61 mg/dL (70-99) L 81 mg/dL (70-99) 68 mg/dL (70-99) L White Blood Count 10.6 x10^3/uL (4.0-11.0) Red Blood Count 3.45 x10^6/uL (3.50-5.40) L Hemoglobin 9.3 g/dL (12.0-15.5) L Hematocrit 28.8 % (36.0-47.0) L Mean Corpuscular Volume 84 fL (79-100) Mean Corpuscular Hemoglobin 27 pg (25-35) Mean Corpuscular Hemoglobin Concent 32 g/dL (31-37) Red Cell Distribution Width 16.5 % (11.5-14.5) H Platelet Count 313 x10^3/uL (140-400) Neutrophils (%) (Auto) 65 % (31-73) Lymphocytes (%) (Auto) 19 % (24-48) L Monocytes (%) (Auto) 10 % (0-9) H Eosinophils (%) (Auto) 5 % (0-3) H Basophils (%) (Auto) 1 % (0-3) Neutrophils # (Auto) 6.8 x10^3/uL (1.8-7.7) Lymphocytes # (Auto) 2.0 x10^3/uL (1.0-4.8) Monocytes # (Auto) 1.1 x10^3/uL (0.0-1.1) Eosinophils # (Auto) 0.6 x10^3/uL (0.0-0.7) Basophils # (Auto) 0.1 x10^3/uL (0.0-0.2) Sodium Level 143 mmol/L (136-145) Potassium Level 3.3 mmol/L (3.5-5.1) L Chloride Level 110 mmol/L (98-107) H Carbon Dioxide Level 29 mmol/L (21-32) Anion Gap 4 (6-14) L Blood Urea Nitrogen 8 mg/dL (7-20) Creatinine 1.3 mg/dL (0.6-1.0) H Estimated GFR (Cockcroft-Gault) 49.4 BUN/Creatinine Ratio 6 (6-20) Glucose Level 71 mg/dL (70-99) Calcium Level 7.6 mg/dL (8.5-10.1) L Magnesium Level 1.8 mg/dL (1.8-2.4) Total Bilirubin 0.3 mg/dL (0.2-1.0) Aspartate Amino Transferase (AST) 42 U/L (15-37) H Alanine Aminotransferase (ALT) 31 U/L (14-59) Alkaline Phosphatase 159 U/L (46-116) H Total Protein 5.2 g/dL (6.4-8.2) L Albumin 1.5 g/dL (3.4-5.0) L Albumin/Globulin Ratio 0.4 (1.0-1.7) L Laboratory Tests 01/20/22 06:20 Laboratory Tests 01/20/22 06:20 ECHOCARDIOGRAM ECHOCARDIOGRAM <Conclusion> The left ventricular systolic function is normal and the ejection fraction is within normal range. The Ejection Fraction is 60-65%. There is normal LV segmental wall motion. Doppler and Color Flow revealed trace tricuspid regurgitation. There is moderate pulmonary hypertension. The PA pressure was estimated at 46 mmHg. DATE: 07/06/20 1336 ASSESSMENT/PLAN ASSESSMENT/PLAN 1. Right upper extremity edema secondary to PICC line infiltration; s/p removal 2. Non-healing bilateral foot wounds; angiogram 07/03 without significant peripheral artery disease. Recently evaluated by vascular- no significant arterial insufficiency suspected to be contributing to her wound healing difficulties 3. Chronic LE lymphedema 4. Mild acute on chronic diastolic CHF; Echo 07/03 with LVEF 60-65% 4. Hypertension; controlled 5. Hyperlipidemia 6. Diabetes, II 7. CKD; Cr stable 8. Hypokalemia; replaced 9. Morbid obesity Recommendations Diuresis with monitoring of renal function Electrolyte replacement Outpatient echocardiogram Ongoing wound care and offloading of her bilateral heel ulcerations Supportive care CHRISTIANO NARVAEZ MD 01/20/22 1804: CARDIAC CONSULT ASSESSMENT/PLAN ASSESSMENT/PLAN Patient seen and examined. Agree with CHILD & ADOLESCENT PSYCHIATRIST's assessment and plan. RUE edema secondary to PICC line infiltration Continue diuresis for mild acute on chr diast HF with close monitoring of renal function Non-healing wounds in feet not from PAD based on recent angio - continue wound c are Agree with outpatient echo Thank you for your consultation LENA IRVIN APRN January 20, 2022 11:46 CHRISTIANO NARVAEZ MD January 20, 2022 18:04
[2022-01-20] MEDS: DAPTOmycin (GENERIC) IVPB 570 MG in IV NORMAL SALINE 50ML 50 ML IV SCH (13:41)
--- NOTE | 2022-01-20 13:42 | NUR ---
Allergies and reactions noted INR none BUN 8 Cr 1.3 Platelets Blood culture done y blood culture results no growth Order Verified y Consent signed y Previous PICC placement y Past Medical/Surgical history and current diagnosis reviewed y Patient Medical /Surgical History Related to PICC line placement Diabetes Infectious Disease consult Past central line or venous access device placement Special considerations for PICC line placement Infections Severe peripheral edema PICC placement indication oysterman antibiotic usage, Poor peripheral intravenous access Guerda Muñoz RN PICC Nurse Addendum: 01/20/22 at 1347 by GUERDA MUÑOZ RN Amended: Links added.
--- NOTE | 2022-01-20 13:46 | NUR ---
Procedure: Following complete explanation of the PICC procedure including the indications, risks, and potential complications, informed consent was obtained. The possibility for infection was discussed along with signs, symptoms, and prevention. All the questions were answered.Y Written and verbal patient education was provided.y Hand hygiene performed. y Standardized central line checklist was utilized. y The patient was placed in the supine position, the arm was prepped with chlorhexidine and patient draped with maximum sterile barrier. 3 mL 1% lidocaine was infiltrated into the skin to provide local anesthesia. A thorough assessment of left upper extremity completed. Using real-time ultrasound guidance and standardized micro puncture set, the Basilic vein was punctured and a peel away sheath was placed using the modified Seldinger technique. A tip location device was used to ensure adequate catheter placement. The catheter was secured using a securement device and an antimicrobial patch was applied directly on the insertion site followed by a transparent dressing. All ports withdraw blood and flush without resistance. Patient tolerated the procedure without apparent complication(s). single Lumen Power PICC placement successful and uncomplicated. Placement verified by EKG tip confirmation system and/or chest x-ray. Tip located in the CAJ Complications:none Addendum: 01/20/22 at 1347 by CAROLE MUIR RN Amended: Links added.
--- NOTE | 2022-01-20 13:49 | PDOC ---
Infectious Disease Note Subjective: Subjective Patient feels much better Still has swelling in both upper extremity right upper more than left upper Denies any fever, nausea, vomiting, diarrhea, abdominal pain Vital Signs: Vital Signs Vital Signs Date Time Temp Pulse Resp B/P (MAP) Pulse Ox O2 Delivery O2 Flow Rate FiO2 01/20/22 11:00 98.0 63 16 149/56 (87) 95 Room Air 98.0 Physical Exam: PHYSICAL EXAM GENERAL: Alert, oriented x 3 female, lying in bed comfortably, in no acute distress. HEENT: Normocephalic, atraumatic. Anicteric. No thrush. NECK: Supple. LUNGS: Clear. HEART: S1, S2. ABDOMEN: Soft, nontender, obese. Bowel sounds present. EXTREMITIES: Edema present in the right upper extremity with some bruising, ecchymosis, especially at the previous PICC line, chronic lymphedema of lower extremities with bilateral heel wounds. Please refer to wound care nurse notes for details. CENTRAL NERVOUS SYSTEM: Alert, oriented x 3, grossly nonfocal. PSYCHIATRIC: Calm and cooperative. PICC line left upper extremity clean Medications: Inpatient Meds: Medications reviewed. Labs: Lab Laboratory Tests Test 01/19/22 16:28 01/19/22 22:57 01/20/22 06:20 01/20/22 07:32 Glucose (Fingerstick) 61 mg/dL (70-99) 81 mg/dL (70-99) 68 mg/dL (70-99) White Blood Count 10.6 x10^3/uL (4.0-11.0) Red Blood Count 3.45 x10^6/uL (3.50-5.40) Hemoglobin 9.3 g/dL (12.0-15.5) Hematocrit 28.8 % (36.0-47.0) Mean Corpuscular Volume 84 fL (79-100) Mean Corpuscular Hemoglobin 27 pg (25-35) Mean Corpuscular Hemoglobin Concent 32 g/dL (31-37) Red Cell Distribution Width 16.5 % (11.5-14.5) Platelet Count 313 x10^3/uL (140-400) Neutrophils (%) (Auto) 65 % (31-73) Lymphocytes (%) (Auto) 19 % (24-48) Monocytes (%) (Auto) 10 % (0-9) Eosinophils (%) (Auto) 5 % (0-3) Basophils (%) (Auto) 1 % (0-3) Neutrophils # (Auto) 6.8 x10^3/uL (1.8-7.7) Lymphocytes # (Auto) 2.0 x10^3/uL (1.0-4.8) Monocytes # (Auto) 1.1 x10^3/uL (0.0-1.1) Eosinophils # (Auto) 0.6 x10^3/uL (0.0-0.7) Basophils # (Auto) 0.1 x10^3/uL (0.0-0.2) Sodium Level 143 mmol/L (136-145) Potassium Level 3.3 mmol/L (3.5-5.1) Chloride Level 110 mmol/L (98-107) Carbon Dioxide Level 29 mmol/L (21-32) Anion Gap 4 (6-14) Blood Urea Nitrogen 8 mg/dL (7-20) Creatinine 1.3 mg/dL (0.6-1.0) Estimated GFR (Cockcroft-Gault) 49.4 BUN/Creatinine Ratio 6 (6-20) Glucose Level 71 mg/dL (70-99) Calcium Level 7.6 mg/dL (8.5-10.1) Magnesium Level 1.8 mg/dL (1.8-2.4) Total Bilirubin 0.3 mg/dL (0.2-1.0) Aspartate Amino Transf (AST/SGOT) 42 U/L (15-37) Alanine Aminotransferase (ALT/SGPT) 31 U/L (14-59) Alkaline Phosphatase 159 U/L (46-116) Total Protein 5.2 g/dL (6.4-8.2) Albumin 1.5 g/dL (3.4-5.0) Albumin/Globulin Ratio 0.4 (1.0-1.7) Test 01/20/22 11:58 Glucose (Fingerstick) 85 mg/dL (70-99) Micro MICRO: Blood culture on 01/06 was negative. Urine culture on 01/06, more than 3 colonies, likely colonization. Wound cultures positive for MRSA, Clostridium perfringens and Acinetobacter baumannii. Objective: Assessment: Leukocytosis resolved could have been reactive 1. Right upper extremity PICC line infiltration, Doppler negative for deep venous thrombosis, admitted for IV access. 2. 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 Cultures positive for MRSA, Clostridium perfringens and Acinetobacter baumannii. 3. Morbid obesity. 4. Diabetes mellitus. 5. Hypertension. 6. Rheumatoid arthritis. 7. Nausea and vomiting, improved. 8. Enterococcus avium on urine culture with other organisms, could be contaminant. Plan: Plan of Care 1. Continue daptomycin and meropenem. 2. Offload. 3. Local wound care as directed. 4. Monitor labs and cultures 5. Maintain aspiration precautions. 6. Left upper extremity ultrasound negative for DVT Discussed with RN. KAYODE MAYES MD January 20, 2022 13:49
[2022-01-20 15:00] VITALS: BP 145/48
[2022-01-20] MEDS ORDERED: FUROSEMIDE 40 MG/4 ML VIAL. IVP ONE (15:15)
--- NOTE | 2022-01-20 17:51 | NUR ---
Wound Care Wound Type/Assessment: Pt readmitted to the hospital following infiltration of RUE PICC line. Pt states that she had planned to DC to a skilled facility for IV ABT, wound care and PT/OT but that she had been denied due to the cost of her IV ABT. Per pt's nurse, pt had refused DC to SNF, and was also refusing necessary treatments such as lasix and potassium therapy. Pt wound photos from admission present in chart. Measured at bedside during assessment. Bilateral heel wounds are partially slough/eschar covered with islands of epithelialization. Thickened scaly skin to periwound. L medial thigh wound and L lateral foot wounds are healed and left ERICA. Treatment Recommendations/Plan: Bilateral heels: Cleanse and dry. Apply hydrofera blue ready transfer to wounds, cover with ABDs, kerlix, and tape. Change every other day. NWB to heels when participating in therapy or ambulating/transferring Education provided: Pt educated on importance of following recommendations of physician and specialists. Pt has many comorbidities that must be simultaneously treated in order for improvement in any area to occur. Pt becomes defensive when confronted with her accountability in the healing process and fixates on parts of the treatment plan that she does not like. Pt has been educated repeatedly by wound clinic nurses on diabetes management, offloading, smoking cessation, and weight loss/therapy participation as part of her wound healing treatment plan, and informed that wounds are not likely to heal with dressing recommendations alone. Offloading surface/device: Pt is independent with bed mobility. Heels floated on pillows. Recommended Referrals/Tests: Recommend DC to SNF for concurrent PT/OT, nursing care, IV ABT, and wound management. Discharge Recommendations for dressings: As above.
[2022-01-20 19:00] VITALS: BP 180/59
[2022-01-20] MEDS: PATCH REMOVAL. MC SCH (21:00)
[2022-01-20] MEDS: tiZANidine 4 MG TABLET. PO SCH (21:43)
[2022-01-20 23:00] VITALS: BP 150/52
[2022-01-21] MEDS: PROCHLORPERAZINE 5 MG TABLET. PO SCH ×3 (00:04→11:57)
[2022-01-21 03:12] VITALS: BP 167/59
[2022-01-21] MEDS: PANTOPRAZOLE 40 MG TABLET.DR. PO SCH (06:03)
[2022-01-21] MEDS: MEROPENEM 500 MG in IV NORMAL SALINE 50ML 50 ML IV SCH ×3 (06:05→11:52)
[2022-01-21 07:00] VITALS: BP 168/61
[2022-01-21] MEDS: LIDOCAINE (700MG/PATCH) PATCH. TD SCH (09:00)
[2022-01-21] MEDS: DICLOFENAC SODIUM 1% TOPICAL GEL 100GM TUBE. TP SCH (09:00)
[2022-01-21] MEDS: NYSTATIN 100,000 UNIT/GM TOPICAL CREAM 15GM TUBE. TP SCH (09:00)
[2022-01-21] MEDS: POTASSIUM CHLORIDE 20 MEQ TABLET.ER. PO SCH ×2 (09:00→14:00)
[2022-01-21] MEDS: MIRTAZAPINE 15 MG TABLET PO SCH (09:06)
[2022-01-21] MEDS: ATENOLOL 50 MG TABLET. PO SCH (09:07)
[2022-01-21] MEDS: HYDROXYCHLOROQUINE 200 MG TABLET PO SCH (09:07)
[2022-01-21] MEDS: cloNIDine HCL 0.1 MG TABLET PO SCH (09:08)
[2022-01-21] MEDS: DOXAZOSIN MESYLATE 1 MG TABLET. PO SCH (09:09)
[2022-01-21] MEDS: HEPARIN for SUB-Q USE 5,000 UNIT/ML VIAL. SQ SCH (09:15)
[2022-01-21] MEDS ORDERED: POTA10TA12 PO (09:24)
[2022-01-21] MEDS ORDERED: FURO40TA4 PO (09:24)
--- NOTE | 2022-01-21 09:29 | SNU/HH DC ---
DISCHARGE WITH HOME HEALTH DISCHARGE INFORMATION: Final Diagnosis: Problems Medical Problems: (1) Antibiotic long-term use Status: Acute (2) PICC line infiltration Status: Acute Condition on Discharge: Stable HOME HEALTH: Face to Face: I certify this patient is under my care and that I, or a nurse practitioner or physician's social service assistant working with me, had a face to face encounter that meets the physician face to face encounter requirements with this patient on 01/21/22. RN For Eval/Treatment: Yes Physical Therapy For: Evalulation/Treatment Occupational Therapy For: Evaluation/Treatment PASSENGER LOCOMOTIVE ENGINEER For: Community Resources Pt Meets Homebound Status: Other: (Has wounds of both feet) POST DISCHARGE ORDERS: Activity Instructions for Disc: Activity as tolerated Weight Bearing Status after Di: Non weight bearing (No weight bearing on feet) DIET AFTER DISCHARGE: Cardiac (ADA) Wound/Incision Care: Change dressing CHECKS AFTER DISCHARGE: Checks after discharge: Check blood sugar, ac/hs FOLLOW-UP: PCP to follow Home Health: yes Follow up with: Dr.Pratip Schroeder in 1 week, Telemedicine visit Follow Up With: Wound care center, Dr.Arundhati Mooney DC TO [facility] LABS: Finger sticks AC,HS. CBC,CMP twice a week TREATMENT/EQUIPMENT ORDERS: Adaptive Equipment Issued: None CERTIFICATION STATEMENT: Certification Statement: Certification Statement: Based on the above finding, I certify that this patient is confined to the home and needs intermittent group home care, physical therapy and/or speech therapy, or continues to need occupational therapy.~ This patient is under my care, and I have initiated the establishment of the plan of care.~ This patient will be followed by myself or a community physician who will periodically review the plan of care. Home Meds Active Scripts Potassium Chloride (KLOR-CON 10) 10 Meq Tablet.er, 2 TAB PO DAILYWBKFT for hypokalemia for 30 Days, #60 TAB 5 Refills Prov:PRO SCHROEDER MD 01/21/22 Furosemide (FUROSEMIDE) 40 Mg Tablet, 1 TAB PO DAILY for CHF, #30 TAB 5 Refills Prov:PRO SCHROEDER MD 01/21/22 Prochlorperazine Maleate (Compazine) 10 Mg Tablet, 1 TAB PO Q6HRS for Nausea for 30 Days, #120 TAB 0 Refills Prov:PRO SCHROEDER MD 01/13/22 Lidocaine (Lidocaine PATCH ) 1 Each Adh..patch, 1 PATCH TD DAILY for Pain for 30 Days, #30 PATCH Prov:PRO SCHROEDER MD 01/13/22 Insulin Glargine,Hum.rec.anlog (LANTUS) 100 Unit/1 Ml Vial, 6 UNIT SQ DAILY10 for DM for 30 Days, #5 EACH Prov:PRO SCHROEDER MD 01/13/22 Doxazosin Mesylate (DOXAZOSIN MESYLATE) 2 Mg Tablet, 1 TAB PO DAILY for HTN for 30 Days, #30 TAB 5 Refills Prov:PRO SCHROEDER MD 01/13/22 Clonidine Hcl (CLONIDINE HCL) 0.1 Mg Tablet, 0.1 MG PO BID for HTN for 30 Days, #60 TAB Hold if gloria rate less than 55/min Prov:PRO SCHROEDER MD 01/13/22 Atenolol (ATENOLOL) 50 Mg Tablet, 50 MG PO BID for HTN for 30 Days, #60 TAB Hold if BP less thaan 100, heart rate less than 55. Prov:PRO SCHROEDER MD 01/10/22 [Diclofenac Sodium 1% Topical] 100 GM GEL..GRAM. No Conflict Check, 1 MAURICIO TP BID for arthritis for 14 Days, #28 EACH Prov:PRO SCHROEDER MD 01/10/22 Nystatin (NYSTATIN) 15 Gm Cream..g., 1 MAURICIO TP BID for skin candidiasis for 14 Days, #28 EACH Prov:PRO SCHROEDER MD 01/10/22 Acetaminophen (ACETAMINOPHEN) 325 Mg Tablet, 650 MG PO PRN Q6HRS PRN for MILD PAIN / TEMP > 100.3'F for 7 Days, TAB Prov:PRO SCHROEDER MD 01/10/22 Heparin Sodium,Porcine (HEPARIN SODIUM) 5,000 Unit/1 Ml Vial, 5000 UNIT SQ Q12HR for DVT prophylaxis for 14 Days, EACH Prov:PRO SCHROEDER MD 01/10/22 Reported Medications Tramadol Hcl (TRAMADOL HCL) 100 Mg Tbmp.24hr, 100 MG PO Q6H PRN for PAIN, TAB 0 Refills 07/06/20 Tizanidine Hcl (TIZANIDINE HCL) 4 Mg Tablet, 1 TAB PO QHS for muscle spasms, #30 TAB 07/06/20 Rabeprazole Sodium (ACIPHEX) 20 Mg Tablet.dr, 1 TAB PO DAILY, #90 TAB 1 Refill 05/13/16 Amlodipine Besylate (AMLODIPINE BESYLATE) 5 Mg Tablet, 5 MG PO DAILY, TAB 05/13/16 Mirtazapine (MIRTAZAPINE) 15 Mg Tablet, 15 MG PO DAILY, TAB 05/13/16 Hydroxychloroquine Sulfate (HYDROXYCHLOROQUINE SULFATE) 200 Mg Tablet, 1 TAB PO BID, #180 TAB 1 Refill 05/13/16 Discontinued Scripts Tigecycline (TYGACIL) 50 Mg Vial, 50 MG IV Q12HR for wound infection for 10 Days, #20 EACH Prov:PRO SCHROEDER MD 01/10/22 PRO SCHROEDER MD January 21, 2022 09:29
[2022-01-21 09:31] LABS: BASO # 0.1 x10^3/uL (0.0-0.2); BASO % 1 % (0-3); EOS # 0.5 x10^3/uL (0.0-0.7); EOS % 5 % (0-3); HEMATOCRIT 28.7 % (36.0-47.0); HEMOGLOBIN 9.1 g/dL (12.0-15.5); LYMPH # 1.6 x10^3/uL (1.0-4.8); LYMPH % 17 % (24-48); MEAN CORPUSCULAR HEMOGLOBIN 27 pg (25-35); MEAN CORPUSCULAR HGB CONC 32 g/dL (31-37); MEAN CORPUSCULAR VOLUME 84 fL (79-100); MONO % 10 % (0-9); NEUT # 6.4 x10^3/uL (1.8-7.7); NEUT % 68 % (31-73); PLATELET COUNT 271 x10^3/uL (140-400); RED BLOOD COUNT 3.41 x10^6/uL (3.50-5.40); RED CELL DISTRIBUTION WIDTH 16.1 % (11.5-14.5); WHITE BLOOD COUNT 9.5 x10^3/uL (4.0-11.0)
--- NOTE | 2022-01-21 09:36 | PDOC3 ---
IM DISCHARGE SUMMARY Date of Admission Date of Admission Date of Admission: January 18, 2022 at 14:11 Date of Discharge Date of Discharge 01/21/22 Primary Diagnosis Primary Diagnosis 1. Bilateral foot wounds nonhealing with infection. 2. Right arm swelling with IV PICC line, IV infiltration. 3. Diabetes mellitus type 2 with neuropathy. 4. Peripheral artery disease. 5. Chronic lymphedema. 6. Hypertension. 7. Rheumatoid arthritis. 8. Osteoarthritis. 9. Hyperglycemia 10. Fatty liver. 11. Diverticulosis. 12. Severe protein calorie malnutrition. 13. Hyperlipidemia. 14. History of migraine headaches. 15. Chronic kidney disease to stage 2. 16. Anemia, iron deficiency. 17. Acute on chronic diastolic congestive heart failure Consults Consults Reg Hatfield MD; Regino Botello MD; Mando Mooney MD Labs Labs Laboratory Tests Test 01/20/22 11:58 01/20/22 22:10 01/21/22 07:33 Glucose (Fingerstick) 85 mg/dL (70-99) 188 mg/dL (70-99) H 138 mg/dL (70-99) H Brief hospital course Brief hospital course This 66-year-old female who has nonhealing bilateral heel wounds, complicated by lymphedema and wound culture showing Acinetobacter Staph aureus, MRSA, and Clostridium perfringens, was treated during the last admission at the end of December 2021, initially with IV Rocephin and then tigecycline and then daptomycin, minocycline and meropenem. The patient was sent home with IV antibiotics as she did not want to go to longterm. A PICC line was placed in the right upper extremity on 01/10/2022. It infiltrated at home. The patient was discharged home on 01/16/2022. The PICC line infiltrated at home and because of the increasing right upper extremity swelling and pain, the patient was brought to the Emergency Room. In the Emergency Room, the patient was noted to have significant swelling. A PICC line was removed. A new PICC line could not be placed until Thursday. The patient also had leukocytosis and significant pain and because of that the patient was admitted for further evaluation and management. For more details regarding the past history, family history, social history, surgical history and other details, please refer to the H&P. Consult Dr. Mooney for Infectious Disease evaluation and management. Some clarification of the IV antibiotics at home is needed. The patient also has leukocytosis. A PICC line in the right upper extremity has been removed. The patient has a peripheral likely external jugular in the neck at this time. She will need another line to be placed on Thursday. Prognosis of this patient is very poor due to her multiple medical problems. She also has fluid retention and hypokalemia. We will replace potassium. Because of the hypokalemia, I will wait until this afternoon to give her IV Lasix. I feel that even the patient wants to go back home when ready. She should actually go to a longterm because of her multiple medical problems and IV issues. For details, please refer to the orders. Bilateral heel wounds. Continue IV daptomycin, meropenem and minocycline. Fluid retention. Congestive heart failure. Acute on chronic diastolic. Consult Dr. Armstrong for cardiology evaluation and management. Patient is agreeable to IV Lasix. She does not want Mccray catheter. She wants IV potassium only. I have encouraged her to eat high potassium foods. Check BNP Hypokalemia. Replace potassium. Patient states that she does not have any problems going to a [facility] it which she should but because of her expensive antibiotics [facility] units are not willing to accept her. PICC line infiltration of the right upper extremity and swelling of both upper extremities. Slightly better. Bilateral venous Dopplers of upper extremities are negative for DVT. Clinically improving. Labs are pending. Patient does not want to go to longterm as nursing homes are not excepting her because of high cost of antibiotics. She wants to go home. Discharge home with home health services. She has 10 steps in her house to get inside. So she will not be able to stay off the feet. I have strongly advised her to stay off her feet. I have advised her to use bedside commode. She is reluctant to use Lasix and potassium chloride. Agreeable to use potassium if smaller pills. I will give her IV Lasix and potassium this morning. I have told her that if her swelling does not improve then her wounds will also not heal. Long-term as well as short-term prognosis of this patient is very poor due to her multiple medical problems. Discharge home with IV daptomycin and Invanz. Discharge antibiotics per infectious disease specialist. Discussed with staff. Medications Medications reviewed and reconciled for discharge. Home Meds Active Scripts Potassium Chloride (RADHAOR-CON 10) 10 Meq Tablet.er, 2 TAB PO DAILYWBKFT for hypokalemia for 30 Days, #60 TAB 5 Refills Prov:PRO SCHROEDER MD 01/21/22 Furosemide (FUROSEMIDE) 40 Mg Tablet, 1 TAB PO DAILY for CHF, #30 TAB 5 Refills Prov:PRO SCHROEDER MD 01/21/22 Prochlorperazine Maleate (Compazine) 10 Mg Tablet, 1 TAB PO Q6HRS for Nausea for 30 Days, #120 TAB 0 Refills Prov:PRO SCHROEDER MD 01/13/22 Lidocaine (Lidocaine PATCH ) 1 Each Adh..patch, 1 PATCH TD DAILY for Pain for 30 Days, #30 PATCH Prov:PRO SCHROEDER MD 01/13/22 Insulin Glargine,Hum.rec.anlog (LANTUS) 100 Unit/1 Ml Vial, 6 UNIT SQ DAILY10 for DM for 30 Days, #5 EACH Prov:PRO SCHROEDER MD 01/13/22 Doxazosin Mesylate (DOXAZOSIN MESYLATE) 2 Mg Tablet, 1 TAB PO DAILY for HTN for 30 Days, #30 TAB 5 Refills Prov:PRO SCHROEDER MD 01/13/22 Clonidine Hcl (CLONIDINE HCL) 0.1 Mg Tablet, 0.1 MG PO BID for HTN for 30 Days, #60 TAB Hold if gloria rate less than 55/min Prov:PRO SCHROEDER MD 01/13/22 Atenolol (ATENOLOL) 50 Mg Tablet, 50 MG PO BID for HTN for 30 Days, #60 TAB Hold if BP less thaan 100, heart rate less than 55. Prov:PRO SCHROEDER MD 01/10/22 [Diclofenac Sodium 1% Topical] 100 GM GEL..GRAM. No Conflict Check, 1 MAURICIO TP BID for arthritis for 14 Days, #28 EACH Prov:PRO SCHROEDER MD 01/10/22 Nystatin (NYSTATIN) 15 Gm Cream..g., 1 MAURICIO TP BID for skin candidiasis for 14 Days, #28 EACH Prov:PRO SCHROEDER MD 01/10/22 Acetaminophen (ACETAMINOPHEN) 325 Mg Tablet, 650 MG PO PRN Q6HRS PRN for MILD PAIN / TEMP > 100.3'F for 7 Days, TAB Prov:PRO SCHROEDER MD 01/10/22 Heparin Sodium,Porcine (HEPARIN SODIUM) 5,000 Unit/1 Ml Vial, 5000 UNIT SQ Q12HR for DVT prophylaxis for 14 Days, EACH Prov:PRO SCHROEDER MD 01/10/22 Reported Medications Tramadol Hcl (TRAMADOL HCL) 100 Mg Tbmp.24hr, 100 MG PO Q6H PRN for PAIN, TAB 0 Refills 07/06/20 Tizanidine Hcl (TIZANIDINE HCL) 4 Mg Tablet, 1 TAB PO QHS for muscle spasms, #30 TAB 07/06/20 Rabeprazole Sodium (ACIPHEX) 20 Mg Tablet.dr, 1 TAB PO DAILY, #90 TAB 1 Refill 05/13/16 Amlodipine Besylate (AMLODIPINE BESYLATE) 5 Mg Tablet, 5 MG PO DAILY, TAB 05/13/16 Mirtazapine (MIRTAZAPINE) 15 Mg Tablet, 15 MG PO DAILY, TAB 05/13/16 Hydroxychloroquine Sulfate (HYDROXYCHLOROQUINE SULFATE) 200 Mg Tablet, 1 TAB PO BID, #180 TAB 1 Refill 05/13/16 Discontinued Scripts Tigecycline (TYGACIL) 50 Mg Vial, 50 MG IV Q12HR for wound infection for 10 Days, #20 EACH Prov:PRO SCHROEDER MD 01/10/22 Allergy Allergies Coded Allergies Type Severity Reaction Last Updated Verified Penicillins Allergy Intermediate Rash 07/14/17 Yes benzocaine Allergy Intermediate Shortness of Air 07/14/17 Yes lidocaine Allergy Intermediate Shortness of Air 07/14/17 Yes losartan Allergy Intermediate Rash 07/14/17 Yes tetracaine Allergy Intermediate Shortness of Air 07/14/17 Yes I S O L A T I O N *CONTACT* Allergy Unknown 01/12/22 Yes hydralazine Adverse Reaction Intermediate BLOOD PRESSURE DROPPED TOO LOW 01/12/22 Yes Follow up in 5 days. Comments Discharge Management - 35 minutes. For other details please refer to discharge instructions Justicifation of Admission Dx: Justifications for Admission: Justification of Admission Dx: Comment: PRO SCHROEDER MD January 21, 2022 09:36
[2022-01-21 09:54] LABS: ALBUMIN 1.6 g/dL (3.4-5.0); ALBUMIN/GLOBULIN RATIO 0.4 (1.0-1.7); CALCIUM 7.4 mg/dL (8.5-10.1); CREATININE 1.3 mg/dL (0.6-1.0); GFR 49.4; POTASSIUM 3.5 mmol/L (3.5-5.1); TOTAL BILIRUBIN 0.4 mg/dL (0.2-1.0); TOTAL PROTEIN 5.5 g/dL (6.4-8.2)
[2022-01-21] MEDS ORDERED: FUROSEMIDE 40 MG/4 ML VIAL. IVP SCH (10:00)
[2022-01-21] MEDS: POTASSIUM CHLORIDE 10MEQ 100 ML IV SCH ×2 (10:06→12:42)
--- NOTE | 2022-01-21 10:24 | PDOC ---
TOM CALIX DIRECTOR SOCIAL WELFARE 01/21/22 1024: CARDIO Progress Notes Date and Time Date of Service 01/21/2022 Time of Evaluation 1020 Subjective Subjective: No Chest Pain, No shortness of breath, No Palpitations Vitals Vitals Vital Signs Date Time Temp Pulse Resp B/P (MAP) Pulse Ox O2 Delivery O2 Flow Rate FiO2 01/21/22 09:09 62 168/61 01/21/22 07:00 97.9 14 96 Room Air 97.9 Weight Weight [ ] Input and Output Intake and Output Intake and Output 01/21/22 07:00 Intake Total 400 ml Output Total 1 ml Balance 399 ml Intake Oral 400 ml Stool Total 1 ml # Voids 2 Laboratory Labs Laboratory Tests Test 01/20/22 11:58 01/20/22 22:10 01/21/22 07:33 01/21/22 09:15 Glucose (Fingerstick) 85 mg/dL (70-99) 188 mg/dL (70-99) 138 mg/dL (70-99) White Blood Count 9.5 x10^3/uL (4.0-11.0) Red Blood Count 3.41 x10^6/uL (3.50-5.40) Hemoglobin 9.1 g/dL (12.0-15.5) Hematocrit 28.7 % (36.0-47.0) Mean Corpuscular Volume 84 fL (79-100) Mean Corpuscular Hemoglobin 27 pg (25-35) Mean Corpuscular Hemoglobin Concent 32 g/dL (31-37) Red Cell Distribution Width 16.1 % (11.5-14.5) Platelet Count 271 x10^3/uL (140-400) Neutrophils (%) (Auto) 68 % (31-73) Lymphocytes (%) (Auto) 17 % (24-48) Monocytes (%) (Auto) 10 % (0-9) Eosinophils (%) (Auto) 5 % (0-3) Basophils (%) (Auto) 1 % (0-3) Neutrophils # (Auto) 6.4 x10^3/uL (1.8-7.7) Lymphocytes # (Auto) 1.6 x10^3/uL (1.0-4.8) Monocytes # (Auto) 1.0 x10^3/uL (0.0-1.1) Eosinophils # (Auto) 0.5 x10^3/uL (0.0-0.7) Basophils # (Auto) 0.1 x10^3/uL (0.0-0.2) Sodium Level 144 mmol/L (136-145) Potassium Level 3.5 mmol/L (3.5-5.1) Chloride Level 108 mmol/L (98-107) Carbon Dioxide Level 29 mmol/L (21-32) Anion Gap 7 (6-14) Blood Urea Nitrogen 9 mg/dL (7-20) Creatinine 1.3 mg/dL (0.6-1.0) Estimated GFR (Cockcroft-Gault) 49.4 BUN/Creatinine Ratio 7 (6-20) Glucose Level 181 mg/dL (70-99) Calcium Level 7.4 mg/dL (8.5-10.1) Total Bilirubin 0.4 mg/dL (0.2-1.0) Aspartate Amino Transf (AST/SGOT) 37 U/L (15-37) Alanine Aminotransferase (ALT/SGPT) 31 U/L (14-59) Alkaline Phosphatase 151 U/L (46-116) Creatine Kinase 88 U/L (26-192) GU-Kmz-N-Type Natriuretic Peptide 1341 pg/mL (0-124) Total Protein 5.5 g/dL (6.4-8.2) Albumin 1.6 g/dL (3.4-5.0) Albumin/Globulin Ratio 0.4 (1.0-1.7) Physical Exam HEENT: Neck Supple W Full Motion Chest: Symmetric LUNGS: Other (diminished bases) Heart: S1S2, RRR (no tele) Abdomen: Soft N/T, Other (obese) Extremities: Other (chronic lymphedema) Neurology: alert, oriented, follow commands Assessment Assessment 1. Right upper extremity edema secondary to PICC line infiltration; s/p removal. No DVT 2. Non-healing bilateral foot wounds; angiogram 07/03 without significant peripheral artery disease. Recently evaluated by vascular- no significant arterial insufficiency suspected to be contributing to her wound healing difficulties 3. Chronic LE lymphedema 4. Mild acute on chronic diastolic CHF; Echo 07/03 with LVEF 60-65% better compensated 4. Hypertension; mildlly labile 5. Hyperlipidemia 6. Diabetes, II 7. CKD; Cr stable 8. Hypokalemia; replaced 9. Morbid obesity Recommendations Lasix therapy, Continue current BP regimen, HBPM Outpatient echocardiogram Ongoing wound care and offloading of her bilateral heel ulcerations Supportive care Justicifation of Admission Dx: Justifications for Admission: Justification of Admission Dx: Comment: CHRISTIANO NARVAEZ MD 01/21/22 1445: CARDIO Progress Notes Assessment Assessment Patient seen and examined. Agree with WAFER PRODUCTION LEAD WORKER's assessment and plan. RUE edema secondary to PICC line infiltration Acute on chr diast HF better compensated Non-healing wounds in feet not from PAD based on recent angio - continue wound care Agree with outpatient echo TOM CALIX APRN January 21, 2022 10:24 CHRITSIANO NARVAEZ MD January 21, 2022 14:45
[2022-01-21 11:00] VITALS: BP 147/44
[2022-01-21] MEDS: DAPTOmycin (GENERIC) IVPB 570 MG in IV NORMAL SALINE 50ML 50 ML IV SCH (13:59)
[2022-01-21 15:00] VITALS: BP 151/58
--- NOTE | 2022-01-21 15:50 | PDOC ---
Infectious Disease Note Subjective: Subjective Patient feels much better Denies any fever, nausea, vomiting, diarrhea, abdominal pain Vital Signs: Vital Signs Vital Signs Date Time Temp Pulse Resp B/P (MAP) Pulse Ox O2 Delivery O2 Flow Rate FiO2 01/21/22 15:00 98.5 66 14 151/58 (89) 97 Room Air 98.5 Physical Exam: PHYSICAL EXAM GENERAL: Alert, oriented x 3 female, lying in bed comfortably, in no acute distress. HEENT: Normocephalic, atraumatic. Anicteric. No thrush. NECK: Supple. LUNGS: Clear. HEART: S1, S2. ABDOMEN: Soft, nontender, obese. Bowel sounds present. EXTREMITIES: Edema present in the right upper extremity with some bruising, ecchymosis, especially at the previous PICC line, chronic lymphedema of lower extremities with bilateral heel wounds. Please refer to wound care nurse notes for details. CENTRAL NERVOUS SYSTEM: Alert, oriented x 3, grossly nonfocal. PSYCHIATRIC: Calm and cooperative. PICC line left upper extremity clean Medications: Inpatient Meds: Medications reviewed. Labs: Lab Laboratory Tests Test 01/20/22 22:10 01/21/22 07:33 01/21/22 09:15 01/21/22 11:06 Glucose (Fingerstick) 188 mg/dL (70-99) 138 mg/dL (70-99) 187 mg/dL (70-99) White Blood Count 9.5 x10^3/uL (4.0-11.0) Red Blood Count 3.41 x10^6/uL (3.50-5.40) Hemoglobin 9.1 g/dL (12.0-15.5) Hematocrit 28.7 % (36.0-47.0) Mean Corpuscular Volume 84 fL (79-100) Mean Corpuscular Hemoglobin 27 pg (25-35) Mean Corpuscular Hemoglobin Concent 32 g/dL (31-37) Red Cell Distribution Width 16.1 % (11.5-14.5) Platelet Count 271 x10^3/uL (140-400) Neutrophils (%) (Auto) 68 % (31-73) Lymphocytes (%) (Auto) 17 % (24-48) Monocytes (%) (Auto) 10 % (0-9) Eosinophils (%) (Auto) 5 % (0-3) Basophils (%) (Auto) 1 % (0-3) Neutrophils # (Auto) 6.4 x10^3/uL (1.8-7.7) Lymphocytes # (Auto) 1.6 x10^3/uL (1.0-4.8) Monocytes # (Auto) 1.0 x10^3/uL (0.0-1.1) Eosinophils # (Auto) 0.5 x10^3/uL (0.0-0.7) Basophils # (Auto) 0.1 x10^3/uL (0.0-0.2) Sodium Level 144 mmol/L (136-145) Potassium Level 3.5 mmol/L (3.5-5.1) Chloride Level 108 mmol/L (98-107) Carbon Dioxide Level 29 mmol/L (21-32) Anion Gap 7 (6-14) Blood Urea Nitrogen 9 mg/dL (7-20) Creatinine 1.3 mg/dL (0.6-1.0) Estimated GFR (Cockcroft-Gault) 49.4 BUN/Creatinine Ratio 7 (6-20) Glucose Level 181 mg/dL (70-99) Calcium Level 7.4 mg/dL (8.5-10.1) Total Bilirubin 0.4 mg/dL (0.2-1.0) Aspartate Amino Transf (AST/SGOT) 37 U/L (15-37) Alanine Aminotransferase (ALT/SGPT) 31 U/L (14-59) Alkaline Phosphatase 151 U/L (46-116) Creatine Kinase 88 U/L (26-192) XL-Gzz-P-Type Natriuretic Peptide 1341 pg/mL (0-124) Total Protein 5.5 g/dL (6.4-8.2) Albumin 1.6 g/dL (3.4-5.0) Albumin/Globulin Ratio 0.4 (1.0-1.7) Micro MICRO: Blood culture on 01/06 was negative. Urine culture on 01/06, more than 3 colonies, likely colonization. Wound cultures positive for MRSA, Clostridium perfringens and Acinetobacter baumannii. Objective: Assessment: Leukocytosis resolved could have been reactive. 1. Right upper extremity PICC line infiltration, Doppler negative for deep venous thrombosis, admitted for IV access. 2. 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 Cultures positive for MRSA, Clostridium perfringens and Acinetobacter baumannii. 3. Morbid obesity. 4. Diabetes mellitus. 5. Hypertension. 6. Rheumatoid arthritis. 7. Nausea and vomiting, improved. 8. Enterococcus avium on urine culture with other organisms, could be contaminant. 10. CHF Plan: Plan of Care 1. Continue daptomycin and meropenem. When ready for discharge will transition to daptomycin, Invanz, minocycline 2. Offload. 3. Local wound care as directed. 4. Monitor labs and cultures 5. Maintain aspiration precautions. 6. Left upper extremity ultrasound negative for DVT Follow-up in ID clinic in 2 weeks Discussed with case management KAYODE MAYES MD January 21, 2022 15:50
--- NOTE | 2022-01-21 18:12 | NUR ---
Discharge Note: MARLENI LEOS Discharge instructions and discharge home medications reviewed with Patient and a copy given. All questions have been answered and understanding verbalized. The following instructions and handouts were given: follow up instructions, medication education Discontinued lines and drains: PICC line in place on discharge for long term care pharmacist antibiotics. Patient discharged to home with home health via stretcher transport.
== END 2022-01-21 18:12 | disposition home health service (06) | DRG 314 ==
LOC: ER 11:16 → ED HOLD 14:11 → 4 NORTH 17:37
PROVIDERS: ADMIT Internal Medicine; ATTEND Internal Medicine
PROC: 02HV33Z Insertion of Infusion Device into Superior Vena Cava, Percutaneous Approach (ICD-10-PCS; principal; 2022-01-20)
PROC: B548ZZA Ultrasonography of Superior Vena Cava, Guidance (ICD-10-PCS; 2022-01-20)
PROC: 02PYX3Z Removal of Infusion Device from Great Vessel, External Approach (ICD-10-PCS; 2022-01-20)
DX: T82.898A Other specified complication of vascular prosthetic devices, implants and grafts, initial encounter (principal); E43 Unspecified severe protein-calorie malnutrition; I50.33 Acute on chronic diastolic (congestive) heart failure; I13.0 Hypertensive heart and chronic kidney disease with heart failure and stage 1 through stage 4 chronic kidney disease, or unspecified chronic kidney disease; Z68.43 Body mass index [BMI] 50.0-59.9, adult; S91.301A Unspecified open wound, right foot, initial encounter; S91.302A Unspecified open wound, left foot, initial encounter; E11.43 Type 2 diabetes mellitus with diabetic autonomic (poly)neuropathy; E11.65 Type 2 diabetes mellitus with hyperglycemia; D50.9 Iron deficiency anemia, unspecified; D86.9 Sarcoidosis, unspecified; E11.22 Type 2 diabetes mellitus with diabetic chronic kidney disease; E11.51 Type 2 diabetes mellitus with diabetic peripheral angiopathy without gangrene; E66.01 Morbid (severe) obesity due to excess calories; E78.5 Hyperlipidemia, unspecified; E87.6 Hypokalemia; I89.0 Lymphedema, not elsewhere classified; K57.90 Diverticulosis of intestine, part unspecified, without perforation or abscess without bleeding; K76.0 Fatty (change of) liver, not elsewhere classified; M06.9 Rheumatoid arthritis, unspecified; M19.90 Unspecified osteoarthritis, unspecified site; M79.7 Fibromyalgia; N18.2 Chronic kidney disease, stage 2 (mild); Z82.49 Family history of ischemic heart disease and other diseases of the circulatory system; Z83.3 Family history of diabetes mellitus; Z90.710 Acquired absence of both cervix and uterus; F41.9 Anxiety disorder, unspecified; G43.909 Migraine, unspecified, not intractable, without status migrainosus; K21.9 Gastro-esophageal reflux disease without esophagitis; G89.29 Other chronic pain; Z20.822 Contact with and (suspected) exposure to COVID-19; Z88.0 Allergy status to penicillin; Z88.8 Allergy status to other drugs, medicaments and biological substances; Z90.49 Acquired absence of other specified parts of digestive tract; B95.62 Methicillin resistant Staphylococcus aureus infection as the cause of diseases classified elsewhere; B96.7 Clostridium perfringens [C. perfringens] as the cause of diseases classified elsewhere; B95.2 Enterococcus as the cause of diseases classified elsewhere
CPT/HCPCS: 36415; 36569; 71045; 73060; 73090; 80053; 82550; 82962; 83735; 83880; 85025; 93971; J0878; J1644; J1940; J2185; J3480; 99285-25; G0378; Q0164

== ENCOUNTER → 2022-02-06 | Outpatient (CLI) | payer MEDICARE, OTHER ==
[2022-01-21 15:00] VITALS: BP 151/58
[~2022-02-06] MED LIST changes: +POTA10TA12 PO
--- NOTE | 2022-02-06 17:10 | CARD ---
MR#: [id number] Date of Study: 02/06/2022 Ordering Physician: CHRISTIANO NARVAEZ, Referring Physician: Keely GUERRA: FAYE REECE [facility] APPROVED REPORT EXAM: Two-dimensional and M-mode echocardiogram with Doppler and color Doppler. Other Information Quality : GoodHR: 71bpm Rhythm : NSRTechnically limited study due to Study done with patient sitting in chair. INDICATION Congestive Heart Failure RISK FACTORS Obesity 2D DIMENSIONS RVDd2.6 (2.9-3.5cm)Left Atrium(2D)3.6 (1.6-4.0cm) IVSd1.1 (0.7-1.1cm)Aortic Root(2D)2.6 (2.0-3.7cm) LVDd5.0 (3.9-5.9cm)LVOT Diameter1.8 (1.8-2.4cm) PWd1.2 (0.7-1.1cm)LVDs3.4 (2.5-4.0cm) FS (%) 32.1 %SV72.1 ml Aortic Valve AoV Peak Alejandro.165.7cm/Meredith Peak GR.11.3mmHg LVOT Peak Alejandro.72.8cm/sAVA (VMAX)1.09cm2 Mitral Valve MV E Mvodmlgh04.7cm/sMV A Nzqljgum912.2cm/s E/A Ratio0.7 Tricuspid Valve TR P. Tyjdkbuj496mk/sRAP [id number] TR Peak Gr.[id number] LEFT VENTRICLE The left ventricle is normal size. There is normal left ventricular wall thickness. The left ventricu lar systolic function is normal. LV ejection fraction is 55 to 60%. There is normal LV segmental wall motion. The left ventricular diastolic function is normal. No left ventricle thrombus noted on this study. There is no ventricular septal defect visualized. There is no left ventricular aneurysm. There is no mass noted in the left ventricle. RIGHT VENTRICLE The right ventricle is normal size. There is normal right ventricular wall thickness. The right ventr icular systolic function is normal. ATRIA The left atrium size is normal. The right atrium size is normal. The interatrial septum is intact wit h no evidence for an atrial septal defect or patent foramen ovale as noted on 2-D or Doppler imaging. AORTIC VALVE The aortic valve is normal in structure and function. Doppler and Color Flow revealed no significant aortic regurgitation. There is no significant aortic valvular stenosis. There is no aortic valvular v egetation. MITRAL VALVE The mitral valve is normal in structure and function. There is no evidence of mitral valve prolapse. There is no mitral valve stenosis. Doppler and Color-flow revealed mild mitral regurgitation. TRICUSPID VALVE The tricuspid valve is normal in structure and function. Doppler and Color Flow revealed mild tricusp id regurgitation. There is no tricuspid valve prolapse or vegetation. There is no tricuspid valve amanda nosis. PULMONIC VALVE The pulmonary valve is normal in structure and function. There is no pulmonic valvular regurgitation. There is no pulmonic valvular stenosis. GREAT VESSELS The aortic root is normal in size. The ascending aorta is normal in size. The pulmonary artery is nor mal. The IVC is normal in size and collapses >50% with inspiration. PERICARDIAL EFFUSION There is no pleural effusion. The pericardium appears normal. Critical Notification Critical Value: No <Conclusion> The left ventricle is normal size. The left ventricular systolic function is normal. LV ejection fraction is 55 to 60%. Doppler and Color Flow revealed no significant aortic regurgitation. There is no significant aortic valvular stenosis. Doppler and Color-flow revealed mild mitral regurgitation. Doppler and Color Flow revealed mild tricuspid regurgitation. Signed by : Regino Botello MD Electronically Approved : 02/06/2022 17:10:16
== END ==
LOC: ECHO 13:27
PROVIDERS: ATTEND Internal Medicine Cardiovascular Disease
DX: I08.1 Rheumatic disorders of both mitral and tricuspid valves (principal); I50.9 Heart failure, unspecified
CPT/HCPCS: 93306; C8929